=== PATIENT | female | born 1935 | race Native Hawaiian/Other Pacific Islander ===

== ENCOUNTER → 2024-12-09 | Outpatient (CLI) | payer MEDICARE, MEDICAID, SELFPAY ==
--- NOTE | 2024-12-09 11:47 | EKG_ITS ---
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
[2024-12-09 12:05] LABS: Basophils # (Auto) 0.1 Thou/mm3 (0.0-0.2); Basophils % (Auto) 1 % (0-2.5); Eosinophils # (Auto) 0.1 Thou/mm3 (0.0-0.5); Eosinophils % (Auto) 2 % (0-10); Hemoglobin 11.2 g/dL (12.0-16.0); Immature Granulocytes % (Auto) 0 % (0-0); Immature Granulocytes Auto 0.01 Thou/mm3 (0.00-0.00); Lymphocytes # (Auto) 1.2 Thou/mm3 (1.0-4.8); Lymphocytes % (Auto) 21 % (10-50); Mean Corpuscular HGB Conc 31.1 g/dl (31.0-37.0); Mean Corpuscular Hemoglobin 22.6 pg (25.0-35.0); Mean Corpuscular Volume 73 fL (80-100); Monocytes # (Auto) 0.5 Thou/mm3 (0.0-0.8); Monocytes % (Auto) 10 % (0-12); Neutrophils # (Auto) 3.7 Thou/mm3 (1.8-7.7); Neutrophils % (Auto) 66 % (37-80); Nucleated Red Blood Cell % 0 /100 WBC (0); Platelet Count 255 Thou/mm3 (140-440); RDW Standard Deviation 39.8 fL (36.4-46.3); Red Blood Count 4.96 Miln/mm3 (4.00-5.20); White Blood Count 5.5 Thou/mm3 (3.6-11.0)
[2024-12-09 12:12] LABS: Prothrombin Time 10.9 Seconds (9.0-12.2)
[2024-12-09 12:18] LABS: Alanine Aminotransferase 22 U/L (10-49); Albumin, Serum 4.2 gm/dL (3.4-4.8); Albumin/Globulin Ratio 1.2 (1.2-2.2); Alkaline Phosphatase 40 U/L (46-116); Anion Gap 8 (7-16); Aspartate Amino Transferase 49 U/L (0-34); BUN/Creatinine Ratio 22 Ratio (12-20); Bilirubin,Total 0.6 mg/dL (0.3-1.2); Blood Urea Nitrogen 24 mg/dL (9-23); Carbon Dioxide 27.7 mMol/L (20.0-31.0); Chloride 106 mMol/L (98-107); Creatinine (Component) 1.1 mg/dL (0.6-1.3); Globulin 3.5 gm/dL (2.3-3.5); Glucose 116 mg/dL (74-106); Osmolality,Calculated 288 (275-295); Potassium 5.9 mMol/L (3.4-5.1); Sodium 142 mMol/L (136-145); Total Protein 7.7 gm/dL (5.7-8.2); eGFR 48 See Note
== END | disposition home or self-care (01) ==
LOC: COPL 10:46
PROVIDERS: PCP Internal Medicine; Referring Provider Surgery Vascular Surgery; Visit Provider Surgery Vascular Surgery
DX: Z01.818 Encounter for other preprocedural examination (principal); I73.9 Peripheral vascular disease, unspecified; Z79.01 Long term (current) use of anticoagulants
CPT/HCPCS: 36415; 80053; 85025; 85610; 85730; 93005

== ENCOUNTER → 2024-12-20 | Outpatient (CLI) | payer MEDICARE, MEDICAID, SELFPAY ==
[2024-12-20 11:45] LABS: Collection Type, Urine Clean Catch
[2024-12-20 12:04] LABS: Basophils # (Auto) 0.1 Thou/mm3 (0.0-0.2); Basophils % (Auto) 2 % (0-2.5); Eosinophils # (Auto) 0.2 Thou/mm3 (0.0-0.5); Eosinophils % (Auto) 3 % (0-10); Hematocrit 34.1 % (36.0-46.0); Immature Granulocytes % (Auto) 0 % (0-0); Immature Granulocytes Auto 0.01 Thou/mm3 (0.00-0.00); Lymphocytes # (Auto) 1.3 Thou/mm3 (1.0-4.8); Lymphocytes % (Auto) 27 % (10-50); Mean Corpuscular HGB Conc 32.3 g/dl (31.0-37.0); Mean Corpuscular Hemoglobin 23.1 pg (25.0-35.0); Mean Corpuscular Volume 72 fL (80-100); Monocytes # (Auto) 0.5 Thou/mm3 (0.0-0.8); Monocytes % (Auto) 10 % (0-12); Neutrophils # (Auto) 2.9 Thou/mm3 (1.8-7.7); Neutrophils % (Auto) 58 % (37-80); Nucleated Red Blood Cell % 0 /100 WBC (0); Platelet Count 216 Thou/mm3 (140-440); RDW Standard Deviation 38.7 fL (36.4-46.3); Red Blood Count 4.76 Miln/mm3 (4.00-5.20); White Blood Count 4.9 Thou/mm3 (3.6-11.0)
[2024-12-20 12:15] LABS: Bacteria,Urine 1+; Bilirubin,Urine Negative (Negative); Blood,Urine Negative (Negative); Clarity,Urine Clear (Clear/Hazy); Color,Urine Lt-Yellow (Lt Yel-Yel); Glucose, Urine Negative (Negative); Ketones,Urine Negative (Negative); Leukocyte Esterase,Urine Positive (Negative); Nitrite,Urine Positive (Negative); PH,Urine 6.5 (5.0-7.0); Protein,Urine Trace (Neg - Trace); RBC,Urine 3 /hpf (0-3); Specific Gravity,Urine 1.014 (1.001-1.035); Squamous Epithelial Cell,Urine 1 /hpf (0-5); Urobilinogen,Urine Negative mg/dL (0.0-1.0); WBC,Urine 11 /hpf (0-5)
[2024-12-20 12:25] LABS: Alanine Aminotransferase 20 U/L (10-49); Albumin, Serum 4.1 gm/dL (3.4-4.8); Albumin/Globulin Ratio 1.4 (1.2-2.2); Alkaline Phosphatase 39 U/L (46-116); Anion Gap 6 (7-16); Aspartate Amino Transferase 34 U/L (0-34); BUN/Creatinine Ratio 21 Ratio (12-20); Bilirubin,Total 0.7 mg/dL (0.3-1.2); Blood Urea Nitrogen 23 mg/dL (9-23); Calcium 9.2 mg/dL (8.3-10.6); Calcium (Corrected) 9.2 mg/dL (8.5-10.1); Carbon Dioxide 28.9 mMol/L (20.0-31.0); Cardiac Risk Estimate 4.1 RATIO (3.7-5.6); Chloride 105 mMol/L (98-107); Cholesterol 251 mg/dL (132-200); Creatinine (Component) 1.1 mg/dL (0.6-1.3); Free T4 (Free Thyroxine) 1.27 ng/dL (0.89-1.76); Glucose 105 mg/dL (74-106); HDL Cholesterol 61 mg/dL (40-60); LDL Cholesterol,Calculated 158 mg/dL (0-130); Osmolality,Calculated 283 (275-295); Potassium 4.8 mMol/L (3.4-5.1); Sodium 140 mMol/L (136-145); Thyroid Stimulating Hormone 14.13 uIU/mL (0.55-4.78); Total Protein 7.1 gm/dL (5.7-8.2); Triglycerides 159 mg/dL (30-150); eGFR 48 See Note
== END | disposition home or self-care (01) ==
PROVIDERS: PCP Internal Medicine; Referring Provider Internal Medicine; Visit Provider Internal Medicine
DX: I10 Essential (primary) hypertension (principal); D50.0 Iron deficiency anemia secondary to blood loss (chronic)
CPT/HCPCS: 36415; 80053; 80061; 81001; 84439; 84443; 85025

== ENCOUNTER → 2024-12-31 | Outpatient (CLI) | payer MEDICARE, MEDICAID, SELFPAY ==
[2024-12-31 14:17] LABS: Alanine Aminotransferase 15 U/L (10-49); Albumin, Serum 4.1 gm/dL (3.4-4.8); Albumin/Globulin Ratio 1.2 (1.2-2.2); Anion Gap 10 (7-16); Aspartate Amino Transferase 29 U/L (0-34); BUN/Creatinine Ratio 22 Ratio (12-20); Bilirubin,Total 0.5 mg/dL (0.3-1.2); Blood Urea Nitrogen 29 mg/dL (9-23); Calcium 9.3 mg/dL (8.3-10.6); Calcium (Corrected) 9.3 mg/dL (8.5-10.1); Carbon Dioxide 26.2 mMol/L (20.0-31.0); Chloride 102 mMol/L (98-107); Creatinine (Component) 1.3 mg/dL (0.6-1.3); Globulin 3.4 gm/dL (2.3-3.5); Glucose 86 mg/dL (74-106); Osmolality,Calculated 280 (275-295); Potassium 4.9 mMol/L (3.4-5.1); Sodium 138 mMol/L (136-145); Total Protein 7.5 gm/dL (5.7-8.2); eGFR 40 See Note
[2024-12-31 14:42] LABS: Alkaline Phosphatase 43 U/L (46-116)
== END | disposition home or self-care (01) ==
PROVIDERS: PCP Internal Medicine; Referring Provider Internal Medicine; Visit Provider Internal Medicine
DX: E78.6 Lipoprotein deficiency (principal)
CPT/HCPCS: 36415; 80053

== ENCOUNTER 2025-01-14 17:09 | Inpatient (IN) | payer MEDICARE, MEDICAID, SELFPAY ==
[2025-01-14] VITALS (10 sets, daily range): BP systolic 92–150; BP diastolic 53–88; PULSE 28–78; RESP 16–24; TEMP 36.9–37; O2SAT 95–99
--- NOTE | 2025-01-14 17:14 | EKG_ITS ---
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
--- NOTE | 2025-01-14 17:14 | XR_ITS ---
EXAMINATION: XR chest 1V portable ORDERING PROVIDER: José Gordon MD HISTORY: CHEST PAIN TECHNIQUE: Single portable AP radiograph of the chest. COMPARISON: 04/28/2022, chest radiographs. FINDINGS: Lines and Tubes: Monitoring leads. Metallic neck less. Lungs: Diffuse decreased density. Mild linear opacities right greater than left mid and lower lung pinon. Increased interstitial reticular-nodular markings. Pleura: No pneumothorax or pleural effusion. Cardiomediastinal Silhouette: Mild cardiomegaly. Uncoiled aorta. Calcifications aortic arch. Soft Tissues/Bones: Diffuse osteopenia. Old healed right posterior lateral ninth rib fracture. Small calcification again seen right axilla. Rounded 1.2 cm soft tissue opacity overlying the right upper quadrant, likely prominent nipple shadow. IMPRESSION: Diffuse increased reticular nodular opacities with bilateral right greater than left mid to lower lung linear opacities. This may represent viral and/or other atypical infection. Background significant emphysema.
--- NOTE | 2025-01-14 17:17 | PD.EDADULT ---
ED General RME/HPI General Chief complaint: Syncope / Near Syncope Stated complaint: SYNCOPE Time Seen by Provider: 01/14/25 17:13 Arrival date/time: 01/14/25 17:09 RME / HPI RME / HPI narrative: Patient's brought in by EMS they were called to the home for diabetic problem but when they got there they found her heart rate to be 28, they evidently gave her atropine and her heart rate went up to 78 and a rhythm strip showed sinus rhythm at that point. Unfortunately were unable to capture the bradycardia. Patient was transported here without any chest pain or other problem and no recurrence of the bradycardia There is no fever vomiting diarrhea there is no other complaint or problem she is evidently diabetic. Patient speaks a little Sudanese seems understand things and no family is present at the initial evaluation Related Data Home Medications ?Medication ?Instructions ?Recorded ?Confirmed aspirin 81 mg tablet,delayed 81 mg PO QDAY 05/19/21 03/30/22 release cilostazol 50 mg tablet 50 mg PO BID 05/19/21 03/30/22 ferrous sulfate 325 mg (65 mg 325 mg PO BID 05/19/21 03/30/22 iron) tablet gabapentin 100 mg tablet 100 mg PO QDAY 05/19/21 03/30/22 levothyroxine 100 mcg tablet 100 mcg PO QDAY 05/19/21 03/30/22 multivitamin-ferrous 1 tab PO QAM 05/19/21 03/30/22 fumarate-folic acid 18 mg-400 mcg tablet spironolactone 25 mg tablet 12.5 mg PO QDAY 05/19/21 03/30/22 carvedilol 3.125 mg tablet 1 tab PO BID 03/30/22 03/30/22 diclofenac sodium 75 mg 75 mg PO QDAY 03/30/22 03/30/22 tablet,delayed release Previous Rx's ?Medication ?Instructions ?Recorded amoxicillin 500 mg-potassium 1 tab PO BID #20 tabs 03/29/22 clavulanate 125 mg tablet (Augmentin) Allergies Allergy/AdvReac Type Severity Reaction Status Date / Time No Known Allergies Allergy Verified 05/20/21 14:26 Review of Systems Review of Systems ROS Unobtainable: other (Language barrier hoping family will come and fill this in soon) ED Exam Narrative Physical exam: Physical Exam: General: The vital signs were reviewed. Patient small stature understand some Sudanese follows commands has a sinus rhythm on the monitor at but the gurney at bedside in the ambulance bay the patient is non-toxic, in no apparent distress and appears healthy with a patent airway, no respiratory distress and has no apparent circulatory problems. Head & Scalp: Normocephalic, atraumatic. Face: Appears normal and is without lesions, deformity. Ears: Left external pinna appears normal. Right external pinna appears normal. Eyes: The sclera is anicteric. No obvious photophobia. The Left and Right Orbit/Lid/Conjunctiva appears normal without swelling, discoloration or injection. Nose: The nose is without deformity, discharge or tenderness; Throat: Appears normal. The mucous membranes are pink and moist without exudates, redness or mass seen. The tongue appears normal. Neck: The neck is supple and no apparent mass or adenopathy. Chest: The chest wall is normal in size and symmetry and has no chest wall tenderness or crepitus. The patient displays normal ventilator effort without retractions, accessory muscle use and has adequate air movement bilaterally with no wheezes and no rales. Cardiovascular: Regular rate and rhythm; No murmurs, rubs, or gallops; Gastrointestinal: The abdomen appears normal. No obvious hernias or mass. The abdomen is soft and benign, non-distended, with no pain, no guarding and no rebound tenderness. Bowel sounds are present and normal sounding. No CVA tenderness. Genitourinary: Back/Spine: Normal inspection Extremities/Musculoskeletal/lymphatic: Should be noted the patient is pointing to her feet and cannot quite understand what she is saying but she is got some callus formation but there is no breakdown there is no erythema there is some hyperpigmentation possible resolving ecchymosis to the left foot just distal to the metatarsals at the phalanx metatarsal area. There is no pain with movement or palpation. There is no break in the skin The bilateral upper and lower extremities are warm. There is no evidence of arterial insufficiency. There is no evidence of venous insufficiency/edema. The patient spontaneously moves bilateral upper and lower extremities with no pain and no limitation of movement. There is no apparent, injury or trauma. Skin: The skin is warm, dry and intact. No rashes. No petechia. No purpura. No abnormal bruising. The color is appropriate with no cyanosis. Mental status/Psychiatric: Mental status is appropriate for age. The patient has no apparent delusions, visual hallucinations, no apparent audible hallucinations. The patient has no apparent suicidal thoughts/ideation and no apparent homicidal thoughts/ideation. Neurological: The patient is awake, alert, interactive, cordial, cooperative and is oriented to name and situation. The patient follows commands and answers historical question with no impairment. There is no visual disturbance apparent. The pupils are equal and reactive bilaterally with normal eye movements and no diplopia The bilateral upper and lower extremities have normal strength, normal range of motion and normal functioning. The gait, station and balance were not tested due to acuity Course Quality Measures none Orders Category Date Time Status EKG (ED ONLY) *Do not use* NOW Care 01/14/25 17:14 Active EKG (ED Only) Stat Exams 01/14/25 17:14 Draft XR chest 1V portable Stat Exams 01/14/25 17:14 Ordered B-Type Natriuretic Peptide Stat Lab 01/14/25 17:14 Ordered CBC Stat Lab 01/14/25 17:14 Ordered Comprehensive Metabolic Panel Stat Lab 01/14/25 17:14 Ordered Lactate (Lactic Acid) Stat Lab 01/14/25 17:14 Ordered Lipase Stat Lab 01/14/25 17:14 Ordered Magnesium Stat Lab 01/14/25 17:14 Ordered Partial Thromboplastin Time Stat Lab 01/14/25 17:14 Ordered Prothrombin Time with INR Stat Lab 01/14/25 17:14 Ordered Troponin I Stat Lab 01/14/25 17:14 Ordered Urinalysis Stat Lab 01/14/25 17:14 Ordered Urinalysis, C/S if Indicated Stat Lab 01/14/25 17:14 Ordered Venous Blood Gas Stat Lab 01/14/25 17:14 Ordered Vital Signs Vital signs: Vital Signs Temperature 98.6 F 01/14/25 17:22 Pulse Rate 67 01/14/25 17:22 Respiratory Rate 20 01/14/25 17:22 Blood Pressure 150/88 H 01/14/25 17:22 Pulse Oximetry (%) 96 01/14/25 17:22 Oxygen Delivery Method Room Air 01/14/25 17:22 [facility] Patient data External records reviewed:: Other (specify) Clinical information provided by:: patient and EMS Social determinants that could affect healthcare access:: none Patient has the following chronic illnesses:: Diabetes How is presenting disease/condition affected by chronic disease/condition?: uneffected by Evaluation data The following diagnostics were reviewed and interpreted by me:: EKG tracing(s) (Rhythm strip from EMS reveals a sinus rhythm rate [address] elevation [place] on their twelve-lead there is a right bundle branch block which is also present on our twelve-lead EKG reveals a sinus rhythm rate [address] elevation [place]. There are some motion artifact in the precordial leads.) Lab and/or radiology exams considered but not ordered:: None on initial eval Interpretation Summary: Bradycardia etiology unclear Medications Medications considered but not ordered:: None at this time Medication administrations:: None at this time. Consultations Consultation(s) initiated? (list below): No Diagnosis Differential Diagnosis ED Complaint MDM: Bradycardia heart block DE Most likely diagnosis given after review of the tests above:: See MDM above Admission Indicated Admission indicated?: not indicated (Waiting for workup.) Explain why admission is indicated or not indicated:: Workup is pending. Admission Request Was there a request for admission?: No Disposition Plan Disposition Plan: other (specify) (Medical workup is pending at 1730 hrs. and care will go to the oncoming doctor at 1800 hrs.) Medical Decision Making MDM Narrative MDM Narrative: Patient is brought in by EMS found to have a rhythm of 28 which they believe was a sinus bradycardia unfortunately have no rhythm strips to document this. Treated with atropine and her heart rate came up and she has no symptoms at the present time. Family is not here at 1721 hrs. but a cardiac workup is ordered and pending. EMS reports there was no syncopal event otherwise just general weakness complaint at the time of their arrival. Care of this patient will go to the oncoming doctor at 1800 hrs. Differential Diagnosis Differential Diagnosis: Bradycardia heart block DE Discharge Plan Prescriptions/Referrals Prescriptions/Med Rec: No Action cilostazol 50 mg Tablet 50 mg PO BID aspirin 81 mg Tablet,Delayed Release (Dr/Ec) 81 mg PO QDAY spironolactone 25 mg Tablet 12.5 mg PO QDAY levothyroxine 100 mcg Tablet 100 mcg PO QDAY ferrous sulfate 325 mg (65 mg iron) Tablet 325 mg PO BID gabapentin 100 mg Tablet 100 mg PO QDAY nzimtlmchlkw-mqoe-yxfyy acid 18-400 mg-mcg Tablet 1 tab PO QAM amoxicillin-pot clavulanate [Augmentin] 500-125 mg tablet 1 tab PO BID Qty: 20 0RF carvedilol 3.125 mg tablet 1 tab PO BID Patient Comments: TAKE 1 TABLET BY MOUTH TWICE A DAY diclofenac sodium 75 mg tablet,delayed release (DR/EC) 75 mg PO QDAY Patient Comments: TAKE 1 TABLET BY MOUTH EVERY DAY NEEDED WITH FOOD Problem List Clinical Impression: Bradycardia Patient/Caregiver Discharge Instructions Print Language: dutch moss)
[2025-01-14 17:44] LABS: Base Excess, Venous 1 (-3-3); O2 Saturation, Venous 95 % (96-97); PCO2, Venous 34 mmHg (36-56); PO2, Venous 68 mmHg (15-58); pH, Venous 7.47 (7.33-7.66)
[2025-01-14 17:45] LABS: Lactate (Lactic Acid) 1.2 mMol/L (0.4-2.0)
[2025-01-14 17:46] LABS: Basophils # (Auto) 0.1 Thou/mm3 (0.0-0.2); Basophils % (Auto) 1 % (0-2.5); Eosinophils # (Auto) 0.1 Thou/mm3 (0.0-0.5); Eosinophils % (Auto) 1 % (0-10); Hematocrit 33.8 % (36.0-46.0); Hemoglobin 10.8 g/dL (12.0-16.0); Immature Granulocytes % (Auto) 0 % (0-0); Immature Granulocytes Auto 0.01 Thou/mm3 (0.00-0.00); Lymphocytes % (Auto) 13 % (10-50); Mean Corpuscular Volume 72 fL (80-100); Monocytes # (Auto) 0.5 Thou/mm3 (0.0-0.8); Monocytes % (Auto) 7 % (0-12); Neutrophils # (Auto) 5.6 Thou/mm3 (1.8-7.7); Neutrophils % (Auto) 78 % (37-80); Nucleated Red Blood Cell % 0 /100 WBC (0); Platelet Count 180 Thou/mm3 (140-440); RDW Standard Deviation 37.4 fL (36.4-46.3); White Blood Count 7.2 Thou/mm3 (3.6-11.0)
[2025-01-14 18:01] LABS: Partial Thromboplastin Time 25.8 Seconds (22.0-36.0); Prothrombin Time 10.9 Seconds (9.0-12.2)
[2025-01-14 18:04] LABS: B-Type Natriuretic Peptide 250 pg/mL (0-100)
[2025-01-14 18:22] LABS: Alanine Aminotransferase 208 U/L (10-49); Albumin/Globulin Ratio 1.2 (1.2-2.2); Alkaline Phosphatase 108 U/L (46-116); Anion Gap 6 (7-16); Aspartate Amino Transferase 242 U/L (0-34); BUN/Creatinine Ratio 18 Ratio (12-20); Bilirubin,Total 0.5 mg/dL (0.3-1.2); Blood Urea Nitrogen 29 mg/dL (9-23); Calcium 8.4 mg/dL (8.3-10.6); Calcium (Corrected) 8.4 mg/dL (8.5-10.1); Carbon Dioxide 26.3 mMol/L (20.0-31.0); Chloride 106 mMol/L (98-107); Creatinine (Component) 1.6 mg/dL (0.6-1.3); Globulin 3.3 gm/dL (2.3-3.5); Glucose 137 mg/dL (74-106); Lipase 58 U/L (12-53); Magnesium 2.2 mg/dL (1.6-2.6); Osmolality,Calculated 283 (275-295); Potassium 5.9 mMol/L (3.4-5.1); Sodium 138 mMol/L (136-145); Total Protein 7.3 gm/dL (5.7-8.2); Troponin I < 0.020 ng/mL (0.0-0.045); eGFR 31 See Note
--- NOTE | 2025-01-14 19:33 | EDNOTE_ITS ---
Emergency Room Addendum <Ana Casillas MD - Last Filed: 01/15/25 05:52> Addendum Narrative: [address] Fitch the previous shift emergency physician. Past medical, surgical, social and family history reviewed. Vitals and home medications reviewed. Results and treatment plan discussed. I will assume the care of the patient at this time and will follow the patient, pending reevaluation. I talked with daughter and it appears that the patient just does not want to get out of bed and has been eating less the last few days. She did see her primary care a few days ago in which they did an ultrasound however in the last 48 hours she just does not want a urinate as much. Likely patient is slightly dehydrated. 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 Differential diagnosis includes dehydration, electrolyte abnormality, failure to thrive. <Radha Storm - Last Filed: 01/15/25 02:09> Addendum Narrative: 1800: Care assumed from Dr. Gordon, the previous shift emergency physician. Past medical, surgical, social and family history reviewed. Vitals and home medications reviewed. Results and treatment plan discussed. I will assume the care of the patient at this time and will follow the patient, pending re- evaluation. Please refer to the emergency department record for history and examination from initial visit. I talked with daughter and it appears that the patient just does not want to get out of bed and has been eating less the last few days. She did see her primary care a few days ago in which they did an ultrasound however in the last 48 hours she just does not want a urinate as much. Likely patient is slightly dehydrated. 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 Differential diagnosis includes dehydration, electrolyte abnormality, failure to thrive. 2359: Patient is resting comfortably. Patient's HR went down to 39-40 and when woken up, it went up to 60. Repeat BMP and EKG ordered. EKG done at 0100, sinus bradycardia with arrhythmia, rate of 55, no second or third degree blocks, RBBB, similar to previous EKG done at 1723, according to my interpretation. Repeat BMP shows an improved Potassium of 5.2 (was 5.9). Patient continues to have periods where her HR drops to the 30s while she is sleeping. Will consult an admission to the hospitalist. 0205: Discussed case with Dr. Bermudez, attending physician Dr. Elizondo from Hospitalist service regarding admission. Discussed patients ED course, exam findings, labs, and radiology results. The Hospitalist [agrees] to accept the patient for admission. RADIOLOGY RESULTS: [facility] Report Signed Patient: JEAN-PAUL CHAVEZ. Record#: [id number] Birthdate: 1935 Age/Sex: 89 / F Location: [facility] Attending Dr: Ordering Physician: José Gordon MD Date of Service: 01/14/25 Procedure(s): XR chest 1V portable Accession Number(s): [id number] cc: Usman Martinez MD; José Gordon MD; NO PRIMARY/FAMILY,PHYSICIAN~ EXAMINATION: XR chest 1V portable ORDERING PROVIDER: José Gordon MD HISTORY: CHEST PAIN TECHNIQUE: Single portable AP radiograph of the chest. COMPARISON: 04/28/2022, chest radiographs. FINDINGS: Lines and Tubes: Monitoring leads. Metallic neck less. Lungs: Diffuse decreased density. Mild linear opacities right greater than left mid and lower lung pinon. Increased interstitial reticular-nodular markings. Pleura: No pneumothorax or pleural effusion. Cardiomediastinal Silhouette: Mild cardiomegaly. Uncoiled aorta. Calcifications aortic arch. Soft Tissues/Bones: Diffuse osteopenia. Old healed right posterior lateral ninth rib fracture. Small calcification again seen right axilla. Rounded 1.2 cm soft tissue opacity overlying the right upper quadrant, likely prominent nipple shadow. IMPRESSION: Diffuse increased reticular nodular opacities with bilateral right greater than left mid to lower lung linear opacities. This may represent viral and/or other atypical infection. Background significant emphysema. Dictated By: Usman Martinez MD Signed By: <Electronically signed by Usman Martinez MD in OV> 01/14/25 [id number] Critical Care Time: 45 minutes The high probability of sudden, clinically significant deterioration in the patient?s condition required the highest level of my preparedness to intervene urgently. The services I provided to this patient were to treat and/or prevent clinically significant deterioration. Services included the following: chart data review, reviewing nursing notes and/or old charts, documentation time, networks software consultant collaboration regarding findings and treatment options, medication orders and management, direct patient care, vital sign assessments and ordering, interpreting and reviewing diagnostic studies and lab tests. Aggregate critical care time includes only time during which I was engaged in work directly related to the patient?s care, as described above, whether at bedside or elsewhere in the Emergency Department. It did not include time spent performing other reported procedures or the services of residents, students, nurses or physician assistants.
[2025-01-14] MEDS: SOD POLYSTYRENE SULFON SUSP 15 GM/60 ML BTL 30 GM PO (20:07)
[2025-01-14] MEDS: CALCIUM GLUCONATE 10% INJ 1 GM/10 ML VIAL IV (20:09)
[2025-01-14] MEDS: INSULIN HUM REGULAR 1 UNIT/0.01 ML (PER UNIT) 5 UNIT IV (20:09)
[2025-01-14] MEDS: DEXTROSE 50%-WATER INJ 50 ML SYRINGE 25 ML IV ×2 (20:26→22:29)
[2025-01-14 20:52] LABS: Collection Type, Urine Clean Catch
[2025-01-14 21:01] LABS: Bacteria,Urine Rare; Bilirubin,Urine Negative (Negative); Blood,Urine Negative (Negative); Clarity,Urine Turbid (Clear/Hazy); Color,Urine Lt-Yellow (Lt Yel-Yel); Glucose, Urine Negative (Negative); Ketones,Urine Negative (Negative); Leukocyte Esterase,Urine Positive (Negative); Nitrite,Urine Positive (Negative); PH,Urine 7.5 (5.0-7.0); Protein,Urine 1+ (Neg - Trace); RBC,Urine 2 /hpf (0-3); Specific Gravity,Urine 1.014 (1.001-1.035); Squamous Epithelial Cell,Urine 1 /hpf (0-5); Urobilinogen,Urine Negative mg/dL (0.0-1.0); WBC,Urine 8 /hpf (0-5)
[2025-01-14 21:05] LABS: Culture Indicated,Urine Yes
[2025-01-15] VITALS (9 sets, daily range): BP systolic 136–173; BP diastolic 59–94; PULSE 42–79; RESP 14–23; TEMP 36.1–36.6; O2SAT 96–98; BMI 13.0
--- NOTE | 2025-01-15 00:10 | EKG_ITS ---
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
--- NOTE | 2025-01-15 00:24 | PC.NURSE ---
family requested to change pt themselves. supplies given.
[2025-01-15 01:02] LABS: Anion Gap 9 (7-16); BUN/Creatinine Ratio 20 Ratio (12-20); Blood Urea Nitrogen 28 mg/dL (9-23); Calcium 9.7 mg/dL (8.3-10.6); Carbon Dioxide 27.5 mMol/L (20.0-31.0); Chloride 106 mMol/L (98-107); Creatinine (Component) 1.4 mg/dL (0.6-1.3); Glucose 127 mg/dL (74-106); Osmolality,Calculated 290 (275-295); Potassium 5.2 mMol/L (3.4-5.1); Sodium 142 mMol/L (136-145); eGFR 36 See Note
--- NOTE | 2025-01-15 01:30 | PC.NURSE ---
Pt Granddaughter removed from room. after yelling at the nurse and the pt. pt was requesting family and documenting nurse to change pt together. granddaughter started arguing with the granddaughter saying im tired, just let her change you or im leaving you alone to go home and sleep . Documenting nurse stepped in the conversation advocating for the patient stating your grandmother wants you to help change her, you dont need to give her attitude . pt granddaughter started yelling at the documenting nurse saying you dont know me, You dont know my life. going on about how shes not giving an attitude. granddaughter then turns to the patient im going to leave you here alone Documenting nurse told the grand daughter to leave or security was going to be called. grand daughter then replied to documenting nurse. what now i cant talk to my grandmother . documenting nurse called security. Granddaughter proceeds to ignore nurse and talk to the pt saying the nurse is going to change you and that the hospital can call her for updates.
--- NOTE | 2025-01-15 01:54 | PC.NURSE ---
Pt changed and educated on how to use the light if she needs help or to be changed again
--- NOTE | 2025-01-15 02:58 | ESHP_ITS ---
<Statement entered by Reena Elizondo MD - 01/17/25 04:34> I reviewed above note and agree with findings and plans. I have also personally examined the patient with medicine team and went over assessment and plan with medical team including international specialist and resident physician. Documentation for date of: 01/15/25 HPI History of Present Illness History of present illness: HPI is limited as patient is poor historian and most of history obtained through chart review and speaking with daughter Branden is a 89 y/o female with PMHx of hypertension, xyh-glertii-lztzlfdfv type 2 diabetes, hypothyroidism who comes in for an evaluation of generalized weakness and fatigue. Per daughter, patient has been feeling weak over the past couple of days. They went to go to the primary care doctor on Monday and was found to have a UTI. She was prescribed antibiotics, however they were not ready and they were not picked up until today. While she was at home today, patient apparently had passed out and was being unresponsive in which family was prompted to call 911. Family denies anything like this ever happening before. She sees her statistical programmer analyst Dr. Batres and has not seen her in over a year. Per daughter, she is unsure how long the patient has had bradycardia for, and does not think her statistical programmer analyst is aware that the patient has bradycardia. She denies any recent travel. Denies any chest pain, shortness of breath, vomiting however patient daughter endorses patient has been having diarrhea and increased urinary frequency. She also says that patient's poor oral intake has been going on for some time now and they have been supplementing her with Ensure protein drinks. She denies a history of seizures. No other complaints at this time ED course: Patient arrived to the ED afebrile, blood pressure 150/68, saturating 96% on room air, heart rate 67, respiratory of 20. Of note, patient was given IV atropine 5 mg as her heart rate was as low as 29. She was worked up was found to have a sodium of 138, potassium 5.9, bicarb 26, BUN/creatinine of 29 and 1.6, glucose of 137, white count 7.2, hemoglobin 10.8, platelets 180, VBG pH 7.47, CO2 34, O2 68. Troponin negative x 1, BNP 250, lipase 58, AST and ALT 292 and 208 respectively, calcium 8.4, urinalysis showed plus nitrate, leukocyte Estrace, 8 white cells, rare bacteria. First EKG was done which showed sinus rhythm and right bundle branch block, rate in the 70s. Second EKG was done and showed sinus bradycardia, heart rate 55 with right bundle branch block. Patient was given Kayexalate 30 g, insulin 5 units IV, and calcium gluconate 1 g. Medicine was consulted and patient admitted to floors. Past medical history: As above Surgical history: Thyroidectomy for possible evaluation of goiter/cancer? Allergies: No known allergies Medicines: Synthroid 100 mcg, gabapentin 100 mg,? Pending med rec Family hx: Limited Social history: Born in [place], lives in [place]. No history of alcohol, smoking history or drug use Review of Systems Review of Systems Narrative Review of Systems: Constitutional: No fever, chills, weight loss, + fatigue and weakness HEENT: No eye pain, vision loss, ear pain, hearing loss, dysphagia, Cardiovascular: No chest pain, palpitations, edema, pain with walking Respiratory: No cough, shortness of breath, wheezing GI: No NV, abdominal pain, constipation, blood in stool, heartburn, +diarrhea and loss of appetite Extremities: No presence of pitting edema MSK: No back pain, joint pain, joint swelling Neuro: No dizziness, numbness, weakness, headaches, seizures, tremors Psych: No anxiety, depression Exam Vital Signs Temp Pulse Resp BP Pulse Ox O2 Del Method 98.4 F 53 L 23 H 154/72 H 97 Room Air 01/14/25 19:52 01/15/25 00:00 01/15/25 00:00 01/15/25 00:00 01/15/25 00:00 01/14/25 21:52 Narrative Exam General: AAOx3, NAD, frail, elderly woman, speaks some northern irish HEENT: dry mucous membranes, conjunctiva clear, EOMI, PERRLA, Cardiovascular: S1, S2, radial pulses +2 bilat, bradycardia Pulmonary: CTAB bilat no cough, no wheezing GI: No tenderness to light or deep palpitation, no guarding, rigidity, rebound tenderness or distension Extremities: No presence of trace or pitting edema in lower extremities bilaterally, dorsalis pedis pulses +2 bilaterally, prominent LE veins and venous stasis bilat Neuro: AAOx3, no focal motor or sensory deficits in the UE or LE bilat Psych: Cooperative Results: Labs 01/15/25 05:45 01/15/25 05:45 Labs: Short CBC 01/14/25 Range/Units 17:30 WBC 7.2 (3.6-11.0) Thou/mm3 Hgb 10.8 L (12.0-16.0) g/dL Hct 33.8 L (36.0-46.0) % Plt Count 180 D (140-440) Thou/mm3 BMP 01/14/25 01/15/25 17:30 00:38 Sodium 138 142 Potassium 5.9 H 5.2 H D Chloride 106 106 Carbon Dioxide 26.3 27.5 BUN 29 H 28 H Creatinine 1.6 H 1.4 H Glucose 137 H 127 H Calcium 8.4 9.7 Cardiac Enzymes 01/14/25 Range/Units 17:30 Troponin I < 0.020 (0.0-0.045) ng/mL Liver Function 01/14/25 Range/Units 17:30 Total Bilirubin 0.5 (0.3-1.2) mg/dL AST 242 H (0-34) U/L ALT 208 H (10-49) U/L Alkaline Phosphatase 108 (46-116) U/L Albumin 4.0 (3.4-4.8) gm/dL Urine 01/14/25 Range/Units 20:45 Urine Color Lt-Yellow (Lt Yel-Yel) Urine Clarity Turbid A (Clear/Hazy) Urine pH 7.5 H (5.0-7.0) Ur Specific [place] 1.014 (1.001-1.035) Urine Protein 1+ A (Neg - Trace) Urine Glucose (UA) Negative (Negative) ABG Interpretation ABG results: 01/14/25 17:30 VBG pH 7.47 VBG pCO2 34 L VBG pO2 68 H VBG Base Excess 1 Quality Measures Quality Measures none Advance care planning discussed with:: patient and child Medications Home Medications and Allergies Home Medications ?Medication ?Instructions ?Recorded ?Confirmed ?Type aspirin 81 mg tablet,delayed 81 mg PO QDAY 05/19/21 History release cilostazol 50 mg tablet 50 mg PO BID 05/19/21 History ferrous sulfate 325 mg (65 mg 325 mg PO BID 05/19/21 0 03/30/22 History iron) tablet gabapentin 100 mg tablet 100 mg PO QDAY 05/19/21 05/2 03/27 History levothyroxine 100 mcg tablet 100 mcg PO QDAY 05/19/21 03/30/22 History multivitamin-ferrous 1 tab PO QAM 05/19/21 History fumarate-folic acid 18 mg-400 mcg tablet spironolactone 25 mg tablet 12.5 mg PO QDAY 05/19/21 0 03/30/22 History carvedilol 3.125 mg tablet 1 tab PO BID 03/30/2203/30 History diclofenac sodium 75 mg 75 mg PO QDAY 03/30/2203/30 History tablet,delayed release Allergies Allergy/AdvReac Type Severity Reaction Status Date / Time No Known Allergies Allergy Verified 05/20/21 14:26 Visit Medications Dextrose (Dextrose 50%-Water Inj 50 Ml Syringe) 25 ml IV Q15MIN PRN PRN Reason: BG 50-70 responsive npo pt Stop: 02/13/25 19:50 Last Admin: 01/14/25 22:29 Dose: 25 ml Dextrose (D10w 1000 Ml) 1,000 mls @ 100 mls/hr IV .Q10H BERE Stop: 01/15/25 05:59 Last Admin: 01/14/25 20:28 Dose: Not Given Discontinued Medications Calcium Gluconate (Calcium Gluconate 10% Inj 1 Gm/10 Ml Vial) 1 gm IV X1 ONE Stop: 01/14/25 19:42 Last Admin: 01/14/25 20:09 Dose: 1 gm Insulin Human Regular (Insulin Hum Regular 1 Unit/0.01 Ml (Per Unit)) 5 unit IV X1 ONE Stop: 01/14/25 19:52 Last Admin: 01/14/25 20:09 Dose: 5 unit Sodium Polystyrene Sulfonate (Sod Polystyrene Sulfon Susp 15 Gm/60 Ml Btl) 30 gm PO X1 ONE Stop: 01/14/25 19:52 Last Admin: 01/14/25 20:07 Dose: 30 gm Assessment & Plan Plan Assessment Branden is a 89 y/o female with PMHx of hypertension, ooe-lkfxpot-vyvtcmzji type 2 diabetes, hypothyroidism who was admitted for symptomatic bradycardia, COLE and UTI. #Symptomatic bradycardia Chart review shows bradycardia appearing [place] [address] Thayapran Pt could be symptomatic from oral intake and failure to thrive in addition to symptomatic bradycardia Bradycardia could be due to age-related amyloidosis, SA node problem, infection, worsening hypothyroidism, electrolyte abnormalities Will treat infection, recheck TSH, to see if these are preliminary causes for investigating other reasons Patient denies any chest pain Was given atropine 5 mg EKG does not show any evidence of heart block at this point nor TX prolongation Plan: ? Telemetry ? Keep magnesium and potassium above 2 and 4 respectively to avoid any cardiac arrhythmias? ? Atropine 0.5 mg IV every 10 minutes as needed for heart rate below 30 ? Consider cardiology consult ? Consider echo #Acute kidney injury #Hyperkalemia DDx: Prerenal, ATN, obstructive No History of stones Creatinine 1.6, EGFR 31, BUN 29 Likely related to poor oral intake Patient may be experiencing hyperkalemia from possible spironolactone use however med rec is pending Given calcium gluconate, 5 units of regular insulin, and Kayexalate Plan: ? Maintenance ? Urine lytes and Cr ? Avoid nephrotoxic agents ? Renally dose medicines ? Trend with CMP #UTI Nitrates, leukocyte esterase, white cells and rare bacteria seen on urinalysis History of pansensitive E. coli Given 1 dose of Rocephin in the ED Plan: ? Continue with Rocephin 1 g IV #Hx of hypothyroidism Could be contributing to bradycardia Plan: ? Follow up TSH ? Resumed home synthroid 100 mcg #Tis-jazynyi-qfzzrlcmd type II diabetes mellitus Chronic Plan: ? Sliding scale insulin ? Hypoglycemic protocol in place ? Blood sugar checks with meals ? Follow-up A1c #Health Maintenance Disposition: Telemetry DVT prophylaxis: Heparin every 12 hours GI prophylaxis: Protonix Diet: Pending swallow eval CODE STATUS: Full Patient seen and care discussed with my attending physician, Dr. Caro Cooper, PGY-1
[2025-01-15] MEDS: cefTRIAXone 1,000 MG in SODIUM CHLORIDE 0.9% (Popper) 50 ML 100 MG IV (05:18)
[2025-01-15 06:04] LABS: Basophils # (Auto) 0.1 Thou/mm3 (0.0-0.2); Basophils % (Auto) 1 % (0-2.5); Eosinophils # (Auto) 0.1 Thou/mm3 (0.0-0.5); Eosinophils % (Auto) 2 % (0-10); Hemoglobin 10.4 g/dL (12.0-16.0); Immature Granulocytes % (Auto) 0 % (0-0); Immature Granulocytes Auto 0.01 Thou/mm3 (0.00-0.00); Lymphocytes # (Auto) 1.4 Thou/mm3 (1.0-4.8); Lymphocytes % (Auto) 25 % (10-50); Mean Corpuscular HGB Conc 31.5 g/dl (31.0-37.0); Mean Corpuscular Hemoglobin 22.7 pg (25.0-35.0); Mean Corpuscular Volume 72 fL (80-100); Monocytes # (Auto) 0.6 Thou/mm3 (0.0-0.8); Monocytes % (Auto) 10 % (0-12); Neutrophils # (Auto) 3.6 Thou/mm3 (1.8-7.7); Neutrophils % (Auto) 63 % (37-80); Nucleated Red Blood Cell % 0 /100 WBC (0); Platelet Count 189 Thou/mm3 (140-440); RDW Standard Deviation 37.4 fL (36.4-46.3); Red Blood Count 4.59 Miln/mm3 (4.00-5.20); White Blood Count 5.8 Thou/mm3 (3.6-11.0)
[2025-01-15 06:20] LABS: Partial Thromboplastin Time 26.1 Seconds (22.0-36.0); Prothrombin Time 11.1 Seconds (9.0-12.2)
[2025-01-15 06:27] LABS: Alanine Aminotransferase 167 U/L (10-49); Albumin, Serum 3.8 gm/dL (3.4-4.8); Albumin/Globulin Ratio 1.2 (1.2-2.2); Alkaline Phosphatase 92 U/L (46-116); Anion Gap 9 (7-16); Aspartate Amino Transferase 137 U/L (0-34); BUN/Creatinine Ratio 20 Ratio (12-20); Bilirubin,Total 0.8 mg/dL (0.3-1.2); Blood Urea Nitrogen 26 mg/dL (9-23); Calcium 8.9 mg/dL (8.3-10.6); Calcium (Corrected) 9.1 mg/dL (8.5-10.1); Carbon Dioxide 26.4 mMol/L (20.0-31.0); Chloride 105 mMol/L (98-107); Globulin 3.1 gm/dL (2.3-3.5); Glucose 99 mg/dL (74-106); Magnesium 2.1 mg/dL (1.6-2.6); Osmolality,Calculated 284 (275-295); Phosphorous 4.9 mg/dL (2.4-5.1); Potassium 4.8 mMol/L (3.4-5.1); Sodium 140 mMol/L (136-145); Thyroid Stimulating Hormone 10.09 uIU/mL (0.55-4.78); Total Protein 6.9 gm/dL (5.7-8.2); eGFR 40 See Note
[2025-01-15 06:30] LABS: Glucose Estimated Average 137 mg/dL (80-131); Hemoglobin A1C 6.4 % Hgb (4.8-6.0)
[2025-01-15 06:38] LABS: Creatinine (Component) 1.3 mg/dL (0.6-1.3)
[2025-01-15 07:40] LABS: Free T4 (Free Thyroxine) 1.41 ng/dL (0.89-1.76)
--- NOTE | 2025-01-15 08:56 | ECHO_ITS ---
Transthoracic Echo Report Ht (in): 53 Wt (lb): 71 Exam Location: Echo Lab Status: Inpatient Clarifier: [facility] Indications: Procedure Performed: BP: 173 / 94 HR: Technical Quality: Fair MEASUREMENTS (Male / Female) Normal Values 2D ECHO LV Diastolic Diameter PLAX 3.3 cm 4.2 - 5.9 / 3.9 - 5.3 cm LV Systolic Diameter PLAX 1.9 cm IVS Diastolic Thickness 1.2 cm 0.6 - 1.0 / 0.6 - 0.9 cm LVPW Diastolic Thickness 1.3 cm 0.6 - 1.0 / 0.6 - 0.9 cm LV Relative Wall Thickness 0.8 LVOT Diameter 1.7 cm Aortic Root Diameter 2.5 cm LA Systolic Diameter LX 2.7 cm 3.0 - 4.0 / 2.7 - 3.8 cm LA Volume Index 45.4 cm?/m? 16 - 28 cm?/m? DOPPLER AV Peak Velocity 192.0 cm/s AV Peak Gradient 14.7 mmHg AV Mean Gradient 9.0 mmHg AV Velocity Time Integral 53.6 cm AI Peak Velocity 163.0 cm/s AI Peak Gradient 10.6 mmHg AI Pressure Half Time 936.0 ms LVOT Peak Velocity 94.6 cm/s LVOT Peak Gradient 3.6 mmHg LVOT Velocity Time Integral 26.6 cm AV Area Cont Eq vti 1.1 cm? AV Area Cont Eq pk 1.1 cm? MV Area PHT 3.3 cm? MR Peak Velocity 398.0 cm/s MR Peak Gradient 63.4 mmHg Mitral E Point Velocity 44.1 cm/s Mitral A Point Velocity 63.5 cm/s Mitral E to A Ratio 0.7 LV E' Lateral Velocity 4.2 cm/s Mitral E to LV E' Lateral Ratio 10.4 LV E' Septal Velocity 5.8 cm/s Mitral E to LV E' Septal Ratio 7.6 TR Peak Velocity 218.0 cm/s TR Peak Gradient 19.0 mmHg PV Peak Velocity 62.4 cm/s PV Peak Gradient 1.6 mmHg FINDINGS Left Ventricle Normal left ventricular size and systolic function with no obvious regional wall motion abnormalities. Mild LVH. Normal left ventricular diastolic filling pattern for age. The ejection fraction is visually estimated at 55- 60%. Right Ventricle The right ventricle is normal in size and systolic function. Left Atrium The left atrial cavity size is mildly increased. Right Atrium The right atrium is normal by two-dimensional imaging, color flow and Doppler imaging with no structural abnormalities, no thrombus formation present. Atrial Septum The interatrial septum appears normal with no evidence of a shunt. Aorta The aorta is normal by two-dimensional, color flow and Doppler interrogation. Mitral Valve The mitral valve is normal by two-dimensional, color flow and Doppler interrogation. Guvj-qr-jzrwawln mitral regurgitation. Aortic Valve Mild thickening of the aortic valve leaflets. Mild aortic valve regurgitation. Tricuspid Valve The tricuspid valve is normal by two-dimensional, color flow and Doppler interrogation. There is mild tricuspid valve regurgitation. Pulmonic Valve The pulmonic valve is not well visualized. There is no significant pulmonic valve regurgitation. Vessels The pulmonary artery appears normal. The inferior vena cava pulmonary and hepatic veins appear normal. Pericardium The pericardium is normal by two-dimensional imaging. There is no significant pericardial effusion. CONCLUSIONS Indication: Symptomatic bradycardia Normal LVsize and systolic function. Mild LVH. Estimated EF 55-60%. RV is normal in size and systolic function. LA size is mildly increased. [id number] MR. Mild thickening of the AV. Mild AI and TR. Anisha Batres (Electronically Signed) Final Date: 16 January 2025 08:56
--- NOTE | 2025-01-15 10:01 | PC.SS ---
Follow up note: Pt is on IV antibiotic, possible UTI.
[2025-01-15] MEDS: PANTOPRAZOLE INJ 40 MG VIAL IVP (10:15)
[2025-01-15] MEDS: LEVOTHYROXINE SODIUM 100 MCG TABLET PO (10:16)
[2025-01-15] MEDS: SODIUM CHLORIDE 0.9% 1000 ML 1,000 ML 75 ML IV (10:16)
[2025-01-15] MEDS: HEPARIN SOD INJ 5000 UNIT/ML VIAL SC ×2 (10:16→20:16)
--- NOTE | 2025-01-15 11:59 | ESPR_ITS ---
<Statement entered by Jay Lee MD - 01/15/25 15:18> Patient is admitted overnight for symptomatic bradycardia. Patient was seen and examined at the bedside this morning. She denied any chest pain, dizziness, shortness of breath or fever. She denied having a bowel movement. Overnight, patient was bradycardic in 20s when she was brought to the hospital and was dizzy. Additionally, she was found to have UTI. EKG rhythm leads showed RBBB pattern however on telemetry box appears to have possible Mobitz type II block. Patient received atropine en route to EMS while coming to the hospital which improved the heart rate. Currently we are waiting on cardiology recs and echocardiogram. Blood pressure was stable this morning. Hemoglobin was stable. A1c came out 6.4. However blood sugar remains controlled therefore insulin sliding scale was not started. TSH 10.09 and free T4 was normal. Currently giving levothyroxine 100 mcg. Will continue with fluids for COLE. Will continue with Rocephin for UTI. Await cardiology recommendations, echo and urine cultures. Atropine as needed for bradycardia. All labs and orders were reviewed. I saw and examined the patient, and I agree with current management stated by Dr Edwina MD,PGY1. Plan of care was discussed with the attending physician and resident physician. Disclaimer: Despite multiple revisions, due to the dictation software being used, the document bellow may not be free of grammatical errors including phonetic/typographic errors. However, this does not deter from our commitment to providing health care in the patient's best interest in mind. Dr. Jesus MD, PGY 2 Documentation for date of: 01/15/25 Subjective Subjective Interval history: Jose Vega is an 89-y/o female with a PMHx of HTN, T2DM, and hypothyroidism who presented on 01/14 for generalized weakness and fatigue. Per daughter, patient has been feeling weak over past couple days, prompting visit to PCP on Monday, where she was found to have a UTI and prescribed antibiotics. 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 In field, heart rate was noted to be in the 20s and patient was given atropine and heart rate increased to 60s. Upon arrival to ED, heart rate was still in 60s and EKGs showed NSR with heart rate in 70s and an old RBBB noted from previous admissions. Of note, she follows Dr. Batres outpatient but has not been seen in over a year. 01/15: Seen and examined at bedside in telemetry. Noted to have HR in 40s and did not endorse any lightheadedness, shortness of breath, or chest discomfort. Consulted Dr. Batres and echo pending and will follow-up recommendations. Exam Vital Signs Temp Pulse Resp BP Pulse Ox O2 Del Method 97.0 F 58 L 18 167/81 H 97 Room Air 01/15/25 08:00 01/15/25 08:00 01/15/25 08:00 01/15/25 08:00 01/15/25 08:00 01/15/25 08:00 Narrative Exam General: AOx3, no acute distress, able to speak full sentences HEENT: NC/AT, mucous membranes moist, bilateral sclera anicteric Cardiovascular: bradycardic, regular rhythm, systolic murmur heard at apex Pulmonary: clear to auscultation bilaterally, no rales/rhonchi/wheezes Abdominal: soft, non-tender, non-distended, no rebound/guarding, normal bowel sounds present Musculoskeletal: normal ROM, no peripheral edema Skin: warm and dry, intact, no rashes Neuro: CN II-XII intact, no focal deficits Objective Labs 01/15/25 05:45 01/15/25 05:45 Labs: Laboratory Results - last 24 hr 01/14/25 01/14/25 01/15/25 17:30 20:45 00:38 WBC 7.2 RBC 4.70 Hgb 10.8 L Hct 33.8 L MCV 72 L MCH 23.0 L MCHC 32.0 RDW Std Deviation 37.4 Plt Count 180 D Neut % (Auto) 78 Lymph % (Auto) 13 [place] % (Auto) 7 Eos % (Auto) 1 Baso % (Auto) 1 Neut # (Auto) 5.6 Lymph # (Auto) 1.0 [place] # (Auto) 0.5 Eos # (Auto) 0.1 Baso # (Auto) 0.1 Immature Gran # (Auto) 0.01 H Absolute Nucleated RBC 0.00 Immature Gran % 0 Nucleated RBC % 0 PT 10.9 INR 1.0 APTT 25.8 VBG pH 7.47 VBG pCO2 34 L VBG pO2 68 H VBG O2 Sat (Anne) 95 L VBG Base Excess 1 Sodium 138 142 Potassium 5.9 H 5.2 H D Chloride 106 106 Carbon Dioxide 26.3 27.5 Anion Gap 6 L 9 BUN 29 H 28 H Creatinine 1.6 H 1.4 H Estim Creat Clear Calc Not Performed. Not Performed. eGFR 31 L 36 L BUN/Creatinine Ratio 18 20 Glucose [address] Glu mg/dL Hemoglobin A1c Calculated Osmolality 283 290 Lactic Acid 1.2 Calcium 8.4 9.7 Corrected Calcium 8.4 L Phosphorus Magnesium 2.2 Total Bilirubin 0.5 AST 242 H ALT 208 H Alkaline Phosphatase 108 Troponin I < 0.020 B-Natriuretic Peptide 250 H Total Protein 7.3 Albumin 4.0 Globulin 3.3 Albumin/Globulin Ratio 1.2 Lipase 58 H TSH Free T4 Ur Collection Type Clean Catch Urine Color Lt-Yellow Urine Clarity Turbid A Urine pH 7.5 H Ur Specific [place] 1.014 Urine Protein 1+ A Urine Glucose (UA) Negative Urine Ketones Negative Urine Blood Negative Urine Nitrite Positive Urine Bilirubin Negative Urine Urobilinogen (Auto) Negative Ur Leukocyte Esterase Positive Urine RBC 2 Urine WBC 8 H Ur Squamous Epith Cells 1 Urine Bacteria Rare Ur Culture Indicated? Yes 01/15/25 05:45 WBC 5.8 RBC 4.59 Hgb 10.4 L Hct 33.0 L MCV 72 L MCH 22.7 L MCHC 31.5 RDW Std Deviation 37.4 Plt Count 189 Neut % (Auto) 63 Lymph % (Auto) 25 [place] % (Auto) 10 Eos % (Auto) 2 Baso % (Auto) 1 Neut # (Auto) 3.6 Lymph # (Auto) 1.4 [place] # (Auto) 0.6 Eos # (Auto) 0.1 Baso # (Auto) 0.1 Immature Gran # (Auto) 0.01 H Absolute Nucleated RBC 0.00 Immature Gran % 0 Nucleated RBC % 0 PT 11.1 INR 1.0 APTT 26.1 VBG pH VBG pCO2 VBG pO2 VBG O2 Sat (Anne) VBG Base Excess Sodium 140 Potassium 4.8 Chloride 105 Carbon Dioxide 26.4 Anion Gap 9 BUN 26 H Creatinine 1.3 Estim Creat Clear Calc Not Performed. eGFR 40 L BUN/Creatinine Ratio [address] Glu mg/dL 137 H Hemoglobin A1c 6.4 H Calculated Osmolality 284 Lactic Acid Calcium 8.9 Corrected Calcium 9.1 Phosphorus 4.9 Magnesium 2.1 Total Bilirubin 0.8 AST 137 H ALT 167 H Alkaline Phosphatase 92 Troponin I B-Natriuretic Peptide Total Protein 6.9 Albumin 3.8 Globulin 3.1 Albumin/Globulin Ratio 1.2 Lipase TSH 10.09 H D Free T4 1.41 Ur Collection Type Urine Color Urine Clarity Urine pH Ur Specific [place] Urine Protein Urine Glucose (UA) Urine Ketones Urine Blood Urine Nitrite Urine Bilirubin Urine Urobilinogen (Auto) Ur Leukocyte Esterase Urine RBC Urine WBC Ur Squamous Epith Cells Urine Bacteria Ur Culture Indicated? ABG Interpretation ABG results: 01/14/25 17:30 VBG pH 7.47 VBG pCO2 34 L VBG pO2 68 H VBG Base Excess 1 Quality Measures Quality Measures none Advance care planning discussed with:: other Assessment & Plan Assessment Current Active Medications: Generic Name Dose Route Start Last Admin Trade Name Freq PRN Reason Stop Dose Admin Acetaminophen 650 mg 01/15/25 04:28 Acetaminophen 325 Mg Tablet PO 02/14/25 04:27 Q6H PRN Fever >100 or pain 1-3 Atropine Sulfate 0.5 mg 01/15/25 06:43 Atropine Sulf Inj 0.1 Mg/Ml Syr 10 Ml IVP Q10MIN PRN BRADYCARDIA Dextrose 25 ml 01/14/25 19:51 01/14/25 22:29 Dextrose 50%-Water Inj 50 Ml Syringe IV 02/13/25 19:50 25 ml Q15MIN PRN Administration BG 50-70 responsive npo pt Heparin Sodium (Porcine) 5,000 unit 01/15/25 09:00 01/15/25 10:16 Heparin Sod Inj 5000 Unit/Ml Vial SC 01/29/25 08:59 5,000 unit Q12HR BERE Administration Sodium Chloride 1,000 mls @ 75 mls/hr 01/15/25 04:30 01/15/25 10:16 Ns IV 02/14/25 04:29 75 mls/hr .[id number] BERE Administration Ceftriaxone Sodium 1,000 mg/ 50 mls @ 100 mls/hr 01/16/25 09:00 Sodium Chloride IV 01/22/25 08:59 QDAY BERE Levothyroxine Sodium 100 mcg 01/15/25 06:00 01/15/25 10:16 Levothyroxine Sodium 100 Mcg Tablet PO 02/14/25 05:59 100 mcg ACBR BERE Administration Ondansetron HCl 4 mg 01/15/25 04:28 Ondansetron Inj 2 Mg/Ml Inj 2 Ml IV 02/14/25 04:27 Q6H PRN NAUSEA OR VOMITING Protocol Pantoprazole Sodium 40 mg 01/15/25 09:00 01/15/25 10:15 Pantoprazole Inj 40 Mg Vial IVP 02/14/25 08:59 40 mg QDAY BERE Administration Sennosides 8.8 mg 01/15/25 10:34 Sennosides Syrup 8.8 Mg/5 Ml Udc PO 02/14/25 10:33 QDAY PRN CONSTIPATION Protocol Plan Jose Vega is an 89-y/o female with a PMHx of HTN, T2DM, and hypothyroidism who is admitted on 01/14 for symptomatic bradycardia. #Symptomatic bradycardia Chart review shows bradycardia in 2021, follows Dr. Batres. ? Cardiology consulted, hypothyroidism and coreg may be contributing to clinical picture and recommends starting synthyroid and holding coreg ? Mg and K > 2 and 4, respectively ? Atropine 0.5 mg IV every 10 minutes as needed for heart rate below 30 ? Follow-up echo #Acute kidney injury, likely prerenal, improving #Hyperkalemia Creatinine 1.6, GFR 31, BUN 29 Hyperkalemia possibly from spironolactone, however med rec pending ? Urine lytes and Cr ? Avoid nephrotoxic agents, renally dose medicines #Urinary tract infection Nitrates, leukocyte esterase, white cells and rare bacteria seen on urinalysis History of pansensitive E. coli ? Continue with Rocephin 1 g IV ? Urine culture 01/14: GNR #History of hypothyroidism TSH 10 and free T4 1.4 ? Levothyroxine 100 mcg ACBR #History of hypertension ? Holding coreg per cardiology recommendations #? Kbb-xyxklus-aclubcaib type II diabetes mellitus A1c 6.4%, no home medications Blood sugar 110 in AM and will hold SSI Hospital management: Disposition: admitted for symptomatic bradycardia, cardiology following, pending echo Fluids: NS at 75 cc/hr Diet: dysphagia 2 Lines: PIV DVT prophylaxis: heparin SC GI prophylaxis: pantoprazole IV CODE STATUS: full code ----- Plan discussed with attending physician Dr. Allen and senior resident physician Dr. Jesus Bland MD PGY-1 Internal Medicine Attending Provider Attestation/Addendum I have discussed and was present for the essential components of the history, physical examination, diagnosis, and treatment plan with the resident. I agree with the patient's care as documented by the resident and amended herein by me. Jaguar Allen DO. Although this document has been carefully reviewed, there may still be some phonetic and other typographical errors. These errors are purely grammatical due to imperfections in the software program and should not be construed in any way to compromise the substance of the patient's medical care during this visit.
--- NOTE | 2025-01-15 14:00 | PD.IMCONS ---
HPI Data of Consult Requesting Physician: Oscar Allen DO Primary Care Provider: Physician No Primary/Family Consult Narrative History of present illness: This is a 89 y/o female with PMHx of hypertension, [id number] type 2 diabetes, hypothyroidism pt was seen in the ER with fatigue / weakness - 3-5 days; and syncopy today pt was noted to have bradycardia HR- in the 40s improved to 56? min cc:: cc: Oscar Allen DO Meds Home Medications and Allergies Home Medications ?Medication ?Instructions ?Recorded ?Confirmed ?Type aspirin 81 mg tablet,delayed 81 mg PO QDAY 05/19/21 01/15/25 History release cilostazol 50 mg tablet 50 mg PO BID 05/19/21 01/15/25 History ferrous sulfate 325 mg (65 mg 325 mg PO TID 05/19/21 01/15/25 History iron) tablet gabapentin 100 mg tablet 100 mg PO HS 05/19/21 01/15/25 History levothyroxine 100 mcg tablet 100 mcg PO QDAY 05/19/21 01/15/25 History spironolactone 25 mg tablet 12.5 mg PO QDAY 05/19/21 01/15/25 History carvedilol 3.125 mg tablet 1 tab PO BID 03/30/22 01/15/25 History diclofenac sodium 75 mg 75 mg PO QDAY 03/30/22 01/15/25 History tablet,delayed release alendronate 70 mg tablet 70 mg PO .q week 01/15/25 01/15/25 History ciprofloxacin HCl 250 mg tablet 250 mg PO BID 01/15/25 01/15/25 History magnesium 200 mg tablet 100 mg PO QDAY 01/15/25 01/15/25 History omeprazole 20 mg capsule,delayed 20 mg PO QDAY 01/15/25 01/15/25 History release Allergies Allergy/AdvReac Type Severity Reaction Status Date / Time No Known Allergies Allergy Verified 05/20/21 14:26 Exam Vital Signs Temp Pulse Resp BP Pulse Ox O2 Del Method 97.0 F 58 L 18 167/81 H 97 Room Air 01/15/25 08:00 01/15/25 08:00 01/15/25 08:00 01/15/25 08:00 01/15/25 08:00 01/15/25 08:00 Routine HEENT Exam Head: Present normocephalic and atraumatic Eye: Present EOMI and PERRL ENT: Present mucous membranes moist Routine Neck Exam Neck: Present supple and trachea midline Routine Respiratory Exam Respiratory: Present chest non-tender, lungs clear, normal breath sounds and no resp distress Routine Cardiovascular Exam Cardiovascular: Present RRR Routine Abdominal Exam Abdominal: Present soft and normoactive bowel sounds Routine Extremities Exam Extremities: Present full ROM Routine Skin Exam Skin: Present intact, dry and warm Routine Neurological Exam Neurological: Present alert, oriented X3 and CN II-XII intact Routine Psychiatric Exam Psychiatric: Present normal affect and normal thought process Results Labs 01/15/25 05:45 01/15/25 05:45 Labs: Short CBC 01/14/25 01/15/25 Range/Units 17:30 05:45 WBC 7.2 5.8 (3.6-11.0) Thou/mm3 Hgb 10.8 L 10.4 L (12.0-16.0) g/dL Hct 33.8 L 33.0 L (36.0-46.0) % Plt Count 180 D 189 (140-440) Thou/mm3 BMP 01/14/25 01/15/25 01/15/25 17:30 00:38 05:45 Sodium 138 142 140 Potassium 5.9 H 5.2 H D 4.8 Chloride 106 106 105 Carbon Dioxide 26.3 27.5 26.4 BUN 29 H 28 H 26 H Creatinine 1.6 H 1.4 H 1.3 Glucose 137 H 127 H 99 Calcium 8.4 9.7 8.9 Cardiac Enzymes 01/14/25 Range/Units 17:30 Troponin I < 0.020 (0.0-0.045) ng/mL Liver Function 01/14/25 01/15/25 Range/Units 17:30 05:45 Total Bilirubin 0.5 0.8 (0.3-1.2) mg/dL AST 242 H 137 H (0-34) U/L ALT 208 H 167 H (10-49) U/L Alkaline Phosphatase 108 92 (46-116) U/L Albumin 4.0 3.8 (3.4-4.8) gm/dL Urine 01/14/25 Range/Units 20:45 Urine Color Lt-Yellow (Lt Yel-Yel) Urine Clarity Turbid A (Clear/Hazy) Urine pH 7.5 H (5.0-7.0) Ur Specific [place] 1.014 (1.001-1.035) Urine Protein 1+ A (Neg - Trace) Urine Glucose (UA) Negative (Negative) ABG Interpretation ABG results: 01/14/25 17:30 VBG pH 7.47 VBG pCO2 34 L VBG pO2 68 H VBG Base Excess 1 Assessment and Plan Assessment and plan (1) Dysuria: Status: Acute (2) Symptomatic bradycardia: Status: Acute (3) Hypertension: Status: Acute (4) UTI (urinary tract infection): Status: Acute Additional Assessment & Plan Additional Plan: pt was admitted with syncopy and bradycardia '; hypothyroidism and coreg would have cotniributed d/c coreg and start synthroid echo to be done HR improved will f/u
[2025-01-15] MEDS: ACETAMINOPHEN 325 MG TABLET 650 MG PO (20:16)
[2025-01-16] VITALS: PULSE 40
[2025-01-16] MEDS: SODIUM CHLORIDE 0.9% 1000 ML 1,000 ML 75 ML IV ×2 (02:42→17:36)
[2025-01-16 04:00] VITALS: BP 160/88; PULSE 43; PULSE 59; RESP 19; TEMP 36.3; O2SAT 97
[2025-01-16] MEDS: LEVOTHYROXINE SODIUM 100 MCG TABLET PO (05:28)
[2025-01-16 05:39] LABS: Basophils # (Auto) 0.1 Thou/mm3 (0.0-0.2); Basophils % (Auto) 1 % (0-2.5); Eosinophils # (Auto) 0.2 Thou/mm3 (0.0-0.5); Eosinophils % (Auto) 4 % (0-10); Hematocrit 32.5 % (36.0-46.0); Hemoglobin 10.2 g/dL (12.0-16.0); Immature Granulocytes % (Auto) 0 % (0-0); Immature Granulocytes Auto 0.01 Thou/mm3 (0.00-0.00); Lymphocytes # (Auto) 1.6 Thou/mm3 (1.0-4.8); Lymphocytes % (Auto) 33 % (10-50); Mean Corpuscular HGB Conc 31.4 g/dl (31.0-37.0); Mean Corpuscular Hemoglobin 23.1 pg (25.0-35.0); Mean Corpuscular Volume 74 fL (80-100); Monocytes # (Auto) 0.5 Thou/mm3 (0.0-0.8); Monocytes % (Auto) 10 % (0-12); Neutrophils # (Auto) 2.6 Thou/mm3 (1.8-7.7); Neutrophils % (Auto) 53 % (37-80); Nucleated Red Blood Cell % 0 /100 WBC (0); Platelet Count 164 Thou/mm3 (140-440); RDW Standard Deviation 37.9 fL (36.4-46.3); Red Blood Count 4.42 Miln/mm3 (4.00-5.20); White Blood Count 4.9 Thou/mm3 (3.6-11.0)
[2025-01-16 06:11] LABS: Alanine Aminotransferase 111 U/L (10-49); Albumin, Serum 3.5 gm/dL (3.4-4.8); Albumin/Globulin Ratio 1.2 (1.2-2.2); Anion Gap 9 (7-16); Aspartate Amino Transferase 70 U/L (0-34); BUN/Creatinine Ratio 18 Ratio (12-20); Bilirubin,Total 0.7 mg/dL (0.3-1.2); Blood Urea Nitrogen 21 mg/dL (9-23); Calcium 8.3 mg/dL (8.3-10.6); Calcium (Corrected) 8.7 mg/dL (8.5-10.1); Carbon Dioxide 24.9 mMol/L (20.0-31.0); Chloride 107 mMol/L (98-107); Creatinine (Component) 1.2 mg/dL (0.6-1.3); Glucose 97 mg/dL (74-106); Magnesium 1.8 mg/dL (1.6-2.6); Osmolality,Calculated 284 (275-295); Potassium 4.8 mMol/L (3.4-5.1); Sodium 141 mMol/L (136-145); Total Protein 6.5 gm/dL (5.7-8.2); eGFR 44 See Note
[2025-01-16 06:12] LABS: Alkaline Phosphatase 75 U/L (46-116)
[2025-01-16 07:01] LABS: Partial Thromboplastin Time 53.2 Seconds (22.0-36.0); Prothrombin Time 11.4 Seconds (9.0-12.2)
--- NOTE | 2025-01-16 07:59 | ESPR_ITS ---
Documentation for date of: 01/16/25 Subjective Subjective Interval history: pt confused HR around 60 Exam Vital Signs Temp Pulse Resp BP Pulse Ox O2 Del Method 97.3 F 59 L 19 160/88 H 97 Room Air 01/16/25 04:00 01/16/25 04:00 01/16/25 04:00 01/16/25 04:00 01/16/25 04:00 01/16/25 04:00 Routine HEENT Exam Head: Present normocephalic and atraumatic Eye: Present EOMI and PERRL ENT: Present mucous membranes moist Routine Neck Exam Neck: Present supple and trachea midline Routine Respiratory Exam Respiratory: Present chest non-tender, lungs clear, normal breath sounds and no resp distress Routine Cardiovascular Exam Cardiovascular: Present RRR Routine Abdominal Exam Abdominal: Present soft and normoactive bowel sounds Routine Extremities Exam Extremities: Present full ROM Routine Skin Exam Skin: Present intact, dry and warm Routine Neurological Exam Neurological: Present alert, oriented X3 and CN II-XII intact Routine Psychiatric Exam Psychiatric: Present normal affect and normal thought process Objective Labs 01/16/25 05:08 01/16/25 05:08 Labs: Laboratory Results - last 24 hr 01/16/25 05:08 WBC 4.9 RBC 4.42 Hgb 10.2 L Hct 32.5 L MCV 74 L MCH 23.1 L MCHC 31.4 RDW Std Deviation 37.9 Plt Count 164 Neut % (Auto) 53 Lymph % (Auto) 33 [place] % (Auto) 10 Eos % (Auto) 4 Baso % (Auto) 1 Neut # (Auto) 2.6 Lymph # (Auto) 1.6 [place] # (Auto) 0.5 Eos # (Auto) 0.2 Baso # (Auto) 0.1 Immature Gran # (Auto) 0.01 H Absolute Nucleated RBC 0.00 Immature Gran % 0 Nucleated RBC % 0 PT 11.4 INR 1.0 APTT 53.2 H D Sodium 141 Potassium 4.8 Chloride 107 Carbon Dioxide 24.9 Anion Gap 9 BUN 21 Creatinine 1.2 Estim Creat Clear Calc Not Performed. eGFR 44 L BUN/Creatinine Ratio 18 Glucose 97 Calculated Osmolality 284 Calcium 8.3 Corrected Calcium 8.7 Magnesium 1.8 Total Bilirubin 0.7 AST 70 H ALT 111 H Alkaline Phosphatase 75 Total Protein 6.5 Albumin 3.5 Globulin 3.0 Albumin/Globulin Ratio 1.2 ABG Interpretation ABG results: 01/14/25 17:30 VBG pH 7.47 VBG pCO2 34 L VBG pO2 68 H VBG Base Excess 1 Assessment & Plan A&P Narrative continue telemetry monitoring HR 50-60 Time Spent With Patient Time: Total time spent is greater than 50% in coordination of care (as documented) at patient's floor/unit and/or counseling patient:
[2025-01-16 08:00] VITALS: BP 151/70; PULSE 77; PULSE 82; RESP 24; TEMP 36.7; O2SAT 98
[2025-01-16] MEDS: cefTRIAXone 1,000 MG in SODIUM CHLORIDE 0.9% (Popper) 50 ML 100 MG IV (08:44)
[2025-01-16] MEDS: HEPARIN SOD INJ 5000 UNIT/ML VIAL SC ×2 (08:45→20:07)
[2025-01-16] MEDS: PANTOPRAZOLE INJ 40 MG VIAL IVP (08:45)
[2025-01-16 12:00] VITALS: BP 162/71; PULSE 59; PULSE 64; RESP 19; TEMP 36.8; O2SAT 96
--- NOTE | 2025-01-16 12:05 | ESPR_ITS ---
Documentation for date of: 01/16/25 Subjective Subjective Interval history: Patient seen and examined at bedside this morning. No acute overnight events. Vitals, labs reviewed. Patient does get bradycardic overnight while sleeping but does not drop below 40 bpm. Remainder of vital signs are stable. Labs significant for microcytic anemia, and patient does take ferrous sulfate at home. COLE is improving, creatinine 1.2 today. Echo returned with a EF 55-60%. Urine culture grew MDR Klebsiella that is sensitive to Rocephin. Case was discussed with cardiology over the phone who recommended to discontinue Coreg at this time, as that is the likely culprit causing bradycardia. Patient will need to follow-up with Dr. Batres next week. Patient's daughter/granddaughter were at bedside and updated on plan of action. Exam Vital Signs Temp Pulse Resp BP Pulse Ox O2 Del Method 98.0 F 82 24 H 151/70 H 98 Room Air 01/16/25 08:00 01/16/25 08:00 01/16/25 08:00 01/16/25 08:00 01/16/25 08:00 01/16/25 08:00 Narrative Exam General: AOx3, pleasant to speak with, able to speak full sentences HEENT: NC/AT, mucous membranes moist, bilateral sclera anicteric Cardiovascular: regular rate & rhythm, systolic murmur heard at apex Pulmonary: clear to auscultation bilaterally, no rales/rhonchi/wheezes Abdominal: soft, non-tender, non-distended, no rebound/guarding, normal bowel sounds present Musculoskeletal: normal ROM, no peripheral edema Skin: warm and dry, intact, no rashes Neuro: CN II-XII intact, no focal deficits Objective Labs 01/17/25 05:00 01/17/25 05:00 Labs: Laboratory Results - last 24 hr 01/16/25 05:08 WBC 4.9 RBC 4.42 Hgb 10.2 L Hct 32.5 L MCV 74 L MCH 23.1 L MCHC 31.4 RDW Std Deviation 37.9 Plt Count 164 Neut % (Auto) 53 Lymph % (Auto) 33 [place] % (Auto) 10 Eos % (Auto) 4 Baso % (Auto) 1 Neut # (Auto) 2.6 Lymph # (Auto) 1.6 [place] # (Auto) 0.5 Eos # (Auto) 0.2 Baso # (Auto) 0.1 Immature Gran # (Auto) 0.01 H Absolute Nucleated RBC 0.00 Immature Gran % 0 Nucleated RBC % 0 PT 11.4 INR 1.0 APTT 53.2 H D Sodium 141 Potassium 4.8 Chloride 107 Carbon Dioxide 24.9 Anion Gap 9 BUN 21 Creatinine 1.2 Estim Creat Clear Calc Not Performed. eGFR 44 L BUN/Creatinine Ratio 18 Glucose 97 Calculated Osmolality 284 Calcium 8.3 Corrected Calcium 8.7 Magnesium 1.8 Total Bilirubin 0.7 AST 70 H ALT 111 H Alkaline Phosphatase 75 Total Protein 6.5 Albumin 3.5 Globulin 3.0 Albumin/Globulin Ratio 1.2 ABG Interpretation ABG results: 01/14/25 17:30 VBG pH 7.47 VBG pCO2 34 L VBG pO2 68 H VBG Base Excess 1 Quality Measures Quality Measures VTE prophylaxis Advance care planning discussed with:: patient and child Assessment & Plan Assessment Current Active Medications: Generic Name Dose Route Start Last Admin Trade Name Freq PRN Reason Stop Dose Admin Acetaminophen 650 mg 01/15/25 04:28 01/15/25 20:16 Acetaminophen 325 Mg Tablet PO 02/14/25 04:27 650 mg Q6H PRN Administration Fever >100 or pain 1-3 Atropine Sulfate 0.5 mg 01/15/25 06:43 Atropine Sulf Inj 0.1 Mg/Ml Syr 10 Ml IVP Q10MIN PRN BRADYCARDIA Dextrose 25 ml 01/14/25 19:51 01/14/25 22:29 Dextrose 50%-Water Inj 50 Ml Syringe IV 02/13/25 19:50 25 ml Q15MIN PRN Administration BG 50-70 responsive npo pt Heparin Sodium (Porcine) 5,000 unit 01/15/25 09:00 01/16/25 08:45 Heparin Sod Inj 5000 Unit/Ml Vial SC 01/29/25 08:59 5,000 unit Q12HR BERE Administration Hydralazine HCl 5 mg 01/15/25 17:34 Hydralazine Inj 20 Mg/Ml Vial IV 02/14/25 17:33 Q6HR PRN Hypertension Sodium Chloride 1,000 mls @ 75 mls/hr 01/15/25 04:30 01/16/25 02:42 Ns IV 02/14/25 04:29 75 mls/hr .[id number] BERE Administration Ceftriaxone Sodium 1,000 mg/ 50 mls @ 100 mls/hr 01/16/25 09:00 01/16/25 08:44 Sodium Chloride IV 01/22/25 08:59 100 mls/hr QDAY BERE Administration Levothyroxine Sodium 100 mcg 01/15/25 06:00 01/16/25 05:28 Levothyroxine Sodium 100 Mcg Tablet PO 02/14/25 05:59 100 mcg ACBR BERE Administration Ondansetron HCl 4 mg 01/15/25 04:28 Ondansetron Inj 2 Mg/Ml Inj 2 Ml IV 02/14/25 04:27 Q6H PRN NAUSEA OR VOMITING Protocol Pantoprazole Sodium 40 mg 01/15/25 09:00 01/16/25 08:45 Pantoprazole Inj 40 Mg Vial IVP 02/14/25 08:59 40 mg QDAY BERE Administration Sennosides 8.8 mg 01/15/25 10:34 Sennosides Syrup 8.8 Mg/5 Ml Udc PO 02/14/25 10:33 QDAY PRN CONSTIPATION Protocol Plan Jose Vega is an 89-y/o female with a PMHx of HTN, T2DM, and hypothyroidism who is admitted on 01/14 for symptomatic bradycardia, UTI. #Symptomatic bradycardia, improved Chart review shows bradycardia in 2021, follows Dr. Batres. ? Cardiology consulted, hypothyroidism and coreg may be contributing to clinical picture and recommends starting synthyroid and discontinuing coreg. Patient to follow up with Dr. Batres next week, and he will decide on when to resume ? Mg and K > 2 and 4, respectively ? Atropine 0.5 mg IV every 10 minutes as needed for heart rate below 30 ? Echo: Normal LV size, systolic function. Mild LVH. EF 55-60%. RV normal in size and systolic function. LA size mildly increased. Mild to moderate MR. #Acute kidney injury on CKD 3A, likely prerenal, improving #Hyperkalemia, resolved Creatinine 1.6, GFR 31, BUN 29 Hyperkalemia possibly from spironolactone? ? Avoid nephrotoxic agents, renally dose medicines ?Creatinine improving 1.2 #Urinary tract infection Nitrates, leukocyte esterase, white cells and rare bacteria seen on urinalysis History of pansensitive E. coli ? Continue with Rocephin 1 g IV ? Urine culture: MDR Klebsiella, sensitive to Rocephin #History of hypothyroidism TSH 10 and free T4 1.4 ? Levothyroxine 100 mcg ACBR ? Advised patient/daughter/granddaughter to have repeat thyroid panel drawn in 4 to 6 weeks #History of hypertension ? Discontinued coreg per cardiology recommendations => patient to follow-up with Dr. Batres on when to resume Coreg #? [id number] type II diabetes mellitus ? A1c 6.4%, no home medications ? Blood sugar 110 in AM and will hold SSI ? Hypoglycemia protocol in place #Transaminitis, improving ? Likely secondary to dehydration Hospital management: Disposition: admitted for symptomatic bradycardia, and MDR KLEBSIELLA UTI. Anticipate discharge in 24-48 hours Fluids: NS at 75 cc/hr Diet: dysphagia 2 Lines: PIV DVT prophylaxis: heparin SC GI prophylaxis: pantoprazole IV CODE STATUS: full code Patient seen and care discussed with my attending Dr. Martinez. Ida Grigsby MD PGY-3 Attending Provider Attestation/Addendum I have examined the patient, reviewed labs and imaging findings, discussed the case with the resident(s), and reviewed entered orders. I agree with the plan of care as outlined in this note, with these additional summaries/recommendations: Patient and family seen at bedside. No acute overnight events although patient was noted to have sinus bradycardia while sleeping overnight. Today at bedside patient appears comfortable. Per family she is denying lightheadedness and dizziness currently. Continue to hold home Coreg. At this time unclear etiology for bradycardia although patient did have syncopal episode on admission. Etiology possibly secondary to physiologic versus medication induced secondary to beta-niru versus sick sinus syndrome. No evidence of heart block. Cardiology following and recommendations appreciated if patient will require pacemaker. Continue IV Rocephin for urinary tract infection. Acute kidney injury almost resolved. Discontinue IV fluids. Continue to renally dose medications and avoid nephrotoxic agents. Family reports they have a trip planned to [place] next week and advised them we will follow-up on if patient can go or not. Patient and family updated on the plan and in agreement. All questions answered to satisfaction. Repeat hematology and chemistry panel in AM. Dr. Juan MD
[2025-01-16 15:01] VITALS: BMI 13.0
[2025-01-16 16:00] VITALS: BP 162/64; PULSE 50; PULSE 51; RESP 23; TEMP 36.9; O2SAT 98
--- NOTE | 2025-01-16 16:09 | PC.SS ---
TRANSMISSION SPECIALIST conducted bedside contact with the patient conduct initial assessment and to discuss discharge planning.? At bedside with patient was granddaughter, Elyse Albarran.? Patient is [place] speaking.? Granddaughter provided information for assessment and discharge planning.? Patient resides at home with daughter and family.? Patient utilizes a walker to assist with ambulation.? Patient does not utilize home oxygen.? Patient is independent with completion of ADL?s.? Patient?s surrogate medical decision maker is daughter Emy Dennisz . Patient?s PCP is Dr. Leone.? Patient?s mixer runner is Dr. Vasquez.? Dr. Cedeno is the patient?s vascular specialist.? Patient utilizes [facility] for medication services.? Patient is diabetic non-insulin dependent.? Patient does not participate with dialysis.? Discharge plan is for the patient to return home at the time of discharge.? Family will provide transportation on behalf of the patient.? Family has declined SNF placement for the patient.? If home health recommended no preferred agency identified.? No further intervention required at this time, public health social worker will be available to address any further concerns.? Next of Kin: Emy Avila D/C Plan: Home
--- NOTE | 2025-01-16 16:45 | PC.SS ---
Rounding Note: Cardiology is consulting. Echo is pending.
[2025-01-16 20:00] VITALS: BP 178/81; PULSE 56; PULSE 62; TEMP 38; O2SAT 95
[2025-01-16] MEDS: ACETAMINOPHEN 325 MG TABLET 650 MG PO (21:14)
[2025-01-17] VITALS (8 sets, daily range): BP systolic 136–187; BP diastolic 57–87; PULSE 45–100; RESP 17–25; TEMP 36.6–37.1; O2SAT 96–100; BMI 11.0
[2025-01-17] MEDS: LEVOTHYROXINE SODIUM 100 MCG TABLET PO (05:35)
[2025-01-17] MEDS: SODIUM CHLORIDE 0.9% 1000 ML 1,000 ML 75 ML IV (05:35)
[2025-01-17 06:27] LABS: Basophils % (Auto) 1 % (0-2.5); Eosinophils # (Auto) 0.2 Thou/mm3 (0.0-0.5); Eosinophils % (Auto) 4 % (0-10); Hematocrit 31.8 % (36.0-46.0); Hemoglobin 9.9 g/dL (12.0-16.0); Immature Granulocytes % (Auto) 0 % (0-0); Immature Granulocytes Auto 0.02 Thou/mm3 (0.00-0.00); Lymphocytes # (Auto) 1.7 Thou/mm3 (1.0-4.8); Lymphocytes % (Auto) 34 % (10-50); Mean Corpuscular HGB Conc 31.1 g/dl (31.0-37.0); Mean Corpuscular Hemoglobin 23.1 pg (25.0-35.0); Mean Corpuscular Volume 74 fL (80-100); Monocytes # (Auto) 0.6 Thou/mm3 (0.0-0.8); Monocytes % (Auto) 12 % (0-12); Neutrophils # (Auto) 2.3 Thou/mm3 (1.8-7.7); Neutrophils % (Auto) 48 % (37-80); Nucleated Red Blood Cell # 0.02 Thou/mm3 (0.00-0.00); Nucleated Red Blood Cell % 0 /100 WBC (0); Platelet Count 173 Thou/mm3 (140-440); RDW Standard Deviation 38.7 fL (36.4-46.3); Red Blood Count 4.29 Miln/mm3 (4.00-5.20); White Blood Count 4.9 Thou/mm3 (3.6-11.0)
[2025-01-17 06:57] LABS: Alanine Aminotransferase 78 U/L (10-49); Albumin, Serum 3.3 gm/dL (3.4-4.8); Albumin/Globulin Ratio 1.1 (1.2-2.2); Alkaline Phosphatase 64 U/L (46-116); Anion Gap 10 (7-16); Aspartate Amino Transferase 47 U/L (0-34); BUN/Creatinine Ratio 16 Ratio (12-20); Bilirubin,Total 0.5 mg/dL (0.3-1.2); Blood Urea Nitrogen 18 mg/dL (9-23); Calcium 8.1 mg/dL (8.3-10.6); Calcium (Corrected) 8.7 mg/dL (8.5-10.1); Carbon Dioxide 24.2 mMol/L (20.0-31.0); Chloride 105 mMol/L (98-107); Creatinine (Component) 1.1 mg/dL (0.6-1.3); Globulin 2.9 gm/dL (2.3-3.5); Glucose 90 mg/dL (74-106); Magnesium 1.8 mg/dL (1.6-2.6); Osmolality,Calculated 279 (275-295); Phosphorous 4.1 mg/dL (2.4-5.1); Potassium 4.5 mMol/L (3.4-5.1); Sodium 139 mMol/L (136-145); Total Protein 6.2 gm/dL (5.7-8.2); eGFR 48 See Note
[2025-01-17] MEDS: PANTOPRAZOLE INJ 40 MG VIAL IVP (09:30)
[2025-01-17] MEDS: cefTRIAXone 1,000 MG in SODIUM CHLORIDE 0.9% (Popper) 50 ML 100 MG IV (09:31)
[2025-01-17] MEDS: HEPARIN SOD INJ 5000 UNIT/ML VIAL SC ×2 (09:32→20:09)
[2025-01-17] MEDS: amLODIPine BESYLATE 5 MG TABLET PO (09:33)
--- NOTE | 2025-01-17 10:01 | PD.IMPROG ---
Documentation for date of: 01/17/25 Subjective Subjective Interval history: pt HR dropped to mid 40s pt may need a pacemaker Exam Vital Signs Temp Pulse Resp BP Pulse Ox O2 Del Method 98.5 F 54 L 17 167/58 H 96 Room Air 01/17/25 08:00 01/17/25 09:33 01/17/25 08:00 01/17/25 09:33 01/17/25 08:00 01/17/25 08:00 Routine HEENT Exam Head: Present normocephalic and atraumatic Eye: Present EOMI and PERRL ENT: Present mucous membranes moist Routine Neck Exam Neck: Present supple and trachea midline Routine Respiratory Exam Respiratory: Present chest non-tender, lungs clear, normal breath sounds and no resp distress Routine Cardiovascular Exam Cardiovascular: Present RRR Routine Abdominal Exam Abdominal: Present soft and normoactive bowel sounds Routine Extremities Exam Extremities: Present full ROM Routine Skin Exam Skin: Present intact, dry and warm Routine Neurological Exam Neurological: Present alert, oriented X3 and CN II-XII intact Routine Psychiatric Exam Psychiatric: Present normal affect and normal thought process Objective Labs 01/17/25 05:00 01/17/25 05:00 Labs: Laboratory Results - last 24 hr 01/17/25 05:00 WBC 4.9 RBC 4.29 Hgb 9.9 L Hct 31.8 L MCV 74 L MCH 23.1 L MCHC 31.1 RDW Std Deviation 38.7 Plt Count 173 Neut % (Auto) 48 Lymph % (Auto) 34 [place] % (Auto) 12 Eos % (Auto) 4 Baso % (Auto) 1 Neut # (Auto) 2.3 Lymph # (Auto) 1.7 [place] # (Auto) 0.6 Eos # (Auto) 0.2 Baso # (Auto) 0.0 Immature Gran # (Auto) 0.02 H Absolute Nucleated RBC 0.02 H Immature Gran % 0 Nucleated RBC % 0 Sodium 139 Potassium 4.5 Chloride 105 Carbon Dioxide 24.2 Anion Gap 10 BUN 18 Creatinine 1.1 Estim Creat Clear Calc Not Performed. eGFR 48 L BUN/Creatinine Ratio 16 Glucose 90 Calculated Osmolality 279 Calcium 8.1 L Corrected Calcium 8.7 Phosphorus 4.1 Magnesium 1.8 Total Bilirubin 0.5 AST 47 H ALT 78 H Alkaline Phosphatase 64 Total Protein 6.2 Albumin 3.3 L Globulin 2.9 Albumin/Globulin Ratio 1.1 L ABG Interpretation ABG results: 01/14/25 17:30 VBG pH 7.47 VBG pCO2 34 L VBG pO2 68 H VBG Base Excess 1 Assessment & Plan A&P Narrative continue telemetry monitoring HR dropped to mid 40s will plan for pacemaker Time Spent With Patient Time: Total time spent is greater than 50% in coordination of care (as documented) at patient's floor/unit and/or counseling patient:
[2025-01-17] MEDS: Magnesium Sulfate 1 gm Ivpb 1 GM/100 ML BAG IV (10:18)
--- NOTE | 2025-01-17 11:27 | CHAP ---
Patient also received communion from the Spiritual Care Volunteer. (Volunteer was in the hospital from 10:00-11:27)
--- NOTE | 2025-01-17 11:27 | CHAP ---
Patient was visited by the Spiritual Care Volunteer who prayed for them. (Volunteer was in the hospital from 10:00-11:27)
--- NOTE | 2025-01-17 14:01 | ESPR_ITS ---
Documentation for date of: 01/17/25 Subjective Subjective Interval history: Patient seen and examined at bedside this morning. No acute overnight events. Vitals, labs reviewed. Febrile overnight at 100.4. Heart rate dropped to 40s overnight however patient is asymptomatic at this time. Will follow-up with cardiology if pacemaker is needed. BP elevated, ordered amlodipine. Case was discussed with cardiology. Patient has option to stay over the weekend and receive pacemaker with cardiology on Monday, or patient can discharge and follow-up with cardiology outpatient. Risks and benefits were discussed. Family would like some time to discuss among some cells and will get back to us. At bedside, patient has no acute complaints other than mild BLE pain, which granddaughter states is chronic. She is tolerating diet and had a bowel movement on 01/16. Exam Vital Signs Temp Pulse Resp BP Pulse Ox O2 Del Method 97.9 F 60 19 136/65 H 97 Room Air 01/17/25 12:00 01/17/25 12:00 01/17/25 12:00 01/17/25 12:00 01/17/25 12:01/17/25 12:00 Narrative Exam General: AOx3, pleasant to speak with, able to speak full sentences HEENT: NC/AT, mucous membranes moist, bilateral sclera anicteric Cardiovascular: regular rate & rhythm, systolic murmur heard at apex Pulmonary: clear to auscultation bilaterally, no rales/rhonchi/wheezes Abdominal: soft, non-tender, non-distended, no rebound/guarding, normal bowel sounds present Musculoskeletal: normal ROM, no peripheral edema Skin: warm and dry, intact, no rashes Neuro: CN II-XII intact, no focal deficits Objective Labs 01/20/25 04:43 01/20/25 04:43 Labs: Laboratory Results - last 24 hr 01/17/25 05:00 WBC 4.9 RBC 4.29 Hgb 9.9 L Hct 31.8 L MCV 74 L MCH 23.1 L MCHC 31.1 RDW Std Deviation 38.7 Plt Count 173 Neut % (Auto) 48 Lymph % (Auto) 34 Zavala % (Auto) 12 Eos % (Auto) 4 Baso % (Auto) 1 Neut # (Auto) 2.3 Lymph # (Auto) 1.7 Zavala # (Auto) 0.6 Eos # (Auto) 0.2 Baso # (Auto) 0.0 Immature Gran # (Auto) 0.02 H Absolute Nucleated RBC 0.02 H Immature Gran % 0 Nucleated RBC % 0 Sodium 139 Potassium 4.5 Chloride 105 Carbon Dioxide 24.2 Anion Gap 10 BUN 18 Creatinine 1.1 Estim Creat Clear Calc Not Performed. eGFR 48 L BUN/Creatinine Ratio 16 Glucose 90 Calculated Osmolality 279 Calcium 8.1 L Corrected Calcium 8.7 Phosphorus 4.1 Magnesium 1.8 Total Bilirubin 0.5 AST 47 H ALT 78 H Alkaline Phosphatase 64 Total Protein 6.2 Albumin 3.3 L Globulin 2.9 Albumin/Globulin Ratio 1.1 L ABG Interpretation ABG results: 01/14/25 17:30 VBG pH 7.47 VBG pCO2 34 L VBG pO2 68 H VBG Base Excess 1 Quality Measures Quality Measures VTE prophylaxis Advance care planning discussed with:: patient and child Assessment & Plan Assessment Current Active Medications: Generic Name Dose Route Start Last Admin Trade Name Freq PRN Reason Stop Dose Admin Acetaminophen 650 mg 01/15/25 04:28 01/16/25 21:14 Acetaminophen 325 Mg Tablet PO 02/14/25 04:27 650 mg Q6H PRN Administration Fever >100 or pain 1-3 Amlodipine Besylate 5 mg 01/17/25 09:00 01/17/25 09:33 Amlodipine Besylate 5 Mg Tablet PO 02/16/25 08:59 5 mg QDAY BERE Administration Atropine Sulfate 0.5 mg 01/15/25 06:43 Atropine Sulf Inj 0.1 Mg/Ml Syr 10 Ml IVP Q10MIN PRN BRADYCARDIA Dextrose 25 ml 01/14/25 19:51 01/14/25 22:29 Dextrose 50%-Water Inj 50 Ml Syringe IV 02/13/25 19:50 25 ml Q15MIN PRN Administration BG 50-70 responsive npo pt Heparin Sodium (Porcine) 5,000 unit 01/15/25 09:00 01/17/25 09:32 Heparin Sod Inj 5000 Unit/Ml Vial SC 01/29/25 08:59 5,000 unit Q12HR BERE Administration Hydralazine HCl 5 mg 01/15/25 17:34 Hydralazine Inj 20 Mg/Ml Vial IV 02/14/25 17:33 Q6HR PRN Hypertension Ceftriaxone Sodium 1,000 mg/ 50 mls @ 100 mls/hr 01/16/25 09:00 01/17/25 09:31 Sodium Chloride IV 01/22/25 08:59 100 mls/hr QDAY BERE Administration Levothyroxine Sodium 100 mcg 01/15/25 06:00 01/17/25 05:35 Levothyroxine Sodium 100 Mcg Tablet PO 02/14/25 05:59 100 mcg ACBR BERE Administration Ondansetron HCl 4 mg 01/15/25 04:28 Ondansetron Inj 2 Mg/Ml Inj 2 Ml IV 02/14/25 04:27 Q6H PRN NAUSEA OR VOMITING Protocol Pantoprazole Sodium 40 mg 01/15/25 09:00 01/17/25 09:30 Pantoprazole Inj 40 Mg Vial IVP 02/14/25 08:59 40 mg QDAY BERE Administration Sennosides 8.8 mg 01/15/25 10:34 Sennosides Syrup 8.8 Mg/5 Ml Udc PO 02/14/25 10:33 QDAY PRN CONSTIPATION Protocol Plan Jose Vega is an 89-y/o female with a PMHx of HTN, T2DM, and hypothyroidism who is admitted on 01/14 for symptomatic bradycardia, UTI. #Symptomatic bradycardia, intermittent Chart review shows bradycardia in 2021, follows Dr. Batres. ? Cardiology consulted, hypothyroidism and coreg may be contributing to clinical picture and recommends starting synthyroid and discontinuing coreg. Patient and family to decide for pacemaker placement during this admission (cardiology can plan for 01/20). Or patient has option for discharge/outpatient follow-up with cardiology. Pending family discussion. ? Mg and K > 2 and 4, respectively ? Atropine 0.5 mg IV every 10 minutes as needed for heart rate below 30 ? Echo: Normal LV size, systolic function. Mild LVH. EF 55-60%. RV normal in size and systolic function. LA size mildly increased. Mild to moderate MR. #Acute kidney injury on CKD 3A, likely prerenal, improving #Hyperkalemia, resolved Creatinine 1.6, GFR 31, BUN 29 Hyperkalemia possibly from spironolactone? ? Avoid nephrotoxic agents, renally dose medicines ?Creatinine improving 1.1; patient with 550 cc urine output #Urinary tract infection Nitrates, leukocyte esterase, white cells and rare bacteria seen on urinalysis History of pansensitive E. coli ? Continue with Rocephin 1 g IV ? Urine culture: MDR Klebsiella, sensitive to Rocephin (01/15?current) #Mild to moderate mitral regurgitation Systolic murmur appreciated at apex, and findings noted on echo Cardiology consulted, appreciate recommendations #History of hypothyroidism TSH 10 and free T4 1.4 ? Levothyroxine 100 mcg ACBR ? Advised patient/daughter/granddaughter to have repeat thyroid panel drawn in 4 to 6 weeks #History of hypertension ? Discontinued coreg per cardiology recommendations => patient to follow-up with Dr. Batres on when to resume Coreg ? SBP approximately 180. Will add amlodipine for better BP control #? [id number] type II diabetes mellitus ? A1c 6.4%, no home medications ? Blood sugar 110 in AM and will hold SSI ? Hypoglycemia protocol in place #Transaminitis, improving ? Likely secondary to dehydration Hospital management: Disposition: admitted for symptomatic bradycardia, and MDR KLEBSIELLA UTI. Possible pacemaker placement Fluids: Discontinued Diet: dysphagia 2 Lines: PIV DVT prophylaxis: heparin SC GI prophylaxis: pantoprazole IV CODE STATUS: full code Patient seen and care discussed with my attending Dr. Martinez. Ida Grigsby MD PGY-3 Attending Provider Attestation/Addendum I have examined the patient, reviewed labs and imaging findings, discussed the case with the resident(s), and reviewed entered orders. I agree with the plan of care as outlined in this note, with these additional summaries/recommendations: Patient and family seen at bedside. No acute overnight events although patient continues to have bradycardia. Patient at this time denies lightheadedness/dizziness although patient has not moved from bed. Continue to hold home Coreg. At this time unclear etiology for bradycardia although patient did have syncopal episode on admission. Etiology possibly secondary to physiologic versus medication induced secondary to beta-niru versus sick sinus syndrome. No evidence of heart block. At this time suspect less likely medication induced. Cardiology following and recommendations appreciated if patient will require pacemaker. Continue IV Rocephin for urinary tract infection. Acute kidney injury resolved. Discontinue IV fluids. Continue to renally dose medications and avoid nephrotoxic agents. Family reports they have a trip planned to [place] next week and advised them not apporirate for patient to travel at this time. Patient and family updated on the plan and in agreement. All questions answered to satisfaction. Repeat hematology and chemistry panel in AM. Dr. Juan MD
--- NOTE | 2025-01-17 15:01 | PC.SS ---
Rounding note: pending decision with patient/family regarding possible pacemaker.
--- NOTE | 2025-01-17 19:54 | PC.NURSE ---
PT RESTING ON BED, DENIES PAIN, HR 60 SR, BP 175/81. DR. VILLANUEVA NOTIFIED OF BP, MD WILL PUT IN NEW ORDER.
[2025-01-17] MEDS: hydrALAZINE INJ 20 MG/ML VIAL 5 MG IV (20:08)
[2025-01-17] MEDS: ACETAMINOPHEN 325 MG TABLET 650 MG PO (20:08)
[2025-01-18] VITALS (7 sets, daily range): BP systolic 132–172; BP diastolic 52–78; PULSE 41–85; RESP 17–20; TEMP 36.3–36.9; O2SAT 96–98
--- NOTE | 2025-01-18 04:39 | PC.NURSE ---
DR. VILLANUEVA NOTIFIED OF BP 172/60 , HR 49. PT AWAKE, DENIES PAIN. NO ACUTE DISTRESS. NO NEW ORDER.
[2025-01-18] MEDS: LEVOTHYROXINE SODIUM 100 MCG TABLET PO (05:38)
[2025-01-18 06:15] LABS: Basophils # (Auto) 0.1 Thou/mm3 (0.0-0.2); Basophils % (Auto) 1 % (0-2.5); Eosinophils # (Auto) 0.2 Thou/mm3 (0.0-0.5); Eosinophils % (Auto) 5 % (0-10); Hematocrit 32.9 % (36.0-46.0); Hemoglobin 10.5 g/dL (12.0-16.0); Immature Granulocytes % (Auto) 0 % (0-0); Immature Granulocytes Auto 0.01 Thou/mm3 (0.00-0.00); Lymphocytes # (Auto) 1.5 Thou/mm3 (1.0-4.8); Lymphocytes % (Auto) 31 % (10-50); Mean Corpuscular HGB Conc 31.9 g/dl (31.0-37.0); Mean Corpuscular Hemoglobin 23.1 pg (25.0-35.0); Mean Corpuscular Volume 72 fL (80-100); Monocytes # (Auto) 0.6 Thou/mm3 (0.0-0.8); Monocytes % (Auto) 12 % (0-12); Neutrophils # (Auto) 2.6 Thou/mm3 (1.8-7.7); Neutrophils % (Auto) 52 % (37-80); Nucleated Red Blood Cell % 0 /100 WBC (0); Platelet Count 186 Thou/mm3 (140-440); RDW Standard Deviation 37.1 fL (36.4-46.3); Red Blood Count 4.55 Miln/mm3 (4.00-5.20)
[2025-01-18 06:28] LABS: Albumin, Serum 3.4 gm/dL (3.4-4.8); Anion Gap 6 (7-16); BUN/Creatinine Ratio 21 Ratio (12-20); Blood Urea Nitrogen 23 mg/dL (9-23); Calcium 8.5 mg/dL (8.3-10.6); Carbon Dioxide 28.2 mMol/L (20.0-31.0); Chloride 105 mMol/L (98-107); Creatinine (Component) 1.1 mg/dL (0.6-1.3); Glucose 95 mg/dL (74-106); Osmolality,Calculated 281 (275-295); Phosphorous 4.1 mg/dL (2.4-5.1); Potassium 4.8 mMol/L (3.4-5.1); Sodium 139 mMol/L (136-145); eGFR 48 See Note
--- NOTE | 2025-01-18 12:43 | ESPR_ITS ---
Documentation for date of: 01/18/25 Subjective Subjective Interval history: Patient was seen and examined at the bedside. Overnight, patient went bradycardic up to 41 bpm. Patient was sitting comfortably on chair. Patient's granddaughter was also present at bedside and asked if patient has any post op complications from pacemaker placement. All questions were addressed. Blood pressure was elevated this morning however remained stable later on therefore amlodipine dose was not increased. Labs were showing stable white count and hemoglobin was stable at 10.5. Chemistry panel was unremarkable. Kidney functions remained stable. Nurses Assistant recommended that keep the patient n.p.o. after midnight on Monday and he will likely place pacemaker on Monday. All labs and orders were reviewed. Exam Vital Signs Temp Pulse Resp BP Pulse Ox O2 Del Method 97.4 F 65 17 149/52 H 98 Room Air 01/18/25 12:00 01/18/25 12:00 01/18/25 12:00 01/18/25 12:00 01/18/25 12:00 01/18/25 12:00 Narrative Exam GENERAL APPEARANCE: AxOx4, elderly female in no acute distress. Saturating well on room air. HEENT: NC, AT. MMM. EOMI, clear conjunctiva, oropharynx clear. NECK: Supple without lymphadenopathy. No stiffness or restricted ROM. HEART: Regular rate and regular rhythm, normal S1/S2, holosystolic murmur heard on apex LUNGS: CTAB, moving air well. No crackles or wheezes are heard. ABDOMEN: Soft, nontender, nondistended with good bowel sounds heard. BACK: No CVAT, no obvious deformity. EXTREMITIES: Without cyanosis, clubbing or edema. NEUROLOGICAL: Grossly nonfocal. Alert and oriented, moving all 4 extremities. CN not formally tested but appear grossly intact. Ambulate with assistance. Skin: Warm and dry without any rash. Psych: Appropriate mood and affect Objective Labs 01/18/25 04:32 01/18/25 04:32 Labs: Laboratory Results - last 24 hr 01/18/25 04:32 WBC 5.0 RBC 4.55 Hgb 10.5 L Hct 32.9 L MCV 72 L MCH 23.1 L MCHC 31.9 RDW Std Deviation 37.1 Plt Count 186 Neut % (Auto) 52 Lymph % (Auto) 31 Travis % (Auto) 12 Eos % (Auto) 5 Baso % (Auto) 1 Neut # (Auto) 2.6 Lymph # (Auto) 1.5 Travis # (Auto) 0.6 Eos # (Auto) 0.2 Baso # (Auto) 0.1 Immature Gran # (Auto) 0.01 H Absolute Nucleated RBC 0.00 Immature Gran % 0 Nucleated RBC % 0 Sodium 139 Potassium 4.8 Chloride 105 Carbon Dioxide 28.2 Anion Gap 6 L BUN 23 Creatinine 1.1 Estim Creat Clear Calc Not Performed. eGFR 48 L BUN/Creatinine Ratio 21 H Glucose 95 Calculated Osmolality 281 Calcium 8.5 Corrected Calcium 9.0 Phosphorus 4.1 Albumin 3.4 ABG Interpretation ABG results: 01/14/25 17:30 VBG pH 7.47 VBG pCO2 34 L VBG pO2 68 H VBG Base Excess 1 Quality Measures Quality Measures VTE prophylaxis Advance care planning discussed with:: other Assessment & Plan Assessment Current Active Medications: Generic Name Dose Route Start Last Admin Trade Name Freq PRN Reason Stop Dose Admin Acetaminophen 650 mg 01/15/25 04:28 01/17/25 20:08 Acetaminophen 325 Mg Tablet PO 02/14/25 04:27 650 mg Q6H PRN Administration Fever >100 or pain 1-3 Amlodipine Besylate 5 mg 01/17/25 09:00 01/17/25 09:33 Amlodipine Besylate 5 Mg Tablet PO 02/16/25 08:59 5 mg QDAY BERE Administration Atropine Sulfate 0.5 mg 01/15/25 06:43 Atropine Sulf Inj 0.1 Mg/Ml Syr 10 Ml IVP Q10MIN PRN BRADYCARDIA Dextrose 25 ml 01/14/25 19:51 01/14/25 22:29 Dextrose 50%-Water Inj 50 Ml Syringe IV 02/13/25 19:50 25 ml Q15MIN PRN Administration BG 50-70 responsive npo pt Heparin Sodium (Porcine) 5,000 unit 01/15/25 09:00 01/17/25 20:09 Heparin Sod Inj 5000 Unit/Ml Vial SC 01/29/25 08:59 5,000 unit Q12HR BERE Administration Hydralazine HCl 5 mg 01/15/25 17:34 Hydralazine Inj 20 Mg/Ml Vial IV 02/14/25 17:33 Q6HR PRN Hypertension Ceftriaxone Sodium 1,000 mg/ 50 mls @ 100 mls/hr 01/16/25 09:00 03/14/25 09:31 Sodium Chloride IV 01/22/25 08:59 100 mls/hr QDAY BERE Administration Levothyroxine Sodium 100 mcg 01/15/25 06:00 01/18/25 05:38 Levothyroxine Sodium 100 Mcg Tablet PO 02/14/25 05:59 100 mcg ACBR BERE Administration Ondansetron HCl 4 mg 01/15/25 04:28 Ondansetron Inj 2 Mg/Ml Inj 2 Ml IV 02/14/25 04:27 Q6H PRN NAUSEA OR VOMITING Protocol Pantoprazole Sodium 40 mg 01/15/25 09:00 01/17/25 09:30 Pantoprazole Inj 40 Mg Vial IVP 02/14/25 08:59 40 mg QDAY BERE Administration Polyethylene Glycol 17 gm 01/18/25 07:23 Polyethylene Glycol 17 Gm Packet PO 02/17/25 07:22 Q8H PRN CONSTIPATION Sennosides 8.8 mg 01/15/25 10:34 Sennosides Syrup 8.8 Mg/5 Ml Udc PO 02/14/25 10:33 QDAY PRN CONSTIPATION Protocol Plan This Jose Vega is an 89-y/o female with a PMHx of HTN, T2DM, and hypothyroidism who is admitted on 01/14 for symptomatic bradycardia, UTI. #Symptomatic bradycardia, intermittent Chart review shows bradycardia in 2021, follows Dr. Batres. ? Cardiology consulted, hypothyroidism and coreg may be contributing to clinical picture and recommends starting synthyroid and discontinuing coreg. ? Patient's family decided to proceed with pacemaker placement. ? Nurses Assistant agreeable to place the pacemaker on 01/20/2025 ? Mg and K > 2 and 4, respectively ? Atropine 0.5 mg IV every 10 minutes as needed for heart rate below 30 ? Echo: Normal LV size, systolic function. Mild LVH. EF 55-60%. RV normal in size and systolic function. LA size mildly increased. Mild to moderate MR. #Acute kidney injury on CKD 3A, likely prerenal, improving #Hyperkalemia, resolved Creatinine 1.6, GFR 31, BUN 29 Hyperkalemia possibly from spironolactone? ? Avoid nephrotoxic agents, renally dose medicines ? Patient has been voiding normally. Creatinine remains at 1.1 ? DC'd spironolactone #Urinary tract infection Nitrates, leukocyte esterase, white cells and rare bacteria seen on urinalysis History of pansensitive E. coli ? Continue with Rocephin 1 g IV for total 7 days to complete course ? Urine culture: MDR Klebsiella, sensitive to Rocephin (01/15?current) #Mild to moderate mitral regurgitation Systolic murmur appreciated at apex, and findings noted on echo Cardiology consulted, appreciate recommendations Outpatient follow-up #History of hypothyroidism TSH 10 and free T4 1.4 ? Levothyroxine 100 mcg ACBR ? Advised patient/daughter/granddaughter to have repeat thyroid panel drawn in 4 to 6 weeks #History of hypertension ? Discontinued coreg per cardiology recommendations => patient to follow-up with Dr. Batres on when to resume Coreg ? SBP approximately 180. Will add amlodipine for better BP control #? [id number] type II diabetes mellitus ? A1c 6.4%, no home medications ? Blood sugar 110 in AM and will hold SSI ? Hypoglycemia protocol in place #Transaminitis, improving ? Likely secondary to dehydration #Normocytic anemia -Likely decreased p.o. intake ? Hemoglobin 10.5, hematocrit 32.9 ?Continue to monitor and PRBC if hemoglobin drops below 7 Hospital management: Disposition: admitted for symptomatic bradycardia, and MDR KLEBSIELLA UTI. Pacemaker placement on 01/20/2025. Fluids: Discontinued Diet: dysphagia 2 Lines: PIV DVT prophylaxis: heparin SC GI prophylaxis: pantoprazole IV CODE STATUS: full code Patient was seen and discussed with attending physician, Dr. Shady Lee MD, PGY 2 Attending Provider Attestation/Addendum Patient seen and examined at bedside with resident. Agree with assessment and plan as dictated above. Patient still bradycardic overnight down to the 40s. Otherwise heart rate in the 80s this morning and not complaining of any chest pain. Still pending pacemaker placement, continue to monitor for signs of heart failure or other decompensation. Usman Caruso MD
[2025-01-18] MEDS: PANTOPRAZOLE INJ 40 MG VIAL IVP (13:05)
[2025-01-18] MEDS: cefTRIAXone 1,000 MG in SODIUM CHLORIDE 0.9% (Popper) 50 ML 100 MG IV (13:06)
[2025-01-18] MEDS: HEPARIN SOD INJ 5000 UNIT/ML VIAL SC ×2 (13:07→20:25)
[2025-01-18] MEDS: ACETAMINOPHEN 325 MG TABLET 650 MG PO (19:42)
[2025-01-19] VITALS (9 sets, daily range): BP systolic 130–177; BP diastolic 59–83; PULSE 42–84; RESP 13–21; TEMP 36.2–37.2; O2SAT 96–99; BMI 19.8
[2025-01-19] MEDS: LEVOTHYROXINE SODIUM 100 MCG TABLET PO (05:10)
[2025-01-19 05:34] LABS: Basophils # (Auto) 0.1 Thou/mm3 (0.0-0.2); Basophils % (Auto) 1 % (0-2.5); Eosinophils # (Auto) 0.4 Thou/mm3 (0.0-0.5); Eosinophils % (Auto) 7 % (0-10); Hematocrit 33.8 % (36.0-46.0); Hemoglobin 10.6 g/dL (12.0-16.0); Immature Granulocytes % (Auto) 0 % (0-0); Immature Granulocytes Auto 0.02 Thou/mm3 (0.00-0.00); Lymphocytes # (Auto) 1.8 Thou/mm3 (1.0-4.8); Lymphocytes % (Auto) 31 % (10-50); Mean Corpuscular HGB Conc 31.4 g/dl (31.0-37.0); Mean Corpuscular Hemoglobin 22.6 pg (25.0-35.0); Mean Corpuscular Volume 72 fL (80-100); Monocytes # (Auto) 0.7 Thou/mm3 (0.0-0.8); Monocytes % (Auto) 12 % (0-12); Neutrophils # (Auto) 2.8 Thou/mm3 (1.8-7.7); Neutrophils % (Auto) 48 % (37-80); Nucleated Red Blood Cell % 0 /100 WBC (0); Platelet Count 219 Thou/mm3 (140-440); RDW Standard Deviation 37.5 fL (36.4-46.3); Red Blood Count 4.68 Miln/mm3 (4.00-5.20); White Blood Count 5.8 Thou/mm3 (3.6-11.0)
[2025-01-19 06:04] LABS: Alanine Aminotransferase 60 U/L (10-49); Albumin, Serum 3.5 gm/dL (3.4-4.8); Albumin/Globulin Ratio 1.2 (1.2-2.2); Alkaline Phosphatase 61 U/L (46-116); Anion Gap 8 (7-16); Aspartate Amino Transferase 44 U/L (0-34); BUN/Creatinine Ratio 24 Ratio (12-20); Bilirubin,Total 0.4 mg/dL (0.3-1.2); Blood Urea Nitrogen 29 mg/dL (9-23); Calcium 9.2 mg/dL (8.3-10.6); Calcium (Corrected) 9.6 mg/dL (8.5-10.1); Carbon Dioxide 27.6 mMol/L (20.0-31.0); Chloride 103 mMol/L (98-107); Creatinine (Component) 1.2 mg/dL (0.6-1.3); Glucose 96 mg/dL (74-106); Osmolality,Calculated 283 (275-295); Phosphorous 5.1 mg/dL (2.4-5.1); Potassium 5.3 mMol/L (3.4-5.1); Sodium 139 mMol/L (136-145); Total Protein 6.5 gm/dL (5.7-8.2); eGFR 44 See Note
[2025-01-19] MEDS: ALBUTEROL/IPRATROPIUM (Duoneb) RT SOL 3 ML NEBU 5 ML INH (07:59)
[2025-01-19] MEDS: HEPARIN SOD INJ 5000 UNIT/ML VIAL SC ×2 (08:57→20:39)
[2025-01-19] MEDS: PANTOPRAZOLE INJ 40 MG VIAL IVP (08:57)
[2025-01-19] MEDS: cefTRIAXone 1,000 MG in SODIUM CHLORIDE 0.9% (Popper) 50 ML 100 MG IV (08:57)
--- NOTE | 2025-01-19 10:21 | CHAP ---
Patient was visited by the Spiritual Care Volunteer from whom they received communion. (Volunteer was in the hospital from 09:02-10:21)
[2025-01-19 11:19] LABS: Potassium 4.9 mMol/L (3.4-5.1)
--- NOTE | 2025-01-19 12:31 | PD.RESPRO ---
Documentation for date of: 01/19/25 Subjective Subjective Interval history: Patient was seen and examined at the bedside. Patient continues remain bradycardic overnight around 43 bpm . Patient's blood pressure has been elevated overnight. She stated that she has some pain in her lower extremities. Tylenol was given x 1. Currently antihypertensive was not increased given blood pressure has been variable. Therefore we will continue with amlodipine 5 mg once daily and keep hydralazine 5 mg IV every 6 hourly as needed. Labs showed stable hemoglobin. Chemistry panel showed mild hyperkalemia that was treated with breathing treatment and potassium came down at 4.9. Kidney functions improved. LFTs are improving. Continuing Rocephin until 01/22 for UTI. Plan is to place pacemaker tomorrow per cardiology recommendations. Patient will be n.p.o. after midnight. All labs and orders were reviewed. Exam Vital Signs Temp Pulse Resp BP Pulse Ox O2 Del Method 97.1 F 66 19 130/67 99 Room Air 01/19/25 08:00 01/19/25 12:00 01/19/25 08:01 01/19/25 08:57 01/19/25 08:01 01/19/25 08:00 Narrative Exam GENERAL APPEARANCE: AOx3 elderly frail female in no acute distress. Saturating well on room air. HEENT: NC, AT. MMM. EOMI, clear conjunctiva, oropharynx clear. NECK: Supple without lymphadenopathy. No stiffness or restricted ROM. HEART: Sinus bradycardia with regular rhythm, normal S1/S2, holosystolic murmur heard on apex LUNGS: CTAB, moving air well. No crackles or wheezes are heard. ABDOMEN: Soft, nontender, nondistended with good bowel sounds heard. BACK: No CVAT, no obvious deformity. EXTREMITIES: Without cyanosis, clubbing or edema. NEUROLOGICAL: Grossly nonfocal. Alert and oriented, moving all 4 extremities. CN not formally tested but appear grossly intact. Ambulate with assistance. Skin: Warm and dry without any rash. Psych: Appropriate mood and affect Objective Labs 01/19/25 04:31 01/19/25 10:52 Labs: Laboratory Results - last 24 hr 01/19/25 01/19/25 04:31 10:52 WBC 5.8 RBC 4.68 Hgb 10.6 L Hct 33.8 L MCV 72 L MCH 22.6 L MCHC 31.4 RDW Std Deviation 37.5 Plt Count 219 D Neut % (Auto) 48 Lymph % (Auto) 31 [place] % (Auto) 12 Eos % (Auto) 7 Baso % (Auto) 1 Neut # (Auto) 2.8 Lymph # (Auto) 1.8 [place] # (Auto) 0.7 Eos # (Auto) 0.4 Baso # (Auto) 0.1 Immature Gran # (Auto) 0.02 H Absolute Nucleated RBC 0.00 Immature Gran % 0 Nucleated RBC % 0 Sodium 139 Potassium 5.3 H D 4.9 Chloride 103 Carbon Dioxide 27.6 Anion Gap 8 BUN 29 H Creatinine 1.2 Estim Creat Clear Calc 19.0 L eGFR 44 L BUN/Creatinine Ratio 24 H Glucose 96 Calculated Osmolality 283 Calcium 9.2 Corrected Calcium 9.6 Phosphorus 5.1 Magnesium 2.0 Total Bilirubin 0.4 AST 44 H ALT 60 H Alkaline Phosphatase 61 Total Protein 6.5 Albumin 3.5 Globulin 3.0 Albumin/Globulin Ratio 1.2 ABG Interpretation ABG results: 01/14/25 17:30 VBG pH 7.47 VBG pCO2 34 L VBG pO2 68 H VBG Base Excess 1 Quality Measures Quality Measures VTE prophylaxis Advance care planning discussed with:: other Assessment & Plan Assessment Current Active Medications: Generic Name Dose Route Start Last Admin Trade Name Freq PRN Reason Stop Dose Admin Acetaminophen 650 mg 01/15/25 04:28 01/18/25 19:42 Acetaminophen 325 Mg Tablet PO 02/14/25 04:27 650 mg Q6H PRN Administration Fever >100 or pain 1-3 Amlodipine Besylate 5 mg 01/17/25 09:00 01/19/25 08:57 Amlodipine Besylate 5 Mg Tablet PO 02/16/25 08:59 Not Given QDAY BERE Atropine Sulfate 0.5 mg 01/15/25 06:43 Atropine Sulf Inj 0.1 Mg/Ml Syr 10 Ml IVP Q10MIN PRN BRADYCARDIA Dextrose 25 ml 01/14/25 19:51 01/14/25 22:29 Dextrose 50%-Water Inj 50 Ml Syringe IV 02/13/25 19:50 25 ml Q15MIN PRN Administration BG 50-70 responsive npo pt Heparin Sodium (Porcine) 5,000 unit 01/15/25 09:00 01/19/25 08:57 Heparin Sod Inj 5000 Unit/Ml Vial SC 01/29/25 08:59 5,000 unit Q12HR BERE Administration Hydralazine HCl 5 mg 01/19/25 10:10 Hydralazine Inj 20 Mg/Ml Vial IV 02/14/25 17:33 Q6HR PRN Hypertension Ceftriaxone Sodium 1,000 mg/ 50 mls @ 100 mls/hr 01/16/25 09:00 01/19/25 08:57 Sodium Chloride IV 01/22/25 08:59 100 mls/hr QDAY BERE Administration Levothyroxine Sodium 100 mcg 01/15/25 06:00 01/19/25 05:10 Levothyroxine Sodium 100 Mcg Tablet PO 02/14/25 05:59 100 mcg ACBR BERE Administration Ondansetron HCl 4 mg 01/15/25 04:28 Ondansetron Inj 2 Mg/Ml Inj 2 Ml IV 02/14/25 04:27 Q6H PRN NAUSEA OR VOMITING Protocol Pantoprazole Sodium 40 mg 01/15/25 09:00 01/19/25 08:57 Pantoprazole Inj 40 Mg Vial IVP 02/14/25 08:59 40 mg QDAY BERE Administration Polyethylene Glycol 17 gm 01/18/25 07:23 Polyethylene Glycol 17 Gm Packet PO 02/17/25 07:22 Q8H PRN CONSTIPATION Sennosides 8.8 mg 01/15/25 10:34 Sennosides Syrup 8.8 Mg/5 Ml Udc PO 02/14/25 10:33 QDAY PRN CONSTIPATION Protocol Plan This Jose Vega is an 89-y/o female with a PMHx of HTN, T2DM, and hypothyroidism who is admitted on 01/14 for symptomatic bradycardia, UTI. Pacemaker placement on 01/20. #Symptomatic bradycardia, intermittent Chart review shows bradycardia in 2021, follows Dr. Batres. ? Cardiology consulted, hypothyroidism and coreg may be contributing to clinical picture and recommends starting synthyroid and discontinuing coreg. ? Patient's family agreeable to proceed with pacemaker placement. ? N.p.o. after midnight ? Ordered morning labs with coagulation panel ? Hold heparin subcut morning dose holding 4-6 hours before the procedure ? Plan for pacemaker tomorrow 01/20/2025 ? Mg and K > 2 and 4, respectively ? Atropine 0.5 mg IV every 10 minutes as needed for heart rate below 30 ? Echo: Normal LV size, systolic function. Mild LVH. EF 55-60%. RV normal in size and systolic function. LA size mildly increased. Mild to moderate MR. #Acute kidney injury on CKD 3A, likely prerenal, improving #Hyperkalemia, resolved Creatinine 1.2, GFR 44 BUN 29 Hyperkalemia possibly from spironolactone? ? Avoid nephrotoxic agents, renally dose medicines ? Patient has been voiding normally. Creatinine remains at 1.2 ? DC'd spironolactone #Urinary tract infection #MDR Klebsiella sensitive to Rocephin Nitrates, leukocyte esterase, white cells and rare bacteria seen on urinalysis History of pansensitive E. coli ? Continue with Rocephin 1 g IV for total 7 days to complete course until 01/22 ? Urine culture: MDR Klebsiella, sensitive to Rocephin (01/15?current) #Hyperkalemia, resolved ?Potassium was 5.3 ? Breathing treatment 5 mL was given x 1 ?Repeat potassium came down to 4.9 #Mild to moderate mitral regurgitation Systolic murmur appreciated at apex, and findings noted on echo Cardiology consulted, appreciate recommendations Outpatient follow-up #History of hypothyroidism TSH 10 and free T4 1.4 ? Levothyroxine 100 mcg ACBR ? Advised patient/daughter/granddaughter to have repeat thyroid panel drawn in 4 to 6 weeks #History of hypertension ? Discontinued coreg per cardiology recommendations => patient to follow-up with Dr. Batres on when to resume Coreg ? SBP approximately 180. Continue with amlodipine for better BP control and pain control as needed #? [id number] type II diabetes mellitus ? A1c 6.4%, no home medications ? Blood sugars stable around 110 mg/dL ? Hypoglycemia protocol in place #Transaminitis, improving ? Likely secondary to dehydration #Normocytic anemia -Likely decreased p.o. intake ? Hemoglobin 1 10.6, hematocrit 33.8 ?Continue to monitor and PRBC if hemoglobin drops below 7 Hospital management: Disposition: Patient is admitted for symptomatic bradycardia, and MDR KLEBSIELLA UTI. Pacemaker placement on 01/20/2025. Fluids: Discontinued Diet: dysphagia 2 Lines: PIV DVT prophylaxis: Hold heparin subcut at 9 AM GI prophylaxis: pantoprazole IV CODE STATUS: full code Patient was seen and discussed with attending physician, Dr. Shady Lee MD, PGY 2 Attending Provider Attestation/Addendum I have examined the patient, reviewed labs and imaging findings, discussed the case with the resident(s), and reviewed entered orders. I agree with the plan of care as outlined in this note, with these additional summaries/recommendations: Patient still having bradycardia episodes overnight down to the 40s. She is currently pending placement placement tomorrow. Otherwise doing well. Dissipate discharge in next 24 to 48 hours if pacemaker placement is uneventful. Usman Caruso MD
[2025-01-19] MEDS: ACETAMINOPHEN 325 MG TABLET 650 MG PO (13:45)
[2025-01-20] VITALS (24 sets, daily range): BP systolic 132–200; BP diastolic 52–115; PULSE 45–73; RESP 12–22; TEMP 36.1–36.8; O2SAT 94–100; BMI 20.5
[2025-01-20 05:46] LABS: Basophils # (Auto) 0.1 Thou/mm3 (0.0-0.2); Basophils % (Auto) 1 % (0-2.5); Eosinophils # (Auto) 0.4 Thou/mm3 (0.0-0.5); Eosinophils % (Auto) 8 % (0-10); Hemoglobin 10.9 g/dL (12.0-16.0); Immature Granulocytes % (Auto) 0 % (0-0); Immature Granulocytes Auto 0.01 Thou/mm3 (0.00-0.00); Lymphocytes # (Auto) 1.5 Thou/mm3 (1.0-4.8); Lymphocytes % (Auto) 28 % (10-50); Mean Corpuscular HGB Conc 32.1 g/dl (31.0-37.0); Mean Corpuscular Hemoglobin 22.9 pg (25.0-35.0); Mean Corpuscular Volume 72 fL (80-100); Monocytes # (Auto) 0.6 Thou/mm3 (0.0-0.8); Monocytes % (Auto) 11 % (0-12); Neutrophils # (Auto) 2.8 Thou/mm3 (1.8-7.7); Neutrophils % (Auto) 52 % (37-80); Nucleated Red Blood Cell % 0 /100 WBC (0); Platelet Count 190 Thou/mm3 (140-440); RDW Standard Deviation 36.7 fL (36.4-46.3); Red Blood Count 4.75 Miln/mm3 (4.00-5.20); White Blood Count 5.4 Thou/mm3 (3.6-11.0)
[2025-01-20 06:31] LABS: Partial Thromboplastin Time 35.2 Seconds (22.0-36.0); Prothrombin Time 10.9 Seconds (9.0-12.2)
[2025-01-20 06:45] LABS: Alanine Aminotransferase 71 U/L (10-49); Albumin, Serum 3.5 gm/dL (3.4-4.8); Albumin/Globulin Ratio 1.1 (1.2-2.2); Alkaline Phosphatase 62 U/L (46-116); Anion Gap 9 (7-16); Aspartate Amino Transferase 50 U/L (0-34); BUN/Creatinine Ratio 24 Ratio (12-20); Bilirubin,Total 0.4 mg/dL (0.3-1.2); Blood Urea Nitrogen 29 mg/dL (9-23); Calcium 9.2 mg/dL (8.3-10.6); Calcium (Corrected) 9.6 mg/dL (8.5-10.1); Carbon Dioxide 25.6 mMol/L (20.0-31.0); Chloride 101 mMol/L (98-107); Creatinine (Component) 1.2 mg/dL (0.6-1.3); Estimated Creatinine Clearance 19.7 mL/min (>60); Globulin 3.1 gm/dL (2.3-3.5); Glucose 96 mg/dL (74-106); Magnesium 1.8 mg/dL (1.6-2.6); Osmolality,Calculated 277 (275-295); Phosphorous 5.1 mg/dL (2.4-5.1); Potassium 5.6 mMol/L (3.4-5.1); Sodium 136 mMol/L (136-145); Total Protein 6.6 gm/dL (5.7-8.2); eGFR 44 See Note
--- NOTE | 2025-01-20 08:02 | ESPR_ITS ---
Documentation for date of: 01/20/25 Subjective Subjective Interval history: Patient seen and examined at bedside this morning. No acute overnight events. Vitals, labs reviewed. Heart rate in 40s overnight. Labs significant for microcytic anemia, consistent with labs over the course of admission. Patient denies any dark/bloody bowel movements. Potassium noted to be 5.6, will order albuterol x 1. At bedside, patient only complains of leg pain which is chronic. She is hungry but n.p.o. for pacemaker scheduled for later this afternoon. Exam Vital Signs Temp Pulse Resp BP Pulse Ox O2 Del Method 98.2 F 45 L 18 133/65 H 97 Room Air 01/20/25 03:48 01/20/25 07:53 01/20/25 03:48 01/20/25 03:48 01/20/25 03:48 01/20/25 03:48 Narrative Exam General: AOx3, pleasant to speak with, able to speak full sentences HEENT: NC/AT, mucous membranes moist, bilateral sclera anicteric Cardiovascular: regular rate & rhythm, systolic murmur heard at apex Pulmonary: clear to auscultation bilaterally, no rales/rhonchi/wheezes Abdominal: soft, non-tender, non-distended, no rebound/guarding, normal bowel sounds present Musculoskeletal: normal ROM, no peripheral edema Skin: warm and dry, intact, no rashes Neuro: CN II-XII intact, no focal deficits Objective Labs 01/20/25 04:43 01/20/25 04:43 Labs: Laboratory Results - last 24 hr 01/19/25 01/20/25 10:52 04:43 WBC 5.4 RBC 4.75 Hgb 10.9 L Hct 34.0 L MCV 72 L MCH 22.9 L MCHC 32.1 RDW Std Deviation 36.7 Plt Count 190 Neut % (Auto) 52 Lymph % (Auto) 28 [place] % (Auto) 11 Eos % (Auto) 8 Baso % (Auto) 1 Neut # (Auto) 2.8 Lymph # (Auto) 1.5 [place] # (Auto) 0.6 Eos # (Auto) 0.4 Baso # (Auto) 0.1 Immature Gran # (Auto) 0.01 H Absolute Nucleated RBC 0.00 Immature Gran % 0 Nucleated RBC % 0 PT 10.9 INR 1.0 APTT 35.2 D Sodium 136 Potassium 4.9 5.6 H D Chloride 101 Carbon Dioxide 25.6 Anion Gap 9 BUN 29 H Creatinine 1.2 Estim Creat Clear Calc 19.7 L eGFR 44 L BUN/Creatinine Ratio 24 H Glucose 96 Calculated Osmolality 277 Calcium 9.2 Corrected Calcium 9.6 Phosphorus 5.1 Magnesium 1.8 Total Bilirubin 0.4 AST 50 H ALT 71 H Alkaline Phosphatase 62 Total Protein 6.6 Albumin 3.5 Globulin 3.1 Albumin/Globulin Ratio 1.1 L ABG Interpretation ABG results: 01/14/25 17:30 VBG pH 7.47 VBG pCO2 34 L VBG pO2 68 H VBG Base Excess 1 Quality Measures Quality Measures VTE prophylaxis Advance care planning discussed with:: patient and child Assessment & Plan Assessment Current Active Medications: Generic Name Dose Route Start Last Admin Trade Name Freq PRN Reason Stop Dose Admin Acetaminophen 650 mg 01/15/25 04:28 01/18/25 19:42 Acetaminophen 325 Mg Tablet PO 02/14/25 04:27 650 mg Q6H PRN Administration Fever >100 or pain 1-3 Amlodipine Besylate 5 mg 01/17/25 09:00 01/19/25 08:57 Amlodipine Besylate 5 Mg Tablet PO 02/16/25 08:59 Not Given QDAY BERE Atropine Sulfate 0.5 mg 01/15/25 06:43 Atropine Sulf Inj 0.1 Mg/Ml Syr 10 Ml IVP Q10MIN PRN BRADYCARDIA Dextrose 25 ml 01/14/25 19:51 01/14/25 22:29 Dextrose 50%-Water Inj 50 Ml Syringe IV 02/13/25 19:50 25 ml Q15MIN PRN Administration BG 50-70 responsive npo pt Heparin Sodium (Porcine) 5,000 unit 01/15/25 09:00 01/19/25 20:39 Heparin Sod Inj 5000 Unit/Ml Vial SC 01/29/25 08:59 5,000 unit Q12HR BERE Administration Hydralazine HCl 5 mg 01/19/25 10:10 Hydralazine Inj 20 Mg/Ml Vial IV 02/14/25 17:33 Q6HR PRN Hypertension Ceftriaxone Sodium 1,000 mg/ 50 mls @ 100 mls/hr 01/16/25 09:00 01/19/25 08:57 Sodium Chloride IV 01/22/25 08:59 100 mls/hr QDAY BEER Administration Levothyroxine Sodium 100 mcg 01/15/25 06:00 01/20/25 05:15 Levothyroxine Sodium 100 Mcg Tablet PO 02/14/25 05:59 Not Given ACBR BERE Ondansetron HCl 4 mg 01/15/25 04:28 Ondansetron Inj 2 Mg/Ml Inj 2 Ml IV 02/14/25 04:27 Q6H PRN NAUSEA OR VOMITING Protocol Pantoprazole Sodium 40 mg 01/15/25 09:00 01/19/25 08:57 Pantoprazole Inj 40 Mg Vial IVP 02/14/25 08:59 40 mg QDAY BERE Administration Polyethylene Glycol 17 gm 01/18/25 07:23 Polyethylene Glycol 17 Gm Packet PO 02/17/25 07:22 Q8H PRN CONSTIPATION Sennosides 8.8 mg 01/15/25 10:34 Sennosides Syrup 8.8 Mg/5 Ml Udc PO 02/14/25 10:33 QDAY PRN CONSTIPATION Protocol Plan This Jose Vega is an 89-y/o female with a PMHx of HTN, T2DM, and hypothyroidism who is admitted on 01/14 for symptomatic bradycardia, UTI. Pacemaker placement on 01/20. #Symptomatic bradycardia, intermittent Chart review shows bradycardia in 2021, follows Dr. Batres. ? Cardiology consulted, initial concern that hypothyroidism and coreg may be contributing to clinical picture and recommends starting synthyroid and discontinuing coreg. ? Mg and K > 2 and 4, respectively ? Echo: Normal LV size, systolic function. Mild LVH. EF 55-60%. RV normal in size and systolic function. LA size mildly increased. Mild to moderate MR. ? Patient continued to be bradycardic, therefore discussion was had with patient and family, patient pacemaker placement today 01/20 => will follow-up with cardiology for further recommendations #Acute kidney injury on CKD 3A, likely prerenal, improving #Hyperkalemia Creatinine 1.2, GFR 44 BUN 29 Hyperkalemia possibly from spironolactone? => Spironolactone has been discontinued, however potassium continues to be elevated at 5.6 => albuterol 10 mg x 1 ? Avoid nephrotoxic agents, renally dose medicines ? Patient has been voiding normally. Creatinine remains at 1.2 ? DC'd spironolactone #Urinary tract infection #MDR Klebsiella sensitive to Rocephin Nitrates, leukocyte esterase, white cells and rare bacteria seen on urinalysis History of pansensitive E. coli ? Continue with Rocephin 1 g IV for total 7 days to complete course until 01/22 ? Urine culture: MDR Klebsiella, sensitive to Rocephin (01/15?current) #Mild to moderate mitral regurgitation Systolic murmur appreciated at apex, and findings noted on echo Cardiology consulted, appreciate recommendations Outpatient follow-up #History of hypothyroidism TSH 10 and free T4 1.4 ? Levothyroxine 100 mcg ACBR ? Advised patient/daughter/granddaughter to have repeat thyroid panel drawn in 4 to 6 weeks #History of hypertension ? Discontinued coreg per cardiology recommendations => patient to follow-up with Dr. Batres on if to resume Coreg or different beta-niru, s/p pacemaker placement ? Continue with amlodipine, with holding parameters #? [id number] type II diabetes mellitus ? A1c 6.4%, no home medications ? Hypoglycemia protocol in place #Transaminitis, improving ? Likely secondary to dehydration #Microcytic anemia - Likely decreased p.o. intake vs SERGEY; can resume home FeSO4 qOD ? Hemoglobin 1 10.6, hematocrit 33.8 ? Continue to monitor and PRBC if hemoglobin drops below 7 Hospital management: Disposition: Patient is admitted for symptomatic bradycardia, and MDR KLEBSIELLA UTI. S/p pacemaker placement on 01/20/2025. Fluids: Discontinued Diet: dysphagia 1 cardiac Lines: PIV DVT prophylaxis: Resume heparin GI prophylaxis: pantoprazole IV CODE STATUS: full code Patient seen and care discussed with my attending Dr. Allen. Ida Grigsby MD PGY-3 Attending Provider Attestation/Addendum I have discussed and was present for the essential components of the history, physical examination, diagnosis, and treatment plan with the resident. I agree with the patient's care as documented by the resident and amended herein by me. Jaguar Allen DO. Patient seen and evaluated this AM. Pending pacemaker placement and cardiology recommendations today, will stop ceftriaxone as the patient has completed an adequate course of antibiotics for UTI, will continue to monitor closely while she is here. Although this document has been carefully reviewed, there may still be some phonetic and other typographical errors. These errors are purely grammatical due to imperfections in the software program and should not be construed in any way to compromise the substance of the patient's medical care during this visit.
[2025-01-20] MEDS: PANTOPRAZOLE INJ 40 MG VIAL IVP (08:21)
[2025-01-20] MEDS: cefTRIAXone 1,000 MG in SODIUM CHLORIDE 0.9% (Popper) 50 ML 100 MG IV (08:21)
[2025-01-20] MEDS: ALBUTEROL RT 2.5 MG/0.5 ML NEBU 10 MG INH (08:24)
--- NOTE | 2025-01-20 14:28 | PD.CARDCATH ---
Cardiac Cath Procedure Procedure Narrative Date of the procedure 01/20/2025 TITLE OF THE PROCEDURE: PERMANENT PACEMAKER PLACEMENT Indication for the procedure This is an 89-year-old female was admitted with fatigue tiredness weakness near syncope Patient's heart rate was noted to be in the low 40s We continue to monitor the heart rate on telemetry for more than 48 hours Patient's heart rate intermittently dropping to the 40s with fatigue tiredness dizziness symptoms Sick sinus syndrome was diagnosed with symptomatic bradycardia Permanent pacemaker was recommended Procedure Procedure was done in the OR after appropriate timeout and under continuous electrocardiographic monitoring and intermittent blood pressure monitoring and after instituting conscious sedation we started the procedure. Left subclavian region was prepared in a sterile fashion and sterile gowns were applied. 1% lidocaine anesthesia was used locally. Left subclavian venous access was obtained. Modified Seldinger technique was used for this. After the blood return was confirmed guidewire was placed into the left subclavian vein. We proceeded with making a pacemaker pocket. Incision was made over the left subclavian region and hemostasis was achieved. By gentle dissection pacemaker pocket was fashioned out of the prepectoralis fascia. Subsequently venous sheath was placed over the guidewire and a second guidewire was also placed through the venous sheath. Subsequently a new venous sheet was gently passed over one of the guidewires and through the venous sheet ventricular lead was gently advanced under fluoroscopic guidance. Ventricular lead was positioned at the apex of the right ventricle under fluoroscopic guidance and the lead was gently screwed into the myocardium. Subsequently we proceeded with lead testing. After the ventricular lead was placed, through a second venous sheath atrial lead was advanced under fluoroscopic guidance. Subsequently the atrial lead was positioned into the right atrial appendix and gently screwed in. After that atrial lead was tested. After both leads were tested and they were connected to the generator. The generator was placed in the pocket and pocket was flushed with antibiotic solution. Subsequently further hemostasis was achieved and pocket was inspected carefully and removed all gauzes. The generator was sutured to the prepectoralis fascia with silk. We started to proceed with suturing of the pocket. Skin was secured with Dermabond TESTING PARAMETERS ARE: Atrial lead: [employer] serial #[id number] P-wave: 3.2 mV Threshold: 0.8 V at 1 ms Impedance: 507 ohms Ventricular lead Bi[employer]ron[employer] serial #[id number] R-wave: 8.5 mV Threshold: 0.7 V at 0.4 ms Impedance: 643 ohms After the procedure was done, the final position of the leads and pacemaker was confirmed by fluoroscopy, and patient was taken to the recovery on stable conditions.
--- NOTE | 2025-01-20 14:32 | XR_ITS ---
Examination: AP chest single view TECHNIQUE: AP semiupright portable chest single view Exam date and time: January 20, 2025 at 1456 hours Comparison January 14, 2025 INDICATIONS: Postop pacemaker insertion FINDINGS: Transvenous dual-chamber bipolar cardiac leads satisfactory position No pneumothorax Mild prominence left ventricle IMPRESSION: Cardiac leads satisfactory position
[2025-01-20] MEDS: ceFAZolin/D5W 1 GM IVPB 1 GM/50 ML BAG IV (15:29)
--- NOTE | 2025-01-20 17:30 | PC.SS ---
FLIGHT SUPERINTENDENT confirmed with patient's family discharge plan to transition the patient to SNF. Preferred SNF is [facility].
[2025-01-20] MEDS: hydrALAZINE HCL 25 MG TABLET PO (17:47)
[2025-01-20] MEDS: ACETAMINOPHEN 325 MG TABLET 650 MG PO (17:48)
--- NOTE | 2025-01-20 20:05 | PC.NURSE ---
DR. ALANIZ NOTIFIED OF PT'S BP 179/74, HR 63 SR. PT RESTING WITH EYES CLOSED. NO NEW ORDER.
[2025-01-21] VITALS (9 sets, daily range): BP systolic 132–183; BP diastolic 64–85; PULSE 62–77; RESP 11–24; TEMP 36.3–36.8; O2SAT 97–100; BMI 18.0
[2025-01-21] MEDS: hydrALAZINE INJ 20 MG/ML VIAL 10 MG IV (04:09)
[2025-01-21] MEDS: ACETAMINOPHEN 325 MG TABLET 650 MG PO ×2 (04:18→17:05)
[2025-01-21] MEDS: HYDROcodone/APAP 5/325 TABLET 1 TAB PO (05:22)
[2025-01-21] MEDS: LEVOTHYROXINE SODIUM 100 MCG TABLET PO (05:22)
[2025-01-21 06:09] LABS: Basophils % (Auto) 1 % (0-2.5); Eosinophils # (Auto) 0.1 Thou/mm3 (0.0-0.5); Eosinophils % (Auto) 2 % (0-10); Hematocrit 36.9 % (36.0-46.0); Hemoglobin 11.8 g/dL (12.0-16.0); Immature Granulocytes % (Auto) 0 % (0-0); Immature Granulocytes Auto 0.03 Thou/mm3 (0.00-0.00); Lymphocytes # (Auto) 1.2 Thou/mm3 (1.0-4.8); Lymphocytes % (Auto) 13 % (10-50); Mean Corpuscular Hemoglobin 22.9 pg (25.0-35.0); Mean Corpuscular Volume 72 fL (80-100); Monocytes # (Auto) 0.9 Thou/mm3 (0.0-0.8); Monocytes % (Auto) 10 % (0-12); Neutrophils # (Auto) 6.6 Thou/mm3 (1.8-7.7); Neutrophils % (Auto) 75 % (37-80); Nucleated Red Blood Cell % 0 /100 WBC (0); Platelet Count 181 Thou/mm3 (140-440); RDW Standard Deviation 35.9 fL (36.4-46.3); Red Blood Count 5.15 Miln/mm3 (4.00-5.20); White Blood Count 8.8 Thou/mm3 (3.6-11.0)
[2025-01-21 06:45] LABS: Alanine Aminotransferase 71 U/L (10-49); Albumin/Globulin Ratio 1.2 (1.2-2.2); Alkaline Phosphatase 70 U/L (46-116); Anion Gap 10 (7-16); Aspartate Amino Transferase 61 U/L (0-34); BUN/Creatinine Ratio 23 Ratio (12-20); Bilirubin,Total 0.6 mg/dL (0.3-1.2); Blood Urea Nitrogen 23 mg/dL (9-23); Calcium 9.4 mg/dL (8.3-10.6); Calcium (Corrected) 9.4 mg/dL (8.5-10.1); Carbon Dioxide 24.6 mMol/L (20.0-31.0); Chloride 100 mMol/L (98-107); Estimated Creatinine Clearance 20.8 mL/min (>60); Globulin 3.4 gm/dL (2.3-3.5); Glucose 110 mg/dL (74-106); Magnesium 1.7 mg/dL (1.6-2.6); Osmolality,Calculated 274 (275-295); Phosphorous 4.2 mg/dL (2.4-5.1); Sodium 135 mMol/L (136-145); Total Protein 7.4 gm/dL (5.7-8.2); eGFR 54 See Note
[2025-01-21] MEDS: ceFAZolin/D5W 1 GM IVPB 1 GM/50 ML BAG IV (08:09)
[2025-01-21] MEDS: PANTOPRAZOLE INJ 40 MG VIAL IVP (08:09)
[2025-01-21] MEDS: Magnesium Sulfate 2 GM Ivpb 2 GM/50 ML BAG IV (08:56)
--- NOTE | 2025-01-21 09:25 | PC.SS ---
SNF referral submitted on [facility]. Preferred facility is [facility]. Responses pending.
--- NOTE | 2025-01-21 11:25 | PC.NURSE ---
Biometric home monitoring cardio messenger [employer] with temporary card given to Elyse gordon.
--- NOTE | 2025-01-21 11:28 | ESDS_ITS ---
Planned Discharge Date 01/21/25 DS: Providers Provider Date of admission: 01/15/25 04:28 Primary care physician: Physician No Primary/Family Admitting Provider: Reena Elizondo MD Attending Provider on Admission: Oscar Allen DO Consults: 01/15/25 07:39 Referral Physical Therapy Routine Comment: Physician Instructions: 01/15/25 08:56 Consult to Cardiology Routine Comment: Symptomatic bradycardia Consulting Provider: Rosetta Batres Attending Provider on DC: Ida Grigsby MD Discharging Provider: Ida Grigsby MD DS: Diagnosis Problem List Completed Was Problem List Reviewed/Reconciled?: Yes Hospital Course Hospital Course Hospital course: Patient was an 89-year-old female with HTN, T2DM and hypothyroidism who initially presented with weakness and fatigue. Patient was admitted for symptomatic bradycardia as HR was noted to be as low as 29, requiring IV atropine. Sinus bradycardia initially thought to be secondary to beta-niru versus hyperkalemia, and coreg & spironolactone were held. Echo was taken, significant for mild to moderate mitral regurgitation. HR remained in 40s and cardiology proceeded with pacemaker placement on 01/20. Additionally she was found to have a UTI, with UCx growing MDR Klebsiella, sensitive to rocephin and completed course. Her home levothyroxine was resumed, with TSH noted to be 10, and fT4 wnl. On day of discharge (01/21), case was discussed with cardiology over the phone who was in agreement of discharge. Patient's family requested SNF placement and CM team was made aware. #Sick sinus syndrome, s/p pacemaker placement #COLE on CKD 3A, improved #Hyperkalemia, improved #UTI, MDR Klebsiella #Mild to moderate mitral regurgitation #Hypothyroidism #Microcytic anemia #HTN #T2DM #Transaminitis, improved Discharge Instructions Take home medication as prescribed. Your medications were adjusted: -Continue coreg 3.125mg twice daily with meals -Ferrous sulfate was was changed to every other day for better absorption -Spironolactone was discontinued due to hyperkalemia Follow-up with PCP as outpatient within 2 weeks Follow-up with diversional therapist's assistant, Dr. Batres as outpatient within 1-2 weeks. Please adhere to additional recommendations from cardiology as made below. Recommend obtaining referral to sample selector outpatient to evaluate/monitor renal function in setting of CKD 3A Repeat Thyroid studies as outpatient in next 4 weeks In case of emergency, call 911 or come back to the ED Patient seen and care discussed with my attending Dr. Allen. Ida Grigsby MD PGY-3 Status at Discharge Cognitive/behavioral status at discharge: AAOx3 Time Spent with Patient Time attestation: Total time spent providing and/or coordinating discharge services: Time spent: Greater than 30 minutes Exam Vital Signs Temp Pulse Resp BP Pulse Ox O2 Del Method 97.3 F 62 18 144/70 H 97 Room Air 01/21/25 08:00 01/21/25 08:00 01/21/25 08:00 01/21/25 08:00 01/21/25 08:00 01/21/25 08:00 Narrative Exam General: AOx3, pleasant to speak with, able to speak full sentences, arm in sling HEENT: NC/AT, mucous membranes moist, bilateral sclera anicteric Cardiovascular: regular rate & rhythm, systolic murmur heard at apex Pulmonary: clear to auscultation bilaterally, no rales/rhonchi/wheezes Abdominal: soft, non-tender, non-distended, no rebound/guarding, normal bowel sounds present Musculoskeletal: normal ROM, no peripheral edema Skin: warm and dry, intact, no rashes Neuro: CN II-XII intact, no focal deficits Discharge Plan Plan Patient Disposition: Xfer Skilled [facility] (SNF) Patient condition on transfer: Stable Care Plan Goals: Take home medication as prescribed Follow-up with PCP as outpatient within 2 weeks Follow-up with diversional therapist's assistant, Dr. Batres as outpatient within 1-2 weeks. Please adhere to additional recommendations from cardiology as made below. Obtain referral to nephrology outpatient for CKD 3A Repeat Thyroid studies as outpatient in next 4 weeks In case of emergency, call 911 or come back to the ED Prescriptions/Referrals Prescriptions/Med Rec: New ferrous sulfate 325 mg (65 mg iron) tablet 325 mg PO Q OTHER DAY Qty: 90 0RF carvedilol 3.125 mg tablet 3.125 mg PO BID Qty: 60 0RF Rx Instructions: must administer with a meal/food Continued cilostazol 50 mg Tablet 50 mg PO BID aspirin 81 mg Tablet,Delayed Release (Dr/Ec) 81 mg PO QDAY levothyroxine 100 mcg Tablet 100 mcg PO QDAY omeprazole 20 mg capsule,delayed release(DR/EC) 20 mg PO QDAY Patient Comments: TAKE 1 CAPSULE BY MOUTH EVERY DAY IN THE EVENING alendronate 70 mg tablet 70 mg PO .q week Patient Comments: TAKE 1 TABLET BY MOUTH ONE TIME PER WEEK magnesium 200 mg tablet 100 mg PO QDAY Discontinued spironolactone 25 mg Tablet 12.5 mg PO QDAY ferrous sulfate 325 mg (65 mg iron) Tablet 325 mg PO TID gabapentin 100 mg Tablet 100 mg PO HS amoxicillin-pot clavulanate [Augmentin] 500-125 mg tablet 1 tab PO BID Qty: 20 0RF carvedilol 3.125 mg tablet 1 tab PO BID Patient Comments: TAKE 1 TABLET BY MOUTH TWICE A DAY diclofenac sodium 75 mg tablet,delayed release (DR/EC) 75 mg PO QDAY Patient Comments: TAKE 1 TABLET BY MOUTH EVERY DAY NEEDED WITH FOOD ciprofloxacin HCl 250 mg tablet 250 mg PO BID Referrals: No Primary/Family,Physician [Primary Care Provider] - Patient/Caregiver Discharge Instructions Other Discharge Activity Instructions:: Please call to schedule a follow up appointment with Dr. Batres, (Tunnel Kiln Repairer), within one week upon discharge. . Address: [address] [place] [address]. [phone]. Please call to schedule a follow up appointment with your primary care doctor 1- 2 weeks after discharge so he/she can make further recommendations about your overall health condition Other Discharge Diet Instructions: It is important to follow a heart healthy diet. Avoid saturated fat foods, foods and drinks with added sugar. Eat a well-balanced diet with plenty of fresh fruits, vegetables and whole grains if not contraindicated by your primary care provider. Choose water to hydrate yourself over any other type of drinks. Talk to your primary doctor for further advice for a diet that fits your nutritional body requirements and for an adequate exercise program to keep and improve your overall health condition. ALWAYS FOLLOW/CONSIDER YOUR PRIMARY CARE DOCTOR'S MEDICAL ADVICE BEFORE MAKING ANY CHANGES TO YOUR DIET AND LEVELS OF ACTIVITY Should you have any other questions or concerns on regards today?s procedure; feel free to contact us to [employer] Education Materials: Living with a Pacemaker, Discharge Instructions for ..., Preventing Surgical Site Infections Print Language: dutch moss) Activity Restrictions/Additional Instructions: Please call to schedule a follow up appointment with Dr. Batres, (Tunnel Kiln Repairer), within one week upon discharge. . Address: [address] [place] [address]. [phone]. Please call to schedule a follow up appointment with your primary care doctor 1- 2 weeks after discharge so he/she can make further recommendations about your overall health condition Take your new/previous medication as directed by the doctor. If there is no changes, continue to take medication at your usual time. You will receive a sling after the procedure. Wear sling for the first 24 hrs post-pacemaker insertion. After this time has elapsed, you can safely remove the sling. DO NOT perform any activities that require you to raise your left arm higher than your shoulder for [address] or operate any motor vehicle, heavy equipment, or machinery in the next 24 hours. DO NOT perform any activity that requires you to be fully alert in the next 24 hour. DO NOT sign any documentation in the next 24 hours that requires a full understanding of what you are signing for. DO NOT REMOVE THE DRESSING THAT COVERS YOUR SURGICAL SITE, KEEP IT CLEAN AND DRY. If you need to take a shower, not recommended the same day of the surgery, but; until the following day, cover your dressing to keep it dry. If is easier for you; take sponge baths to avoid getting your surgical dressing wet. You need to call the diversional therapist's assistant?s office to schedule a follow up appointment. During this visit, your diversional therapist's assistant will remove the dressing place on the surgical incision, DO NOT REMOVE IT BEFORE THIS DATE, and will take a look to the surgical site to make sure there is not complications after the procedure such as but not limited to infection. Call your primary care doctor right away, if you develop signs and symptoms of infection such as elevated temperature, malaise, redness to the surgical site, pain to the surgical site, or drainage. Should you have any other questions or concerns on regards today?s procedure; feel free to contact us to [employer] Stand Alone Forms: Cassie Award Info., Patient Portal Info Letter Discharge Order Discharge Orders: Discharge (Routine); Ordered 01/21/25 Ordered By: Jay Lee Quality Discharge Quality Measures VTE prophylaxis Attestestation Attestation I have discussed and was present for the essential components of the discharge history, physical examination, diagnosis, and discharge treatment plan with the resident. I agree with the patient's discharge care as documented by the resident and amended herein by me. Jaguar Allen DO. The patient understood all discharge instructions, all questions were answered satisfactorily. The patient was instructed to return to the Emergency Department is symptoms worsened or persisted. Patient was stable, afebrile and tolerating p.o. intake at time of discharge. Although this document has been carefully reviewed, there may still be some phonetic and other typographical errors. These errors are purely grammatical due to imperfections in the software program and should not be construed in any way to compromise the substance of the patient's medical care during this visit.
--- NOTE | 2025-01-21 11:44 | PC.SS ---
PASSR completed. Patient meets Level I criteria. No PASSR follow up required.
--- NOTE | 2025-01-21 15:06 | PC.SS ---
DIGITAL ACCOUNT MANAGER contacted [facility] to initiate transport. Reference #[id number]. Preferred vendor [place]. Awaiting authorization. Documentation submitted on [employer].
--- NOTE | 2025-01-21 15:39 | PC.SS ---
Rounding Note: Plan is to d/c the patient to SNF today.
--- NOTE | 2025-01-21 16:19 | PC.SS ---
Ambulance transport scheduled for 06:00 pm this evening. SUPERVISOR LITHARGE updated bedside nurse, SNF and patient's daughter.
== END 2025-01-21 19:19 | disposition skilled nursing facility (03) | DRG 243 ==
LOC: SERX 01-15 02:57 → SERHOLD 01-15 05:18 → S2NX 01-15 06:14
PROVIDERS: Emergency Medicine; Internal Medicine; Student in an Organized Health Care Education/Training Program; Admitting Provider Internal Medicine; Emergency Provider Emergency Medicine; Visit Provider Student in an Organized Health Care Education/Training Program
PROC: 0JH606Z Insertion of Pacemaker, Dual Chamber into Chest Subcutaneous Tissue and Fascia, Open Approach (ICD-10-PCS; principal; 2025-01-20 13:00)
DX: I49.5 Sick sinus syndrome (principal); N17.9 Acute kidney failure, unspecified; N39.0 Urinary tract infection, site not specified; Z16.24 Resistance to multiple antibiotics; N18.31 Chronic kidney disease, stage 3a; E11.22 Type 2 diabetes mellitus with diabetic chronic kidney disease; E03.9 Hypothyroidism, unspecified; D63.1 Anemia in chronic kidney disease; R74.01 Elevation of levels of liver transaminase levels; R62.7 Adult failure to thrive; E87.5 Hyperkalemia; I34.0 Nonrheumatic mitral (valve) insufficiency; M79.604 Pain in right leg; E86.0 Dehydration; M79.605 Pain in left leg; R19.7 Diarrhea, unspecified; R55 Syncope and collapse; I12.9 Hypertensive chronic kidney disease with stage 1 through stage 4 chronic kidney disease, or unspecified chronic kidney disease; I45.10 Unspecified right bundle-branch block; B96.1 Klebsiella pneumoniae [K. pneumoniae] as the cause of diseases classified elsewhere; Z79.899 Other long term (current) drug therapy
CPT/HCPCS: 36415; 71045; 80048; 80053; 80069; 81001; 82803; 83036; 83605; 83690; 83735; 83880; 84100; 84132; 84439; 84443; 84484; 85025; 85610; 85730; 87077; 87086; 87186; 93005; 93306; 94640; 96365; 97162; 99291; A4565; A9270; J0171; J0360; J0461; J0612; J0689; J0690; J0696; J1643; J1815; J2250; J2310; J2371; J2470; J3010; J3475; J3490; J7030; J7050

== ENCOUNTER → 2025-01-29 | Outpatient (CLI) | payer MEDICARE, MEDICAID, SELFPAY ==
[2025-01-29 12:32] LABS: Alanine Aminotransferase 36 U/L (10-49); Albumin, Serum 3.9 gm/dL (3.4-4.8); Albumin/Globulin Ratio 1.2 (1.2-2.2); Alkaline Phosphatase 78 U/L (46-116); Anion Gap 8 (7-16); Aspartate Amino Transferase 44 U/L (0-34); BUN/Creatinine Ratio 30 Ratio (12-20); Bilirubin,Total 0.5 mg/dL (0.3-1.2); Blood Urea Nitrogen 33 mg/dL (9-23); Calcium 8.4 mg/dL (8.3-10.6); Calcium (Corrected) 8.5 mg/dL (8.5-10.1); Chloride 102 mMol/L (98-107); Creatinine (Component) 1.1 mg/dL (0.6-1.3); Globulin 3.3 gm/dL (2.3-3.5); Glucose 134 mg/dL (74-106); Osmolality,Calculated 281 (275-295); Potassium 4.8 mMol/L (3.4-5.1); Sodium 136 mMol/L (136-145); Total Protein 7.2 gm/dL (5.7-8.2); eGFR 48 See Note
== END | disposition home or self-care (01) ==
PROVIDERS: PCP Internal Medicine; Referring Provider Internal Medicine; Visit Provider Internal Medicine
DX: I10 Essential (primary) hypertension (principal)
CPT/HCPCS: 36415; 80053

== ENCOUNTER 2025-06-15 18:30 | Inpatient (IN) | payer MEDICARE, MEDICAID, SELFPAY ==
[2025-06-15] VITALS (13 sets, daily range): BP systolic 102–198; BP diastolic 53–108; PULSE 61–75; RESP 14–18; TEMP 36.6–37.4; O2SAT 94–99; BMI 19.3
--- NOTE | 2025-06-15 18:48 | XR_ITS ---
Examination: AP chest single view Technique one AP portable semiupright chest single view Date and time: June and September 30, 701 hours Comparison January 20, 2025 INDICATIONS: Shortness of breath today. FINDINGS: Diffuse significant right lung pneumonia Mild enlargement cardiac contour. Cardiac leads satisfactory position. Severe osteopenia IMPRESSION: Extensive right lung pneumonia
--- NOTE | 2025-06-15 18:48 | EKG_ITS ---
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: : [id number] Requested By: Omer García Order Number: [id number] Reading MD: Omer García Measurements Intervals [place] Rate: 68 P: 69 PA: 166 QRS: 266 QRSD: 138 T: 112 QT: 385 QTc: 411 Interpretive Statements SINUS RHYTHM RIGHT AXIS DEVIATION [QRS AXIS > 100] RIGHT BUNDLE BRANCH BLOCK [120+ ms QRS DURATION, UPRIGHT V1, 40+ ms S IN I/aVL/V4/V5/V6] MARKED ST DEPRESSION, CONSIDER SUBENDOCARDIAL INJURY [0.2+ mV ST DEPRESSION] ACUTE ND Compared to ECG 01/15/2025 01:00:49 Right-axis deviation now present ST (T wave) deviation now present Sinus bradycardia no longer present Sinus arrhythmia no longer present Indeterminate axis no longer present /store/S0/[id number].pdf
--- NOTE | 2025-06-15 18:48 | XR_ITS ---
Examination: Hand, right 2 views Technique: AP lateral right hand 2 views INDICATIONS: Ground-level fall today with a treated lesion, hand pain FINDINGS: Prominent osteopenia. Soft tissue vascular calcification. Significant osteoarthritis No acute fracture IMPRESSION: No acute fracture
--- NOTE | 2025-06-15 18:48 | XR_ITS ---
Examination: CT brain head without contrast. 2-D sagittal coronal reconstructions Date and time of exam:June 15, 20242024, 1934 hours, comparison September 05, 2020 INDICATIONS: Altered mental status today CTDI: vol (mGy):42.8 DLP: (mGycm):750 Technique: Multiple CT axial sections of the brain have been obtained, 5 mm slice thickness. Contrast has not been administered. 2-D sagittal, coronal reconstructions have been obtained Low dose protocols were performed. One or more of the following dose reduction techniques were used; automated exposure control, adjustment of the mA and/or KV according to patient size, use of iterative reconstruction technique. Findings: No significant ventricular enlargement. 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 No mass effect or midline shift Basal cisterns are not remarkable. Fourth ventricle is midline. Cranial vault intact. 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
--- NOTE | 2025-06-15 18:50 | PD.EDADULT ---
ED General RME/HPI General Chief complaint: Altered Mental Status Stated complaint: AMS Time Seen by Provider: 06/15/25 18:34 Arrival date/time: 06/15/25 18:30 RME / HPI RME / HPI narrative: 89-year-old female with past medical history of hypothyroidism s/p thyroidectomy, DM2, and hypertension came into the hospital brought in by ambulance from home due to altered mental status and ground level fall. Patient on assessment was confused and was not able to provide any history. Spoke with patient's granddaughter over the phone and stated that the patient had been complaining of feet pain over the weekend as she has some calluses which usually cause her pain. She stated that this time patient was still walking and she did not have any weakness or any facial asymmetry or any slurring of the speech. She stated that the patient was in her normal state of health onset today around 11 AM where she tripped and fell and hit her head. She stated that before this the patient did not show signs of any weakness or any confusion and that after the fall patient was confused and she was not wanting to be and was not responding to the questions or or to when the granddaughter was speaking to her. Patient's granddaughter states that patient at baseline is able to ambulate, communicate, and is very interactive and active throughout the day. States that patient does not take any blood thinners at this time. States that patient has not had any chest pain, shortness of breath, fevers, abdominal pain, diarrhea, changes in mentation prior to today. Related Data Home Medications ?Medication ?Instructions ?Recorded ?Confirmed aspirin 81 mg tablet,delayed 81 mg PO QDAY 05/19/21 01/15/25 release cilostazol 50 mg tablet 50 mg PO BID 05/19/21 01/15/25 levothyroxine 100 mcg tablet 100 mcg PO QDAY 05/19/21 01/15/25 alendronate 70 mg tablet 70 mg PO .q week 01/15/25 01/15/25 magnesium 200 mg tablet 100 mg PO QDAY 01/15/25 01/15/25 omeprazole 20 mg capsule,delayed 20 mg PO QDAY 01/15/25 01/15/25 release Previous Rx's ?Medication ?Instructions ?Recorded ferrous sulfate 325 mg (65 mg 325 mg PO Q OTHER DAY #90 tabs 01/15/25 iron) tablet carvedilol 3.125 mg tablet 3.125 mg PO BID #60 tabs 01/21/25 Allergies Allergy/AdvReac Type Severity Reaction Status Date / Time No Known Allergies Allergy Verified 05/20/21 14:26 Review of Systems Review of Systems ROS Unobtainable: unobtainable due to mental status and unobtainable due to medical condition Past Medical History Past Medical History NEUROLOGIC: Negative Neurological Disorders CARDIAC: Positive Cardiac Disorders, Hypercholesterolemia, Hypertension and Varicose Veins RESPIRATORY: Positive Pneumonia GASTROINTESTINAL: Positive Gastrointestinal Disorders and Hemorrhoids REPRODUCTIVE: Positive Previous Pregnancies MUSCULOSKELETAL: Positive Musculoskeletal Disorders and Arthritis ENT: Positive Cataracts ENDOCRINE: Positive Endocrine Disorders, Diabetes Mellitus Type 2 and Hypothyroidism HEMATOLOGIC: Positive Blood Disorders and Anemia OTHER HISTORY: Positive Hospitalization Family History FAMILY HISTORY: Positive Family Cardiac Disorders Surgical History SURGICAL: Positive Cardiac Surgery, Angiogram and Thyroidectomy Social History SMOKING STATUS: Unknown if ever smoked Travel History EBOLA RISK: No ED Exam Narrative Physical exam: Gen: A/O x0, thin/frail HEENT: NCAT, EOMI, Pupils reactive KW[place], not icteric. External ears normal. No rhinorrhea. Dry mucous membranes. Neck: Supple, full range of motion, no observable masses, No meningeal sign. Lungs: No Respiratory distress, clear bilateral. CV: RRR, no murmurs. Abdomen: Soft, nondistended, No rebound tenderness. MSK: No joint swelling, no redness, peripheral pulses presents, lumbar with no edema. Skin: No rashes, petechiae, lesions.. Neuro: Patient has right-sided neglect/weakness with left-sided preferential gaze. Possible visual deficits on the right side, difficult to assess at this time given patient's mental status. Patient is not able to follow-up commands. Slightly moving her right hand, left-sided upper and lower extremity with good mobility. Course Quality Measures none Orders Category Date Time Status Patient Condition Routine Admission 06/15/25 23:29 Ordered Blood glucose [Bedside Blood Glucose] NOW Care 06/15/25 18:51 Active Fiscal Accounting Clerk Q4H START 00 Care 06/15/25 18:48 Active Continuous Pulse Oximetry NOW Care 06/15/25 18:48 Completed Continuous Pulse Oximetry NOW Care 06/15/25 19:42 Completed EKG (ED ONLY) *Do not use* NOW Care 06/15/25 18:48 Completed In and Out Catheter NEEDED Care 06/15/25 19:42 Active In and Out Catheter X1 Care 06/15/25 19:03 Completed Insert IV NOW Care 06/15/25 19:42 Active NIH Stroke Scale now Care 06/15/25 19:42 Active NPO NOW Care 06/15/25 19:42 Active Neuro Check Q4H Care 06/15/25 19:44 Active Notify provider NEEDED Care 06/15/25 23:29 Active Notify provider NOW Care 06/15/25 20:44 Active Nurse Swallow Screen x1 Care 06/15/25 19:42 Active Consult to Cardiology Stat Cons 06/15/25 22:13 Ordered Consult to Neurology / Tele-Neurology Routine Cons 06/15/25 19:42 Active Referral - Lead Caster Stat Cons 06/15/25 20:20 Active Transfer to another facility [Transfer/Discharge] Stat Discharge 06/15/25 20:[address] angio stroke protocol Stat Exams 06/15/25 19:[address] cervical spine wo con Stat Exams 06/15/25 22:[address] head/brain wo con Stat Exams 06/15/25 18:48 Completed CXRP [XR chest 1V portable] Stat Exams 06/15/25 18:48 Completed EKG (ED Only) Stat Exams 06/15/25 18:48 Draft XR hand RT 2V Stat Exams 06/15/25 18:48 Completed Beta HCG,Quantitative Stat Lab 06/15/25 19:05 Completed CBC [CBC] Stat Lab 06/15/25 19:06 Completed CMP [Comprehensive Metabolic Panel] Stat Lab 06/15/25 19:06 Completed Drug Screen,Urine Stat Lab 06/15/25 19:05 Completed HCG Titer if Positive Stat Lab 06/15/25 19:05 Completed Lactic Acid [Lactate (Lactic Acid)] Stat Lab 06/15/25 19:06 Completed Magnesium Stat Lab 06/15/25 19:06 Completed PTT [Partial Thromboplastin Time] Stat Lab 06/16/25 03:30 Ordered Partial Thromboplastin Time AM DRAW Lab 06/17/25 05:00 Ordered Partial Thromboplastin Time Stat Lab 06/15/25 20:15 Completed Procalcitonin Stat Lab 06/15/25 19:06 Completed Prothrombin Time with INR AM DRAW Lab 06/17/25 05:00 Ordered Prothrombin Time with INR Stat Lab 06/15/25 20:15 Completed Troponin I Stat Lab 06/15/25 19:06 Completed UA [Urinalysis] Stat Lab 06/15/25 19:05 Completed Urine Culture Stat Lab 06/15/25 19:05 Received Aspirin Supp Med 06/15/25 21:22 Discontinued 300 mg NJ X1 ONE Azithromycin Inj [Zithromax Inj] 500 mg Med 06/15/25 22:18 Discontinued Sodium Chloride 0.9% 250 ml [Ns] 250 ml IV X1 Calcium Gluconate 10% Inj Med 06/15/25 20:34 Discontinued 1 gm IV X1 ONE Dextrose 50% Syr [D50w Syringe Abboject] Med 06/15/25 20:34 Discontinued 50 ml IVP X1 ONE Heparin/D5w 25K 250 ML Ivpb [Heparin in D5w Ivpb] Med 06/15/25 20:45 Active 25,000 unit in 250 ml IV 12 units/kg/hr Insulin Regular Med 06/15/25 20:34 Discontinued 5 unit IV X1 ONE Labetalol IV [Trandate IV] Med 06/15/25 19:42 Active 10 mg IVP Q15M PRN Ondansetron Inj [Zofran Inj] Med 06/15/25 19:42 Active 4 mg IVP Q4HR PRN cefTRIAXone/D5w 1gm IV premix [Rocephin/D5w 1gm IV Med 06/15/25 22:18 Discontinued premix] 1 gm in 50 ml IV X1 Code Status Routine Oth 06/15/25 23:28 Ordered Oxygen Delivery NOW RT 06/15/25 19:42 Active Vital Signs Vital signs: Vital Signs Temperature 99.4 F 06/15/25 18:43 Pulse Rate 70 06/15/25 18:43 Respiratory Rate 14 06/15/25 18:43 Blood Pressure 174/101 H 06/15/25 18:43 Pulse Oximetry (%) 99 06/15/25 18:43 Oxygen Delivery Method Nasal Cannula 06/15/25 18:43 Oxygen Flow Rate 6 06/15/25 18:43 Discharge Plan Plan Patient Disposition: Admit Acute Care w/in Hospital Problem List Clinical Impression: Acute CVA (cerebrovascular accident), Acute non-ST elevation myocardial infarction (NSTEMI) MDM Narrative MDM hospital course: Patient was seen and evaluated upon arrival by myself. Diagnostic imaging and labs were ordered. Patient's head CT showed large acute nonhemorrhagic infarct of the left temporal left occipital lobe and at this time stroke alert was called. Teleneurology stated that this time patient was not a candidate for thrombolytics given she was out of the time window. Patient's granddaughter arrived to the room and spoke with teleneurology who stated that this time they would like to pursue everything possible for the patient. Teleneurology stated that at this time patient will need a CTP to evaluate if she is a candidate for thrombectomy. At this time patient will need transfer to a tertiary care center for a CT perfusion and neurosurgery evaluation for possible thrombectomy. Patient's granddaughter states that the patient does understand Syrian as they speak to her in Syrian at home, but she also speaks Tuvaluan. Patient on initial assessment was not able to follow commands, but after patient came back from CT she was noted to have right sided weakness/neglect as well as left-sided preferential gaze. Patient's initial EKG that shows some ST depressions in lead I, II, and V3 to V6. There was also T wave inversion in V3-V6. Spoke with patient's financing analyst who stated that if troponins came back elevated to start heparin drip per ACS protocol. Troponins also came back elevated at 1.213 along with potassium elevation at 6.6. At this time patient given EKG changes will be given insulin regular 5 units IV x 1, an amp of D50 and 1 g of calcium glyconate. Spoke with teleneurology concerning patient's NSTEMI with elevated troponins and the need for anticoagulation at this time. Recommended to start heparin with slow titration upwards and no boluses at this time. Subtherapeutic range initially and to reach therapeutic range in 12 to 24 hours. Will order Heparin drip ACS protocol. After discussion with patient's granddaughter about the risk about heparin drip she decided to pursue treatment at this time. She understood the risks and benefits of this treatment option. Spoke with neurosurgeon Dr. Dodson at [facility] who stated that this time patient needs a higher level of care which includes endovascular intervention. Will continue to attempt transfer. Spoke with Dr. Brooks, neurosurgeon, at [facility]. Dr. Brooks stated at this time there was no intervention to be done and medical management for now as risk outweigh benefits at this time and patient was not a candidate for any intervention. Updated the family and were understanding. 10:11: Spoke with IM team for hospital admission. Will assess the patient. Would like cervical spine CT prior to admission. Ordered. Ordered azithromycin and Rocephin as patient's chest x-ray showed pneumonia. 00:04: Patient admitted by IM team. Case disclosed with Attending Dr. Gal García PGY2 Disclaimer: Even though this this note was dictated by speech recognition and even though it was carefully revised there may still be minor errors in leaf coverer due to voice recognition software. Medication Administration(s) Medication Administration History Acetaminophen (Acetaminophen Supp 650 Mg Supp) 650 mg NJ Q6HR PRN PRN Reason: Fever > 100.4 Stop: 07/15/25 23:29 Acetaminophen (Acetaminophen Supp 650 Mg Supp) 650 mg NJ Q6H PRN PRN Reason: PAIN SCALE 1-3 (mild Stop: 07/15/25 23:29 Heparin Sodium/Dextrose (Heparin In D5w Ivpb) 25,000 unit in 250 mls @ 4.354 mls/hr IV .Q24H BERE; Protocol Stop: 06/29/25 20:44 Last Admin: 06/15/25 21:30 Dose: 12 units/kg/hr, 4.354 mls/hr Documented By: AM Co-signed By: HELDER Lactated Ringer's (Lactated Ringers) 1,000 mls @ 30 mls/hr IV .Q24H BERE Stop: 07/15/25 23:29 Labetalol HCl (Labetalol Inj 5 Mg/Ml Vial 20 Ml) 10 mg IVP Q15M PRN PRN Reason: HYPER Last Admin: 06/15/25 21:31 Dose: 10 mg Documented By: AM Morphine Sulfate (Morphine Sulf Inj 10 Mg/Ml Vial) 1 mg IVP Q4HR PRN PRN Reason: PAIN SCALE 4-10(Mod-Sev Stop: 06/20/25 23:35 Ondansetron HCl (Ondansetron Inj 2 Mg/Ml Inj 2 Ml) 4 mg IVP Q4HR PRN PRN Reason: NAUSEA OR VOMITING Stop: 07/15/25 19:41 Discontinued Medications Aspirin (Aspirin 300 Mg Supp) 300 mg NJ X1 ONE Stop: 06/15/25 21:23 Last Admin: 06/15/25 21:31 Dose: 300 mg Documented By: AM Calcium Gluconate (Calcium Gluconate 10% Inj 1 Gm/10 Ml Vial) 1 gm IV X1 ONE Stop: 06/15/25 20:35 Last Admin: 06/15/25 20:57 Dose: 1 gm Documented By: AM Dextrose (Dextrose 50%-Water Inj 50 Ml Syringe) 50 ml IVP X1 ONE Stop: 06/15/25 20:35 Last Admin: 06/15/25 20:57 Dose: 50 ml Documented By: AM Ceftriaxone Sodium/Dextrose (Rocephin/D5w 1gm Iv Premix) 1 gm in 50 mls @ 100 mls/hr IV X1 ONE Stop: 06/15/25 22:47 Last Admin: 06/15/25 22:58 Dose: 100 mls/hr Documented By: AM Azithromycin 500 mg/ Sodium (Chloride) 250 mls @ 250 mls/hr IV X1 ONE Stop: 06/15/25 23:17 Last Admin: 06/15/25 23:44 Dose: 250 mls/hr Documented By: AM Insulin Human Regular (Insulin Hum Regular 1 Unit/0.01 Ml (Per Unit)) 5 unit IV X1 ONE Stop: 06/15/25 20:35 Last Admin: 06/15/25 21:00 Dose: 5 unit Documented By: AM Co-signed By: ZAFAR
[2025-06-15 19:17] LABS: Collection Type, Urine Voided; Squamous Epithelial Cell,Urine 0 /hpf (0-5)
[2025-06-15 19:18] LABS: Lactate (Lactic Acid) 1.5 mMol/L (0.4-2.0)
[2025-06-15 19:20] LABS: Basophils # (Auto) 0.0 Thou/mm3 (0.0-0.2); Basophils % (Auto) 0 % (0-2.5); Eosinophils # (Auto) 0.0 Thou/mm3 (0.0-0.5); Eosinophils % (Auto) 0 % (0-10); Hematocrit 37.3 % (36.0-46.0); Hemoglobin 11.9 g/dL (12.0-16.0); Immature Granulocytes Auto 0.02 Thou/mm3 (0.00-0.00); Lymphocytes # (Auto) 1.0 Thou/mm3 (1.0-4.8); Lymphocytes % (Auto) 10 % (10-50); Mean Corpuscular HGB Conc 31.9 g/dl (31.0-37.0); Mean Corpuscular Hemoglobin 22.5 pg (25.0-35.0); Mean Corpuscular Volume 71 fL (80-100); Monocytes # (Auto) 0.7 Thou/mm3 (0.0-0.8); Monocytes % (Auto) 7 % (0-12); Neutrophils # (Auto) 8.1 Thou/mm3 (1.8-7.7); Neutrophils % (Auto) 82 % (37-80); Nucleated Red Blood Cell # 0.00 Thou/mm3 (0.00-0.00); Nucleated Red Blood Cell % 0 /100 WBC (0); Platelet Count 236 Thou/mm3 (140-440); RDW Standard Deviation 37.1 fL (36.4-46.3); Red Blood Count 5.28 Miln/mm3 (4.00-5.20); White Blood Count 9.9 Thou/mm3 (3.6-11.0)
--- NOTE | 2025-06-15 19:42 | XR_ITS ---
Examination: CTA carotids with intravenous contrast CTA brain, head with intravenous contrast. 2-D sagittal, coronal reconstructions. 3-D reconstructions. Exam date and time: June 15, 2025 1953 hours INDICATIONS: Stroke alert CTDI: vol (mGy) 9.94 DLP: (mGycm) 343 Technique: Multiple CTA axial brain, head carotid images post intravenous contrast injection 75 cc, [id number]. 2-D sagittal, coronal reconstructions. 3-D reconstructions, 3-D post processing including vascular maximum intensity projection images. Low dose protocols were performed. One or more of the following dose reduction techniques were used; automated exposure control, adjustment of the mA and/or KV according to patient size, use of iterative reconstruction technique. Findings: Diffuse opacity in the right lung consistent with pneumonia 40% stenosis right carotid bifurcation origin right internal carotid artery No significant stenosis left common carotid carotid artery carotid bifurcation or internal carotid artery Mildly dominant right vertebral artery with no critical stenoses Basilar artery posterior cerebral artery branches do fill Significant stenosis distal intracranial left vertebral artery Moderate calcification juxta sellar internal carotid arteries The M1 segments middle cerebral arteries middle cerebral artery trifurcation vessels fill as well as anterior cerebral arteries IMPRESSION: No significant neck arterial stenoses No cerebral large vessel arterial occlusions
--- NOTE | 2025-06-15 19:45 | PC.NURSE ---
Case Consult 06/15/2025 19:45:15 [facility] Case # [id number] has been created.
[2025-06-15 19:50] LABS: Amorphous Crystals,Urine Present (Absent); Bacteria,Urine 3+; Bilirubin,Urine Negative (Negative); Blood,Urine Negative (Negative); Clarity,Urine Turbid (Clear/Hazy); Color,Urine Yellow (Lt Yel-Yel); Glucose, Urine Negative (Negative); Hyaline Casts,Urine < 1 /hpf (0-1); Ketones,Urine Negative (Negative); Leukocyte Esterase,Urine Positive (Negative); Nitrite,Urine Negative (Negative); PH,Urine 6.5 (5.0-7.0); Protein,Urine Trace (Neg - Trace); RBC,Urine 1 /hpf (0-3); Specific Gravity,Urine 1.015 (1.001-1.035); Urobilinogen,Urine Negative mg/dL (0.0-1.0); WBC,Urine 24 /hpf (0-5)
--- NOTE | 2025-06-15 20:00 | PC.NURSE ---
DR. SURY EDWARD WAS CALLED FOR CONSULT AT 1947.
[2025-06-15 20:22] LABS: Alanine Aminotransferase 216 U/L (10-49); Albumin, Serum 4.2 gm/dL (3.4-4.8); Albumin/Globulin Ratio 1.2 (1.2-2.2); Alkaline Phosphatase 117 U/L (46-116); Anion Gap 11 (7-16); Aspartate Amino Transferase 214 U/L (0-34); BUN/Creatinine Ratio 18 Ratio (12-20); Bilirubin,Total 0.5 mg/dL (0.3-1.2); Blood Urea Nitrogen 25 mg/dL (9-23); Calcium 9.4 mg/dL (8.3-10.6); Calcium (Corrected) 9.4 mg/dL (8.5-10.1); Carbon Dioxide 20.9 mMol/L (20.0-31.0); Chloride 105 mMol/L (98-107); Creatinine (Component) 1.4 mg/dL (0.6-1.3); Estimated Creatinine Clearance 15.9 mL/min (>60); Globulin 3.4 gm/dL (2.3-3.5); Glucose 145 mg/dL (74-106); Magnesium 2.3 mg/dL (1.6-2.6); Osmolality,Calculated 281 (275-295); Procalcitonin 0.15 ng/ml (0.0-0.49); Sodium 137 mMol/L (136-145); Total Protein 7.6 gm/dL (5.7-8.2); eGFR 36 See Note
[2025-06-15 20:25] LABS: HCG Titer if Positive Positive
[2025-06-15 20:32] LABS: Potassium 6.6 mMol/L (3.4-5.1)
[2025-06-15 20:33] LABS: Troponin I 1.213 ng/mL (0.0-0.045)
--- NOTE | 2025-06-15 20:36 | ESCONSULT_ITS ---
Tele Neuro Consultation Consultation Date 06/15/25 Most Recent Vital Signs Last Vital Signs Temp 99.4 F 06/15/25 18:43 Pulse 62 06/15/25 20:28 Resp 16 06/15/25 20:00 BP 182/97 H 06/15/25 20:00 Pulse Ox 94 L 06/15/25 20:27 O2 Del Method Room Air 06/15/25 20:00 O2 Flow Rate 4 06/15/25 20:27 Consultation Narrative [facility] Patient Name:???Branden Vega Date of :???1935 Identification Number:??? 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 CTA H&N shows a L P1 occlusion which correlates with the patient's symptoms. CTP is unavailable at this facility. GOC discussed with granddaughter at bedside, the family would like to pursue EVT if the patient is eligible. Plan for transfer to OSH for CTP. Asa 325 mg now or rectally if unable to swallow. Our recommendations are outlined below. Recommendations: ? Stroke/Telemetry Floor ? Neuro Checks ? Bedside Swallow Eval ? DVT Prophylaxis ? IV Fluids, Normal Saline ? Head of Bed 30 Degrees ? Euglycemia and Avoid Hyperthermia (PRN Acetaminophen) Advanced Imaging:CTA Head and Neck Completed. LVO:Yes Discussed with EVA :No Metrics: Last Known Well: 06/15/2025 11:00:00 Dispatch Time: 06/15/2025 19:45:15 Arrival Time: 06/15/2025 18:30:00 Initial Response Time: 06/15/2025 19:48:08Symptoms: ams, fall at 11 am, no LOC, not responding to them few falls CT head - . Initial patient interaction: 06/15/2025 20:00:43 NIHSS Assessment Completed: 06/15/2025 20:10:49Patient is not a candidate for Thrombolytic. Thrombolytic Medical Decision: 06/15/2025 20:10:50Patient was not deemed candidate for Thrombolytic because of following reasons: LKW outside 4.[address] Head: I personally reviewed all the CT images that were available to me and it showed: large acute L [employer] territory infarct (L medial temporal and occipital lobe). Primary Provider Notified of Diagnostic Impression and Management Plan on: 08/2025 20:18:20 History of Present Illness:Patient is a 89 year old Female. Patient was brought by EMS for symptoms of ams, fall at 11 am, no LOC, not responding to them few falls CT head - . 89-year-old woman presents from home with concern for AMS. The patient had 2 falls today 1st one occurring around 11 am. Patient was noted to be confused and not responding to the family after the 2nd fall but the patient was not complaining of any significant symptoms per granddaughter at bedside. The patient is unable to provide any additional history. At baseline the patient uses a cane or walker to ambulate but is otherwise independent with other ADLs. There is no concern for dementia per family. ? Past Medical History: ?Hypertension ?Diabetes Mellitus Other PMH:? SSS s/p PPM Medications: No Anticoagulant use? Antiplatelet use:?Yes?asa and cilostazol Reviewed EMR for current medications Allergies:? Reviewed Social History: Smoking: No Family History: There is no family history of premature cerebrovascular disease pertinent to this consultation ROS : 14 Points Review of Systems was performed and was negative except mentioned in HPI. Past Surgical History: There Is No Surgical History Contributory To Today?s Visit ? Examination: BP(154/94),?Pulse(61), 1A: Level of Consciousness - Arouses to minor stimulation?+ 1 1B: Ask Month and Age - Could Not Answer Either Question Correctly?+ 2 1C: Blink Eyes & Squeeze Hands - Performs 0 Tasks?+ 2 2: Test Horizontal Extraocular Movements - Normal?+ 0 3: Test Visual Sarmiento - No Visual Loss?+ 0 4: Test Facial Palsy (Use Grimace if Obtunded) - Normal symmetry?+ 0 5A: Test Left Arm Motor Drift - Drift, but doesn't hit bed?+ 1 5B: Test Right Arm Motor Drift - No Effort Against [place]?+ 3 6A: Test Left Leg Motor Drift - Drift, hits bed?+ 2 6B: Test Right Leg Motor Drift - No Effort Against [place]?+ 3 7: Test Limb Ataxia (FNF/Heel-Joshi) - No Ataxia?+ 0 8: Test Sensation - Normal; No sensory loss?+ 0 9: Test Language/Aphasia - Mute/Global Aphasia: No Usable Speech/Auditory Comprehension?+ 3 10: Test Dysarthria - Mute/Anarthric?+ 2 11: Test Extinction/Inattention - No abnormality?+ 0 NIHSS Score:?19 NIHSS Free Text :?Patient does speak Surinamese and Tagalog, she is nonverbal, does not follow commands, there is R hemiparesis, sensory and visual field testing were unreliable and deferred Pre-Morbid Modified Maryann Scale:3 Points = Moderate disability; requiring some help, but able to walk without assistance Spoke with :?Sterling This consult was conducted in real time using interactive audio and video technology. Patient was informed of the technology being used for this visit and agreed to proceed. Patient located in hospital and provider located at home/office setting. Patient is being evaluated for possible acute neurologic impairment and high probability of imminent or life-threatening deterioration. I spent total of 43 minutes providing care to this patient, including time for face to face visit via telemedicine, review of medical records, imaging studies and discussion of findings with providers, the patient and/or family. Dr David Pabon [facility] For Inpatient follow-up with [facility] physician please call [facility] at . As we are not an outpatient service for any post hospital discharge needs please contact the hospital for assistance. If you have any questions for the [facility] physicians or need to reconsult for clinical or diagnostic changes please contact us via [facility] at [phone]. Signature :?David Pabon
[2025-06-15 20:41] LABS: INR 1.1 (0.9-1.3); Partial Thromboplastin Time 26.2 Seconds (22.0-36.0); Prothrombin Time 11.5 Seconds (9.0-12.2)
[2025-06-15] MEDS: DEXTROSE 50%-WATER INJ 50 ML SYRINGE IVP (20:57)
[2025-06-15] MEDS: CALCIUM GLUCONATE 10% INJ 1 GM/10 ML VIAL IV (20:57)
[2025-06-15] MEDS: INSULIN HUM REGULAR 1 UNIT/0.01 ML (PER UNIT) 5 UNIT IV (21:00)
[2025-06-15] MEDS: Heparin/D5w 25K 250 ML Ivpb 25,000 UNIT/250 ML BAG 4.354 UNIT IV (21:30)
[2025-06-15] MEDS: LABETALOL INJ 5 MG/ML VIAL 20 ML 10 MG IVP (21:31)
[2025-06-15] MEDS: ASPIRIN 300 MG SUPP PR (21:31)
--- NOTE | 2025-06-15 21:34 | PC.NURSE ---
TRANSFER INITIATED TO [facility] FOR LVO LP1 OCLUSSION/NSTEMI. MD PALM STATED THEY STATED THEY NEED HLOC. REQUIRING VASCULAR AN ADDITIONAL SPECIALTY. PACKET NOW INITIATED TO [facility]
--- NOTE | 2025-06-15 22:14 | XR_ITS ---
Examination: CT cervical spine without contrast 2-D sagittal reconstructions 2-D coronal reconstructions 3-D reconstructions. Exam date and time:June 15, 2025 1136 hours INDICATIONS: Patient fell today with injury to the neck, neck pain CTDI:vol (mGy) 11.6 DLP: (mGycm) 107 Technique: Multiple 2 mm axial sections of the cervical spine have been obtained. The coronal and sagittal reconstructions have been obtained. 3-D reconstructions have been obtained. Low dose protocols were performed. One or more of the following dose reduction techniques were used; automated exposure control, adjustment of the mA and/or KV according to patient size, use of iterative reconstruction technique. Findings: There is a fracture which appears old involving the anterior ring of T1, axial image 20 There also appear to be old fractures of the lamina of C1 in addition Remaining vertebral bodies are intact There is erosion of the anterior portion of the odontoid No vertebral body compression fracture Heavy carotid calcification IMPRESSION: There are fractures involving the anterior ring and lamina of C1 not depicted on the September 05, 2020 exam, which appear old, but clinical correlation advised There is erosion of the anterior margin of the odontoid The appearance should be clinically correlated Consider MRI cervical spine follow up, pre and postcontrast to confirm no marrow edema involving the ring of C1
[2025-06-15 22:26] LABS: Amphetamine/Methamp Scrn,U Negative (Negative); Barbiturate Screen,Urine Negative (Negative); Benzodiazepines Screen,Urine Negative (Negative); Benzoylecgonine Screen, Ur Negative (Negative); Fentanyl Screen,Urine Negative (Negative); Opiate Screen,Urine Negative (Negative); THC Screen,Urine Negative (Negative)
[2025-06-15 22:27] LABS: Beta HCG,Quantitative 3 mIU/mL (<5.0)
[2025-06-15] MEDS: cefTRIAXone/D5w 1gm IV premix 1 GM/50 ML BAG IV (22:58)
--- NOTE | 2025-06-15 23:37 | ECHO_ITS ---
Transthoracic Echo Report Ht (in): 54 Wt (lb): 80 Exam Location: Echo Lab Status: Emergency Family Program Specialist: Cherelle Barry Indications: Procedure Performed: BP: 160 / 69 HR: 64 MEASUREMENTS (Male / Female) Normal Values 2D ECHO LV Diastolic Diameter PLAX 3.7 cm 4.2 - 5.9 / 3.9 - 5.3 cm LV Systolic Diameter PLAX 2.1 cm IVS Diastolic Thickness 1.1 cm 0.6 - 1.0 / 0.6 - 0.9 cm LVPW Diastolic Thickness 1.1 cm 0.6 - 1.0 / 0.6 - 0.9 cm LV Relative Wall Thickness 0.6 LVOT Diameter 1.8 cm LA Volume Index 43.0 cm?/m? 16 - 28 cm?/m? Ascending Aorta Diameter 2.9 cm M-MODE AV Cusp Separation MM 1.5 cm DOPPLER AV Peak Velocity 257.0 cm/s AV Peak Gradient 26.4 mmHg AV Mean Gradient 12.0 mmHg AV Velocity Time Integral 58.5 cm AI Peak Velocity 357.0 cm/s AI Peak Gradient 51.0 mmHg AI Pressure Half Time 1048.0 ms LVOT Peak Velocity 192.0 cm/s LVOT Peak Gradient 14.7 mmHg LVOT Velocity Time Integral 50.5 cm LVOT Cardiac Index 6983.9 cm?/min?m? AV Area Cont Eq vti 2.2 cm? AV Area Cont Eq pk 1.9 cm? MR ERO PISA 1.0 cm? LV E' Lateral Velocity 3.9 cm/s LV E' Septal Velocity 3.1 cm/s TR Peak Velocity 256.0 cm/s TR Peak Gradient 26.2 mmHg PV Peak Velocity 80.1 cm/s PV Peak Gradient 2.6 mmHg FINDINGS Left Ventricle Normal left ventricular size, there is mild concentric left ventricular hypertrophy. No obvious regional wall motion abnormalities. The ejection fraction is visually estimated at 55-60 %. Right Ventricle The right ventricle is normal in size and systolic function. The estimated right ventricular systolic pressure, 38 mmHg. Left Atrium The left atrial cavity size is mildly increased. Right Atrium The right atrium is normal by two-dimensional imaging, color flow and Doppler imaging with no structural abnormalities, no thrombus formation present. Atrial Septum The interatrial septum appears normal with no evidence of a shunt. Aorta The aorta is normal by two-dimensional, color flow and Doppler interrogation. Mitral Valve The mitral valve is normal by two-dimensional, color flow and Doppler interrogation. [id number] mitral regurgitation. Aortic Valve Mild thickening of the aortic valve leaflets. Mild aortic valve regurgitation. Tricuspid Valve The tricuspid valve is normal by two-dimensional, color flow and Doppler interrogation. There is mild to moderate tricuspid valve regurgitation. Pulmonic Valve Pulmonic valve sclerosis. Mild pulmonic valve regurgitation. Vessels The pulmonary artery appears normal. The inferior vena cava pulmonary and hepatic veins appear normal. Pericardium The pericardium is normal by two-dimensional imaging. There is no significant pericardial effusion. Other Findings Trace pleural effusion CONCLUSIONS Indications: Stroke Aortic root is normal in dimension. Aortic valve leaflets with calcification with evidence of moderate calcific aortic stenosis aortic velocity 2.57 m/s. Mean gradient across the aortic valve is 12 mmHg peak gradient of 26 mmHg. Mitral valve leaflets are thickened show evidence of normal excursion with evidence of mild to moderate mitral regurgitation. Normal-sized left ventricle with normal left and wall motion ejection fraction of 60%. Mildly dilated left atrium. Normal right atrium right ventricle with evidence of pacing lead seen in the right atrium right ventricle. Mild aortic valve regurgitation. No evidence of intracardiac shunts or cardiac thrombi seen however bubble study was not performed. Minna Osorio (Electronically Signed) Final Date: 16 June 2025 17:57
--- NOTE | 2025-06-15 23:41 | XR_ITS ---
Examination: Abdomen sonogram, Limited Date and time of exam: June 16, 2025 0114 hours INDICATIONS: Onset abdominal pain today Technique: Real-time shaikh scale transabdominal sonographic images of the upper abdomen obtained. Findings: Gallbladder not visualized Common bile duct 0.2 cm Pancreatic tail 1.7 cm Liver 11.9 cm fatty infiltration no focal liver lesions Normal hepatopedal portal venous flow Patent IVC Partial visualization right pleural effusion IMPRESSION: Gallbladder not visualized Normal common bile duct Fatty infiltration throughout the liver.
[2025-06-15] MEDS: AZITHROMYCIN INJ 500 MG in SODIUM CHLORIDE 0.9% 250 ML 250 ML 250 MG IV (23:44)
--- NOTE | 2025-06-15 23:51 | ESHP_ITS ---
Documentation for date of: 06/15/25 [facility] History of Present Illness Chief complaint: Altered mental status and fall History of present illness: 89-year-old female with a past medical history of hypothyroidism s/p thyroidectomy, type 2 diabetes mellitus, hypertension, and sick sinus syndrome s/p permanent pacemaker presented from home via EMS for altered mental status and right-sided weakness following two ground-level falls earlier today. Per the patient?s granddaughter and mother, the patient is normally cognitively intact, conversant in [place] and Turkish, and fully interactive. She ambulates with a walker, is independent with most activities of daily living, and lives with family. She requires assistance only for showering due to the height of the bathtub. She engages in gardening, light exercise, and regular outings with her family. Over the past weekend, she complained of bilateral foot pain related to chronic calluses, which caused her to reduce activity and rest more. She denied weakness, speech changes, or confusion at that time. On the morning of presentation, she ate breakfast and exercised outside as usual. At approximately 11:00, she experienced her first fall, which was unwitnessed but without apparent loss of consciousness. A second fall occurred shortly afterward, after which she appeared confused, was not responding appropriately, and had difficulty moving her right side. There was no witnessed seizure activity, tongue biting, urinary incontinence, chest pain, dyspnea, fevers, recent infections, or sick contacts. Family reports no prior history of strokes, dementia, or focal neurological deficits. In the ED, CT head revealed a large acute nonhemorrhagic infarct involving the left medial temporal and occipital lobes. CTA demonstrated a left P1 occlusion correlating with her symptoms. She was outside the window for thrombolytic therapy. Teleneurology recommended transfer for CT perfusion and possible thrombectomy. Multiple transfer attempts were made; [facility] neurosurgery declined and [facility] neurosurgery advised medical management due to the risks outweighing the benefits. Her ED course was notable for NSTEMI with troponin of 1.[address] depressions/T-wave inversions on EKG, hyperkalemia with K 6.6, and chest X-ray showing extensive right lung pneumonia. She was treated with heparin drip per [facility] protocol (slow titration, no bolus), insulin 5 units IV, D50, and calcium gluconate. Review of Systems Unable to obtain complete ROS due to patient?s mental status; per family: * No fevers, chills, cough, dyspnea, chest pain, palpitations, dysuria, abdominal pain, melena, hematochezia, vision loss, or prior neurologic deficits * Positive for bilateral foot pain from calluses and recent reduced activity Past Medical History * Hypothyroidism s/p thyroidectomy * Type 2 diabetes mellitus * Hypertension * Sick sinus syndrome s/p permanent pacemaker * History of recurrent falls Past Surgical History * Thyroidectomy * Permanent pacemaker implantation Medications (home, per family; full med rec pending) * Aspirin * Cilostazol * Antihypertensives (exact names pending) * Levothyroxine * Oral hypoglycemic agents (exact names pending) Allergies * No known drug allergies Family History * No premature cardiovascular or cerebrovascular disease reported. Social History * Lives with family; strong support system * Never smoked; denies alcohol or illicit drug use * Ambulates with walker; otherwise independent in ADLs except bathing assistance * Engages in daily activity and travel with family Exam Vital Signs Temp Pulse Resp BP Pulse Ox O2 Del Method O2 Flow Rate 97.9 F 65 18 102/53 L 95 Room Air 4 06/15/25 21:52 06/15/25 23:49 06/15/25 23:49 06/15/25 23:10 06/15/25 23:10 06/15/25 23:10 06/15/25 23:49 Narrative Exam General: Frail elderly woman, A/O ?0, nonverbal, not following commands HEENT: NCAT, PERRL, EOMI, dry mucous membranes Neck: Supple, no masses, no meningismus CV: RRR, no murmurs Lungs: Clear to auscultation bilaterally, no respiratory distress Abdomen: Soft, nondistended, non-tender Extremities: No cyanosis, clubbing, or edema; peripheral pulses intact Skin: No rashes, lesions, or petechiae Neuro: Left gaze preference, right hemiparesis, right-sided neglect, possible right visual field deficit (limited by mental status); left-sided strength preserved; unable to reliably assess sensation or speech; NIHSS 19 Results: Labs 06/15/25 19:06 06/15/25 23:58 Labs: Short CBC 06/15/25 Range/Units 19:06 WBC 9.9 (3.6-11.0) Thou/mm3 Hgb 11.9 L (12.0-16.0) g/dL Hct 37.3 (36.0-46.0) % Plt Count 236 (140-440) Thou/mm3 BMP 06/15/25 19:06 Sodium 137 Potassium 6.6 H* Chloride 105 Carbon Dioxide 20.9 BUN 25 H Creatinine 1.4 H Glucose 145 H Calcium 9.4 Cardiac Enzymes 06/15/25 Range/Units 19:06 Troponin I 1.213 H* (0.0-0.045) ng/mL Liver Function 06/15/25 Range/Units 19:06 Total Bilirubin 0.5 (0.3-1.2) mg/dL AST 214 H (0-34) U/L ALT 216 H (10-49) U/L Alkaline Phosphatase 117 H (46-116) U/L Albumin 4.2 (3.4-4.8) gm/dL Urine 06/15/25 Range/Units 19:05 Urine Color Yellow (Lt Yel-Yel) Urine Clarity Turbid A (Clear/Hazy) Urine pH 6.5 (5.0-7.0) Ur Specific [place] 1.015 (1.001-1.035) Urine Protein Trace (Neg - Trace) Urine Glucose (UA) Negative (Negative) Quality Measures Quality Measures VTE prophylaxis Advance care planning discussed with:: patient, child and other (grandchild) Medications Home Medications and Allergies Home Medications ?Medication ?Instructions ?Recorded ?Confirmed ?Type aspirin 81 mg tablet,delayed 81 mg PO QDAY 05/19/21 History release cilostazol 50 mg tablet 50 mg PO BID 05/19/21 History levothyroxine 100 mcg tablet 100 mcg PO QDAY 05/19/21 01/15/25 History alendronate 70 mg tablet 70 mg PO .q week 01/15/25 History magnesium 200 mg tablet 100 mg PO QDAY 01/15/2501/04 History omeprazole 20 mg capsule,delayed 20 mg PO QDAY 5 01/15/25 History release Allergies Allergy/AdvReac Type Severity Reaction Status Date / Time No Known Allergies Allergy Verified 05/20/21 14:26 Visit Medications Acetaminophen (Acetaminophen Supp 650 Mg Supp) 650 mg VA Q6HR PRN PRN Reason: Fever > 100.4 Stop: 07/15/25 23:29 Acetaminophen (Acetaminophen Supp 650 Mg Supp) 650 mg VA Q6H PRN PRN Reason: PAIN SCALE 1-3 (mild Stop: 07/15/25 23:29 Heparin Sodium/Dextrose (Heparin In D5w Ivpb) 25,000 unit in 250 mls @ 4.354 mls/hr IV .Q24H [facility]; Protocol Stop: 06/29/25 20:44 Last Admin: 06/15/25 21:30 Dose: 12 units/kg/hr, 4.354 mls/hr Lactated Ringer's (Lactated Ringers) 1,000 mls @ 30 mls/hr IV .Q24H [facility] Stop: 07/15/25 23:29 Labetalol HCl (Labetalol Inj 5 Mg/Ml Vial 20 Ml) 10 mg IVP Q15M PRN PRN Reason: HYPER Last Admin: 06/15/25 21:31 Dose: 10 mg Morphine Sulfate (Morphine Sulf Inj 10 Mg/Ml Vial) 1 mg IVP Q4HR PRN PRN Reason: PAIN SCALE 4-10(Mod-Sev Stop: 06/20/25 23:35 Ondansetron HCl (Ondansetron Inj 2 Mg/Ml Inj 2 Ml) 4 mg IVP Q4HR PRN PRN Reason: NAUSEA OR VOMITING Stop: 07/15/25 19:41 Discontinued Medications Aspirin (Aspirin 300 Mg Supp) 300 mg VA X1 ONE Stop: 06/15/25 21:23 Last Admin: 06/15/25 21:31 Dose: 300 mg Calcium Gluconate (Calcium Gluconate 10% Inj 1 Gm/10 Ml Vial) 1 gm IV X1 ONE Stop: 06/15/25 20:35 Last Admin: 06/15/25 20:57 Dose: 1 gm Dextrose (Dextrose 50%-Water Inj 50 Ml Syringe) 50 ml IVP X1 ONE Stop: 06/15/25 20:35 Last Admin: 06/15/25 20:57 Dose: 50 ml Ceftriaxone Sodium/Dextrose (Rocephin/D5w 1gm Iv Premix) 1 gm in 50 mls @ 100 mls/hr IV X1 ONE Stop: 06/15/25 22:47 Last Admin: 06/15/25 22:58 Dose: 100 mls/hr Azithromycin 500 mg/ Sodium (Chloride) 250 mls @ 250 mls/hr IV X1 ONE Stop: 06/15/25 23:17 Last Admin: 06/15/25 23:44 Dose: 250 mls/hr Insulin Human Regular (Insulin Hum Regular 1 Unit/0.01 Ml (Per Unit)) 5 unit IV X1 ONE Stop: 06/15/25 20:35 Last Admin: 06/15/25 21:00 Dose: 5 unit Assessment & Plan Plan 89F with PMH hypothyroidism s/p thyroidectomy, DM2, HTN, and SSS s/p PPM, baseline independent with walker and intact cognition, presenting after two falls with acute right-sided weakness and AMS. CT/CTA revealed large acute left [employer] infarct with P1 occlusion. She is outside tPA window and was deemed not a thrombectomy candidate after neurosurgical review due to risk outweighing benefit. Course complicated by NSTEMI (troponin 1.213, new ST depressions/T-wave inversions), hyperkalemia (K 6.6), extensive right lung pneumonia, UTI (UA with 24 WBC, 3+ bacteria), CLOE, and acute liver injury (ALT 216, AST 214). Transfer attempts to higher level of care were made but declined by both [facility] and [facility]. Family has opted for full medical management; patient is DNR. # Acute ischemic stroke Acute left [employer] infarct with P1 occlusion; outside tPA window; not a thrombectomy candidate. CT head: large acute nonhemorrhagic infarct of left medial temporal & occipital lobes NIHSS: 19 (left gaze preference, right hemiparesis, nonverbal) Plan: * Admit to stroke/telemetry floor * Neuro checks per protocol * HOB 30? * Bedside swallow eval before PO intake * DVT prophylaxis * ASA 325 mg now on hold until neurology evaluates tomorrow * Euglycemia, normothermia (acetaminophen PRN) * Monitor for neurologic deterioration # NSTEMI New ST depressions/T-wave inversions with elevated troponin Likely type 2 demand in setting of stroke, infection. EKG: ST depressions in I, II, V3?V6; T-wave inversions V3?V6 compared to January 2025 EKG Troponin: 1.213 Pediatric Occupational Therapist: Dr Batres Plan: * Continue heparin drip per [facility] protocol (no bolus, slow titration) * Cardiology consulted; monitor troponins * Telemetry monitoring * Serial EKGs * Avoid antiplatelet until neurology clears # Hyperkalemia (resolved) Severe hyperkalemia improved after ED management. K 6.6 on arrival, repeat 5.0 improved after insulin/D50/calcium gluconate EKG: RBBB without peaked T waves Plan: * Insulin 5U IV, D50, calcium gluconate in ED * Repeat BMP in am * Telemetry monitoring # Pneumonia, right lung Extensive right lung infiltrates; likely community-acquired pneumonia. CXR: diffuse right lung consolidation WBC: 10.4 Plan: * Start ceftriaxone 1 g daily (06/15- ) + azithromycin (06/15- ) for coverage of pneumonia and UTI * Monitor vitals, WBC * Incentive spirometry # Urinary tract infection Evidence of infection on UA; culture pending. UA: 24 WBC, 3+ bacteria Plan: * Covered with ceftriaxone 1 g daily (06/15) * Monitor urine culture results * Trend fever curve, WBC # Transaminitis Marked transaminase elevation; likely ischemic vs infectious. ALT 216, AST 214; bilirubin normal No hepatomegaly or jaundice Plan: * Hold atorvastatin * Trend LFTs daily * Avoid hepatotoxic meds # COLE Mild acute kidney injury, likely pre-renal from decreased PO intake/infection. Cr 1.4 (baseline 1.1) Plan: * Gentle IV fluids * Monitor BMP * Avoid nephrotoxins # Foot pain due to calluses Chronic painful calluses limiting mobility prior to admission. Podiatry appointment already scheduled Plan: * Supportive care inpatient * Outpatient follow-up #Hypothyroidism s/p thyroidectomy (on levothyroxine) #Type 2 diabetes mellitus #Hypertension Patient with multiple chronic comorbidities are currently stable. No acute decompensation noted in relation to these conditions during this admission Plan: * Continue home meds pending med rec's * Allow permissive hypertension for 24 hours Health Maintenance Disposition: Admit to telemetry Feeding: NPO pending swallow eval Thromboprophylaxis: Mechanical until cleared by neuro for pharmacologic GI prophylaxis: Not indicated Code Status: DNR ----- Plan discussed with attending physician Dr. Ezekiel Watson MD PGY-1 Internal Medicine Attending Provider Attestation/Addendum I attest that I was physically present for the evaluation, physical examination, lab and imaging review of the patient with the residents. I discussed the case with the residents and agree with the findings and plans of care as documented above. After examination of the patient and review of the clinical data I feel that this patient needs admission to the hospital for further treatment/evaluation. Patient is an 89 years old female with past medical history of hypothyroidism status post thyroidectomy, type 2 diabetes mellitus, hypertension, sick sinus syndrome status post pacemaker placement who presented to the ED after altered mental status, right-sided weakness following ground-level falls. Patient is unable to provide history at bedside, as per the granddaughter, patient had a fall approximately around 11 following which she tried to wake up and had another fall. Following second fall, patient appeared confused, was not responding and was only moving her left side. In the ED, initial vitals were significant for blood pressure of 170/101. Temperature 99.4 ?F. Patient was started on nasal cannula, saturating well on 6 L/min. Lab results show hemoglobin of 11.9, potassium 6.6, BUN/creatinine 25/1.4, AST 214, ALT 216, ALT 117, troponin 1.213. Urinalysis showed WBC of 24, positive leukocyte esterase and 3+ bacteria. On exam, patient is unresponsive to verbal,, but was able to move her left side spontaneously, did not withdraw to pain on right lower limb but moved her right upper limb slowly, exam was limited as patient was unable to follow commands/interact. stroke alert was called in the ED, CT head was obtained, showed large acute nonhemorrhagic infarct on left temporal left occipital lobe, no mass effect or midline shift. CTA head/neck was done, showed left P1 occlusion. Teleneurology recommended transfer for CT perfusion and possible thrombectomy. Transfer was attempted by ED, was declined by multiple facilities. Case was discussed by ED with neurosurgery and [facility], was made aware of large infarct as well. Neurosurgery stated that patient is not a candidate for surgical procedure and recommended medical management. Cardiology was also contacted by ED, regarding elevated troponin no EKG changes with ST depression in multiple leads, lead I, lead II, lead V 3 to V6, ST elevation in aVR. Recommended starting patient on heparin drip. teleneurology was contacted by ED again, recommended starting heparin gtt. without the bolus. Discussed in detail with the family at bedside, explained about large infarct, attempt for transfer, recommendation by neurosurgery. Also discussed in detail regarding heparin gtt., increased risk of intracranial bleeding in setting of large infarct and anticoagulation use. Family verbalized understanding, agrees with plan for admission to the hospital, wishes to continue with heparin drip. Also discussed in detail about CODE STATUS, family wishes the patient to be DNR/DNI. We will admit the patient for management of acute ischemic stroke. Patient received loading dose aspirin, we will discuss with neurology tomorrow before continuing with further antiplatelet therapy. Will continue with frequent neurochecks, telemetry monitoring, head of bed elevation and keep her n.p.o. We will continue with heparin drip, trend troponin and EKG. Patient received IV insulin, D50 and calcium gluconate in the ED. We will obtain follow-up renal panel. Noted to have extensive right lung infiltrates, we will start her on Rocephin and azithromycin. Patient also noted to have UTI, already on antibiotics for pneumonia. We will also obtain cervical spine CT, liver ultrasound to evaluate for transaminitis. We will start her on gentle IV hydration for COLE . we will restart levothyroxine once patient is able to swallow. Meme Falcon MD
[2025-06-16] VITALS (13 sets, daily range): BP systolic 112–180; BP diastolic 50–90; PULSE 60–102; RESP 16–22; TEMP 35.7–36.7; O2SAT 93–100; BMI 17.3; BMI 12.0
[2025-06-16 00:47] LABS: Anion Gap 9 (7-16); BUN/Creatinine Ratio 22 Ratio (12-20); Blood Urea Nitrogen 28 mg/dL (9-23); Calcium 9.0 mg/dL (8.3-10.6); Carbon Dioxide 21.6 mMol/L (20.0-31.0); Chloride 107 mMol/L (98-107); Creatinine (Component) 1.3 mg/dL (0.6-1.3); Estimated Creatinine Clearance 17.1 mL/min (>60); Glucose 70 mg/dL (74-106); Osmolality,Calculated 279 (275-295); Potassium 5.0 mMol/L (3.4-5.1); Sodium 138 mMol/L (136-145); eGFR 40 See Note
[2025-06-16] MEDS: RINGERS LACTATED 1000 ML 1,000 ML 30 ML IV (00:52)
[2025-06-16 01:42] LABS: Hepatitis A Antibody IgM Non Reactive (Non React); Hepatitis B Core Antibody IgM Non Reactive (Non React); Hepatitis B Surface Antigen Non Reactive (Non React); Hepatitis C Antibody Non Reactive (Non React)
[2025-06-16 03:03] LABS: Troponin I 1.345 ng/mL (0.0-0.045)
[2025-06-16 04:49] LABS: Partial Thromboplastin Time 35.9 Seconds (22.0-36.0)
[2025-06-16 07:06] LABS: Basophils # (Auto) 0.1 Thou/mm3 (0.0-0.2); Basophils % (Auto) 1 % (0-2.5); Eosinophils # (Auto) 0.1 Thou/mm3 (0.0-0.5); Eosinophils % (Auto) 1 % (0-10); Hematocrit 32.3 % (36.0-46.0); Hemoglobin 10.5 g/dL (12.0-16.0); Immature Granulocytes Auto 0.02 Thou/mm3 (0.00-0.00); Lymphocytes # (Auto) 1.5 Thou/mm3 (1.0-4.8); Lymphocytes % (Auto) 17 % (10-50); Mean Corpuscular HGB Conc 32.5 g/dl (31.0-37.0); Mean Corpuscular Hemoglobin 22.9 pg (25.0-35.0); Mean Corpuscular Volume 70 fL (80-100); Monocytes # (Auto) 0.7 Thou/mm3 (0.0-0.8); Monocytes % (Auto) 8 % (0-12); Neutrophils # (Auto) 6.4 Thou/mm3 (1.8-7.7); Neutrophils % (Auto) 73 % (37-80); Nucleated Red Blood Cell # 0.00 Thou/mm3 (0.00-0.00); Nucleated Red Blood Cell % 0 /100 WBC (0); Platelet Count 188 Thou/mm3 (140-440); RDW Standard Deviation 36.5 fL (36.4-46.3); Red Blood Count 4.59 Miln/mm3 (4.00-5.20); White Blood Count 8.8 Thou/mm3 (3.6-11.0)
[2025-06-16 07:40] LABS: Glucose Estimated Average 154 mg/dL (80-131); Hemoglobin A1C 7.0 % Hgb (4.8-6.0)
[2025-06-16 07:41] LABS: Alanine Aminotransferase 155 U/L (10-49); Albumin, Serum 3.5 gm/dL (3.4-4.8); Albumin/Globulin Ratio 1.3 (1.2-2.2); Alkaline Phosphatase 91 U/L (46-116); Anion Gap 11 (7-16); Aspartate Amino Transferase 111 U/L (0-34); BUN/Creatinine Ratio 18 Ratio (12-20); Bilirubin,Total 0.6 mg/dL (0.3-1.2); Blood Urea Nitrogen 23 mg/dL (9-23); Calcium 9.0 mg/dL (8.3-10.6); Calcium (Corrected) 9.4 mg/dL (8.5-10.1); Carbon Dioxide 22.4 mMol/L (20.0-31.0); Cardiac Risk Estimate 4.4 RATIO (3.7-5.6); Chloride 106 mMol/L (98-107); Cholesterol 202 mg/dL (132-200); Creatinine (Component) 1.3 mg/dL (0.6-1.3); Estimated Creatinine Clearance 15.4 mL/min (>60); Globulin 2.7 gm/dL (2.3-3.5); Glucose 98 mg/dL (74-106); HDL Cholesterol 46 mg/dL (40-60); LDL Cholesterol,Calculated 140 mg/dL (0-130); Magnesium 1.6 mg/dL (1.6-2.6); Osmolality,Calculated 281 (275-295); Phosphorous 5.5 mg/dL (2.4-5.1); Potassium 5.3 mMol/L (3.4-5.1); Sodium 139 mMol/L (136-145); Thyroid Stimulating Hormone 0.32 uIU/mL (0.55-4.78); Total Protein 6.2 gm/dL (5.7-8.2); Triglycerides 79 mg/dL (30-150); eGFR 40 See Note
[2025-06-16] MEDS: DEXTROSE 50%-WATER INJ 50 ML SYRINGE 100 ML IV (08:18)
[2025-06-16] MEDS: CALCIUM CHLORIDE 10% INJ 10 ML SYRG IV (08:18)
[2025-06-16] MEDS: INSULIN HUM REGULAR 1 UNIT/0.01 ML (PER UNIT) 5 UNIT IV ×2 (08:19→10:49)
--- NOTE | 2025-06-16 08:45 | PCS.ST ---
Swallow Evaluation completed. See report for details. Recommend Dysphagia 1/Regular liquids. ST will follow
[2025-06-16 09:01] LABS: Ferritin 538 ng/mL (7.3-270.7); Iron 84 mcg/dL (50-170); Percent Iron Saturation 37 % (20-55); Total Iron Binding Capacity 226 mcg/dL (250-425); Unsaturated Iron Binding 142 (225-295)
[2025-06-16 09:14] LABS: Free T4 (Free Thyroxine) 2.12 ng/dL (0.89-1.76)
[2025-06-16 09:23] LABS: Troponin I 1.079 ng/mL (0.0-0.045)
--- NOTE | 2025-06-16 09:59 | XR_ITS ---
Examination: CT brain head without contrast. 2-D sagittal coronal reconstructions Date and time of exam:June 16, 2025, 1741 hours, comparison June 15, 2025 INDICATIONS: Altered mental status today, altered mental status yesterday, large acute infarct left temporal left occipital lobe on CT brain scan June 15, 2025 CTDI: vol (mGy):83.6. DLP: (mGycm):The Technique: Multiple CT axial sections of the brain have been obtained, 5 mm slice thickness. Contrast has not been administered. 2-D sagittal, coronal reconstructions have been obtained Low dose protocols were performed. One or more of the following dose reduction techniques were used; automated exposure control, adjustment of the mA and/or KV according to patient size, use of iterative reconstruction technique. Findings: No significant ventricular enlargement. Again noted acute infarct left posterior temporal left occipital lobe, on this study also suspicious for nonhemorrhagic early infarct in the right occipital lobe axial image 24 Intra-axial or extra-axial hemorrhage density is not seen. No mass effect or midline shift Basal cisterns are not remarkable. Fourth ventricle is midline. Cranial vault intact. Impression: No interval acute hemorrhage. Again noted acute infarct left posterior temporal left occipital lobe On this study also suspicious for early acute infarct right occipital lobe
[2025-06-16 11:22] LABS: Partial Thromboplastin Time 45.5 Seconds (22.0-36.0)
--- NOTE | 2025-06-16 11:28 | PC.SS ---
HEALTH DIRECTOR confirmed with patient's grand daughter, Elyse Albarran ; availability for 1:30 pm GOC meeting today. HEALTH DIRECTOR attempted to update residential team by phone no response.
--- NOTE | 2025-06-16 11:29 | PCS.ST ---
Seen later in AM again. Pt with improved participation. Answered basic egocentric questions. Able to drink from straw. Diet ordered. Medical team aware.
--- NOTE | 2025-06-16 15:23 | ESPR_ITS ---
<Statement entered by Reena Elizondo MD - 06/19/25 09:12> I reviewed above note and agree with findings and plans. I have also personally examined the patient with medicine team and went over assessment and plan with medical team including investigator internal revenue and resident physician. <Statement entered by Romeo Frost MD - 06/16/25 21:34> pt is seen at bedside, currently mild more arousable than what overnight team described. 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 language barrier. It is difficult to perform a neuro exam at this time because pt is unable to follow commands fully. Pt recently had a pacemaker placed therefore MRI was unable to be done due to compatibility confirmation. Will repeat CT of head to monitor changes. Tropononins have downtrended therefore will discontinue the heparin drip because of risk of hemorrhagic conversion. In house neurologist is consulted, awaiting recommendations. Goals of care discussion was initiated with the patient's family including grand-daughter and daughter. We reviewed the patient's hospital course thus far, current management and informed that Pt's prognoses is guarded. Family is informed that due to pt's age and comorbidities, and fragility of health transfer to tertiary center was rejected for further intervention with neurosurgery due to risk vs. benefit outcome. Family is informed, that we will continue to closely monitor and will continue to be transparent on prognosis and if pt's continues to deteriorate then All treatment options including full treatment, palliative, hospice, comfort will be discussed at length. The family was given time to ask questions; all of their questions were answered to satisfaction with understanding of the patient's guarded prognosis. Patient was seen and examined by me personally. I have directly supervised and reviewed documentation by the team resident and agree with its findings. ------- Plan of care was discussed with the attending, Dr. Caro Frost, PGY-2 Documentation for date of: 06/16/25 Subjective Subjective Interval history: She was admitted overnight. Patient seen and examined at bedside. In the AM, history taking limited as patient would only answer minimal questions with one- word answers endorsed pain at unspecified location and feeling tired. Patient was ANO x 1 to name only. In the afternoon, goals of care discussion held with family, and family was informed that patient's prognosis is guarded. Obtain repeat CT head. Hold heparin due to troponins downtrending and large area of infarct with high risk of hemorrhagic transformation. AM potassium 5.3, administered albuterol and insulin 5 units. Continue ceftriaxone and azithromycin. Neurology consulted. Continue to monitor vitals and assess status and orientation post stroke. Exam Vital Signs Temp Pulse Resp BP Pulse Ox O2 Del Method O2 Flow Rate 97.3 F 63 18 115/65 95 Room Air 3 06/16/25 12:00 06/16/25 12:00 06/16/25 12:00 06/16/25 12:06/16/25 12:00 06/16/25 12:00 06/16/25 06:47 Narrative Exam GENERAL: AOx1, frail elderly female, thin appearing, able to mumble answers, able to follow some commands HEENT: NC/AT, mucous membranes dry, bilateral sclera anicteric CARDIOVASCULAR: regular rate and rhythm, S1/S2 present, no murmurs appreciated PULMONARY: clear to auscultation bilaterally, no rales/rhonchi/wheezes ABDOMINAL: soft, non-tender, non-distended, no rebound/guarding, bowel sounds present EXTREMITIES: no peripheral edema SKIN: warm and dry, intact, no rashes NEURO: CN II-XII grossly intact, no focal deficits, alert, following commands +repetitive movements of upper extremities likely to patient being altered Objective Labs 06/17/25 04:54 06/17/25 04:54 Labs: Laboratory Results - last 24 hr 06/15/25 06/15/25 06/15/25 19:05 19:06 20:15 WBC 9.9 RBC 5.28 H Hgb 11.9 L Hct 37.3 MCV 71 L MCH 22.5 L MCHC 31.9 RDW Std Deviation 37.1 Plt Count 236 Neut % (Auto) 82 H Lymph % (Auto) 10 [place] % (Auto) 7 Eos % (Auto) 0 Baso % (Auto) 0 Neut # (Auto) 8.1 H Lymph # (Auto) 1.0 [place] # (Auto) 0.7 Eos # (Auto) 0.0 Baso # (Auto) 0.0 Immature Gran # (Auto) 0.02 H Absolute Nucleated RBC 0.00 Immature Gran % 0 Nucleated RBC % 0 PT 11.5 INR 1.1 APTT 26.2 Sodium 137 Potassium 6.6 H* Chloride 105 Carbon Dioxide 20.9 Anion Gap 11 BUN 25 H Creatinine 1.4 H Estim Creat Clear Calc 15.9 L eGFR 36 L BUN/Creatinine Ratio [address] Glu mg/dL Hemoglobin A1c Calculated Osmolality 281 Lactic Acid 1.5 Calcium 9.4 Corrected Calcium 9.4 Phosphorus Magnesium 2.3 Iron TIBC Iron Saturation Unsat Iron Binding Ferritin Total Bilirubin 0.5 AST 214 H ALT 216 H Alkaline Phosphatase 117 H Troponin I 1.213 H* Total Protein 7.6 Albumin 4.2 Globulin 3.4 Albumin/Globulin Ratio 1.2 Triglycerides Cholesterol LDL Cholesterol, Calc HDL Cholesterol Cholesterol/HDL Ratio Procalcitonin 0.15 TSH Free T4 Beta HCG, Quant 3 Ur Collection Type Voided Urine Color Yellow Urine Clarity Turbid A Urine pH 6.5 Ur Specific [place] 1.015 Urine Protein Trace Urine Glucose (UA) Negative Urine Ketones Negative Urine Blood Negative Urine Nitrite Negative Urine Bilirubin Negative Urine Urobilinogen (Auto) Negative Ur Leukocyte Esterase Positive Urine RBC 1 Urine WBC 24 H Ur Squamous Epith Cells 0 Amorphous Crystals Present A Urine Bacteria 3+ A Hyaline Casts < 1 Urine Opiates Screen Negative Urine Fentanyl Screen Negative Ur Barbiturates Screen Negative U Amphetamin/Meth Scrn Negative U Benzodiazepines Scrn Negative U Cocaine Metab Screen Negative U Marijuana (THC) Screen Negative Hepatitis A IgM Ab Hep Bs Antigen Hep B Core IgM Ab Hepatitis C Antibody HCG (Qual) Positive 06/15/25 06/16/25 06/16/25 23:58 01:35 04:14 WBC RBC Hgb Hct MCV MCH MCHC RDW Std Deviation Plt Count Neut % (Auto) Lymph % (Auto) [place] % (Auto) Eos % (Auto) Baso % (Auto) Neut # (Auto) Lymph # (Auto) [place] # (Auto) Eos # (Auto) Baso # (Auto) Immature Gran # (Auto) Absolute Nucleated RBC Immature Gran % Nucleated RBC % PT INR APTT 35.9 Sodium 138 Potassium 5.0 D Chloride 107 Carbon Dioxide 21.6 Anion Gap 9 BUN 28 H Creatinine 1.3 Estim Creat Clear Calc 17.1 L eGFR 40 L BUN/Creatinine Ratio 22 H Glucose [address] Glu mg/dL Hemoglobin A1c Calculated Osmolality 279 Lactic Acid Calcium 9.0 Corrected Calcium Phosphorus Magnesium Iron TIBC Iron Saturation Unsat Iron Binding Ferritin Total Bilirubin AST ALT Alkaline Phosphatase Troponin I 1.345 H* Total Protein Albumin Globulin Albumin/Globulin Ratio Triglycerides Cholesterol LDL Cholesterol, Calc HDL Cholesterol Cholesterol/HDL Ratio Procalcitonin TSH Free T4 Beta HCG, Quant Ur Collection Type Urine Color Urine Clarity Urine pH Ur Specific [place] Urine Protein Urine Glucose (UA) Urine Ketones Urine Blood Urine Nitrite Urine Bilirubin Urine Urobilinogen (Auto) Ur Leukocyte Esterase Urine RBC Urine WBC Ur Squamous Epith Cells Amorphous Crystals Urine Bacteria Hyaline Casts Urine Opiates Screen Urine Fentanyl Screen Ur Barbiturates Screen U Amphetamin/Meth Scrn U Benzodiazepines Scrn U Cocaine Metab Screen U Marijuana (THC) Screen Hepatitis A IgM Ab Non Reactive Hep Bs Antigen Non Reactive Hep B Core IgM Ab Non Reactive Hepatitis C Antibody Non Reactive HCG (Qual) 06/16/25 06/16/25 06:36 10:48 WBC 8.8 RBC 4.59 Hgb 10.5 L Hct 32.3 L MCV 70 L MCH 22.9 L MCHC 32.5 RDW Std Deviation 36.5 Plt Count 188 D Neut % (Auto) 73 Lymph % (Auto) 17 [place] % (Auto) 8 Eos % (Auto) 1 Baso % (Auto) 1 Neut # (Auto) 6.4 Lymph # (Auto) 1.5 [place] # (Auto) 0.7 Eos # (Auto) 0.1 Baso # (Auto) 0.1 Immature Gran # (Auto) 0.02 H Absolute Nucleated RBC 0.00 Immature Gran % 0 Nucleated RBC % 0 PT INR APTT 45.5 H Sodium 139 Potassium 5.3 H Chloride 106 Carbon Dioxide 22.4 Anion Gap 11 BUN 23 Creatinine 1.3 Estim Creat Clear Calc 15.4 L eGFR 40 L BUN/Creatinine Ratio [address] Glu mg/dL 154 H Hemoglobin A1c 7.0 H Calculated Osmolality 281 Lactic Acid Calcium 9.0 Corrected Calcium 9.4 Phosphorus 5.5 H Magnesium 1.6 Iron 84 TIBC 226 L Iron Saturation 37 Unsat Iron Binding 142 L Ferritin 538 H Total Bilirubin 0.6 AST 111 H ALT 155 H Alkaline Phosphatase 91 D Troponin I 1.079 H* D Total Protein 6.2 Albumin 3.5 D Globulin 2.7 Albumin/Globulin Ratio 1.3 Triglycerides 79 Cholesterol 202 H LDL Cholesterol, Calc 140 H HDL Cholesterol 46 Cholesterol/HDL Ratio 4.4 Procalcitonin TSH 0.32 L Free T4 2.12 H Beta HCG, Quant Ur Collection Type Urine Color Urine Clarity Urine pH Ur Specific [place] Urine Protein Urine Glucose (UA) Urine Ketones Urine Blood Urine Nitrite Urine Bilirubin Urine Urobilinogen (Auto) Ur Leukocyte Esterase Urine RBC Urine WBC Ur Squamous Epith Cells Amorphous Crystals Urine Bacteria Hyaline Casts Urine Opiates Screen Urine Fentanyl Screen Ur Barbiturates Screen U Amphetamin/Meth Scrn U Benzodiazepines Scrn U Cocaine Metab Screen U Marijuana (THC) Screen Hepatitis A IgM Ab Hep Bs Antigen Hep B Core IgM Ab Hepatitis C Antibody HCG (Qual) Quality Measures Quality Measures none Advance care planning discussed with:: other Assessment & Plan Assessment Current Active Medications: Generic Name Dose Route Start Last Admin Trade Name Freq PRN Reason Stop Dose Admin Acetaminophen 650 mg 06/15/25 23:30 Acetaminophen Supp 650 Mg Supp LA 07/15/25 23:29 Q6HR PRN Fever > 100.4 Acetaminophen 650 mg 06/15/25 23:30 Acetaminophen Supp 650 Mg Supp LA 07/15/25 23:29 Q6H PRN PAIN SCALE 1-3 (mild Dextrose 25 ml 06/16/25 07:24 Dextrose 50%-Water Inj 50 Ml Syringe IV 07/16/25 07:23 Q15MIN PRN BG 50-70 responsive npo pt Dextrose 50 ml 06/16/25 07:24 Dextrose 50%-Water Inj 50 Ml Syringe IV 07/16/25 07:23 Q15MIN PRN BG <50 OR BG <70 & pt unresponsive Glucagon 1 mg 06/16/25 07:24 Glucagon Inj 1 Mg Vial IM Q15MIN PRN BG <70, and no IV access Lactated Ringer's 1,000 mls @ 30 mls/hr 06/15/25 23:30 06/16/25 00:52 Lactated Ringers IV 07/15/25 23:29 30 mls/hr .Q24H BERE Administration Insulin Human Lispro 0 unit 06/16/25 07:30 06/16/25 12:38 Insulin Lispro (Admelog) 1 Unit/0.01 Ml Unit SC 07/16/25 07:29 Not Given Q6HR BERE Protocol Labetalol HCl 10 mg 06/15/25 19:42 06/15/25 21:31 Labetalol Inj 5 Mg/Ml Vial 20 Ml IVP 10 mg Q15M PRN Administration HYPER Morphine Sulfate 1 mg 06/15/25 23:36 Morphine Sulf Inj 10 Mg/Ml Vial IVP 06/20/25 23:35 Q4HR PRN PAIN SCALE 4-10(Mod-Sev Ondansetron HCl 4 mg 06/15/25 19:42 Ondansetron Inj 2 Mg/Ml Inj 2 Ml IVP 07/15/25 19:41 Q4HR PRN NAUSEA OR VOMITING Plan Branden Vega is a 89F with pmhx significant for hypothyroidism s/p thyroidectomy, NIDM2, HTN, and sick sinus syndrome s/p pacemaker, baseline independent with walker and intact cognition presented to [facility] on 06/15 after two falls due to acute right-sided weakness and AMS, found to have large 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 #Acute L BAR HOST/HOSTESS P1 segment ischemic CVA Patient presented with acute right-sided weakness and sustained 2 ground-level falls. Likely suffered a thrombotic stroke due to large and extensive area of infarct. Transfer attempts to higher level of care were made but declined by both [facility] and [facility] and she was outside tPA window and was deemed not a thrombectomy candidate after neurosurgical review due to risk outweighing benefit. Heparin initially started iso NSTEMI however due to large of infarct, risk of hemorrhagic conversion of ischemic stroke is very high. CT/CTA revealed large acute left BAR HOST/HOSTESS infarct with P1 occlusion with acute nonhemorrhagic infarct of the left temporal and left occipital lobe. NIHSS 19 per teleneurology however difficult to assess due to patient's mental status s/p ASA 300 mg in ED Patient passed swallow evaluation however will be kept n.p.o. due to severity of stroke. Plan: - Neurology consulted, recs apprecaited - Hold heparin - CTM vitals and patient mental status - F/u repeat CT head - Telemetry floor - Neurochecks q4h #NSTEMI likely type 2 On admission patient's troponins were 1.213, 1.345, 1.079 and EKG showed 1 sinus rhythm rate of [address] depressions in leads I, II, V3-V6. Patient is unable to endorse if she has chest pain. Likely type II due to demand ischemia from massive stroke. Plan: - Hold heparin iso extensive ischemic stroke - s/p ASA 300 mg in ED - CTM patient symptoms #Acute hypoxic respiratory failure, resolved 2/ #CAP On admission patient required 6 L of nasal cannula O2 likely secondary to extensive right lung pneumonia as seen on chest x-ray. Currently patient is saturating on RA. 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 Hyperkalemia likely multifactorial secondary to COLE and/or massive stroke causing tissue ischemia. Admission UA turbid +LE, 24 WBC and 3+ bacteria Cr downtrending s/p 1L LR in ED s/p calcium gluconate and insulin 5 units in ED Plan: - Ordered another 10 units of insulin due to AM K 5.3 - CTM CMP and K - Telemetry to monitor for arrhythmias - Antibiotics as above #Transaminitis, improving Admission patient has elevated liver enzymes of acute liver injury (ALT 216, AST 214). Hep panel negative. No history of liver disease. AST ALT downtrending. Likely secondary to massive stroke and ischemia. Liver ultrasound shows normal common bile duct and fatty infiltration throughout the liver. Plan: - CTM liver enzymes - Hold home statin #Hypothyroidism s/p thyroidectomy #NIDDM2 #HTN Free T4 high at 2.12. HbA1c 7.0. Plan: - CTM labs and glucose - Hold home levothyroxine - Consider SSI if glucose further elevates Hospital management: Lines: peripheral IV Diet: NPO although passed swallow eval Bowel: none GI prophylaxis: not indicated DVT prophylaxis: heparin held due to workup for stroke Disposition: tele for stroke workup and monitoring CODE STATUS: DNR Plan of care discussed with attending Dr. Elizondo, and PGY-2 Dr. Frost. Roseann Connelly, DO PGY-1 Internal Medicine
--- NOTE | 2025-06-16 15:58 | PC.SS ---
[employer] conducted bedside contact with the patient conduct initial assessment and to discuss discharge planning.? Patient was admitted due to altered mental status and right-sided weakness following two ground-level falls.? At bedside with patient was granddaughter, Elyse Albarran.?? Granddaughter provided information for assessment and discharge planning.? Patient resides at home with daughter, Emy Avila .? Patient utilizes a walker to assist with ambulation.? Patient does not utilize home oxygen.? Patient requires some assistance with the completion of ADL?s.? Patient?s surrogate medical decision maker is daughter Emy Avila. Patient?s PCP is Dr. Leone.? Patient?s rn advice is Dr. Vasquez.? Patient utilizes [facility] for medication services.? Patient does not participate with dialysis.? Discharge plan is for the patient to return home at the time of discharge.? If home health recommended no preferred agency identified. Family will provide transportation on behalf of the patient.? If home health recommended no preferred agency identified.? No further intervention required at this time, psychiatric social worker will be available to address any further concerns.? Next of Kin: Emy Avila D/C Plan: Home
--- NOTE | 2025-06-16 16:42 | PC.SS ---
Rounding Note: Neurology recommendations are pending.
--- NOTE | 2025-06-16 18:00 | PD.RESPRO ---
Documentation for date of: 06/16/25 Subjective Subjective Interval history: Patient is an 89-year-old female with a past medical history of sick hypertension, diabetes melitis type 2 lok-mfsfwlk-dyizbzbrl sinus syndrome status post permanent pacemaker (01/20/2025), history of hypothyroidism acquired s/p thyroidectomy, history of osteoporosis, and CKD (?) who was admitted on 06/15/2025 for large acute nonhemorrhagic infarct left temporal and left occipital lobe. Patient examined at bedside. Patinet alert and orietnated x1 to self per heidi at bedside, this is not patient's baseline as previoulsy able to communicate in full sentences. Pateint unable to ambulate without assistance, at home ambulates with walker. Patient previously able to do ADL. Start Plavix 75 mg PO once daily for next 21 days. Repeat Echo w/ bubble study or FREDY, will contact Dr. 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 Exam Vital Signs Temp Pulse Resp BP Pulse Ox O2 Del Method O2 Flow Rate 96.2 F L 76 16 112/50 L 93 L Room Air 3 06/16/25 20:00 06/16/25 20:00 06/16/25 20:00 06/16/25 20:00 06/16/25 20:00 06/16/25 20:00 06/16/25 06:47 Narrative Exam General Appearance: Alert & Oriented X1, well-nourished female who is lying in bed in no acute distress HEENT: Skull symmetrical and atraumatic. Conjunctivae pale pink and moist. Pupils equal, round, reactive to light and accommodation (PERRL). External ear without lesion or discharge. Straight, nares patient, mucosa pink, no discharge. No thyroid nodule appreciated. No cervical lymphadenopathy. Cardio: Normal Rate and Rhythm with S1 and S2 heart sounds. No murmurs or extra heart sounds auscultated. No bruits on carotid auscultation. No peripheral edema or cyanosis. Lungs: Symmetric with good expansion. Chest and back non-tender. Breath sounds vesicular without crackles, wheezing or rhonchi Abdomen: Non-tender, Non-distended, Normal Reactive Bowel Sounds Neuro: Yes Alert, Yes cooperative, Yes oriented to person, NO place, and NO time. Improved speech. CN grossly intact. Upper motor strength 5/5 and Lower motor strength 3/5. Sensation intact. Objective Labs 06/17/25 04:54 06/17/25 04:54 Labs: Laboratory Results - last 24 hr 06/15/25 06/15/25 06/16/25 19:05 23:58 01:35 WBC RBC Hgb Hct MCV MCH MCHC RDW Std Deviation Plt Count Neut % (Auto) Lymph % (Auto) [place] % (Auto) Eos % (Auto) Baso % (Auto) Neut # (Auto) Lymph # (Auto) [place] # (Auto) Eos # (Auto) Baso # (Auto) Immature Gran # (Auto) Absolute Nucleated RBC Immature Gran % Nucleated RBC % APTT Sodium 138 Potassium 5.0 D Chloride 107 Carbon Dioxide 21.6 Anion Gap 9 BUN 28 H Creatinine 1.3 Estim Creat Clear Calc 17.1 L eGFR 40 L BUN/Creatinine Ratio 22 H Glucose [address] Glu mg/dL Hemoglobin A1c Calculated Osmolality 279 Calcium 9.0 Corrected Calcium Phosphorus Magnesium Iron TIBC Iron Saturation Unsat Iron Binding Ferritin Total Bilirubin AST ALT Alkaline Phosphatase Troponin I 1.345 H* Total Protein Albumin Globulin Albumin/Globulin Ratio Triglycerides Cholesterol LDL Cholesterol, Calc HDL Cholesterol Cholesterol/HDL Ratio TSH Free T4 Beta HCG, Quant 3 Urine Opiates Screen Negative Urine Fentanyl Screen Negative Ur Barbiturates Screen Negative U Amphetamin/Meth Scrn Negative U Benzodiazepines Scrn Negative U Cocaine Metab Screen Negative U Marijuana (THC) Screen Negative Hepatitis A IgM Ab Non Reactive Hep Bs Antigen Non Reactive Hep B Core IgM Ab Non Reactive Hepatitis C Antibody Non Reactive 06/16/25 06/16/25 06/16/25 04:14 06:36 10:48 WBC 8.8 RBC 4.59 Hgb 10.5 L Hct 32.3 L MCV 70 L MCH 22.9 L MCHC 32.5 RDW Std Deviation 36.5 Plt Count 188 D Neut % (Auto) 73 Lymph % (Auto) 17 [place] % (Auto) 8 Eos % (Auto) 1 Baso % (Auto) 1 Neut # (Auto) 6.4 Lymph # (Auto) 1.5 [place] # (Auto) 0.7 Eos # (Auto) 0.1 Baso # (Auto) 0.1 Immature Gran # (Auto) 0.02 H Absolute Nucleated RBC 0.00 Immature Gran % 0 Nucleated RBC % 0 APTT 35.9 45.5 H Sodium 139 Potassium 5.3 H Chloride 106 Carbon Dioxide 22.4 Anion Gap 11 BUN 23 Creatinine 1.3 Estim Creat Clear Calc 15.4 L eGFR 40 L BUN/Creatinine Ratio [address] Glu mg/dL 154 H Hemoglobin A1c 7.0 H Calculated Osmolality 281 Calcium 9.0 Corrected Calcium 9.4 Phosphorus 5.5 H Magnesium 1.6 Iron 84 TIBC 226 L Iron Saturation 37 Unsat Iron Binding 142 L Ferritin 538 H Total Bilirubin 0.6 AST 111 H ALT 155 H Alkaline Phosphatase 91 D Troponin I 1.079 H* D Total Protein 6.2 Albumin 3.5 D Globulin 2.7 Albumin/Globulin Ratio 1.3 Triglycerides 79 Cholesterol 202 H LDL Cholesterol, Calc 140 H HDL Cholesterol 46 Cholesterol/HDL Ratio 4.4 TSH 0.32 L Free T4 2.12 H Beta HCG, Quant Urine Opiates Screen Urine Fentanyl Screen Ur Barbiturates Screen U Amphetamin/Meth Scrn U Benzodiazepines Scrn U Cocaine Metab Screen U Marijuana (THC) Screen Hepatitis A IgM Ab Hep Bs Antigen Hep B Core IgM Ab Hepatitis C Antibody 06/16/25 19:20 WBC RBC Hgb Hct MCV MCH MCHC RDW Std Deviation Plt Count Neut % (Auto) Lymph % (Auto) [place] % (Auto) Eos % (Auto) Baso % (Auto) Neut # (Auto) Lymph # (Auto) [place] # (Auto) Eos # (Auto) Baso # (Auto) Immature Gran # (Auto) Absolute Nucleated RBC Immature Gran % Nucleated RBC % APTT Sodium 138 Potassium 5.1 Chloride 105 Carbon Dioxide 22.6 Anion Gap 10 BUN 19 Creatinine 1.3 Estim Creat Clear Calc 15.4 L eGFR 40 L BUN/Creatinine Ratio 15 [address]ucose [address] Glu mg/dL Hemoglobin A1c Calculated Osmolality 279 Calcium 10.0 Corrected Calcium 10.2 H Phosphorus 5.2 H Magnesium Iron TIBC Iron Saturation Unsat Iron Binding Ferritin Total Bilirubin AST ALT Alkaline Phosphatase Troponin I Total Protein Albumin 3.7 Globulin Albumin/Globulin Ratio Triglycerides Cholesterol LDL Cholesterol, Calc HDL Cholesterol Cholesterol/HDL Ratio TSH Free T4 Beta HCG, Quant Urine Opiates Screen Urine Fentanyl Screen Ur Barbiturates Screen U Amphetamin/Meth Scrn U Benzodiazepines Scrn U Cocaine Metab Screen U Marijuana (THC) Screen Hepatitis A IgM Ab Hep Bs Antigen Hep B Core IgM Ab Hepatitis C Antibody Quality Measures Quality Measures none Advance care planning discussed with:: patient Assessment & Plan Assessment Current Active Medications: Generic Name Dose Route Start Last Admin Trade Name Freq PRN Reason Stop Dose Admin Acetaminophen 650 mg 06/15/25 23:30 Acetaminophen Supp 650 Mg Supp [place] 07/15/25 23:29 Q6HR PRN Fever > 100.4 Acetaminophen 650 mg 06/15/25 23:30 Acetaminophen Supp 650 Mg Supp [place] 07/15/25 23:29 Q6H PRN PAIN SCALE 1-3 (mild Aspirin 81 mg 06/17/25 09:00 Aspirin Ec 81 Mg Tabec PO 07/17/25 08:59 QDAY BERE Atorvastatin Calcium 80 mg 06/16/25 21:00 06/16/25 21:24 Atorvastatin Calcium 20 Mg Tablet PO 07/16/25 20:59 80 mg HS BERE Administration Clopidogrel Bisulfate 75 mg 06/17/25 09:00 Clopidogrel Bisulfate 75 Mg Tablet PO 07/17/25 08:59 QDAY BERE Dextrose 25 ml 06/16/25 07:24 Dextrose 50%-Water Inj 50 Ml Syringe IV 07/16/25 07:23 Q15MIN PRN BG 50-70 responsive npo pt Dextrose 50 ml 06/16/25 07:24 Dextrose 50%-Water Inj 50 Ml Syringe IV 07/16/25 07:23 Q15MIN PRN BG <50 OR BG <70 & pt unresponsive Glucagon 1 mg 06/16/25 07:24 Glucagon Inj 1 Mg Vial IM Q15MIN PRN BG <70, and no IV access Lactated Ringer's 1,000 mls @ 30 mls/hr 06/15/25 23:30 06/16/25 00:52 Lactated Ringers IV 07/15/25 23:29 30 mls/hr .Q24H BERE Administration Ceftriaxone Sodium/Dextrose 1 gm in 50 mls @ 100 mls/hr 06/16/25 17:57 06/16/25 18:09 Rocephin/D5w 1gm Iv Premix IV 06/23/25 17:56 100 mls/hr QDAY@1400 BERE Administration Azithromycin 500 mg/ Sodium 250 mls @ 250 mls/hr 06/16/25 17:57 06/16/25 18:10 Chloride IV 06/23/25 17:56 250 mls/hr QDAY@1400 BERE Administration Insulin Human Lispro 0 unit 06/16/25 07:30 06/16/25 18:05 Insulin Lispro (Admelog) 1 Unit/0.01 Ml Unit SC 07/16/25 07:29 Not Given Q6HR BERE Protocol Labetalol HCl 10 mg 06/15/25 19:42 06/15/25 21:31 Labetalol Inj 5 Mg/Ml Vial 20 Ml IVP 10 mg Q15M PRN Administration HYPER Morphine Sulfate 1 mg 06/15/25 23:36 Morphine Sulf Inj 10 Mg/Ml Vial IVP 06/20/25 23:35 Q4HR PRN PAIN SCALE 4-10(Mod-Sev Ondansetron HCl 4 mg 06/15/25 19:42 Ondansetron Inj 2 Mg/Ml Inj 2 Ml IVP 07/15/25 19:41 Q4HR PRN NAUSEA OR VOMITING Plan Patient is an 89-year-old female with a past medical history of hypertension, diabetes mellitus type 2 ghr-foytqjt-fpqhmcufm sinus syndrome status post permanent pacemaker (01/20/2025), history of hypothyroidism acquired s/p thyroidectomy, history of osteoporosis, and CKD (?) who was admitted on 06/15/2025 for large acute non-hemorrhagic infarct left temporal and left occipital lobe. #Acute Ischemic Stroke, Left temporal Left Occipital Lobe #Ground Level Fall #Acute Encephalopathy, likely secondary to stroke, improved Patient noted to have a large acute nonhemorrhagic infarct of left temporal and left occipital lobe. Repeat Head CT after 24 hours noted (06/16/2025): acute infarct left posterior temporal and left occipital lobe. Suspicious for early acute infarct right occipital lobe. [employer] Serial #[id number], typically MRI compatible, consult cardiology to sign off on MRI. [employer] reader located in MRI room. Diagnostics: A1c 7.0 Lipid Cholesterol 202 LDL 140 HDL 46 Echo (06/15/2025): Normal sized left ventrilce w/ normal left wall motion ejection fraction of 60%. Aortic valve leaflext w/ calcificatio nw/ evidence of moderate calcific aortic stensois. NO evidence of intracardiac shunts or cardiac thrombi seen HOWEVER bubble study not performed. Plan -Start Plavix 75 mg PO Qday -Continue Atorvastatin 80 mg PO HS & Aspirin 81 mg PO -DAPT monitor given anemia for any acute changes. -Continue to monitor glucose and blood pressure -Consult, cardiology, Dr. Jean Baptiste for possible FREDY or Repeat Echo w/ Bubble study -Speech & PT referral ordered -Consider Nephrology Consult, low GFR from previous admission & electrolyte abnormalities #NSTEMI, likely type II deman ischemia #Sick Sinus Syndrome s/p Pacemaker (01/20/2025) #COLE on CKD III #Hyperkalemia, Resolved. #Hyperphosphatemia #UTI #Acute hypoxic respiratory failure, resolved #CAP, right lung penumonia #Diabetes Mellitus Type II, non insulin dependent #Transiminitis #Hypothyrodism acquired s/p throidectomy #History of hypertension #Microcytic Anemia - The patient's plan was discussed with attending Dr. Sharmaine Lewis MD PGY2 Internal Medicine Attending Provider Attestation/Addendum I have seen and examined the patient at the bedside and I agreed with resident's findings, assessment and plan of care. Patient does have left posterior temporal and occipital acute nonhgic infarction. Will contact Dr. Batres for signing off the MRI compatibility of the pacemaker, bubble study Echo/FREDY to rule out the cardiac cause. Will keep her on DAPT and statin for now with close monitoring of bleeding. FU with PT evaluation and recommendation before deciding on discharge.
[2025-06-16] MEDS: cefTRIAXone/D5w 1gm IV premix 1 GM/50 ML BAG IV (18:09)
[2025-06-16] MEDS: AZITHROMYCIN INJ 500 MG in SODIUM CHLORIDE 0.9% 250 ML 250 ML 250 MG IV (18:10)
[2025-06-16 20:01] LABS: Albumin, Serum 3.7 gm/dL (3.4-4.8); Anion Gap 10 (7-16); BUN/Creatinine Ratio 15 Ratio (12-20); Blood Urea Nitrogen 19 mg/dL (9-23); Calcium 10.0 mg/dL (8.3-10.6); Calcium (Corrected) 10.2 mg/dL (8.5-10.1); Carbon Dioxide 22.6 mMol/L (20.0-31.0); Chloride 105 mMol/L (98-107); Creatinine (Component) 1.3 mg/dL (0.6-1.3); Estimated Creatinine Clearance 15.4 mL/min (>60); Glucose 131 mg/dL (74-106); Osmolality,Calculated 279 (275-295); Phosphorous 5.2 mg/dL (2.4-5.1); Potassium 5.1 mMol/L (3.4-5.1); Sodium 138 mMol/L (136-145); eGFR 40 See Note
[2025-06-16] MEDS: ATORVASTATIN CALCIUM 20 MG TABLET 80 MG PO (21:24)
[2025-06-16] MEDS: INSULIN LISPRO (AdmeLOG) 1 UNIT/0.01 ML UNIT SC (23:42)
[2025-06-17] VITALS (7 sets, daily range): BP systolic 125–166; BP diastolic 64–79; PULSE 61–97; RESP 13–30; TEMP 35.9–37.2; O2SAT 95–99; BMI 17.3; BMI 17.4; BMI 12.0
[2025-06-17] MEDS: RINGERS LACTATED 1000 ML 1,000 ML 30 ML IV (05:53)
[2025-06-17 06:09] LABS: Basophils # (Auto) 0.1 Thou/mm3 (0.0-0.2); Basophils % (Auto) 1 % (0-2.5); Eosinophils # (Auto) 0.2 Thou/mm3 (0.0-0.5); Eosinophils % (Auto) 2 % (0-10); Hematocrit 31.9 % (36.0-46.0); Hemoglobin 10.2 g/dL (12.0-16.0); Immature Granulocytes Auto 0.04 Thou/mm3 (0.00-0.00); Lymphocytes # (Auto) 1.1 Thou/mm3 (1.0-4.8); Lymphocytes % (Auto) 10 % (10-50); Mean Corpuscular HGB Conc 32.0 g/dl (31.0-37.0); Mean Corpuscular Hemoglobin 22.5 pg (25.0-35.0); Mean Corpuscular Volume 70 fL (80-100); Monocytes # (Auto) 0.9 Thou/mm3 (0.0-0.8); Monocytes % (Auto) 9 % (0-12); Neutrophils # (Auto) 8.0 Thou/mm3 (1.8-7.7); Neutrophils % (Auto) 78 % (37-80); Nucleated Red Blood Cell # 0.00 Thou/mm3 (0.00-0.00); Nucleated Red Blood Cell % 0 /100 WBC (0); Platelet Count 197 Thou/mm3 (140-440); RDW Standard Deviation 36.5 fL (36.4-46.3); Red Blood Count 4.53 Miln/mm3 (4.00-5.20); White Blood Count 10.2 Thou/mm3 (3.6-11.0)
[2025-06-17 06:31] LABS: INR 1.1 (0.9-1.3); Partial Thromboplastin Time 27.6 Seconds (22.0-36.0); Prothrombin Time 11.5 Seconds (9.0-12.2)
[2025-06-17 06:50] LABS: Alanine Aminotransferase 145 U/L (10-49); Albumin, Serum 3.5 gm/dL (3.4-4.8); Albumin/Globulin Ratio 1.3 (1.2-2.2); Alkaline Phosphatase 102 U/L (46-116); Anion Gap 14 (7-16); Aspartate Amino Transferase 108 U/L (0-34); BUN/Creatinine Ratio 18 Ratio (12-20); Bilirubin,Total 0.8 mg/dL (0.3-1.2); Blood Urea Nitrogen 21 mg/dL (9-23); Calcium 9.6 mg/dL (8.3-10.6); Calcium (Corrected) 10.0 mg/dL (8.5-10.1); Carbon Dioxide 21.2 mMol/L (20.0-31.0); Chloride 105 mMol/L (98-107); Creatinine (Component) 1.2 mg/dL (0.6-1.3); Estimated Creatinine Clearance 16.7 mL/min (>60); Globulin 2.8 gm/dL (2.3-3.5); Glucose 116 mg/dL (74-106); Magnesium 1.1 mg/dL (1.6-2.6); Osmolality,Calculated 283 (275-295); Phosphorous 5.1 mg/dL (2.4-5.1); Potassium 4.6 mMol/L (3.4-5.1); Sodium 140 mMol/L (136-145); Total Protein 6.3 gm/dL (5.7-8.2); eGFR 44 See Note
[2025-06-17] MEDS: Magnesium Sulfate 4 GM Ivpb 4 GM/50 ML BAG IV (08:04)
[2025-06-17] MEDS: ASPIRIN EC 81 MG TABEC PO (08:04)
[2025-06-17] MEDS: CLOPIDOGREL BISULFATE 75 MG TABLET PO (08:04)
--- NOTE | 2025-06-17 08:56 | PC.SS ---
Update: Patient is pending the following procedures: MRI & Echo. Cardiology workup is pending.
--- NOTE | 2025-06-17 09:42 | PD.IMCONS ---
HPI Data of Consult Requesting Physician: Reena Elizondo MD Primary Care Provider: Physician No Primary/Family Consult Narrative History of present illness: This is a 89-year-old female with a past medical history of hypothyroidism s/p thyroidectomy, type 2 diabetes mellitus, hypertension, and sick sinus syndrome s/p permanent pacemaker presented from home via EMS for altered mental status and right-sided weakness following two ground-level falls earlier today. pt became confused no chest pain or sob noted no cardiac symptoms cc:: cc: Reena Elizondo MD Meds Home Medications and Allergies Home Medications ?Medication ?Instructions ?Recorded ?Confirmed ?Type aspirin 81 mg tablet,delayed 81 mg PO QDAY 05/19/21 06/17/25 History release Held on 06/17/25. Instructions: Doctor's Order cilostazol 50 mg tablet 50 mg PO QDAY 05/19/21 06/17/25 History levothyroxine 100 mcg tablet 100 mcg PO QDAY 05/19/21 06/17/25 History alendronate 70 mg tablet 70 mg PO .q week 01/15/25 06/17/25 History magnesium 200 mg tablet 100 mg PO QDAY 01/15/25 06/17/25 History Held on 06/17/25. Instructions: Doctor's Order omeprazole 20 mg capsule,delayed 20 mg PO QDAY 01/15/25 06/17/25 History release carvedilol 3.125 mg tablet 3.125 mg PO QDAY 06/17/25 06/17/25 History gabapentin 100 mg capsule 100 mg PO HS 06/17/25 06/17/25 History spironolactone 25 mg tablet 12.5 mg PO QDAY 06/17/25 06/17/25 History Allergies Allergy/AdvReac Type Severity Reaction Status Date / Time No Known Allergies Allergy Verified 05/20/21 14:26 Exam Vital Signs Temp Pulse Resp BP Pulse Ox O2 Del Method O2 Flow Rate 97.3 F 97 30 H 155/79 H 95 Room Air 0.5 06/17/25 08:00 06/17/25 08:00 06/17/25 08:00 06/17/25 08:00 06/17/25 08:00 06/17/25 08:00 06/16/25 23:33 Routine HEENT Exam Head: Present normocephalic and atraumatic Eye: Present EOMI and PERRL ENT: Present mucous membranes moist Routine Neck Exam Neck: Present supple and trachea midline Routine Respiratory Exam Respiratory: Present chest non-tender, lungs clear, normal breath sounds and no resp distress Routine Cardiovascular Exam Cardiovascular: Present RRR Routine Abdominal Exam Abdominal: Present soft and normoactive bowel sounds Routine Extremities Exam Extremities: Present full ROM Routine Skin Exam Skin: Present intact, dry and warm Routine Neurological Exam Neurological: Present alert, oriented X3 and CN II-XII intact Routine Psychiatric Exam Psychiatric: Present normal affect and normal thought process Results Labs 06/17/25 04:54 06/17/25 04:54 Labs: Short CBC 06/17/25 Range/Units 04:54 WBC 10.2 (3.6-11.0) Thou/mm3 Hgb 10.2 L (12.0-16.0) g/dL Hct 31.9 L (36.0-46.0) % Plt Count 197 (140-440) Thou/mm3 BMP 06/16/25 06/17/25 19:20 04:54 Sodium 138 140 Potassium 5.1 4.6 D Chloride 105 105 Carbon Dioxide 22.6 21.2 BUN 19 21 Creatinine 1.3 1.2 Glucose 131 H 116 H Calcium 10.0 9.6 Liver Function 06/16/25 06/17/25 Range/Units 19:20 04:54 Total Bilirubin 0.8 (0.3-1.2) mg/dL AST 108 H (0-34) U/L ALT 145 H (10-49) U/L Alkaline Phosphatase 102 (46-116) U/L Albumin 3.7 3.5 (3.4-4.8) gm/dL Assessment and Plan Assessment and plan (1) Acute CVA (cerebrovascular accident): Status: Acute (2) Symptomatic bradycardia: Status: Acute (3) Pacemaker ECG pattern: Status: Acute Additional Assessment & Plan Additional Plan: continue w/u for CVA no cardiac symptoms
--- NOTE | 2025-06-17 10:28 | ESPR_ITS ---
<Statement entered by Reena Elizondo MD - 06/30/25 07:42> I reviewed above note and agree with findings and plans. I have also personally examined the patient with medicine team and went over assessment and plan with medical team including inclusion intern and resident physician. <Statement entered by Romeo Frost MD - 06/17/25 21:49> Pt is seen at bedside this morning, appears to be restless and anxious. complete neuro exam assessment is difficult to perform due to pt's lack of respond and ability to understand what is being asked. Per family at bedside, speech continues to be slurred. Repeat CT of heat showed early new infarct in the right occipital lobe. electrolytes are repelted. Echo was done however no bubble study therefore will repeat echo with bubble study. Pt is still pending MRI, awaiting Dr. Batres's clearance of the pacemaker. Neurology is following Patient was seen and examined by me personally. I have directly supervised and reviewed documentation by the team resident and agree with its findings. ------- Plan of care was discussed with the attending, Dr. Caro Frost, PGY-2 Documentation for date of: 06/17/25 Subjective Subjective Interval history: No acute overnight events. Patient seen and examined at bedside. This morning patient seem to be more conversant however forest science professor was called but could not make out what she was saying. States that she is in pain, but when prompted does not say where her point where. Plan for MRI today, nursing technician Dr. Batres to sign off on pacemaker. Patient seems to prefer left-sided vision, questionable bilateral hemianopsia versus hemineglect however likely former due to location of stroke. Repeat CT showed infarct of the left posterior temporal and left occipital as well as suspicious early acute infarct in the right occipital. Magnesium 1.1, repleted 6 g. AST ALT downtrending. Creatinine stable 1.2. Exam Vital Signs Temp Pulse Resp BP Pulse Ox O2 Del Method O2 Flow Rate 97.3 F 97 30 H 155/79 H 95 Room Air 0.5 06/17/25 08:00 06/17/25 08:00 06/17/25 08:00 06/17/25 08:00 06/17/25 08:00 06/17/25 08:00 06/16/25 23:33 Narrative Exam GENERAL: AOx1, frail elderly female, thin appearing, able to mumble answers, able to follow some commands HEENT: NC/AT, mucous membranes dry, bilateral sclera anicteric CARDIOVASCULAR: regular rate and rhythm, S1/S2 present, +3/6 harsh systolic murmur PULMONARY: clear to auscultation bilaterally, no rales/rhonchi/wheezes ABDOMINAL: soft, non-tender, non-distended, no rebound/guarding, bowel sounds present EXTREMITIES: no peripheral edema SKIN: warm and dry, intact, no rashes NEURO: CN II-XII grossly intact, no focal deficits, alert, following commands Objective Labs 06/17/25 04:54 06/17/25 04:54 Labs: Laboratory Results - last 24 hr 06/16/25 06/16/25 06/17/25 10:48 19:20 04:54 WBC 10.2 RBC 4.53 Hgb 10.2 L Hct 31.9 L MCV 70 L MCH 22.5 L MCHC 32.0 RDW Std Deviation 36.5 Plt Count 197 Neut % (Auto) 78 Lymph % (Auto) 10 [place] % (Auto) 9 Eos % (Auto) 2 Baso % (Auto) 1 Neut # (Auto) 8.0 H Lymph # (Auto) 1.1 [place] # (Auto) 0.9 H Eos # (Auto) 0.2 Baso # (Auto) 0.1 Immature Gran # (Auto) 0.04 H Absolute Nucleated RBC 0.00 Immature Gran % 0 Nucleated RBC % 0 PT 11.5 INR 1.1 APTT 45.5 H 27.6 D Sodium 138 140 Potassium 5.1 4.6 D Chloride 105 105 Carbon Dioxide 22.6 21.2 Anion Gap 10 14 BUN 19 21 Creatinine 1.3 1.2 Estim Creat Clear Calc 15.4 L 16.7 L eGFR 40 L 44 L BUN/Creatinine Ratio 15 18 Glucose 131 H 116 H Calculated Osmolality 279 283 Calcium 10.0 9.6 Corrected Calcium 10.2 H 10.0 Phosphorus 5.2 H 5.1 Magnesium 1.1 L Total Bilirubin 0.8 AST 108 H ALT 145 H Alkaline Phosphatase 102 Total Protein 6.3 Albumin 3.7 3.5 Globulin 2.8 Albumin/Globulin Ratio 1.3 Quality Measures Quality Measures none Advance care planning discussed with:: other Assessment & Plan Assessment Current Active Medications: Generic Name Dose Route Start Last Admin Trade Name Gavinoq PRN Reason Stop Dose Admin Acetaminophen 650 mg 06/15/25 23:30 Acetaminophen Supp 650 Mg Supp [place] 07/15/25 23:29 Q6HR PRN Fever > 100.4 Acetaminophen 650 mg 06/15/25 23:30 Acetaminophen Supp 650 Mg Supp AK 07/15/25 23:29 Q6H PRN PAIN SCALE 1-3 (mild Aspirin 81 mg 06/17/25 09:00 06/17/25 08:04 Aspirin Ec 81 Mg Tabec PO 07/17/25 08:59 81 mg QDAY BERE Administration Atorvastatin Calcium 80 mg 06/16/25 21:00 06/16/25 21:24 Atorvastatin Calcium 20 Mg Tablet PO 07/16/25 20:59 80 mg HS BERE Administration Clopidogrel Bisulfate 75 mg 06/17/25 09:00 06/17/25 08:04 Clopidogrel Bisulfate 75 Mg Tablet PO 07/17/25 08:59 75 mg QDAY BERE Administration Dextrose 25 ml 06/16/25 07:24 Dextrose 50%-Water Inj 50 Ml Syringe IV 07/16/25 07:23 Q15MIN PRN BG 50-70 responsive npo pt Dextrose 50 ml 06/16/25 07:24 Dextrose 50%-Water Inj 50 Ml Syringe IV 07/16/25 07:23 Q15MIN PRN BG <50 OR BG <70 & pt unresponsive Glucagon 1 mg 06/16/25 07:24 Glucagon Inj 1 Mg Vial IM Q15MIN PRN BG <70, and no IV access Lactated Ringer's 1,000 mls @ 30 mls/hr 06/15/25 23:30 06/17/25 05:53 Lactated Ringers IV 07/15/25 23:29 30 mls/hr .Q24H BERE Administration Ceftriaxone Sodium/Dextrose 1 gm in 50 mls @ 100 mls/hr 06/16/25 17:57 06/16/25 18:09 Rocephin/D5w 1gm Iv Premix IV 06/23/25 17:56 100 mls/hr QDAY@1400 BERE Administration Azithromycin 500 mg/ Sodium 250 mls @ 250 mls/hr 06/16/25 17:57 06/16/25 18:10 Chloride IV 06/23/25 17:56 250 mls/hr QDAY@1400 BERE Administration Magnesium Sulfate 4 gm in 50 mls @ 12.5 mls/hr 06/17/25 07:45 06/17/25 08:04 Magnesium Sulfate Ivpb IV 06/17/25 11:44 12.5 mls/hr X1 ONE Administration Magnesium Sulfate 2 gm in 50 mls @ 25 mls/hr 06/17/25 12:00 Magnesium Sulfate Ivpb IV 06/17/25 13:59 X1 ONE Insulin Human Lispro 0 unit 06/16/25 07:30 06/17/25 05:56 Insulin Lispro (Admelog) 1 Unit/0.01 Ml Unit SC 07/16/25 07:29 Not Given Q6HR [facility] Protocol Labetalol HCl 10 mg 06/15/25 19:42 06/15/25 21:31 Labetalol Inj 5 Mg/Ml Vial 20 Ml IVP 10 mg Q15M PRN Administration HYPER Morphine Sulfate 1 mg 06/15/25 23:36 Morphine Sulf Inj 10 Mg/Ml Vial IVP 06/20/25 23:35 Q4HR PRN PAIN SCALE 4-10(Mod-Sev Ondansetron HCl 4 mg 06/15/25 19:42 Ondansetron Inj 2 Mg/Ml Inj 2 Ml IVP 07/15/25 19:41 Q4HR PRN NAUSEA OR VOMITING Plan Branden Vega is a 89F with pmhx significant for hypothyroidism s/p thyroidectomy, NIDM2, HTN, and sick sinus syndrome s/p pacemaker, baseline independent with walker and intact cognition presented to [facility] on 06/15 after two falls due to acute right-sided weakness and AMS, found to have large acute L [employer] ischemic CVA with P1 occlusion, NSTEMI, hyperkalemia, extensive R pneumonia, UTI, COLE, and acute liver injury. #Acute L [employer] P1 segment ischemic CVA #Suspicion of R occipital acute ischemic CVA Patient presented with acute right-sided weakness and sustained 2 ground-level falls. Likely suffered a thrombotic stroke due to large and extensive area of infarct. Transfer attempts to higher level of care were made but declined by both [facility] and [facility] and she was outside tPA window and was deemed not a thrombectomy candidate after neurosurgical review due to risk outweighing benefit. Heparin initially started iso NSTEMI however due to large of infarct, risk of hemorrhagic conversion of ischemic stroke is very high. CT/CTA revealed large acute left [employer] infarct with P1 occlusion with acute nonhemorrhagic infarct of the left temporal and left occipital lobe . Repeat CT shows suspicion for early acute infarct R occipital lobe. C spine CT shows old fractures involving anterior ring and lamaina of C1 not on 2019 imaging 06/15 Echo without bubble study done: moderate aortic stenosis with mild AR, EF 60% normal LV fx, mildly dilated LA Admission NIHSS 19 per teleneurology however difficult to assess due to patient's mental status s/p ASA 300 mg in ED Plan: - Neurology consulted, recs appreciated: restart DAPT (Plavix and ASA) and atorvastatin 80mg qhs - Cardiology consulted, recs appreciated - F/u echo w bubble study - Plan for MRI head today, cardiology contacted for MRI pacemaker clearance - Hold heparin - CTM vitals and patient mental status - Telemetry floor - Neurochecks q4h #NSTEMI likely type 2 On admission patient's troponins were 1.213, 1.345, 1.079 and EKG showed 1 sinus rhythm rate of [address] depressions in leads I, II, V3-V6. Patient is unable to endorse if she has chest pain. Likely type II due to demand ischemia from massive stroke. s/p ASA 300 mg in ED Plan: - Hold heparin iso extensive ischemic stroke - CTM patient symptoms #Acute hypoxic respiratory failure, resolved 2/2 #CAP On admission patient required 6 L of nasal cannula O2 likely secondary to extensive right lung pneumonia as seen on chest x-ray. Currently patient is saturating on RA. Plan: - Ceftriaxone 1g and azithromycin 500 mg (06/15- - CTM O2 saturation - Supplemental O2 as needed if saturation <90% #COLE on CKDIIIa, resolved #Hyperkalemia, improving #UTI On admission creatinine 1.4 with GFR 36 with baseline of 1.0 and 48 respectively in 01/2025, and potassium 6.6. Hyperkalemia likely multifactorial secondary to COLE and/or massive stroke causing tissue ischemia. Admission UA turbid +LE, 24 WBC and 3+ bacteria Cr downtrending s/p 1L LR in ED s/p calcium gluconate and insulin 5 units in ED Plan: - CTM CMP and K - Telemetry to monitor for arrhythmias - Antibiotics as above #Transaminitis, improving Admission patient has elevated liver enzymes of acute liver injury (ALT 216, AST 214). Hep panel negative. No history of liver disease. AST ALT downtrending. Likely secondary to massive stroke and ischemia. Liver ultrasound shows normal common bile duct and fatty infiltration throughout the liver. Plan: - CTM liver enzymes #Positive HCG Patient was found to have slightly positive HCG on admission. Plan: - Recommend to follow up outpatient Chronic problems: #Hypothyroidism s/p thyroidectomy #NIDDM2 #HTN Free T4 high at 2.12. HbA1c 7.0. Plan: - CTM labs and glucose - Hold home levothyroxine - Consider SSI if glucose further elevates Hospital management: Lines: peripheral IV Diet: Dysphagia 1 Bowel: none GI prophylaxis: not indicated DVT prophylaxis: heparin held due to workup for stroke Disposition: tele for stroke workup and monitoring CODE STATUS: DNR Plan of care discussed with attending Dr. Elizondo, and PGY-2 Dr. Frost. Roseann Connelly, DO PGY-1 Internal Medicine
[2025-06-17] MEDS: Magnesium Sulfate 2 GM Ivpb 2 GM/50 ML BAG IV (11:38)
[2025-06-17] MEDS: cefTRIAXone/D5w 1gm IV premix 1 GM/50 ML BAG IV (14:12)
[2025-06-17] MEDS: AZITHROMYCIN 250 MG TABLET 500 MG PO (14:13)
--- NOTE | 2025-06-17 14:32 | PC.SS ---
Rounding Note: MRI is pending. Bubble study Echo is also pending.
--- NOTE | 2025-06-17 15:00 | ESPR_ITS ---
Documentation for date of: 06/17/25 Subjective Subjective Interval history: Patient is an 89-year-old female with a past medical history of sick hypertension, diabetes melitis type 2 jan-cgcrrac-joiqmuwad sinus syndrome status post permanent pacemaker (01/20/2025), history of hypothyroidism acquired s/p thyroidectomy, history of osteoporosis, and CKD (?) who was admitted on 06/15/2025 for large acute nonhemorrhagic infarct left temporal and left occipital lobe. Patient examined at bedside this afternoon. Patient continues to be alert and orientated to self only. Patient continues to be guarded when ambulating and continues to require assistance. Grand-daughter at bedside denied any overnight events. Upper motor strength intact and lower extremity strength decreased bilaterally. Patient denied loss of sensation. Follow up with MRI, pending Takipironik investigation. Exam Vital Signs Temp Pulse Resp BP Pulse Ox O2 Del Method O2 Flow Rate 98.3 F 76 16 166/64 H 96 Room Air 0.5 06/17/25 12:06/17/25 12:00 06/17/25 12:06/17/25 12:06/17/25 12:06/17/25 12:06/16/25 23:33 Narrative Exam General Appearance: Alert & Oriented X1, well-nourished female who is lying in bed in no acute distress HEENT: Skull symmetrical and atraumatic. Conjunctivae pale pink and moist. Pupils equal, round, reactive to light and accommodation (PERRL). External ear without lesion or discharge. Straight, nares patient, mucosa pink, no discharge. No thyroid nodule appreciated. No cervical lymphadenopathy. Cardio: Normal Rate and Rhythm with S1 and S2 heart sounds. No murmurs or extra heart sounds auscultated. No bruits on carotid auscultation. No peripheral edema or cyanosis. Lungs: Symmetric with good expansion. Chest and back non-tender. Breath sounds vesicular without crackles, wheezing or rhonchi Abdomen: Non-tender, Non-distended, Normal Reactive Bowel Sounds Neuro: Yes Alert, Yes cooperative, Yes oriented to person, NO place, and NO time. Improved speech. CN grossly intact. Upper motor strength 5/5 and Lower motor strength 3/5. Sensation intact. Objective Labs 06/17/25 04:54 06/17/25 04:54 Labs: Laboratory Results - last 24 hr 06/16/25 06/17/25 19:20 04:54 WBC 10.2 RBC 4.53 Hgb 10.2 L Hct 31.9 L MCV 70 L MCH 22.5 L MCHC 32.0 RDW Std Deviation 36.5 Plt Count 197 Neut % (Auto) 78 Lymph % (Auto) 10 [place] % (Auto) 9 Eos % (Auto) 2 Baso % (Auto) 1 Neut # (Auto) 8.0 H Lymph # (Auto) 1.1 [place] # (Auto) 0.9 H Eos # (Auto) 0.2 Baso # (Auto) 0.1 Immature Gran # (Auto) 0.04 H Absolute Nucleated RBC 0.00 Immature Gran % 0 Nucleated RBC % 0 PT 11.5 INR 1.1 APTT 27.6 D Sodium 138 140 Potassium 5.1 4.6 D Chloride 105 105 Carbon Dioxide 22.6 21.2 Anion Gap 10 14 BUN 19 21 Creatinine 1.3 1.2 Estim Creat Clear Calc 15.4 L 16.7 L eGFR 40 L 44 L BUN/Creatinine Ratio 15 18 Glucose 131 H 116 H Calculated Osmolality 279 283 Calcium 10.0 9.6 Corrected Calcium 10.2 H 10.0 Phosphorus 5.2 H 5.1 Magnesium 1.1 L Total Bilirubin 0.8 AST 108 H ALT 145 H Alkaline Phosphatase 102 Total Protein 6.3 Albumin 3.7 3.5 Globulin 2.8 Albumin/Globulin Ratio 1.3 Quality Measures Quality Measures none Advance care planning discussed with:: child (child and granddaughter at bedside. ) Assessment & Plan Assessment Current Active Medications: Generic Name Dose Route Start Last Admin Trade Name Freq PRN Reason Stop Dose Admin Acetaminophen 650 mg 06/15/25 23:30 Acetaminophen Supp 650 Mg Supp [place] 07/15/25 23:29 Q6HR PRN Fever > 100.4 Acetaminophen 650 mg 06/15/25 23:30 Acetaminophen Supp 650 Mg Supp [place] 07/15/25 23:29 Q6H PRN PAIN SCALE 1-3 (mild Aspirin 81 mg 06/17/25 09:00 06/17/25 08:04 Aspirin Ec 81 Mg Tabec PO 07/17/25 08:59 81 mg QDAY BERE Administration Atorvastatin Calcium 80 mg 06/16/25 21:00 06/16/25 21:24 Atorvastatin Calcium 20 Mg Tablet PO 07/16/25 20:59 80 mg HS BERE Administration Azithromycin 500 mg 06/17/25 14:00 06/17/25 14:13 Azithromycin 250 Mg Tablet PO 06/21/25 14:01 500 mg QDAY@1400 BERE Administration Protocol Clopidogrel Bisulfate 75 mg 06/17/25 09:00 06/17/25 08:04 Clopidogrel Bisulfate 75 Mg Tablet PO 07/17/25 08:59 75 mg QDAY BERE Administration Dextrose 25 ml 06/16/25 07:24 Dextrose 50%-Water Inj 50 Ml Syringe IV 07/16/25 07:23 Q15MIN PRN BG 50-70 responsive npo pt Dextrose 50 ml 06/16/25 07:24 Dextrose 50%-Water Inj 50 Ml Syringe IV 07/16/25 07:23 Q15MIN PRN BG <50 OR BG <70 & pt unresponsive Glucagon 1 mg 06/16/25 07:24 Glucagon Inj 1 Mg Vial IM Q15MIN PRN BG <70, and no IV access Lactated Ringer's 1,000 mls @ 30 mls/hr 06/15/25 23:30 06/17/25 05:53 Lactated Ringers IV 07/15/25 23:29 30 mls/hr .Q24H BERE Administration Ceftriaxone Sodium/Dextrose 1 gm in 50 mls @ 100 mls/hr 06/16/25 17:57 06/17/25 14:12 Rocephin/D5w 1gm Iv Premix IV 06/23/25 17:56 100 mls/hr QDAY@1400 BERE Administration Insulin Human Lispro 0 unit 06/16/25 07:30 06/17/25 11:37 Insulin Lispro (Admelog) 1 Unit/0.01 Ml Unit SC 07/16/25 07:29 Not Given Q6HR [facility] Protocol Labetalol HCl 10 mg 06/15/25 19:42 06/15/25 21:31 Labetalol Inj 5 Mg/Ml Vial 20 Ml IVP 10 mg Q15M PRN Administration HYPER Lorazepam 0.5 mg 06/17/25 12:16 Lorazepam 0.5 Mg Tablet PO 06/22/25 12:15 X1 PRN AGITATION Morphine Sulfate 1 mg 06/15/25 23:36 Morphine Sulf Inj 10 Mg/Ml Vial IVP 06/20/25 23:35 Q4HR PRN PAIN SCALE 4-10(Mod-Sev Ondansetron HCl 4 mg 06/15/25 19:42 Ondansetron Inj 2 Mg/Ml Inj 2 Ml IVP 07/15/25 19:41 Q4HR PRN NAUSEA OR VOMITING Plan Patient is an 89-year-old female with a past medical history of hypertension, diabetes mellitus type 2 lgf-thmkteq-axfyamfke sinus syndrome status post permanent pacemaker (01/20/2025), history of hypothyroidism acquired s/p thyroidectomy, history of osteoporosis, and CKD (?) who was admitted on 06/15/2025 for large acute non-hemorrhagic infarct left temporal and left occipital lobe. #Acute Ischemic Stroke, Left temporal Left Occipital Lobe #Ground Level Fall #Acute Encephalopathy, likely secondary to stroke, improved Patient noted to have a large acute nonhemorrhagic infarct of left temporal and left occipital lobe. Repeat Head CT after 24 hours noted (06/16/2025): acute infarct left posterior temporal and left occipital lobe. Suspicious for early acute infarct right occipital lobe. [employer] Serial #[id number], typically MRI compatible, consult cardiology to sign off on MRI. [employer] reader located in MRI room. Diagnostics: A1c 7.0 Lipid Cholesterol 202 LDL 140 HDL 46 Echo (06/15/2025): Normal sized left ventrilce w/ normal left wall motion ejection fraction of 60%. Aortic valve leaflet w/ calcification w/ evidence of moderate calcified aortic stensois. NO evidence of intracardiac shunts or cardiac thrombi seen HOWEVER bubble study not performed. Plan -Follow up with MRI pending investigation of pacemaker, Biotronik pacemaker -Continue Plavix 75 mg PO Qday, Atorvastatin 80 mg PO HS & Aspirin 81 mg PO -Replace electrolytes as needed -DAPT monitor given anemia for any acute changes. -Continue to monitor glucose and blood pressure -Consult, cardiology, Dr. Jean Baptiste for possible FREDY or Repeat Echo w/ Bubble study -Consider Nephrology Consult, low GFR from previous admission & electrolyte abnormalities -Speech & PT referral ordered #NSTEMI, likely type II deman ischemia #Sick Sinus Syndrome s/p Pacemaker (01/20/2025) #COLE on CKD III #Hyperkalemia, Resolved. #Hyperphosphatemia #UTI #Acute hypoxic respiratory failure, resolved #CAP, right lung penumonia #Diabetes Mellitus Type II, non insulin dependent #Transiminitis #Hypothyrodism acquired s/p throidectomy #History of hypertension #Microcytic Anemia - The patient's plan was discussed with attending Dr. Sharmaine Lewis MD PGY2 Internal Medicine Attending Provider Attestation/Addendum I independently reviewed the patient's chart and I agreed with resident's findings, assessment and plan of care. Imp: Acute CVA CT x2 showing acute infarction in the left temporal and occipital area. Needs PT with encouragement from family. FU on the MRI brain once the compatibility is cleared Continue ASA, plavix with close monitoring for any bleeding and statin
[2025-06-17] MEDS: MIDAZOLAM INJ 1 MG/ML VIAL 2 ML 0.5 MG IVP ×2 (17:28→18:05)
[2025-06-17] MEDS: ATORVASTATIN CALCIUM 20 MG TABLET 80 MG PO (20:50)
[2025-06-18] VITALS (8 sets, daily range): BP systolic 117–166; BP diastolic 56–81; PULSE 60–82; RESP 17–24; TEMP 36.3–37.9; O2SAT 94–99; BMI 17.2; BMI 12.0
[2025-06-18 06:20] LABS: Basophils # (Auto) 0.1 Thou/mm3 (0.0-0.2); Basophils % (Auto) 1 % (0-2.5); Eosinophils # (Auto) 0.4 Thou/mm3 (0.0-0.5); Eosinophils % (Auto) 4 % (0-10); Hematocrit 32.1 % (36.0-46.0); Hemoglobin 10.2 g/dL (12.0-16.0); Immature Granulocytes Auto 0.01 Thou/mm3 (0.00-0.00); Lymphocytes # (Auto) 1.3 Thou/mm3 (1.0-4.8); Lymphocytes % (Auto) 14 % (10-50); Mean Corpuscular HGB Conc 31.8 g/dl (31.0-37.0); Mean Corpuscular Hemoglobin 22.4 pg (25.0-35.0); Mean Corpuscular Volume 70 fL (80-100); Monocytes # (Auto) 0.8 Thou/mm3 (0.0-0.8); Monocytes % (Auto) 8 % (0-12); Neutrophils # (Auto) 6.7 Thou/mm3 (1.8-7.7); Neutrophils % (Auto) 73 % (37-80); Nucleated Red Blood Cell # 0.00 Thou/mm3 (0.00-0.00); Nucleated Red Blood Cell % 0 /100 WBC (0); Platelet Count 165 Thou/mm3 (140-440); RDW Standard Deviation 36.3 fL (36.4-46.3); Red Blood Count 4.56 Miln/mm3 (4.00-5.20); White Blood Count 9.2 Thou/mm3 (3.6-11.0)
[2025-06-18 07:00] LABS: Alanine Aminotransferase 99 U/L (10-49); Albumin, Serum 3.4 gm/dL (3.4-4.8); Albumin/Globulin Ratio 1.3 (1.2-2.2); Alkaline Phosphatase 85 U/L (46-116); Anion Gap 13 (7-16); Aspartate Amino Transferase 81 U/L (0-34); BUN/Creatinine Ratio 15 Ratio (12-20); Bilirubin,Total 0.7 mg/dL (0.3-1.2); Blood Urea Nitrogen 16 mg/dL (9-23); Carbon Dioxide 22.3 mMol/L (20.0-31.0); Chloride 104 mMol/L (98-107); Creatinine (Component) 1.1 mg/dL (0.6-1.3); Estimated Creatinine Clearance 18.0 mL/min (>60); Globulin 2.7 gm/dL (2.3-3.5); Glucose 103 mg/dL (74-106); Magnesium 1.6 mg/dL (1.6-2.6); Osmolality,Calculated 278 (275-295); Phosphorous 4.4 mg/dL (2.4-5.1); Potassium 4.3 mMol/L (3.4-5.1); Sodium 139 mMol/L (136-145); Total Protein 6.1 gm/dL (5.7-8.2); eGFR 48 See Note
[2025-06-18 07:08] LABS: Calcium 9.3 mg/dL (8.3-10.6); Calcium (Corrected) 9.8 mg/dL (8.5-10.1)
[2025-06-18] MEDS: CLOPIDOGREL BISULFATE 75 MG TABLET PO (08:14)
[2025-06-18] MEDS: ASPIRIN EC 81 MG TABEC PO (08:14)
--- NOTE | 2025-06-18 09:00 | PD.RESPRO ---
Documentation for date of: 06/18/25 Subjective Subjective Interval history: Patient is an 89-year-old female with a past medical history of sick hypertension, diabetes melitis type 2 lrm-sipgshy-abqdcjytz sinus syndrome status post permanent pacemaker (01/20/2025), history of hypothyroidism acquired s/p thyroidectomy, history of osteoporosis, and CKD (?) who was admitted on 06/15/2025 for large acute nonhemorrhagic infarct left temporal and left occipital lobe. Patient examined at bedside. No overnight events. Patient is alert and NOT orientated to self, appears to be waxing and waning. Patient able to follow commands. Patient denied chest pain, SOB, or abdominal pain. Patient has a previous Lasix surgery. Patient not cooperative when assess peripheral vision exam. Patient unable to stay still for MRI yesterday, repeat MRI today. Pending Echo w/ bubble study or FREDY based on cardiology recommendations. Exam Vital Signs Temp Pulse Resp BP Pulse Ox O2 Del Method O2 Flow Rate 98.1 F 64 19 135/59 H 95 Room Air 0.5 06/18/25 08:00 06/18/25 08:00 06/18/25 08:00 06/18/25 08:00 06/18/25 08:00 06/18/25 08:00 06/16/25 23:33 Narrative Exam General Appearance: Alert & Oriented X1, well-nourished female who is lying in bed in no acute distress HEENT: Skull symmetrical and atraumatic. Conjunctivae pale pink and moist. Pupils equal, round, reactive to light and accommodation (PERRL) but right eye is slower to respond. External ear without lesion or discharge. Straight, nares patient, mucosa pink, no discharge. No thyroid nodule appreciated. No cervical lymphadenopathy. Cardio: Normal Rate and Rhythm with S1 and S2 heart sounds. No murmurs or extra heart sounds auscultated. No bruits on carotid auscultation. No peripheral edema or cyanosis. Lungs: Symmetric with good expansion. Chest and back non-tender. Breath sounds vesicular without crackles, wheezing or rhonchi Abdomen: Non-tender, Non-distended, Normal Reactive Bowel Sounds Neuro: Yes Alert, Yes cooperative, Yes oriented to person, NO place, and NO time. Improved speech. CN grossly intact. Upper motor strength 5/5 and Lower motor strength 3/5. Sensation intact. Objective Labs 06/18/25 06:00 06/18/25 06:00 Labs: Laboratory Results - last 24 hr 06/18/25 06:00 WBC 9.2 RBC 4.56 Hgb 10.2 L Hct 32.1 L MCV 70 L MCH 22.4 L MCHC 31.8 RDW Std Deviation 36.3 L Plt Count 165 D Neut % (Auto) 73 Lymph % (Auto) 14 [place] % (Auto) 8 Eos % (Auto) 4 Baso % (Auto) 1 Neut # (Auto) 6.7 Lymph # (Auto) 1.3 [place] # (Auto) 0.8 Eos # (Auto) 0.4 Baso # (Auto) 0.1 Immature Gran # (Auto) 0.01 H Absolute Nucleated RBC 0.00 Immature Gran % 0 Nucleated RBC % 0 Sodium 139 Potassium 4.3 Chloride 104 Carbon Dioxide 22.3 Anion Gap 13 BUN 16 Creatinine 1.1 Estim Creat Clear Calc 18.0 L eGFR 48 L BUN/Creatinine Ratio 15 Glucose 103 Calculated Osmolality 278 Calcium 9.3 Corrected Calcium 9.8 Phosphorus 4.4 Magnesium 1.6 Total Bilirubin 0.7 AST 81 H ALT 99 H Alkaline Phosphatase 85 Total Protein 6.1 Albumin 3.4 Globulin 2.7 Albumin/Globulin Ratio 1.3 Quality Measures Quality Measures none Advance care planning discussed with:: patient Assessment & Plan Assessment Current Active Medications: Generic Name Dose Route Start Last Admin Trade Name Freq PRN Reason Stop Dose Admin Acetaminophen 650 mg 06/15/25 23:30 Acetaminophen Supp 650 Mg Supp [place] 07/15/25 23:29 Q6HR PRN Fever > 100.4 Acetaminophen 650 mg 06/15/25 23:30 Acetaminophen Supp 650 Mg Supp [place] 07/15/25 23:29 Q6H PRN PAIN SCALE 1-3 (mild Aspirin 81 mg 06/17/25 09:00 06/18/25 08:14 Aspirin Ec 81 Mg Tabec PO 07/17/25 08:59 81 mg QDAY BERE Administration Atorvastatin Calcium 40 mg 06/18/25 21:00 Atorvastatin Calcium 20 Mg Tablet PO 07/18/25 20:59 HS BERE Azithromycin 500 mg 06/17/25 14:00 06/17/25 14:13 Azithromycin 250 Mg Tablet PO 06/21/25 14:01 500 mg QDAY@1400 BERE Administration Protocol Clopidogrel Bisulfate 75 mg 06/17/25 09:00 06/18/25 08:14 Clopidogrel Bisulfate 75 Mg Tablet PO 07/17/25 08:59 75 mg QDAY BERE Administration Dextrose 25 ml 06/16/25 07:24 Dextrose 50%-Water Inj 50 Ml Syringe IV 07/16/25 07:23 Q15MIN PRN BG 50-70 responsive npo pt Dextrose 50 ml 06/16/25 07:24 Dextrose 50%-Water Inj 50 Ml Syringe IV 07/16/25 07:23 Q15MIN PRN BG <50 OR BG <70 & pt unresponsive Glucagon 1 mg 06/16/25 07:24 Glucagon Inj 1 Mg Vial IM Q15MIN PRN BG <70, and no IV access Ceftriaxone Sodium/Dextrose 1 gm in 50 mls @ 100 mls/hr 06/16/25 17:57 06/17/25 14:12 Rocephin/D5w 1gm Iv Premix IV 06/23/25 17:56 100 mls/hr QDAY@1400 BERE Administration Insulin Human Lispro 0 unit 06/17/25 17:30 06/18/25 08:14 Insulin Lispro (Admelog) 1 Unit/0.01 Ml Unit SC 07/16/25 07:29 Not Given ACHS [facility] Protocol Labetalol HCl 10 mg 06/15/25 19:42 06/15/25 21:31 Labetalol Inj 5 Mg/Ml Vial 20 Ml IVP 10 mg Q15M PRN Administration HYPER Lorazepam 2 mg 06/18/25 10:00 Lorazepam 0.5 Mg Tablet PO X1 PRN 30 minutes prior to MRI Midazolam HCl 1 mg 06/18/25 10:04 Midazolam Inj 1 Mg/Ml Vial 2 Ml IVP X1 PRN Agitation prior to MRI Morphine Sulfate 1 mg 06/15/25 23:36 Morphine Sulf Inj 10 Mg/Ml Vial IVP 06/20/25 23:35 Q4HR PRN PAIN SCALE 4-10(Mod-Sev Ondansetron HCl 4 mg 06/15/25 19:42 Ondansetron Inj 2 Mg/Ml Inj 2 Ml IVP 07/15/25 19:41 Q4HR PRN NAUSEA OR VOMITING Plan Patient is an 89-year-old female with a past medical history of hypertension, diabetes mellitus type 2 hcs-qadxkvb-cqxnuuwtz sinus syndrome status post permanent pacemaker (01/20/2025), history of hypothyroidism acquired s/p thyroidectomy, history of osteoporosis, and CKD (?) who was admitted on 06/15/2025 for large acute non-hemorrhagic infarct left temporal and left occipital lobe. #Acute Ischemic Stroke, Left temporal Left Occipital Lobe #Ground Level Fall #Acute Encephalopathy, likely secondary to stroke, improved Patient noted to have a large acute nonhemorrhagic infarct of left temporal and left occipital lobe. Repeat Head CT after 24 hours noted (06/16/2025): acute infarct left posterior temporal and left occipital lobe. Suspicious for early acute infarct right occipital lobe. [employer] #[id number], typically MRI compatible, consult cardiology to sign off on MRI. [employer] reader located in MRI room. Diagnostics: A1c 7.0 Lipid Cholesterol 202 LDL 140 HDL 46 Echo (06/15/2025): Normal sized left ventrilce w/ normal left wall motion ejection fraction of 60%. Aortic valve leaflet w/ calcification w/ evidence of moderate calcified aortic stensois. NO evidence of intracardiac shunts or cardiac thrombi seen HOWEVER bubble study not performed. Plan -MRI scheduled for 06/18/2025 -Continue Plavix 75 mg PO Qday, Atorvastatin 80 mg PO HS & Aspirin 81 mg PO -Replace electrolytes as needed -DAPT monitor given anemia for any acute changes. -Continue to monitor glucose and blood pressure -Consult, cardiology, Dr. Jean Baptiste for possible FREDY or Repeat Echo w/ Bubble study -Consider Nephrology Consult, low GFR from previous admission & electrolyte abnormalities -Speech & PT referral ordered #NSTEMI, likely type II deman ischemia #Sick Sinus Syndrome s/p Pacemaker (01/20/2025) #COLE on CKD III #Hyperkalemia, Resolved. #Hyperphosphatemia #UTI #Acute hypoxic respiratory failure, resolved #CAP, right lung penumonia #Diabetes Mellitus Type II, non insulin dependent #Transiminitis #Hypothyrodism acquired s/p throidectomy #History of hypertension #Microcytic Anemia - The patient's plan was discussed with attending Dr. Sharmaine Lewis MD PGY2 Internal Medicine Attending Provider Attestation/Addendum I personally have seen and examined the patient at the bedside and I agreed with the resident's findings, assessment and plan of care. Impression: bilateral occipital infarction continue with aspirin, Plavix and statin. It is okay to hold off on the MRI and bubble study echo as the management is not going to change. She will need inpatient rehab placement for physical therapy even though not sure about her potential.
--- NOTE | 2025-06-18 09:55 | PC.SS ---
Update: MRI is pending. Echo is pending.
--- NOTE | 2025-06-18 13:46 | ESPR_ITS ---
<Statement entered by Reena Elizondo MD - 06/30/25 07:43> I reviewed above note and agree with findings and plans. I have also personally examined the patient with medicine team and went over assessment and plan with medical team including journalism intern and resident physician. <Statement entered by Romeo Frost MD - 06/18/25 17:01> Pt is seen at bedside. Pt has right side hemiparesis, it is difficult perform a full neuro exam due to pt's restlessness. Pt does appear to have left hemianopsia. Pt does follow some commands and can verbalize some answers with some degree of broa's aphagia. Pt was unable to stay still for the MRI despite versed low dose. Will reattempt MRI today with oral ativan and versed before the MRI. Neurology is following, will continue current management as per recommendations and have a follow up goals of care discussion based on what MRI reveals. Pt will likely need rehab for PT. Patient was seen and examined by me personally. I have directly supervised and reviewed documentation by the team resident and agree with its findings. ------- Plan of care was discussed with the attending, Dr. Elizondo Documentation for date of: 06/18/25 Subjective Subjective Interval history: Acute overnight events. Patient seen and examined at bedside with family. Patient is able to say good morning however still slightly mumbling. But per family she is able to slowly speak in complete sentences. Patient denies any current pain. Able to lift upper and lower extremities, R weaker than L. Patient unable to tolerate MRI yesterday due to repetitive movements. Plan to do MRI today will order lorazepam 2 mg to be given 30 minutes before MRI and Versed 1 mg IV as needed if still agitated prior to MRI. Echo bubble study cannot be done, as not recommended in people >70 as likelihood of anatomical cardiac abnormalities as embolic origin is low in that age group and would not be candidates for surgical intervention if something is found. Vitals and labs stable. Hemoglobin stable at 10.2, AST ALT downtrending to 81/99. Patient's family agreeable to pursuing rehab on discharge. Exam Vital Signs Temp Pulse Resp BP Pulse Ox O2 Del Method O2 Flow Rate 97.6 F 80 18 136/66 H 94 L Room Air 0.5 06/18/25 12:00 06/18/25 12:00 06/18/25 12:00 06/18/25 12:00 06/18/25 12:00 06/18/25 12:00 06/16/25 23:33 Narrative Exam GENERAL: AOx1, frail elderly female, thin appearing, able to mumble answers, able to follow some commands HEENT: NC/AT, mucous membranes dry, bilateral sclera anicteric CARDIOVASCULAR: regular rate and rhythm, S1/S2 present, +3/6 harsh systolic murmur PULMONARY: clear to auscultation bilaterally, no rales/rhonchi/wheezes ABDOMINAL: soft, non-tender, non-distended, no rebound/guarding, bowel sounds present EXTREMITIES: no peripheral edema SKIN: warm and dry, intact, no rashes NEURO: CN II-XII grossly intact, no focal deficits, alert, following commands. L LE 5/5 strength, RLE 4/5 strength, LUE 5/5 strength, RUE 3/5 strength Objective Labs 06/20/25 04:53 06/20/25 04:53 Labs: Laboratory Results - last 24 hr 06/18/25 06:00 WBC 9.2 RBC 4.56 Hgb 10.2 L Hct 32.1 L MCV 70 L MCH 22.4 L MCHC 31.8 RDW Std Deviation 36.3 L Plt Count 165 D Neut % (Auto) 73 Lymph % (Auto) 14 [place] % (Auto) 8 Eos % (Auto) 4 Baso % (Auto) 1 Neut # (Auto) 6.7 Lymph # (Auto) 1.3 [place] # (Auto) 0.8 Eos # (Auto) 0.4 Baso # (Auto) 0.1 Immature Gran # (Auto) 0.01 H Absolute Nucleated RBC 0.00 Immature Gran % 0 Nucleated RBC % 0 Sodium 139 Potassium 4.3 Chloride 104 Carbon Dioxide 22.3 Anion Gap 13 BUN 16 Creatinine 1.1 Estim Creat Clear Calc 18.0 L eGFR 48 L BUN/Creatinine Ratio 15 Glucose 103 Calculated Osmolality 278 Calcium 9.3 Corrected Calcium 9.8 Phosphorus 4.4 Magnesium 1.6 Total Bilirubin 0.7 AST 81 H ALT 99 H Alkaline Phosphatase 85 Total Protein 6.1 Albumin 3.4 Globulin 2.7 Albumin/Globulin Ratio 1.3 Quality Measures Quality Measures none Advance care planning discussed with:: other Assessment & Plan Assessment Current Active Medications: Generic Name Dose Route Start Last Admin Trade Name Ameena PRN Reason Stop Dose Admin Acetaminophen 650 mg 06/15/25 23:30 Acetaminophen Supp 650 Mg Supp [place] 07/15/25 23:29 Q6HR PRN Fever > 100.4 Acetaminophen 650 mg 06/15/25 23:30 Acetaminophen Supp 650 Mg Supp [place] 07/15/25 23:29 Q6H PRN PAIN SCALE 1-3 (mild Aspirin 81 mg 06/17/25 09:00 06/18/25 08:14 Aspirin Ec 81 Mg Tabec PO 07/17/25 08:59 81 mg QDAY BERE Administration Atorvastatin Calcium 40 mg 06/18/25 21:00 Atorvastatin Calcium 20 Mg Tablet PO 07/18/25 20:59 HS BERE Azithromycin 500 mg 06/17/25 14:00 06/17/25 14:13 Azithromycin 250 Mg Tablet PO 06/21/25 14:01 500 mg QDAY@1400 BERE Administration Protocol Clopidogrel Bisulfate 75 mg 06/17/25 09:00 06/18/25 08:14 Clopidogrel Bisulfate 75 Mg Tablet PO 07/17/25 08:59 75 mg QDAY BERE Administration Dextrose 25 ml 06/16/25 07:24 Dextrose 50%-Water Inj 50 Ml Syringe IV 07/16/25 07:23 Q15MIN PRN BG 50-70 responsive npo pt Dextrose 50 ml 06/16/25 07:24 Dextrose 50%-Water Inj 50 Ml Syringe IV 07/16/25 07:23 Q15MIN PRN BG <50 OR BG <70 & pt unresponsive Glucagon 1 mg 06/16/25 07:24 Glucagon Inj 1 Mg Vial IM Q15MIN PRN BG <70, and no IV access Ceftriaxone Sodium/Dextrose 1 gm in 50 mls @ 100 mls/hr 06/16/25 17:57 06/17/25 14:12 Rocephin/D5w 1gm Iv Premix IV 06/23/25 17:56 100 mls/hr QDAY@1400 BERE Administration Insulin Human Lispro 0 unit 06/17/25 17:30 06/18/25 11:47 Insulin Lispro (Admelog) 1 Unit/0.01 Ml Unit SC 07/16/25 07:29 Not Given ACHS BERE Protocol Labetalol HCl 10 mg 06/15/25 19:42 06/15/25 21:31 Labetalol Inj 5 Mg/Ml Vial 20 Ml IVP 10 mg Q15M PRN Administration HYPER Lorazepam 2 mg 06/18/25 10:00 Lorazepam 0.5 Mg Tablet PO X1 PRN 30 minutes prior to MRI Midazolam HCl 1 mg 06/18/25 10:04 Midazolam Inj 1 Mg/Ml Vial 2 Ml IVP X1 PRN Agitation prior to MRI Morphine Sulfate 1 mg 06/15/25 23:36 Morphine Sulf Inj 10 Mg/Ml Vial IVP 06/20/25 23:35 Q4HR PRN PAIN SCALE 4-10(Mod-Sev Ondansetron HCl 4 mg 06/15/25 19:42 Ondansetron Inj 2 Mg/Ml Inj 2 Ml IVP 07/15/25 19:41 Q4HR PRN NAUSEA OR VOMITING Plan Branden Vega is a 89F with pmhx significant for hypothyroidism s/p thyroidectomy, NIDM2, HTN, and sick sinus syndrome s/p pacemaker, baseline independent with walker and intact cognition presented to [facility] on 06/15 after two falls due to acute right-sided weakness and AMS, found to have large acute L [employer] ischemic CVA with P1 occlusion, NSTEMI, hyperkalemia, extensive R pneumonia, UTI, COLE, and acute liver injury. #Acute L [employer] P1 segment ischemic CVA #Suspicion of R occipital acute ischemic CVA Patient presented with acute right-sided weakness and sustained 2 ground-level falls. Likely suffered a thrombotic stroke due to large and extensive area of infarct. Transfer attempts to higher level of care were made but declined by both [facility] and [facility] and she was outside tPA window and was deemed not a thrombectomy candidate after neurosurgical review due to risk outweighing benefit. Heparin initially started iso NSTEMI however due to large of infarct, risk of hemorrhagic conversion of ischemic stroke is very high. CT/CTA revealed large acute left [employer] infarct with P1 occlusion with acute nonhemorrhagic infarct of the left temporal and left occipital lobe . Repeat CT shows suspicion for early acute infarct R occipital lobe. 06/15 Echo: moderate aortic stenosis with mild AR, EF 60% normal LV fx, mildly dilated LA Admission NIHSS 19 per teleneurology however difficult to assess due to patient's mental status s/p ASA 300 mg in ED Plan: - Neurology consulted, recs appreciated: restart DAPT (Plavix and ASA) and atorvastatin - Reduce atorvastatin 80 mg qhs to 40 mg qhs - Cardiology consulted, recs appreciated - MRI head today, cardiology cleared pacemaker - Hold heparin - CTM vitals and patient mental status - Telemetry floor - Neurochecks q4h - Encourage to work with PT #NSTEMI likely type 2 On admission patient's troponins were 1.213, 1.345, 1.079 and EKG showed 1 sinus rhythm rate of [address] depressions in leads I, II, V3-V6. Patient is unable to endorse if she has chest pain. Likely type II due to demand ischemia from massive stroke. s/p ASA 300 mg in ED Plan: - Hold heparin iso extensive ischemic stroke - CTM patient symptoms #Acute hypoxic respiratory failure, resolved 12/08 #CAP On admission patient required 6 L of nasal cannula O2 likely secondary to extensive right lung pneumonia as seen on chest x-ray. Currently patient is saturating on RA. 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 Hyperkalemia likely multifactorial secondary to COLE and/or massive stroke causing tissue ischemia. Admission UA turbid +LE, 24 WBC and 3+ bacteria Cr downtrending s/p 1L LR in ED s/p calcium gluconate and insulin 5 units in ED Plan: - CTM CMP and K - Telemetry to monitor for arrhythmias - Antibiotics as above #Transaminitis, improving Admission patient has elevated liver enzymes of acute liver injury (ALT 216, AST 214). Hep panel negative. No history of liver disease. AST ALT downtrending. Likely secondary to massive stroke and ischemia. Liver ultrasound shows normal common bile duct and fatty infiltration throughout the liver. Plan: - CTM liver enzymes #Positive HCG Patient was found to have slightly positive HCG on admission. Plan: - Recommend to follow up outpatient Chronic problems: #Hypothyroidism s/p thyroidectomy #NIDDM2 #HTN Free T4 high at 2.12. HbA1c 7.0. Plan: - CTM labs and glucose - Hold home levothyroxine - Consider SSI if glucose further elevates Hospital management: Lines: peripheral IV Diet: Dysphagia 1 Bowel: none GI prophylaxis: not indicated DVT prophylaxis: heparin held due to workup for stroke Disposition: tele for stroke workup and monitoring CODE STATUS: DNR Plan of care discussed with attending Dr. Elizondo, and PGY-2 Dr. Frost. Roseann Connelly, DO PGY-1 Internal Medicine
[2025-06-18] MEDS: cefTRIAXone/D5w 1gm IV premix 1 GM/50 ML BAG IV (15:17)
[2025-06-18] MEDS: MORPHINE SULF INJ 10 MG/ML VIAL IVP (21:47)
[2025-06-18] MEDS: ATORVASTATIN CALCIUM 20 MG TABLET 40 MG PO (21:50)
[2025-06-19] VITALS (7 sets, daily range): BP systolic 110–155; BP diastolic 57–74; PULSE 64–78; RESP 13–20; TEMP 36.2–36.8; O2SAT 95–99; BMI 17.1; BMI 12.0
[2025-06-19 05:37] LABS: Basophils # (Auto) 0.1 Thou/mm3 (0.0-0.2); Basophils % (Auto) 1 % (0-2.5); Eosinophils # (Auto) 0.5 Thou/mm3 (0.0-0.5); Eosinophils % (Auto) 6 % (0-10); Hematocrit 33.9 % (36.0-46.0); Hemoglobin 10.7 g/dL (12.0-16.0); Immature Granulocytes Auto 0.02 Thou/mm3 (0.00-0.00); Lymphocytes # (Auto) 1.7 Thou/mm3 (1.0-4.8); Lymphocytes % (Auto) 21 % (10-50); Mean Corpuscular HGB Conc 31.6 g/dl (31.0-37.0); Mean Corpuscular Hemoglobin 22.5 pg (25.0-35.0); Mean Corpuscular Volume 71 fL (80-100); Monocytes # (Auto) 0.8 Thou/mm3 (0.0-0.8); Monocytes % (Auto) 10 % (0-12); Neutrophils # (Auto) 4.8 Thou/mm3 (1.8-7.7); Neutrophils % (Auto) 61 % (37-80); Nucleated Red Blood Cell # 0.00 Thou/mm3 (0.00-0.00); Nucleated Red Blood Cell % 0 /100 WBC (0); Platelet Count 200 Thou/mm3 (140-440); RDW Standard Deviation 37.9 fL (36.4-46.3); Red Blood Count 4.75 Miln/mm3 (4.00-5.20); White Blood Count 7.8 Thou/mm3 (3.6-11.0)
[2025-06-19 06:24] LABS: Alanine Aminotransferase 82 U/L (10-49); Albumin, Serum 3.7 gm/dL (3.4-4.8); Albumin/Globulin Ratio 1.3 (1.2-2.2); Alkaline Phosphatase 77 U/L (46-116); Anion Gap 11 (7-16); Aspartate Amino Transferase 81 U/L (0-34); BUN/Creatinine Ratio 14 Ratio (12-20); Bilirubin,Total 0.5 mg/dL (0.3-1.2); Blood Urea Nitrogen 14 mg/dL (9-23); Calcium 9.0 mg/dL (8.3-10.6); Calcium (Corrected) 9.2 mg/dL (8.5-10.1); Carbon Dioxide 21.9 mMol/L (20.0-31.0); Chloride 105 mMol/L (98-107); Creatinine (Component) 1.0 mg/dL (0.6-1.3); Estimated Creatinine Clearance 19.7 mL/min (>60); Globulin 2.9 gm/dL (2.3-3.5); Glucose 88 mg/dL (74-106); Magnesium 1.8 mg/dL (1.6-2.6); Osmolality,Calculated 275 (275-295); Phosphorous 3.7 mg/dL (2.4-5.1); Potassium 4.3 mMol/L (3.4-5.1); Sodium 138 mMol/L (136-145); Total Protein 6.6 gm/dL (5.7-8.2); eGFR 54 See Note
[2025-06-19] MEDS: ASPIRIN EC 81 MG TABEC PO (08:00)
[2025-06-19] MEDS: CLOPIDOGREL BISULFATE 75 MG TABLET PO (08:00)
[2025-06-19] MEDS: GLYCERIN, ADULT 1 EA SUPP 1 EACH PR (09:48)
[2025-06-19] MEDS: MORPHINE SULF INJ 10 MG/ML VIAL IVP (10:00)
--- NOTE | 2025-06-19 13:11 | PD.RESPRO ---
Documentation for date of: 06/19/25 Exam Vital Signs Temp Pulse Resp BP Pulse Ox O2 Del Method O2 Flow Rate 97.1 F 70 16 141/74 H 97 Room Air 0.5 06/19/25 08:00 06/19/25 12:00 06/19/25 08:00 06/19/25 08:00 06/19/25 08:00 06/19/25 08:00 06/16/25 23:33 Narrative Exam GENERAL: AOx1, frail elderly female, thin appearing, able to mumble answers, able to follow commands HEENT: NC/AT, mucous membranes moist, bilateral sclera anicteric CARDIOVASCULAR: regular rate and rhythm, S1/S2 present, +3/6 harsh systolic murmur PULMONARY: clear to auscultation bilaterally, no rales/rhonchi/wheezes ABDOMINAL: soft, non-tender, non-distended, no rebound/guarding, bowel sounds present EXTREMITIES: no peripheral edema SKIN: warm and dry, intact, no rashes NEURO: CN II-XII grossly intact, no focal deficits, alert, following commands. LLE 5/5 strength, RLE 4/5 strength, LUE 5/5 strength, RUE 2/5 strength Objective Labs 06/19/25 04:43 06/19/25 04:43 Labs: Laboratory Results - last 24 hr 06/19/25 04:43 WBC 7.8 RBC 4.75 Hgb 10.7 L Hct 33.9 L MCV 71 L MCH 22.5 L MCHC 31.6 RDW Std Deviation 37.9 Plt Count 200 D Neut % (Auto) 61 Lymph % (Auto) 21 Pickett % (Auto) 10 Eos % (Auto) 6 Baso % (Auto) 1 Neut # (Auto) 4.8 Lymph # (Auto) 1.7 Pickett # (Auto) 0.8 Eos # (Auto) 0.5 Baso # (Auto) 0.1 Immature Gran # (Auto) 0.02 H Absolute Nucleated RBC 0.00 Immature Gran % 0 Nucleated RBC % 0 Sodium 138 Potassium 4.3 Chloride 105 Carbon Dioxide 21.9 Anion Gap 11 BUN 14 Creatinine 1.0 Estim Creat Clear Calc 19.7 L eGFR 54 L BUN/Creatinine Ratio 14 Glucose 88 Calculated Osmolality 275 Calcium 9.0 Corrected Calcium 9.2 Phosphorus 3.7 Magnesium 1.8 Total Bilirubin 0.5 AST 81 H ALT 82 H Alkaline Phosphatase 77 Total Protein 6.6 Albumin 3.7 Globulin 2.9 Albumin/Globulin Ratio 1.3 Quality Measures Quality Measures none Assessment & Plan Assessment Current Active Medications: Generic Name Dose Route Start Last Admin Trade Name Freq PRN Reason Stop Dose Admin Acetaminophen 650 mg 06/15/25 23:30 Acetaminophen Supp 650 Mg Supp WI 07/15/25 23:29 Q6HR PRN Fever > 100.4 Acetaminophen 650 mg 06/15/25 23:30 Acetaminophen Supp 650 Mg Supp WI 07/15/25 23:29 Q6H PRN PAIN SCALE 1-3 (mild Aspirin 81 mg 06/17/25 09:00 06/19/25 08:00 Aspirin Ec 81 Mg Tabec PO 07/17/25 08:59 81 mg QDAY BERE Administration Atorvastatin Calcium 40 mg 06/18/25 21:00 06/18/25 21:50 Atorvastatin Calcium 20 Mg Tablet PO 07/18/25 20:59 40 mg HS BERE Administration Clopidogrel Bisulfate 75 mg 06/17/25 09:00 06/19/25 08:00 Clopidogrel Bisulfate 75 Mg Tablet PO 07/17/25 08:59 75 mg QDAY BERE Administration Dextrose 25 ml 06/16/25 07:24 Dextrose 50%-Water Inj 50 Ml Syringe IV 07/16/25 07:23 Q15MIN PRN BG 50-70 responsive npo pt Dextrose 50 ml 06/16/25 07:24 Dextrose 50%-Water Inj 50 Ml Syringe IV 07/16/25 07:23 Q15MIN PRN BG <50 OR BG <70 & pt unresponsive Glucagon 1 mg 06/16/25 07:24 Glucagon Inj 1 Mg Vial IM Q15MIN PRN BG <70, and no IV access Ceftriaxone Sodium/Dextrose 1 gm in 50 mls @ 100 mls/hr 06/16/25 17:57 06/18/25 15:17 Rocephin/D5w 1gm Iv Premix IV 06/23/25 17:56 100 mls/hr QDAY@1400 BERE Administration Insulin Human Lispro 0 unit 06/17/25 17:30 06/19/25 11:40 Insulin Lispro (Admelog) 1 Unit/0.01 Ml Unit SC 07/16/25 07:29 Not Given ACHS BERE Protocol Labetalol HCl 10 mg 06/15/25 19:42 06/15/25 21:31 Labetalol Inj 5 Mg/Ml Vial 20 Ml IVP 10 mg Q15M PRN Administration HYPER Lorazepam 2 mg 06/18/25 10:00 Lorazepam 0.5 Mg Tablet PO X1 PRN 30 minutes prior to MRI Midazolam HCl 1 mg 06/18/25 10:04 Midazolam Inj 1 Mg/Ml Vial 2 Ml IVP X1 PRN Agitation prior to MRI Morphine Sulfate 1 mg 06/15/25 23:36 06/19/25 10:00 Morphine Sulf Inj 10 Mg/Ml Vial IVP 06/20/25 23:35 1 mg Q4HR PRN Administration PAIN SCALE 4-10(Mod-Sev Ondansetron HCl 4 mg 06/15/25 19:42 Ondansetron Inj 2 Mg/Ml Inj 2 Ml IVP 07/15/25 19:41 Q4HR PRN NAUSEA OR VOMITING Plan Branden Vega is a 89F with pmhx significant for hypothyroidism s/p thyroidectomy, NIDM2, HTN, and sick sinus syndrome s/p pacemaker, baseline independent with walker and intact cognition presented to [facility] on 06/15 after two falls due to acute right-sided weakness and AMS, found to have large 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 #Acute L LOWER IN SUPERVISOR P1 segment ischemic CVA #Suspicion of R occipital acute ischemic CVA Patient presented with acute right-sided weakness and sustained 2 ground-level falls. Likely suffered a thrombotic stroke due to large and extensive area of infarct. Transfer attempts to higher level of care were made but declined by both [facility] and [facility] and she was outside tPA window and was deemed not a thrombectomy candidate after neurosurgical review due to risk outweighing benefit. Heparin initially started iso NSTEMI however due to large of infarct, risk of hemorrhagic conversion of ischemic stroke is very high. CT/CTA revealed large acute left LOWER IN SUPERVISOR infarct with P1 occlusion with acute nonhemorrhagic infarct of the left temporal and left occipital lobe . Repeat CT shows suspicion for early acute infarct R occipital lobe. 06/15 Echo: moderate aortic stenosis with mild AR, EF 60% normal LV fx, mildly dilated LA Admission NIHSS 19 per teleneurology however difficult to assess due to patient's mental status s/p ASA 300 mg in ED Plan: - Neurology consulted, recs appreciated: restart DAPT (Plavix and ASA) and atorvastatin - Atorvastatin 40 mg qhs - Cardiology consulted, recs appreciated - Echo and MRI cancelled - Hold heparin - CTM vitals and patient mental status - Telemetry floor - Neurochecks q4h - Encourage to work with PT #NSTEMI likely type 2 On admission patient's troponins were 1.213, 1.345, 1.079 and EKG showed 1 sinus rhythm rate of [address] depressions in leads I, II, V3-V6. Patient is unable to endorse if she has chest pain. Likely type II due to demand ischemia from massive stroke. s/p ASA 300 mg in ED Plan: - Hold heparin iso extensive ischemic stroke - CTM patient symptoms #Acute hypoxic respiratory failure, resolved 2/ #CAP On admission patient required 6 L of nasal cannula O2 likely secondary to extensive right lung pneumonia as seen on chest x-ray. Currently patient is saturating on RA. 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 Hyperkalemia likely multifactorial secondary to COLE and/or massive stroke causing tissue ischemia. Admission UA turbid +LE, 24 WBC and 3+ bacteria Cr downtrending s/p 1L LR in ED s/p calcium gluconate and insulin 5 units in ED Plan: - CTM CMP and K - Telemetry to monitor for arrhythmias - Antibiotics as above #Transaminitis, improving Admission patient has elevated liver enzymes of acute liver injury (ALT 216, AST 214). Hep panel negative. No history of liver disease. AST ALT downtrending. Likely secondary to massive stroke and ischemia. Liver ultrasound shows normal common bile duct and fatty infiltration throughout the liver. Plan: - CTM liver enzymes #Positive HCG Patient was found to have slightly positive HCG on admission. Plan: - Recommend to follow up outpatient Chronic problems: #Hypothyroidism s/p thyroidectomy #NIDDM2 #HTN Free T4 high at 2.12. HbA1c 7.0. Plan: - CTM labs and glucose - Hold home levothyroxine - [facility] Hospital management: Lines: peripheral IV Diet: Dysphagia 1 Bowel: none GI prophylaxis: not indicated DVT prophylaxis: heparin held due to workup for stroke Disposition: tele for stroke workup and monitoring CODE STATUS: DNR Plan of care discussed with attending Dr. Elizondo, and PGY-2 Dr. Frost. Roseann Connelly, DO PGY-1 Internal Medicine
[2025-06-19] MEDS: cefTRIAXone/D5w 1gm IV premix 1 GM/50 ML BAG IV (13:17)
--- NOTE | 2025-06-19 13:26 | PC.CC ---
Addendum entered by Luana Perez 06/19/25 16:22: 1610-ASW contacted pts daughter who was at bedside with the pt. Per pts daughter Emy, the pt was crying stating she can't breathe. ASW heard the pt crying as well. ASW immediately called the assigned RN and informed her that the pt was crying and reporting she could not breathe. ASW contacted Dr. Frost to inform her and she will f/u with the pt at bedside. ASW informed Dr. Frost that the reason I contacted the pts daughter was to inform them that the pt is d/c and filing writer will arrange transportation to [facility]. However, due to the pt stating she cannot breathe, ASW will wait to to hear from Dr. Frost on whether or not to move forward today with a d/c. SS to f/u with the attending tomorrow morning regarding the d/c. Pt has been accepted to [facility] and packet is in the pts chart ready to go. ASW contacted Radha [phone] to inform her that the pt may d/c tomorrow due to the circumstances mentioned; however, she did not answer. ASW left a voice message on her phone informing her [facility] and to expect the pt by tomorrow morning. Addendum entered by Luana Perez 06/19/25 15:59: 1557-ASW spoke with Dr. Welch and pt is medically cleared. ASW will inform family that pt is ready for d/c and will transport to [facility] this evening. Addendum entered by Luana Perez 06/19/25 15:52: 1549-ASW contacted [facility] and she stated the pt is good to go and pt has met the 3 midnight stay so she can go to [facility] when ready. ASW received a call from the assigned RN who reported the pt has small bowel movement. ASW attempted to contact Dr. Frost to inform her but no one answered the phone. ASW will attempt to contact Dr. Frost again. At this time, pt is accepted to [facility]. All clincials and PASSR has been received by [facility] Direction needed by attending providers when pt will be medically cleared. SS to arrange transportation to [facility] for the pt when medically cleared and d/c order is in. Addendum entered by Luana Perez 06/19/25 14:19: 1417-Pt is not medically cleared, as pt has not yet a bowel movement. Pt and family have agreed to SNF-[facility]. ASW submitted all docs and PASSR to [facility] for review. ASW contacted Radha who stated she will review the packet. The wait at this time is for pt to have a BM and for AUTH to SNF. Original Note: 1926-ASW received a call from Dr. Frost asking for an update from the pts family on d/c planning. ASW contacted pts family and they were at bedside with pt. Emy and Elyse [phone]. Family reported they decided on a SNF placement and specifically wanted [facility] only. ASW stated I would contact [facility] and start the placement process. ASW advised that AUTH may take a day, but SS will contact them as soon as AUTH is obtained. Dr. Frost is aware.
--- NOTE | 2025-06-19 14:27 | ESDS_ITS ---
<Statement entered by Reena Elizondo MD - 07/04/25 15:05> I reviewed above note and agree with findings and plans. I have also personally examined the patient with medicine team and went over assessment and plan with medical team including safety intern and resident physician. <Statement entered by Ludmila Welch MD - 06/20/25 16:19> Patient was seen and examined at bedside. I agree on the assessment and plan on this note as documented by resident Roseann Connelly PGY1. 89-year-old female past medical history as below, admitted for acute L TRANSMISSION LINE ENGINEER P1 segment ischemic CVA with concern of large vessel occlusion, patient denied for neurosurgical intervention at higher level of care as patient is a poor thrombectomy candidate after neurosurgical review in the emergency department, patient admitted to the hospital for further management, neurology consulted, patient started on aspirin and Plavix per neurology recommendations. Physical therapy worked closely with the patient, patient has regained some function [facility] to [facility], patient to follow-up with neurology cardiology and primary care physician outpatient. Patient was stable for discharge however patient had significant severe anxiety prior to discharge and hence discharge was held. Patient will be given benzodiazepines for acute panic attack. Case discussed with attending Dr. Caro Welch MD PGY-2 Planned Discharge Date 06/19/25 DS: Providers Provider Date of admission: 06/15/25 23:30 Primary care physician: Physician No Primary/Family Admitting Provider: Meme Falcon MD Attending Provider on Admission: Reena Elizondo MD Consults: 06/15/25 19:42 Consult to Neurology / Tele-Neurology Routine Comment: Consulting Provider: [facility] 06/15/25 20:20 Referral - Director Of Employee Development Stat Service Needed for Transfer: Neurosurgery 06/15/25 22:13 Consult to Cardiology Stat Comment: Consulting Provider: Rosetta Batres 06/15/25 23:37 PT [Referral Physical Therapy] Routine Comment: Physician Instructions: Referral Speech Therapy Routine Comment: 06/16/25 09:57 Consult to Neurology / Tele-Neurology Stat Comment: CVA Consulting Provider: Geo Schmid Attending Provider on DC: Reena Elizondo MD Discharging Provider: Reena Elizondo MD Anticipated date of discharge: 06/19/25 DS: Diagnosis Problem List Completed Was Problem List Reviewed/Reconciled?: Yes Hospital Course Hospital Course Hospital course: Hospital course: Branden Vega is a 89-year-old female with past medical history of hypothyroidism s/p thyroidectomy, [id number] diabetes mellitus type 2 hypertension, HTN, and sick sinus syndrome s/p pacemaker, baseline independent with walker and intact cognition who presented to [facility] on June 15, 2025 after two falls due to acute right-sided weakness and altered mental status. CT/CTA revealed large acute left TRANSMISSION LINE ENGINEER infarct with P1 occlusion with acute nonhemorrhagic infarct of the left temporal and left occipital lobe, teleneurology recommended transfer, transfer attempts were initiated to higher level of care from the emergency department but patient was declined by multiple centers as patient was outside tPA window and was not deemed a thrombectomy candidate after neurosurgical review. Neurology followed the case, per neurology MRI and echocardiogram with bubble study not indicated as it would not change of address clerk. Patient was also found to have elevated troponin, cardiology was consulted and patient was started on heparin drip which was discontinued due to underlying risk of hemorrhagic conversion of CVA. Patient's troponin likely NSTEMI type II in setting of acute CVA. Patient was also found to have acute hypoxic respiratory failure secondary to community-acquired pneumonia for which patient completed antibiotic treatment during the hospitalization, COLE on CKD improved with the progression of hospital course, chronic problems were managed inpatient as well. Physical therapy and speech therapy were consulted during the hospitalization, patient was started on dysphagia diet, physical therapy recommended further acute rehab placement to improve functional status. Further plan is to [facility] to jail facility, patient to follow-up with neurology cardiology and primary care physician outpatient. Patient is stable for discharge. Discharge Recommendations: -Continue Aspirin and Plavix for stroke prevention, continue Atorvastatin. -Your Hgb A1c is 7 follow up with PCP to optimize therapy, continue sliding scale insulin. -Hold Blood pressure medication follow up with PCP before resuming -Hold Cilostazol follow up with PCP before resuming -Follow up with PCP in 1 week, follow up with neurology outpatient. -Follow up with Resident Services Director outpatient -Return to ED if symptoms worsen. 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 Elizondo and senior resident Dr Welch PGY-2 Roseann Connelly DO Internal Medicine PGY-1 Disclaimer: This note was dictated by speech recognition. Minor errors in sponge clipper may be present due to voice recognition software. Status at Discharge Functional status at discharge: bed bound Overall status at discharge: patient is progressing back to baseline Time Spent with Patient Time attestation: Total time spent providing and/or coordinating discharge services: Time spent: Greater than 30 minutes Quality: Stroke Pt Provided Written Stroke Discharge Instructions: Yes Exam Vital Signs Temp Pulse Resp BP Pulse Ox O2 Del Method O2 Flow Rate 97.7 F 68 18 125/67 97 Room Air 0.5 06/19/25 12:06/19/25 12:06/19/25 12:06/19/25 12:06/19/25 12:06/19/25 12:06/16/25 23:33 Narrative Exam GENERAL: AOx1, frail elderly female, thin appearing, able to mumble answers, able to follow some commands HEENT: NC/AT, mucous membranes dry, bilateral sclera anicteric CARDIOVASCULAR: regular rate and rhythm, S1/S2 present, +3/6 harsh systolic murmur PULMONARY: clear to auscultation bilaterally, no rales/rhonchi/wheezes ABDOMINAL: soft, non-tender, non-distended, no rebound/guarding, bowel sounds present EXTREMITIES: no peripheral edema SKIN: warm and dry, intact, no rashes NEURO: CN II-XII grossly intact, no focal deficits, alert, following commands. LLE 5/5 strength, RLE 4/5 strength, LUE 5/5 strength, RUE 3/5 strength Discharge Plan Plan Patient Disposition: Xfer Skilled Nsg Fac (SNF) Patient condition on transfer: Stable Care Plan Goals: -Continue Aspirin and Plavix for stroke prevention, continue Atorvastatin. -You have been started on Amlodipine for blood pressure medication follow up with PCP -Hold Cilostazol follow up with PCP before resuming -Follow up with PCP in 1 week, follow up with neurology outpatient within 2 weeks. -Follow up with Resident Services Director outpatient -Return to ED if symptoms worsen. Prescriptions/Referrals Prescriptions/Med Rec: New atorvastatin 40 mg tablet 40 mg PO HS 30 Days Qty: 0 0RF clopidogrel 75 mg Tablet 75 mg PO QDAY 30 Days Qty: 0 0RF lorazepam 1 mg tablet 1 mg PO BID PRN (Reason: anxiety) Qty: 10 0RF amlodipine 5 mg tablet 5 mg PO QDAY Qty: 30 0RF Continued aspirin 81 mg Tablet,Delayed Release (Dr/Ec) 81 mg PO QDAY levothyroxine 100 mcg Tablet 100 mcg PO QDAY omeprazole 20 mg capsule,delayed release(DR/EC) 20 mg PO QDAY Patient Comments: TAKE 1 CAPSULE BY MOUTH EVERY DAY IN THE EVENING alendronate 70 mg tablet 70 mg PO .q week Patient Comments: TAKE 1 TABLET BY MOUTH ONE TIME PER WEEK gabapentin 100 mg capsule 100 mg PO HS Patient Comments: TAKE 1 CAPSULE BY MOUTH EVERYDAY AT BEDTIME diclofenac sodium 75 mg tablet,delayed release (DR/EC) 75 mg PO HS Held cilostazol 50 mg Tablet 50 mg PO QDAY Hold Instructions: Resume on 06/26/25. Follow up with PCP before resuming spironolactone 25 mg tablet 12.5 mg PO QDAY Hold Instructions: Resume on 06/26/25. Follow up with PCP before resuming Patient Comments: TAKE 1/2 TABLET BY MOUTH EVERY DAY carvedilol 3.125 mg tablet 3.125 mg PO QDAY Hold Instructions: Resume on 06/26/25. Follow up with PCP before resuming Rx Instructions: must administer with a meal/food Discontinued magnesium 200 mg tablet 100 mg PO QDAY ferrous sulfate 325 mg (65 mg iron) tablet 325 mg PO Q OTHER DAY Qty: 90 0RF Referrals: No Primary/Family,Physician [Primary Care Provider] - Geo Schmid MD [Physician] - Patient/Caregiver Discharge Instructions Discharge Activity: as per physical therapy Education Materials: Stroke: Taking Medicines, Stroke: Resources and Support, Stroke: Self-Care, Stroke Regaining Movement Print Language: dutch (michelle) Stand Alone Forms: Acssie Award Info., Patient Portal Info Letter Discharge Order Discharge Orders: Discharge (Routine); Ordered 06/20/25 Ordered By: Romeo Frost Quality Discharge Quality Measures VTE prophylaxis
--- NOTE | 2025-06-19 14:36 | PD.RESPRO ---
Documentation for date of: 06/19/25 Subjective Subjective Interval history: Patient is an 89-year-old female with a past medical history of sick hypertension, diabetes melitis type 2 lmr-ftlglzn-fznybomwo sinus syndrome status post permanent pacemaker (01/20/2025), history of hypothyroidism acquired s/p thyroidectomy, history of osteoporosis, and CKD who was admitted on 06/15/2025 for large acute nonhemorrhagic infarct left temporal and left occipital lobe. No overnight events. NO MRI or Echo as would not change current managment. Pateint unable to tolerate staying still for MRI despite benzos given during process. SNF[facility] Exam Vital Signs Temp Pulse Resp BP Pulse Ox O2 Del Method O2 Flow Rate 97.7 F 68 18 125/67 97 Room Air 0.5 06/19/25 12:00 06/19/25 12:00 06/19/25 12:00 06/19/25 12:00 06/19/25 12:00 06/19/25 12:00 06/16/25 23:33 Narrative Exam General Appearance: Alert & Oriented X1-waxes and wanes, well-nourished female who is lying in bed in no acute distress HEENT: Skull symmetrical and atraumatic. Conjunctivae pale pink and moist. Pupils equal, round, reactive to light and accommodation (PERRL) but right eye is slower to respond. External ear without lesion or discharge. Straight, nares patient, mucosa pink, no discharge. No thyroid nodule appreciated. No cervical lymphadenopathy. Cardio: Normal Rate and Rhythm with S1 and S2 heart sounds. No murmurs or extra heart sounds auscultated. No bruits on carotid auscultation. No peripheral edema or cyanosis. Lungs: Symmetric with good expansion. Chest and back non-tender. Breath sounds vesicular without crackles, wheezing or rhonchi Abdomen: Non-tender, Non-distended, Normal Reactive Bowel Sounds Neuro: Yes Alert, Yes cooperative, Yes oriented to person, NO place, and NO time. Improved speech. CN grossly intact. Upper motor strength 5/5 and Lower motor strength 3/5. Sensation intact. Objective Labs 06/19/25 04:43 06/19/25 04:43 Labs: Laboratory Results - last 24 hr 06/19/25 04:43 WBC 7.8 RBC 4.75 Hgb 10.7 L Hct 33.9 L MCV 71 L MCH 22.5 L MCHC 31.6 RDW Std Deviation 37.9 Plt Count 200 D Neut % (Auto) 61 Lymph % (Auto) 21 [place] % (Auto) 10 Eos % (Auto) 6 Baso % (Auto) 1 Neut # (Auto) 4.8 Lymph # (Auto) 1.7 [place] # (Auto) 0.8 Eos # (Auto) 0.5 Baso # (Auto) 0.1 Immature Gran # (Auto) 0.02 H Absolute Nucleated RBC 0.00 Immature Gran % 0 Nucleated RBC % 0 Sodium 138 Potassium 4.3 Chloride 105 Carbon Dioxide 21.9 Anion Gap 11 BUN 14 Creatinine 1.0 Estim Creat Clear Calc 19.7 L eGFR 54 L BUN/Creatinine Ratio 14 Glucose 88 Calculated Osmolality 275 Calcium 9.0 Corrected Calcium 9.2 Phosphorus 3.7 Magnesium 1.8 Total Bilirubin 0.5 AST 81 H ALT 82 H Alkaline Phosphatase 77 Total Protein 6.6 Albumin 3.7 Globulin 2.9 Albumin/Globulin Ratio 1.3 Quality Measures Quality Measures none Advance care planning discussed with:: patient and child (Child & granddaughter ) Assessment & Plan Assessment Current Active Medications: Generic Name Dose Route Start Last Admin Trade Name Freq PRN Reason Stop Dose Admin Acetaminophen 650 mg 06/15/25 23:30 Acetaminophen Supp 650 Mg Supp AL 07/15/25 23:29 Q6HR PRN Fever > 100.4 Acetaminophen 650 mg 06/15/25 23:30 Acetaminophen Supp 650 Mg Supp AL 07/15/25 23:29 Q6H PRN PAIN SCALE 1-3 (mild Aspirin 81 mg 06/17/25 09:00 06/19/25 08:00 Aspirin Ec 81 Mg Tabec PO 07/17/25 08:59 81 mg QDAY BERE Administration Atorvastatin Calcium 40 mg 06/18/25 21:00 06/18/25 21:50 Atorvastatin Calcium 20 Mg Tablet PO 07/18/25 20:59 40 mg HS BERE Administration Clopidogrel Bisulfate 75 mg 06/17/25 09:00 06/19/25 08:00 Clopidogrel Bisulfate 75 Mg Tablet PO 07/17/25 08:59 75 mg QDAY BERE Administration Dextrose 25 ml 06/16/25 07:24 Dextrose 50%-Water Inj 50 Ml Syringe IV 07/16/25 07:23 Q15MIN PRN BG 50-70 responsive npo pt Dextrose 50 ml 06/16/25 07:24 Dextrose 50%-Water Inj 50 Ml Syringe IV 07/16/25 07:23 Q15MIN PRN BG <50 OR BG <70 & pt unresponsive Glucagon 1 mg 06/16/25 07:24 Glucagon Inj 1 Mg Vial IM Q15MIN PRN BG <70, and no IV access Ceftriaxone Sodium/Dextrose 1 gm in 50 mls @ 100 mls/hr 06/16/25 17:57 06/19/25 13:17 Rocephin/D5w 1gm Iv Premix IV 06/23/25 17:56 100 mls/hr QDAY@1400 BERE Administration Insulin Human Lispro 0 unit 06/17/25 17:30 06/19/25 11:40 Insulin Lispro (Admelog) 1 Unit/0.01 Ml Unit SC 07/16/25 07:29 Not Given ACHS [facility] Protocol Labetalol HCl 10 mg 06/15/25 19:42 06/15/25 21:31 Labetalol Inj 5 Mg/Ml Vial 20 Ml IVP 10 mg Q15M PRN Administration HYPER Lorazepam 2 mg 06/18/25 10:00 Lorazepam 0.5 Mg Tablet PO X1 PRN 30 minutes prior to MRI Midazolam HCl 1 mg 06/18/25 10:04 Midazolam Inj 1 Mg/Ml Vial 2 Ml IVP X1 PRN Agitation prior to MRI Morphine Sulfate 1 mg 06/15/25 23:36 06/19/25 10:00 Morphine Sulf Inj 10 Mg/Ml Vial IVP 06/20/25 23:35 1 mg Q4HR PRN Administration PAIN SCALE 4-10(Mod-Sev Ondansetron HCl 4 mg 06/15/25 19:42 Ondansetron Inj 2 Mg/Ml Inj 2 Ml IVP 07/15/25 19:41 Q4HR PRN NAUSEA OR VOMITING Plan Patient is an 89-year-old female with a past medical history of hypertension, diabetes mellitus type 2 slb-dhpavcu-mmjsmkahr sinus syndrome status post permanent pacemaker (01/20/2025), history of hypothyroidism acquired s/p thyroidectomy, history of osteoporosis, and CKD (?) who was admitted on 06/15/2025 for large acute non-hemorrhagic infarct left temporal and left occipital lobe. #Acute Ischemic Stroke, Left temporal Left Occipital Lobe #Ground Level Fall #Acute Encephalopathy, likely secondary to stroke, improved Patient noted to have a large acute nonhemorrhagic infarct of left temporal and left occipital lobe. Repeat Head CT after 24 hours noted (06/16/2025): acute infarct left posterior temporal and left occipital lobe. Suspicious for early acute infarct right occipital lobe. [employer] Serial #[id number], typically MRI compatible, consult cardiology to sign off on MRI. [employer] reader located in MRI room. Diagnostics: A1c 7.0 Lipid Cholesterol 202 LDL 140 HDL 46 Echo (06/15/2025): Normal sized left ventrilce w/ normal left wall motion ejection fraction of 60%. Aortic valve leaflet w/ calcification w/ evidence of moderate calcified aortic stensois. NO evidence of intracardiac shunts or cardiac thrombi seen HOWEVER bubble study not performed. Plan -Follow up with Dr. Schmid within 2 weeks from discharge. -MRI and echo w/ bubble study deferred given no change in current management. Patient did not tolerate MRI -Continue Plavix 75 mg PO Qday, Atorvastatin 80 mg PO HS & Aspirin 81 mg PO -Replace electrolytes as needed -DAPT monitor given anemia for any acute changes. -Continue to monitor glucose and blood pressure -Consult, cardiology, Dr. Jean Baptiste for possible FREDY or Repeat Echo w/ Bubble study -Consider Nephrology Consult, low GFR from previous admission & electrolyte abnormalities -Speech & PT referral ordered #NSTEMI, likely type II deman ischemia #Sick Sinus Syndrome s/p Pacemaker (01/20/2025) #COLE on CKD III #Hyperkalemia, Resolved. #Hyperphosphatemia #UTI #Acute hypoxic respiratory failure, resolved #CAP, right lung penumonia #Diabetes Mellitus Type II, non insulin dependent #Transiminitis #Hypothyrodism acquired s/p throidectomy #History of hypertension #Microcytic Anemia - The patient's plan was discussed with attending Dr. Sharmaine Lewis MD PGY2 Internal Medicine Attending Provider Attestation/Addendum I personally have seen and examined the patient at bedside and I agreed with resident's findings, assessment plan of care. Impression: Acute bilateral occipital CVA with right hemiparesis affecting lower extremity more than upper extremity with stiffness. She is neurologically able for discharge to [facility] on aspirin, Plavix and statin with close monitoring for bleeding.
[2025-06-19] MEDS: ATORVASTATIN CALCIUM 20 MG TABLET 40 MG PO (21:11)
[2025-06-20] VITALS (9 sets, daily range): BP systolic 122–181; BP diastolic 62–89; PULSE 60–77; RESP 11–99; TEMP 36.1–37.3; O2SAT 96–98; BMI 17.2; BMI 12.0
[2025-06-20 06:05] LABS: Alanine Aminotransferase 64 U/L (10-49); Albumin, Serum 3.6 gm/dL (3.4-4.8); Albumin/Globulin Ratio 1.2 (1.2-2.2); Alkaline Phosphatase 73 U/L (46-116); Anion Gap 10 (7-16); Aspartate Amino Transferase 69 U/L (0-34); BUN/Creatinine Ratio 19 Ratio (12-20); Bilirubin,Total 0.4 mg/dL (0.3-1.2); Blood Urea Nitrogen 21 mg/dL (9-23); Calcium 8.9 mg/dL (8.3-10.6); Calcium (Corrected) 9.2 mg/dL (8.5-10.1); Carbon Dioxide 24.6 mMol/L (20.0-31.0); Chloride 104 mMol/L (98-107); Creatinine (Component) 1.1 mg/dL (0.6-1.3); Estimated Creatinine Clearance 18.1 mL/min (>60); Globulin 3.0 gm/dL (2.3-3.5); Glucose 111 mg/dL (74-106); Magnesium 1.8 mg/dL (1.6-2.6); Osmolality,Calculated 281 (275-295); Phosphorous 3.8 mg/dL (2.4-5.1); Potassium 4.4 mMol/L (3.4-5.1); Sodium 139 mMol/L (136-145); Total Protein 6.6 gm/dL (5.7-8.2); eGFR 48 See Note
[2025-06-20 06:10] LABS: Basophils # (Auto) 0.1 Thou/mm3 (0.0-0.2); Basophils % (Auto) 1 % (0-2.5); Eosinophils # (Auto) 0.7 Thou/mm3 (0.0-0.5); Eosinophils % (Auto) 11 % (0-10); Hematocrit 34.2 % (36.0-46.0); Hemoglobin 10.7 g/dL (12.0-16.0); Immature Granulocytes Auto 0.01 Thou/mm3 (0.00-0.00); Lymphocytes # (Auto) 1.6 Thou/mm3 (1.0-4.8); Lymphocytes % (Auto) 24 % (10-50); Mean Corpuscular HGB Conc 31.3 g/dl (31.0-37.0); Mean Corpuscular Hemoglobin 22.6 pg (25.0-35.0); Mean Corpuscular Volume 72 fL (80-100); Monocytes # (Auto) 0.6 Thou/mm3 (0.0-0.8); Monocytes % (Auto) 10 % (0-12); Neutrophils # (Auto) 3.6 Thou/mm3 (1.8-7.7); Neutrophils % (Auto) 55 % (37-80); Nucleated Red Blood Cell # 0.00 Thou/mm3 (0.00-0.00); Nucleated Red Blood Cell % 0 /100 WBC (0); Platelet Count 202 Thou/mm3 (140-440); RDW Standard Deviation 37.5 fL (36.4-46.3); Red Blood Count 4.74 Miln/mm3 (4.00-5.20); White Blood Count 6.5 Thou/mm3 (3.6-11.0)
[2025-06-20] MEDS: CLOPIDOGREL BISULFATE 75 MG TABLET PO (08:29)
[2025-06-20] MEDS: ASPIRIN 81 MG CHEW PO (08:29)
--- NOTE | 2025-06-20 09:00 | PC.SS ---
DISPENSING OPERATOR placed phone call to [facility] to schedule transportation, ETA 13:00PM. DISPENSING OPERATOR informed bedside nurse and family.
[2025-06-20] MEDS: MORPHINE SULF INJ 10 MG/ML VIAL IVP (09:58)
--- NOTE | 2025-06-20 10:27 | ESDS_ITS ---
<Statement entered by Reena Elizondo MD - 07/04/25 15:05> I reviewed above note and agree with findings and plans. I have also personally examined the patient with medicine team and went over assessment and plan with medical team including project intern and resident physician. <Statement entered by Ludmila Welch MD - 06/20/25 16:37> Patient was seen and examined by me personally. I have reviewed the below documentation by the team resident and agree with its findings. Discharge plan was discussed with the attending, Dr. Elizondo 89-year-old female past medical history as below, admitted for acute L TEST OPERATOR P1 segment ischemic CVA with concern of large vessel occlusion, patient denied for neurosurgical intervention at higher level of care as patient is a poor thrombectomy candidate after neurosurgical review in the emergency department, patient admitted to the hospital for further management, neurology consulted, patient started on aspirin and Plavix per neurology recommendations. Physical therapy worked closely with the patient, patient has regained some function recommended discharge to snf facility, [facility] primary care physician [facility]. Patient was stable for discharge yesterday however patient had significant severe anxiety prior to discharge and hence discharge was held yesterday. Patient is stable for discharge today, will be discharged to snf facility. Ludmila Welch MD Internal Medicine, PGY-2 Planned Discharge Date 06/20/25 DS: Providers Provider Date of admission: 06/15/25 23:30 Primary care physician: Physician No Primary/Family Admitting Provider: Meme Falcon MD Attending Provider on Admission: Reena Elizondo MD Consults: 06/15/25 19:42 Consult to Neurology / Tele-Neurology Routine Comment: Consulting Provider: [facility] 06/15/25 20:20 Referral - Tag Stringer Stat Service Needed for Transfer: Neurosurgery 06/15/25 22:13 Consult to Cardiology Stat Comment: Consulting Provider: Rosetta Batres 06/15/25 23:37 PT [Referral Physical Therapy] Routine Comment: Physician Instructions: Referral Speech Therapy Routine Comment: 06/16/25 09:57 Consult to Neurology / Tele-Neurology Stat Comment: CVA Consulting Provider: Geo Schmid Attending Provider on DC: Dr. Reena Elizondo MD Discharging Provider: Dr. Reena Elizondo MD Anticipated date of discharge: 06/20/25 DS: Diagnosis Problem List Completed Was Problem List Reviewed/Reconciled?: Yes Hospital Course Hospital Course Hospital course: Summary Branden Vega is a 89-year-old female with past medical history of hypothyroidism s/p thyroidectomy, qnu-bjdxcts-ycifkkcno diabetes mellitus type 2 hypertension, HTN, and sick sinus syndrome s/p pacemaker, baseline independent with walker and intact cognition who presented to [facility] on June 15, 2025 after two falls due to acute right-sided weakness and altered mental status. CT/CTA revealed large acute left TEST OPERATOR infarct with P1 occlusion with acute nonhemorrhagic infarct of the left temporal and left occipital lobe, teleneurology recommended transfer, transfer attempts were initiated to higher level of care from the emergency department but patient was declined by multiple centers as patient was outside tPA window and was not deemed a thrombectomy candidate after neurosurgical review. Neurology followed the case, per neurology MRI and echocardiogram with bubble study not indicated as it would not supervisor policy change clerks. Patient was also found to have elevated troponin, cardiology was consulted and patient was started on heparin drip which was discontinued due to underlying risk of hemorrhagic conversion of CVA. Patient's troponin likely NSTEMI type II in setting of acute CVA. Patient was also found to have acute hypoxic respiratory failure secondary to community-acquired pneumonia for which patient completed antibiotic treatment during the hospitalization, COLE on CKD improved with the progression of hospital course, chronic problems were managed inpatient as well. Physical therapy and speech therapy were consulted during the hospitalization, patient was started on dysphagia diet, physical therapy recommended further acute rehab placement to improve functional status. Further plan is to discharge patient to snf facility, patient to follow-up with neurology cardiology and primary care physician outpatient. Patient is stable for discharge. Discharge Recommendations: -Continue Aspirin and Plavix for stroke prevention, continue Atorvastatin. -You have been started on Amlodipine for blood pressure medication follow up with your primary care doctor. -Hold Cilostazol follow up with primary care doctor before resuming -Follow up with primary care doctor in 1 week, follow up with neurology outpatient within 2 weeks. Follow up with Dr. Schmid within 2 weeks of discharge -Follow up with [employer] Dr. Batres outpatient, call [phone] for an appointment. -Return to ED if symptoms worsen. Discharge Diagnosis: #Acute L TEST OPERATOR P1 segment ischemic CVA #Suspicion of R occipital acute ischemic CVA #NSTEMI likely type 2 #Acute hypoxic respiratory failure, resolved 2/2 #CAP #COLE on CKDIIIa, resolved #Hyperkalemia, improving #UTI #Transaminitis, improving #MASLD #Hypothyroidism s/p thyroidectomy #NIDDM2 #HTN Patient seen and assessed under supervision of attending physician Dr. Elizondo and discuss with senior resident Dr. Welch PGY-2 Anne Marquez MD PGY-1, Internal Medicine Time Spent with Patient Time attestation: Total time spent providing and/or coordinating discharge services: Time spent: Greater than 30 minutes Quality: Stroke Pt Provided Written Stroke Discharge Instructions: Yes Exam Vital Signs Temp Pulse Resp BP Pulse Ox O2 Del Method O2 Flow Rate 97.0 F 66 16 140/63 H 98 Room Air 0.5 06/20/25 08:00 06/20/25 09:59 06/20/25 08:00 06/20/25 09:59 06/20/25 08:00 06/20/25 08:00 06/16/25 23:33 Narrative Exam GENERAL: AOx3, frail elderly female, thin appearing, able to mumble answers, able to follow some commands HEENT: NC/AT, mucous membranes dry, bilateral sclera anicteric CARDIOVASCULAR: regular rate and rhythm, S1/S2 present, +3/6 harsh systolic murmur PULMONARY: clear to auscultation bilaterally, no rales/rhonchi/wheezes ABDOMINAL: soft, non-tender, non-distended, no rebound/guarding, bowel sounds present EXTREMITIES: no peripheral edema SKIN: warm and dry, intact, no rashes NEURO: CN II-XII grossly intact, no focal deficits, alert, following commands. LLE 5/5 strength, RLE 4/5 strength, LUE 5/5 strength, RUE 3/5 strength Discharge Plan Plan Patient Disposition: Xfer Skilled Nsg Fac (SNF) Patient condition on transfer: Stable Care Plan Goals: -Continue Aspirin and Plavix for stroke prevention, continue Atorvastatin. -You have been started on Amlodipine for blood pressure medication follow up with your primary care doctor. -Hold Cilostazol follow up with primary care doctor before resuming -Follow up with primary care doctor in 1 week, follow up with neurology outpatient within 2 weeks. Follow up with Dr. Schmid within 2 weeks of discharge -Follow up with [employer] Dr. Batres outpatient, call [phone] for an appointment. -Return to ED if symptoms worsen. Prescriptions/Referrals Prescriptions/Med Rec: New atorvastatin 40 mg tablet 40 mg PO HS 30 Days Qty: 0 0RF clopidogrel 75 mg Tablet 75 mg PO QDAY 30 Days Qty: 0 0RF lorazepam 1 mg tablet 1 mg PO BID PRN (Reason: anxiety) Qty: 10 0RF amlodipine 5 mg tablet 5 mg PO QDAY Qty: 30 0RF Continued aspirin 81 mg Tablet,Delayed Release (Dr/Ec) 81 mg PO QDAY levothyroxine 100 mcg Tablet 100 mcg PO QDAY omeprazole 20 mg capsule,delayed release(DR/EC) 20 mg PO QDAY Patient Comments: TAKE 1 CAPSULE BY MOUTH EVERY DAY IN THE EVENING alendronate 70 mg tablet 70 mg PO .q week Patient Comments: TAKE 1 TABLET BY MOUTH ONE TIME PER WEEK gabapentin 100 mg capsule 100 mg PO HS Patient Comments: TAKE 1 CAPSULE BY MOUTH EVERYDAY AT BEDTIME diclofenac sodium 75 mg tablet,delayed release (DR/EC) 75 mg PO HS Held cilostazol 50 mg Tablet 50 mg PO QDAY Hold Instructions: Resume on 06/26/25. Follow up with PCP before resuming spironolactone 25 mg tablet 12.5 mg PO QDAY Hold Instructions: Resume on 06/26/25. Follow up with PCP before resuming Patient Comments: TAKE 1/2 TABLET BY MOUTH EVERY DAY carvedilol 3.125 mg tablet 3.125 mg PO QDAY Hold Instructions: Resume on 06/26/25. Follow up with PCP before resuming Rx Instructions: must administer with a meal/food Discontinued magnesium 200 mg tablet 100 mg PO QDAY ferrous sulfate 325 mg (65 mg iron) tablet 325 mg PO Q OTHER DAY Qty: 90 0RF Referrals: No Primary/Family,Physician [Primary Care Provider] - Geo Schmid MD [Physician] - Patient/Caregiver Discharge Instructions Discharge Activity: as per physical therapy Education Materials: Stroke: Taking Medicines, Stroke: Resources and Support, Stroke: Self-Care, Stroke Regaining Movement Print Language: dutch (llonena) Stand Alone Forms: Cassie Award Info., Patient Portal Info Letter Discharge Order Discharge Orders: Discharge (Routine); Ordered 06/20/25 Ordered By: Romeo Frost Quality Discharge Quality Measures VTE prophylaxis
--- NOTE | 2025-06-20 11:00 | PC.SS ---
MOTOR RUNNER spoke to [place] and confirmed ETA for 14:30.
--- NOTE | 2025-06-20 15:42 | PC.SS ---
INTERNAL CONTROL ANALYST spoke to [facility]. Family asked if they are able to remove patient from SNF if they feel she no loner needs services, INTERNAL CONTROL ANALYST confirmed that placement is short term and family can coordinate d/c plan with [facility] if they are wanting to take patient home, patient family confirmed.
== END 2025-06-20 13:57 | disposition skilled nursing facility (03) | DRG 64 ==
LOC: SERX 20:42 → SERHOLD 06-16 → S2NX 06-16 02:26
PROVIDERS: Admitting Provider Student in an Organized Health Care Education/Training Program; Visit Provider Internal Medicine
DX: I63.332 Cerebral infarction due to thrombosis of left posterior cerebral artery (principal); I21.A1 Myocardial infarction type 2; J18.9 Pneumonia, unspecified organism; J96.01 Acute respiratory failure with hypoxia; G81.91 Hemiplegia, unspecified affecting right dominant side; N17.9 Acute kidney failure, unspecified; N39.0 Urinary tract infection, site not specified; G93.40 Encephalopathy, unspecified; I49.5 Sick sinus syndrome; L84 Corns and callosities; E87.5 Hyperkalemia; R29.719 NIHSS score 19; D50.9 Iron deficiency anemia, unspecified; E11.22 Type 2 diabetes mellitus with diabetic chronic kidney disease; E83.39 Other disorders of phosphorus metabolism; E89.0 Postprocedural hypothyroidism; F41.0 Panic disorder [episodic paroxysmal anxiety]; I12.9 Hypertensive chronic kidney disease with stage 1 through stage 4 chronic kidney disease, or unspecified chronic kidney disease; Z95.0 Presence of cardiac pacemaker; I35.0 Nonrheumatic aortic (valve) stenosis; N18.31 Chronic kidney disease, stage 3a; M81.0 Age-related osteoporosis without current pathological fracture; Z66 Do not resuscitate; W01.0XXA Fall on same level from slipping, tripping and stumbling without subsequent striking against object, initial encounter; Z79.02 Long term (current) use of antithrombotics/antiplatelets; K76.0 Fatty (change of) liver, not elsewhere classified; Z79.4 Long term (current) use of insulin; Z79.83 Long term (current) use of bisphosphonates; Z79.84 Long term (current) use of oral hypoglycemic drugs; R13.0 Aphagia; Z79.899 Other long term (current) drug therapy; Z86.73 Personal history of transient ischemic attack (TIA), and cerebral infarction without residual deficits; Z79.82 Long term (current) use of aspirin; Z79.890 Hormone replacement therapy
CPT/HCPCS: 36415; 70450; 70496; 70498; 71045; 72125; 73120; 76705; 80048; 80053; 80061; 80069; 80074; 80307; 81001; 82728; 83036; 83540; 83550; 83605; 83735; 84100; 84145; 84439; 84443; 84484; 84702; 84703; 85025; 85610; 85730; 87040; 87077; 87086; 87186; 87811; 92523; 92526; 92610; 93005; 93306; 96361; 96365; 96366; 96375; 97162; A4649; J0456; J0612; J0696; J1644; J1815; J2250; J2270; J3475; J3490; J7050; J7120; Q9967; A9270; J1920

== ENCOUNTER 2025-10-07 17:58 | Inpatient (IN) | payer MEDICARE, MEDICAID, SELFPAY ==
[2025-10-07] VITALS (18 sets, daily range): BP systolic 99–151; BP diastolic 72–98; PULSE 80–106; RESP 12–86; TEMP 35.4–36.9; O2SAT 79–100; BMI 18.6
--- NOTE | 2025-10-07 18:10 | XR_ITS ---
EXAMINATION: AP chest single view TECHNIQUE: AP portable upright chest single view Date and time: October 07 2025, 1848 hours, comparison June 15, 2025 INDICATIONS: Acute respiratory failure shortness of breath this week FINDINGS: Significant heart failure Mild to moderate enlargement cardiac contour, prominent vascular congestion and perihilar edema Likely superimposed significant bilateral pneumonia Large right moderate left pleural effusions Transvenous dual-chamber bipolar cardiac leads satisfactory position Prominent osteopenia IMPRESSION: Significant heart failure Likely superimposed significant bilateral pneumonia Large right moderate left pleural effusions
--- NOTE | 2025-10-07 18:10 | EKG_ITS ---
[facility] Test Date: 2025-10-07 Pat Name: JEAN-PAUL CHAVEZ Department: Room: - Gender: Female Aemt: : 1935 Requested By: Kimani Winslow Order Number: [id number] Reading MD: Kimani Winslow Measurements Intervals [place] Rate: 99 P: -33 MD: 200 QRS: -64 QRSD: 149 T: 121 QT: 401 QTc: 515 Interpretive Statements ELECTRONIC VENTRICULAR PACEMAKER ABNORMAL RHYTHM ECG Compared to ECG 06/15/2025 18:52:14 Sinus rhythm no longer present Right-axis deviation no longer present Right bundle-branch block no longer present ST (T wave) deviation no longer present /store/S0/[id number]
--- NOTE | 2025-10-07 18:14 | PD.EDADULT ---
ED General RME/HPI General Chief complaint: Shortness of Breath/Dyspnea Stated complaint: SOB Time Seen by Provider: 10/07/25 18:10 Arrival date/time: 10/07/25 17:58 RME / HPI MD complaint: Shortness of breath Onset (ago): day(s) Related Data Home Medications ?Medication ?Instructions ?Recorded ?Confirmed aspirin 81 mg tablet,delayed 81 mg PO QDAY 05/19/21 06/17/25 release cilostazol 50 mg tablet 50 mg PO QDAY 05/19/21 06/17/25 Held on 06/19/25. Instructions: Resume on 06/26/25. Follow up with PCP before resuming levothyroxine 100 mcg tablet 100 mcg PO QDAY 05/19/21 06/17/25 alendronate 70 mg tablet 70 mg PO .q week 01/15/25 06/17/25 omeprazole 20 mg capsule,delayed 20 mg PO QDAY 01/15/25 06/17/25 release carvedilol 3.125 mg tablet 3.125 mg PO QDAY 06/17/25 06/17/25 Held on 06/19/25. Instructions: Resume on 06/26/25. Follow up with PCP before resuming gabapentin 100 mg capsule 100 mg PO HS 06/17/25 06/17/25 spironolactone 25 mg tablet 12.5 mg PO QDAY 06/17/25 06/17/25 Held on 06/19/25. Instructions: Resume on 06/26/25. Follow up with PCP before resuming diclofenac sodium 75 mg 75 mg PO HS 06/19/25 06/19/25 tablet,delayed release Previous Rx's ?Medication ?Instructions ?Recorded amlodipine 5 mg tablet 5 mg PO QDAY #30 tabs 06/20/25 lorazepam 1 mg tablet 1 mg PO BID PRN anxiety #10 tabs 06/20/25 Allergies Allergy/AdvReac Type Severity Reaction Status Date / Time No Known Allergies Allergy Verified 05/20/21 14:26 ED Exam Narrative Physical exam: Physical Exam: GENERAL: Somnolent but arousable (opens eyes on command), frail-appearing HEENT: NC/AT. Dry mucosa. PERRLA/EOMI. CARDIO: Heart RRR, no obvious murmurs, no JVD. PULM: Bronchial breath sounds heard bilaterally with sporadic crackles on upper lung pinon, patient on NIV (BiPAP) saturating from low 90s to high 95 GI: Abdomen soft, NT/ND, +BS. SKIN/MSK/EXT: Mild mottling noted on upper thighs. No wounds/rashes/edema/amputations noted, no noted pain on palpation. +Pedal pulses present B/L. NEURO: Oriented x0, 10?points Cony Coma Score E(3) V(2) M(5), unable to assess rest of neurologic exam at this time Course Quality Measures Possible source: pulmonary and implantable device Blood cultures ordered: yes Antibiotic ordered: Yes Pertinent labs: 10/07/25 19:18 Lactic Acid 6.3 H* mMol/L (0.4-2.0) Procalcitonin 0.26 ng/ml (0.0-0.49) sepsis Orders Category Date Time Status COVID-19 Screening Questionnaire NOW Care 10/07/25 21:25 Completed Speeder Worker STAT Care 10/07/25 18:10 Active Continuous Pulse Oximetry STAT Care 10/07/25 18:10 Completed Decision to Admit X1 Care 10/07/25 21:25 Completed EKG (ED ONLY) *Do not use* NOW Care 10/07/25 18:10 Completed In and Out Catheter X1PRN Care 10/07/25 18:10 Completed Insert IV NOW Care 10/07/25 18:10 Active NPO STAT Care 10/07/25 18:10 Active Strict Intake and Output Routine Care 10/07/25 18:10 Ordered EKG (ED Only) Stat Exams 10/07/25 18:10 Draft XR chest 1V portable Stat Exams 10/07/25 18:10 Completed ABG [Arterial Blood Gas] Stat Lab 10/07/25 20:19 Completed ABG [Arterial Blood Gas] Stat Lab 10/07/25 21:41 Ordered B-Type Natriuretic Peptide Stat Lab 10/07/25 19:18 Completed Beta Hydroxybutyrate Stat Lab 10/07/25 21:40 Ordered Blood Culture (Lab) Stat Lab 10/07/25 19:15 Received CBC Stat Lab 10/07/25 19:18 Completed CMP [Comprehensive Metabolic Panel] Stat Lab 10/07/25 21:40 Ordered COVID-19 Antigen (In-House) Stat Lab 10/07/25 19:35 Completed Comprehensive Metabolic Panel Stat Lab 10/07/25 19:18 Completed LDH (Lactate Dehydrogenase) Stat Lab 10/07/25 19:18 Completed Lactate (Lactic Acid) Stat Lab 10/07/25 19:18 Results Lactate (Lactic Acid) Stat Lab 10/07/25 21:40 Ordered Lipase Stat Lab 10/07/25 19:18 Completed Magnesium Stat Lab 10/07/25 19:18 Completed Partial Thromboplastin Time Stat Lab 10/07/25 19:18 Completed Phosphorous Stat Lab 10/07/25 19:18 Completed Procalcitonin Stat Lab 10/07/25 19:18 Completed Prothrombin Time with INR Stat Lab 10/07/25 19:18 Completed Troponin I Stat Lab 10/07/25 19:18 Completed Urinalysis, C/S if Indicated Stat Lab 10/07/25 18:22 Completed ALBUTEROL RT 0.5ml [Proventil Rt 0.5ml] Med 10/07/25 18:12 Discontinued 10 mg .ROUTE .STK-MED ONE ALBUTEROL RT 0.5ml [Proventil Rt 0.5ml] Med 10/07/25 18:07 Discontinued 10 mg INH X1 ONE Azithromycin Inj [Zithromax Inj] 500 mg Med 10/07/25 19:03 Discontinued Sodium Chloride 0.9% 250 ml [Ns] 250 ml IV X1 Bumetanide Inj [Bumex Inj] Med 10/07/25 21:36 Once 1 mg IVP X1 ONE Furosemide Inj [Lasix Inj] Med 10/07/25 19:39 Discontinued 20 mg IVP X1 ONE Furosemide Inj [Lasix Inj] Med 10/07/25 20:30 Discontinued 20 mg IVP X1 ONE Furosemide Inj [Lasix Inj] Med 10/07/25 19:02 Discontinued 40 mg IVP X1 ONE Furosemide Inj [Lasix Inj] Med 10/07/25 19:24 Discontinued 60 mg IVP X1 ONE Sodium Chloride Rt Kaylah 0.9% [NS Rt Kaylah 0.9%] Med 10/07/25 18:06 Active 3 ml INH PRN PRN cefTRIAXone/D5w 1gm IV premix [Rocephin/D5w 1gm IV Med 10/07/25 19:03 Active premix] 1 gm in 50 ml IV QDAY BiPAP / CPAP NOW RT 10/07/25 18:07 Active Oxygen Delivery NOW RT 10/07/25 18:10 Active Vital Signs Vital signs: Vital Signs Pulse Rate 97 10/07/25 18:02 Respiratory Rate 31 H 10/07/25 18:02 Blood Pressure 125/89 H 10/07/25 18:02 Pulse Oximetry (%) 97 10/07/25 18:02 Discharge Plan Plan Patient Disposition: Admit Acute Care w/in Hospital Prescriptions/Referrals Prescriptions/Med Rec: No Action cilostazol 50 mg Tablet 50 mg PO QDAY aspirin 81 mg Tablet,Delayed Release (Dr/Ec) 81 mg PO QDAY levothyroxine 100 mcg Tablet 100 mcg PO QDAY omeprazole 20 mg capsule,delayed release(DR/EC) 20 mg PO QDAY Patient Comments: TAKE 1 CAPSULE BY MOUTH EVERY DAY IN THE EVENING alendronate 70 mg tablet 70 mg PO .q week Patient Comments: TAKE 1 TABLET BY MOUTH ONE TIME PER WEEK gabapentin 100 mg capsule 100 mg PO HS Patient Comments: TAKE 1 CAPSULE BY MOUTH EVERYDAY AT BEDTIME spironolactone 25 mg tablet 12.5 mg PO QDAY Patient Comments: TAKE 1/2 TABLET BY MOUTH EVERY DAY carvedilol 3.125 mg tablet 3.125 mg PO QDAY Rx Instructions: must administer with a meal/food diclofenac sodium 75 mg tablet,delayed release (DR/EC) 75 mg PO HS lorazepam 1 mg tablet 1 mg PO BID PRN (Reason: anxiety) Qty: 10 0RF amlodipine 5 mg tablet 5 mg PO QDAY Qty: 30 0RF Referrals: Sheila Leone MD [Primary Care Provider, Internal Medicine] - In 1 week Problem List Clinical Impression: Congestive heart failure Patient/Caregiver Discharge Instructions Print Language: dutch (michelle) Stand Alone Forms: Cassie Award Info., Patient Portal Info Letter MD Attestation Attestation I, Dr. Cornell, have reviewed the history, exam, and assessment of the patient. I have evaluated the patient independently and agree with the plan of care documented by the resident Dr. Winslow. All diagnostic studies were reviewed and discussed. I confirm the diagnosis as documented by the resident. I was present during the Medical Decision Making for this patient. The patient?s plan of care was created between myself and the resident and consistent with our discussion of the patient?s case. MDM Narrative MDM hospital course (for use when minimal MDM required): HPI: 89-year-old female with past medical history of symptomatic bradycardia status post pacemaker placement, CVA with right-sided residual deficits, hypothyroidism, general anxiety disorder, hypertension presented to the ED on 10/07 from home due to increased shortness of breath and altered mental status. History largely taken from patient's granddaughter who is her primary supervisor [employer] and lives with her. Per granddaughter, patient has been progressively feeling worse over the past week or so with increased shortness of breath and cough. Patient apparently at home is able to ambulate with full assistance needed but otherwise is largely bedbound. For the past week or so she has been having some coughing episodes and breathing from her mouth. Patient's granddaughter states that she took her to PCP who started the patient on Z-[place], patient only received 1 dose so far. Granddaughter decided to bring her in when she was having increased level of shortness of breath with altered mental status and unresponsiveness. On examination, patient is GCS 10 with dry mucosa noted, unable to assess any rubs, gallops or murmurs at this time on cardiac auscultation; there is no JVD noted. On lung examination there is marked bronchial breath sounds on bilateral lung pinon along with sporadic crackles. Patient is placed on noninvasive ventilation with BiPAP and received a breathing treatment which improved oxygenation saturation from the low 70s to mid 90s at this time. Palpation of the abdomen does not elicit any guarding or present tenderness and there is no organomegaly, lower extremities show no signs of edema but there is some cyanosis and mottling noted in the thighs which is mild. Patient's upper extremities are well-perfused however lower extremities somewhat cold on palpation. Differentials at this time include: Acute hypoxic respiratory failure secondary to heart failure with preserved ejection fraction, pacemaker induced heart failure, COPD exacerbation, pneumonia, sepsis Laboratory findings include leukocytosis with left shift, chronic anemia, ABG shows metabolic acidosis pH 7.26, bicarb of 13 with anion gap of 19 and compensatory respiratory alkalosis with pCO2 of 28, CMP shows hyperchloremic metabolic acidosis, BUN 47, creatinine 2.1 with a GFR of 22, lactic acid 6.3, phosphorus 7.8, liver function enzymes elevated with AST 405, ALT 258, alk phos 262 but T. bili 0.8, troponin is 1.589, BNP of 2019, urinalysis does not show any signs of infection. Chest x-ray does shows significant heart failure with superimposed significant bilateral pneumonia and large right and moderate left pleural effusions. Bedside echo shows HFrEF with apical hypokinesis noted along with mitral valve disease, IVC is measuring 1.5 cm. Hospitalist team notified regarding patient's acute hypoxic respiratory failure secondary to HFrEF, cardiogenic shock, sepsis secondary to pneumonia. Will follow-up on repeat labs including lactic acid, ABG and troponin and based off findings we will admit to either telemetry or ICU. Hospitalist team has agreed to admit the patient. Patient seen and assessed with attending Dr. Sonja Winslow, DO PGY-2 Internal Medicine - [facility] Lab(s) Interpretation(s): Laboratory findings include leukocytosis with left shift, chronic anemia, ABG shows metabolic acidosis pH 7.26, bicarb of 13 with anion gap of 19 and compensatory respiratory alkalosis with pCO2 of 28, CMP shows hyperchloremic metabolic acidosis, BUN 47, creatinine 2.1 with a GFR of 22, lactic acid 6.3, phosphorus 7.8, liver function enzymes elevated with AST 405, ALT 258, alk phos 262 but T. bili 0.8, troponin is 1.589, BNP of 2019, urinalysis does not show any signs of infection. Imaging Imaging Interpretation(s): X-ray of chest shows significant heart failure pattern with pulmonary edema noted on bilateral lung pinon, possible and likely superimposed pneumonia as well. There is also a large right and moderate left pleural effusions as also confirmed by bedside ultrasound. Medication Administration(s) Medication Administration History Bumetanide (Bumetanide Inj 0.25 Mg/Ml Vial 4 Ml) 1 mg IVP X1 ONE Stop: 10/07/25 21:37 Ceftriaxone Sodium/Dextrose (Rocephin/D5w 1gm Iv Premix) 1 gm in 50 mls @ 100 mls/hr IV QDAY BERE Stop: 10/14/25 19:02 Last Infusion: 10/07/25 20:22 Dose: Infused Documented By: Admin: 10/07/25 19:26 Dose: 100 mls/hr Documented By: GABY Sodium Chloride (Sodium Chloride Rt Kaylah 0.9% 3 Ml Nebu) 3 ml INH PRN PRN PRN Reason: SOLN Stop: 11/06/25 18:05 Discontinued Medications Albuterol (Albuterol Rt 2.5 Mg/0.5 Ml Nebu) 10 mg INH X1 ONE Stop: 10/07/25 18:08 Last Admin: 10/07/25 18:16 Dose: 10 mg Documented By: RUDI Albuterol (Albuterol Rt 2.5 Mg/0.5 Ml Nebu) Confirm Administered Dose 10 mg .ROUTE .STK-MED ONE Stop: 10/07/25 18:13 Last Admin: 10/07/25 20:30 Dose: Not Given Documented By: EE Non-Admin Reason: Override Medication Furosemide (Furosemide Inj 10 Mg/Ml 4ml Vial) 40 mg IVP X1 ONE Stop: 10/07/25 19:03 Last Admin: 10/07/25 19:20 Dose: 40 mg Documented By: GABY Furosemide (Furosemide Inj 10 Mg/Ml 4ml Vial) 20 mg IVP X1 ONE Stop: 10/07/25 20:31 Furosemide (Furosemide Inj 10 Mg/Ml 4ml Vial) 60 mg IVP X1 ONE Stop: 10/07/25 19:25 Last Admin: 10/07/25 20:30 Dose: Not Given Documented By: EE Non-Admin Reason: Cancelled by Provider Furosemide (Furosemide Inj 10 Mg/Ml 4ml Vial) 20 mg IVP X1 ONE Stop: 10/07/25 19:40 Last Admin: 10/07/25 20:21 Dose: 20 mg Documented By: GABY Azithromycin 500 mg/ Sodium (Chloride) 250 mls @ 250 mls/hr IV X1 ONE Stop: 10/07/25 20:02 Last Infusion: 10/07/25 20:30 Dose: Infused Documented By: Admin: 10/07/25 19:24 Dose: 250 mls/hr Documented By: GABY
[2025-10-07] MEDS: ALBUTEROL RT 2.5 MG/0.5 ML NEBU 10 MG INH (18:16)
--- NOTE | 2025-10-07 18:25 | PC.NURSE ---
PT BROUGHT IN BY AMBULANCE DUE TO INCREASED SOB FOR THE PAST 3DAYS AND LOW BP IN ROUTE IN THE 80 SYSTOLIC AND 600ML BOLUS GIVEN. PT ALSO BEEN INCREASED WEAK AND WAS SEEN A PMD TODAY. PT 12 LEAD WAS NEG AND PT HAS HX OF CHF AND NC AND HAS PACEMAKER. BS WAS 212. BREATHING X2 WAS GIVEN BY EMS. BP NOW IS 125/89 AND HR 96 AND SATING 92%ON OXY MASK. RT AND MD AT BEDSIDE FOR EVAL AND PT WILL BE PLACED ON BIPAP AND A CONT BREATHING TX ORDERED. PT BREATHING LABORED AND EVEN AND INCREASED WOB.
[2025-10-07 18:27] LABS: Collection Type, Urine Clean Catch; Squamous Epithelial Cell,Urine 0 /hpf (0-5)
[2025-10-07 18:42] LABS: Amorphous Crystals,Urine Present (Absent); Bilirubin,Urine Negative (Negative); Blood,Urine Negative (Negative); Clarity,Urine Turbid (Clear/Hazy); Color,Urine Yellow (Lt Yel-Yel); Culture Indicated,Urine Not Indicated; Glucose, Urine Negative (Negative); Granular Casts,Urine 2 /hpf (0-1); Hyaline Casts,Urine < 1 /hpf (0-1); Ketones,Urine Negative (Negative); Leukocyte Esterase,Urine Negative (Negative); Nitrite,Urine Negative (Negative); PH,Urine 6.0 (5.0-7.0); Protein,Urine 2+ (Neg - Trace); RBC,Urine 8 /hpf (0-3); Specific Gravity,Urine 1.027 (1.001-1.035); Urobilinogen,Urine Negative mg/dL (0.0-1.0); WBC,Urine 7 /hpf (0-5)
[2025-10-07] MEDS: FUROSEMIDE INJ 10 MG/ML 4ML VIAL 40 MG IVP (19:20)
[2025-10-07] MEDS: AZITHROMYCIN INJ 500 MG in SODIUM CHLORIDE 0.9% 250 ML 250 ML 250 MG IV (19:24)
[2025-10-07] MEDS: cefTRIAXone/D5w 1gm IV premix 1 GM/50 ML BAG IV (19:26)
[2025-10-07 19:28] LABS: Basophils # (Auto) 0.1 Thou/mm3 (0.0-0.2); Basophils % (Auto) 0 % (0-2.5); Eosinophils # (Auto) 0.0 Thou/mm3 (0.0-0.5); Eosinophils % (Auto) 0 % (0-10); Hematocrit 37.2 % (36.0-46.0); Hemoglobin 11.3 g/dL (12.0-16.0); Immature Granulocytes Auto 0.10 Thou/mm3 (0.00-0.00); Lymphocytes # (Auto) 0.9 Thou/mm3 (1.0-4.8); Lymphocytes % (Auto) 6 % (10-50); Mean Corpuscular HGB Conc 30.4 g/dl (31.0-37.0); Mean Corpuscular Hemoglobin 22.1 pg (25.0-35.0); Mean Corpuscular Volume 73 fL (80-100); Monocytes # (Auto) 1.1 Thou/mm3 (0.0-0.8); Monocytes % (Auto) 7 % (0-12); Neutrophils # (Auto) 12.8 Thou/mm3 (1.8-7.7); Neutrophils % (Auto) 85 % (37-80); Nucleated Red Blood Cell # 0.16 Thou/mm3 (0.00-0.00); Nucleated Red Blood Cell % 1 /100 WBC (0); Platelet Count 193 Thou/mm3 (140-440); RDW Standard Deviation 39.6 fL (36.4-46.3); Red Blood Count 5.11 Miln/mm3 (4.00-5.20); White Blood Count 15.0 Thou/mm3 (3.6-11.0)
[2025-10-07 19:31] LABS: Lactate (Lactic Acid) 6.3 mMol/L (0.4-2.0)
[2025-10-07 19:43] LABS: INR 1.1 (0.9-1.3); Partial Thromboplastin Time 27.7 Seconds (22.0-36.0); Prothrombin Time 12.0 Seconds (9.0-12.2)
[2025-10-07 19:55] LABS: Alanine Aminotransferase 258 U/L (10-49); Albumin, Serum 4.2 gm/dL (3.4-4.8); Albumin/Globulin Ratio 1.2 (1.2-2.2); Alkaline Phosphatase 262 U/L (46-116); Anion Gap 19 (7-16); Aspartate Amino Transferase 405 U/L (0-34); B-Type Natriuretic Peptide 2019 pg/mL (0-100); BUN/Creatinine Ratio 22 Ratio (12-20); Bilirubin,Total 0.8 mg/dL (0.3-1.2); Blood Urea Nitrogen 47 mg/dL (9-23); Calcium 8.0 mg/dL (8.3-10.6); Calcium (Corrected) 8.0 mg/dL (8.5-10.1); Chloride 110 mMol/L (98-107); Creatinine (Component) 2.1 mg/dL (0.6-1.3); Estimated Creatinine Clearance 11.6 mL/min (>60); Globulin 3.6 gm/dL (2.3-3.5); Glucose 267 mg/dL (74-106); LDH (Lactate Dehydrogenase) 643 U/L (120-246); Lipase 59 U/L (12-53); Magnesium 2.5 mg/dL (1.6-2.6); Osmolality,Calculated 304 (275-295); Phosphorous 7.8 mg/dL (2.4-5.1); Potassium 4.6 mMol/L (3.4-5.1); Procalcitonin 0.26 ng/ml (0.0-0.49); Sodium 142 mMol/L (136-145); Total Protein 7.8 gm/dL (5.7-8.2); eGFR 22 See Note
[2025-10-07 20:07] LABS: COVID-19 Antigen (In-House) Negative (Negative)
[2025-10-07 20:21] LABS: Carbon Dioxide 13.0 mMol/L (20.0-31.0); Troponin I 1.589 ng/mL (0.0-0.045)
[2025-10-07] MEDS: FUROSEMIDE INJ 10 MG/ML 4ML VIAL 20 MG IVP (20:21)
[2025-10-07 20:27] LABS: Base Excess -13 (-3-3); HCO3 13 mEq/L (20-26); Inspired Oxygen, FIO2 100 %; O2 Saturation 96 % (91-98); PCO2 28 mmHg (32.0-48.0); PO2 91 mmHg (83-108); pH, Arterial 7.26 (7.35-7.45)
[2025-10-07 20:32] LABS: Allen Test Performed/OK; Puncture Site Left Radial
[2025-10-07] MEDS: BUMETANIDE INJ 0.25 MG/ML VIAL 4 ML 1 MG IVP (22:19)
[2025-10-07 22:22] LABS: Reflex Lactate? Y
[2025-10-07 22:36] LABS: Lactic Acid, 3 HR 11.9 mMol/L (0.4-2.0)
[2025-10-07 22:38] LABS: Beta Hydroxybutyrate 0.3 mmol/L (<0.6)
[2025-10-07 22:58] LABS: Alanine Aminotransferase 305 U/L (10-49); Albumin, Serum 4.3 gm/dL (3.4-4.8); Albumin/Globulin Ratio 1.2 (1.2-2.2); Alkaline Phosphatase 277 U/L (46-116); Anion Gap 25 (7-16); Aspartate Amino Transferase 475 U/L (0-34); BUN/Creatinine Ratio 22 Ratio (12-20); Bilirubin,Total 0.6 mg/dL (0.3-1.2); Blood Urea Nitrogen 53 mg/dL (9-23); Calcium 7.8 mg/dL (8.3-10.6); Calcium (Corrected) 7.8 mg/dL (8.5-10.1); Chloride 110 mMol/L (98-107); Creatinine (Component) 2.4 mg/dL (0.6-1.3); Estimated Creatinine Clearance 10.1 mL/min (>60); Globulin 3.6 gm/dL (2.3-3.5); Glucose 229 mg/dL (74-106); Osmolality,Calculated 311 (275-295); Potassium 4.9 mMol/L (3.4-5.1); Sodium 146 mMol/L (136-145); Total Protein 7.9 gm/dL (5.7-8.2); eGFR 19 See Note
[2025-10-07 22:59] LABS: Carbon Dioxide 11.1 mMol/L (20.0-31.0); Troponin I 5.029 ng/mL (0.0-0.045)
--- NOTE | 2025-10-07 23:43 | ESHP_ITS ---
<Statement entered by Lester Garcia MD - 10/08/25 07:00> I have discussed and was present for the essential components of the history, physical examination, diagnosis, and treatment plan with the resident. I agree with the patient's care as documented by the resident and amended herein by me. I personally saw and examined the patient with the resident on 10/07/2025. I agree with the residents note, assessment and plan. I personally spent 42 minutes of critical care time in evaluation and management of this critically ill patient. Documentation for date of: 10/07/25 HPI History of Present Illness Chief complaint: Shortness of breath History of present illness: Ms. Vega is a 89-year-old female with past medical history significant for CVA with right-sided residual deficits, hypothyroidism status post thyroidectomy, type 2 diabetes mellitus, hypertension, osteoporosis, sick sinus syndrome status post permanent pacemaker presented to the ED with shortness of breath over the weekend. Per patient's granddaughter patient was breathing very heavily and decided to go see her PCP today. Patient was placed on azithromycin and ciprofloxacin and recently decreased to 4 levothyroxine dose and started her on buspirone for her increased agitation. Per patient's granddaughter, patient's vital signs were stable, and was saturating 94% on room air. Patient took her first dose of azithromycin, however after patient appeared to be less interactive than her baseline and increased shortness of breath, decided to bring patient to the ER. Most of patient's history was taken from patient's granddaughter as patient is only able to understand Wol[place] but unable to reply and has been on BiPAP, unable to participate in questions. Patient's baseline previous to the stroke was able to do most of her ADLs, after her stroke in June, patient has had residual right-sided weakness and is currently at rehab, however is mostly bedbound, but able to ambulate if needed with significant assistance. Of note, patient had initially was DNR/DNI on previous hospitalization, however after in-depth goals of care discussion, patient's family at this time agrees to change CODE STATUS to full code. ED course: Vital signs on admission?125/89, immediately on oxy mask saturating 97%, temp 98.5, respiration rate 31 Labs significant for leukocytosis with left shift, microcytic anemia, metabolic acidosis with compensation, elevated creatinine of 2.1 with a baseline of 1.2, BUN 47, glucose 267, lactic acid 6.3, elevated LFTs, lactate dehydrogenase, elevated troponin of 1.589 and elevated BNP of 2000. Beta-hydroxybutyrate negative. UA was turbid with 7 WBC, low suspicion for UTI. Imaging significant for significant heart failure, superimposed significant bilateral pneumonia and large right and left moderate pleural effusions Patient will be admitted to ICU for further management of admitted to ICU for further management of acute hypoxic respiratory failure secondary to acute decompensated heart failure and bilateral pneumonia. Review of Systems Review of Systems ROS Unobtainable: other Exam Vital Signs Temp Pulse Resp BP Pulse Ox O2 Del Method FiO2 95.8 F L 87 20 134/98 H 100 BiPAP 100 10/07/25 22:12 10/07/25 22:19 10/07/25 22:12 10/07/25 22:19 10/07/25 22:12 10/07/25 22:12 10/07/25 21:39 Narrative Exam General Appearance: Pt is a frail, cachectic female, able to mumble when off BiPAP however unable to follow commands. Patient is in moderate distress and seen on BiPAP. HEENT: NC/AT, no scleral icterus, conjunctival pallor, mucous membranes dry Lungs: Wheezing noted bilaterally as well as bronchial breath sounds throughout, decreased breath sounds mostly on the right side CVS: RRR, S1/S2 heard, no murmurs or rubs appreciated ABD: Soft, non-tender, non-distended, BS + in all 4 quadrants EXT: no deformity/edema/lesions/cyanosis/clubbing, radial pulses 2+ BL, DP pulses 1+ bilaterally SKIN: Mottling seen on upper thighs otherwise no rashes noted. Neuro: Patient is awake and alert on BiPAP. Alert and oriented x 1. Able to move extremities, however right upper and lower extremities 3 out of 5 compared to left. Psych: Appropriate mood and affect Results: Labs 10/07/25 19:18 10/07/25 22:20 Labs: Short CBC 10/07/25 Range/Units 19:18 WBC 15.0 H (3.6-11.0) Thou/mm3 Hgb 11.3 L (12.0-16.0) g/dL Hct 37.2 (36.0-46.0) % Plt Count 193 (140-440) Thou/mm3 BMP 10/07/25 10/07/25 19:18 22:20 Sodium 142 146 H Potassium 4.6 4.9 Chloride 110 H 110 H Carbon Dioxide 13.0 L* 11.1 L* BUN 47 H 53 H Creatinine 2.1 H 2.4 H Glucose 267 H 229 H Calcium 8.0 L 7.8 L Cardiac Enzymes 10/07/25 10/07/25 Range/Units 19:18 22:20 Troponin I 1.589 H* 5.029 H* D (0.0-0.045) ng/mL Liver Function 10/07/25 10/07/25 Range/Units 19:18 22:20 Total Bilirubin 0.8 0.6 (0.3-1.2) mg/dL AST 405 H 475 H (0-34) U/L ALT 258 H 305 H (10-49) U/L Alkaline Phosphatase 262 H 277 H (46-116) U/L Albumin 4.2 4.3 (3.4-4.8) gm/dL Urine 10/07/25 Range/Units 18:22 Urine Color Yellow (Lt Yel-Yel) Urine Clarity Turbid A (Clear/Hazy) Urine pH 6.0 (5.0-7.0) Ur Specific [place] 1.027 (1.001-1.035) Urine Protein 2+ A (Neg - Trace) Urine Glucose (UA) Negative (Negative) ABG Interpretation ABG results: 10/07/25 20:19 ABG pH 7.26 L ABG pCO2 28 L ABG pO2 91 ABG HCO3 13 L ABG O2 Saturation 96 ABG Base Excess -13 L Quality Measures Quality Measures sepsis Current suspected stage: sepsis Possible source: pulmonary and implantable device Blood cultures ordered: yes Antibiotic ordered: Yes Advance care planning discussed with:: patient Medications Home Medications and Allergies Home Medications ?Medication ?Instructions ?Recorded ?Confirmed ?Type aspirin 81 mg tablet,delayed 81 mg PO QDAY 05/19/21 History release cilostazol 50 mg tablet 50 mg PO QDAY 05/19/2106/17 History Held on 06/19/25. Instructions: Resume on 06/26/25. Follow up with PCP before resuming levothyroxine 100 mcg tablet 100 mcg PO QDAY 05/19/21 06/17/25 History alendronate 70 mg tablet 70 mg PO .q week 01/15/25 History omeprazole 20 mg capsule,delayed 20 mg PO QDAY 5 06/17/25 History release carvedilol 3.125 mg tablet 3.125 mg PO QDAY 06/17/25 0 06/17/25 History Held on 06/19/25. Instructions: Resume on 06/26/25. Follow up with PCP before resuming gabapentin 100 mg capsule 100 mg PO HS 06/17/25 History spironolactone 25 mg tablet 12.5 mg PO QDAY 06/17/25 0 06/17/25 History Held on 06/19/25. Instructions: Resume on 06/26/25. Follow up with PCP before resuming diclofenac sodium 75 mg 75 mg PO HS 06/19/25 5 History tablet,delayed release Allergies Allergy/AdvReac Type Severity Reaction Status Date / Time No Known Allergies Allergy Verified 05/20/21 14:26 Visit Medications Ceftriaxone Sodium/Dextrose (Rocephin/D5w 1gm Iv Premix) 1 gm in 50 mls @ 100 mls/hr IV QDAY BERE Stop: 10/14/25 19:02 Last Infusion: 10/07/25 20:22 Dose: Infused Sodium Chloride (Sodium Chloride Rt [place] 0.9% 3 Ml Nebu) 3 ml INH PRN PRN PRN Reason: SOLN Stop: 11/06/25 18:05 Discontinued Medications Albuterol (Albuterol Rt 2.5 Mg/0.5 Ml Nebu) 10 mg INH X1 ONE Stop: 10/07/25 18:08 Last Admin: 10/07/25 18:16 Dose: 10 mg Bumetanide (Bumetanide Inj 0.25 Mg/Ml Vial 4 Ml) 1 mg IVP X1 ONE Stop: 10/07/25 21:37 Last Admin: 10/07/25 22:19 Dose: 1 mg Furosemide (Furosemide Inj 10 Mg/Ml 4ml Vial) 40 mg IVP X1 ONE Stop: 10/07/25 19:03 Last Admin: 10/07/25 19:20 Dose: 40 mg Furosemide (Furosemide Inj 10 Mg/Ml 4ml Vial) 20 mg IVP X1 ONE Stop: 12/02/25 20:31 Furosemide (Furosemide Inj 10 Mg/Ml 4ml Vial) 60 mg IVP X1 ONE Stop: 10/07/25 19:25 Last Admin: 10/07/25 20:30 Dose: Not Given Furosemide (Furosemide Inj 10 Mg/Ml 4ml Vial) 20 mg IVP X1 ONE Stop: 10/07/25 19:40 Last Admin: 10/07/25 20:21 Dose: 20 mg Azithromycin 500 mg/ Sodium (Chloride) 250 mls @ 250 mls/hr IV X1 ONE Stop: 10/07/25 20:02 Last Infusion: 10/07/25 20:30 Dose: Infused Assessment & Plan Plan Ms. Vega is a 89-year-old female with past medical history significant for CVA with right-sided residual deficits, hypothyroidism status post thyroidectomy, type 2 diabetes mellitus, hypertension, osteoporosis, sick sinus syndrome status post permanent pacemaker presented to the ED with shortness of breath over the weekend and admitted to ICU for further management of acute hypoxic respiratory failure secondary to acute decompensated heart failure and bilateral pneumonia. NEURO #Hx of CVA with right-sided deficits Patient had a CVA in June 2025, and has been in rehab to improve her right sided weakness -Continue to monitor patient?s mentation, however per patient?s family members, she is at her baseline, and not altered or confused CARDIO #Acute decompensated Heart failure Patient presented with SOB and severe hypoxia requiring oxymask and BIPAP, requiring 100% FIO2, and this AM she was saturating 94% on RA Bedside echo showed an IVC of 1.5cm, not collapsible and EF about 30-35% (estimated) and significant decline since June BNP 1999+ CXR showed significant HF -Received a total of 60mg Lasix and Bumex 1mg, and UO has been about 10cc -Ordered another Bumex x 1 -Monitor troponin levels & EKG to monitor myocardial injury -Ordered Echocardiogram -Follows Dr. 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 -Restart when patient can tolerate PO -Currently NPO d/t risk of aspiration and on BIPAP PULM #AHRF 2/2 #Acute Decompensated Heart Failure #b/l pleural effusions #CAP PNA Patient presented with SOB and hypoxia in the ED. Patient doesn?t use home O2. CXR showed significant right large pleural effusion and moderate left pleural effusion as well as superimposed b/l PNA; BNP 2000+ -F/u ABG to assess hypoxia and academia -Empiric Abx (Ceftriaxone and Azithromycin) -Continue with BIPAP, titrate to SpO2 of > 90% -If patient can tolerate thoracentesis, consider, however, d/t patient?s wishes on not wanting any invasive procedures will defer for now -Monitor UO with extra Bumex dose GI/FEN #GERD Patient takes home Omeprazole. -Will order IV Pantoprazole RENAL #Acute Tubular Necrosis DDx: likely prerenal due to hypoperfusion 2/2 to HF vs post renal due to b/l pleural effusions Diagnostic test: Serum Cr, BUN, UA with FeNA, Renal US -Monitor UO -Given total of 60mg Lasix, Bumex 2mg -Avoid nephrotoxin agents -Nephrology consulted, will see if patient needs dialysis or is even a candidate #Metabolic Acidosis #Pure HAGMA #Lactic Acidosis Patient presents with acute hypoxic respiratory failure, likely due to acute decompensated heart failure (ADHF), pneumonia, and potential bilateral pleural effusions. Possible underlying sepsis. Lactic acid currently 11.9 Delta Delta calculated at 1 Diagnostic Tests: Arterial Blood Gas, bicarbonate (HCO3), Lactic acid levels, Serum Anion Gap -Address underlying cause of acidosis presumed to be hypoperfusion from ADHF and PNA with diuretics and Abx respectively -Administer sodium bicarbonate if pH <7.2 and worsening acidosis -Monitor ABG and lactate levels regularly to assess response to treatment. -Consider hemodialysis or CRRT (Continuous Renal Replacement Therapy) if renal failure is worsening -F/u with nephrology -Can consider Jha CT if patient is able to tolerate and stay still to determine if another source -Trend Lactate -Optimize tissue perfusion if needed with vasopressors, however, currently patient?s BP is stable, MAP > 65 HEME/ONC #Microcytic Anemia Patient's Hgb is 11.3 with an MCV of 73. -Continue to monitor with CBC -Transfuse if Hgb <7 ENDO #Type 2 DM Patient doesn't take any home medications at this time. BG on first labs were 267 Fingerstick is 121 -At this time will monitor with daily BG checks since patient is NPO -Goal glucose is 140-180 ID #PNA #?Sepsis Patient presented with SOB and hypoxia in the ED. Patient doesn?t use home O2. CXR showed superimposed b/l PNA; -Empiric Abx (Ceftriaxone and Azithromycin) -Continue to trend Lactic acid MSK #Osteoporosis Patient takes weekly Aledronate on med list -stable Health Maintenance: DVT prophylaxis: Heparin gtt GI prophylaxis: None Diet: NPO Vila: Yes Lines: PIV CODE STATUS: Changed from FULL CODE to DNR/DNI Had a lengthy ongoing GOC throughout the night, however, d/t progressive and rapid nature of patient's multiorgan failure and given patient's age and frailty, patient's family elected to change code status to DNR/DNI with focus on selective treatment, and are amenable to change to comfort focus if patient doesn't significantly improve with current measures. Disposition: Admitted to ICU for AHHRF 2/2 acute decompensated HF vs b/l pleural effusion vs CAP; Will later downgrade to tele. Patient's care and plan discussed with my attending, Dr. Radha Schmid, PGY-3
[2025-10-08] VITALS (46 sets, daily range): BP systolic 87–127; BP diastolic 49–86; PULSE 74–99; RESP 16–85; TEMP 36–36.8; O2SAT 72–100; BMI 18.7; BMI 21.5
[2025-10-08 00:19] LABS: Base Excess -18 (-3-3); HCO3 10 mEq/L (20-26); Inspired Oxygen, FIO2 100 %; O2 Saturation 99 % (91-98); PCO2 27 mmHg (32.0-48.0); PO2 146 mmHg (83-108)
[2025-10-08 00:22] LABS: Allen Test Performed/OK; Puncture Site Left Radial; pH, Arterial 7.20 (7.35-7.45)
[2025-10-08] MEDS: AZITHROMYCIN INJ 250 MG, Sterile Water 2.5 ML in SODIUM CHLORIDE 0.9% 250 ML 250 ML 252.5 MG IV (01:00)
--- NOTE | 2025-10-08 01:43 | PD.RESEVENT ---
Documentation for date of: 10/08/25 Event Note Event Note: I spoke with the patient and her family at the bedside regarding the patient?s goals of care, given her progressive multi-organ failure. The patient?s granddaughter, LL, who is the decision-maker, ultimately decided to proceed with DNR/DNI status. Both LL and the patient?s mother understood that without resuscitation, the patient will . LL expressed that she did not wish to prolong her grandmother?s suffering in the event of a cardiopulmonary arrest and stated that she would not want the patient to be intubated. At this time, the decision was made to proceed with selective treatment and to avoid any invasive interventions. The patient and her family were allowed time to ask questions, and the POLST form was completed and documented in the physical chart. Patient's care and plan discussed with my attending, Dr. Radha Schmid, PGY-3
[2025-10-08] MEDS: Heparin/D5w 25K 250 ML Ivpb 25,000 UNIT/250 ML BAG 4.284 UNIT IV (02:40)
[2025-10-08] MEDS: HEPARIN SOD INJ 5000 UNIT/ML VIAL 2100 UNIT IV (02:40)
[2025-10-08 04:17] LABS: Base Excess, Venous -18 (-3-3); O2 Saturation, Venous 96 % (96-97); PCO2, Venous 25 mmHg (36-56); PO2, Venous 96 mmHg (15-58); pH, Venous 7.16 (7.33-7.66)
[2025-10-08 04:24] LABS: Basophils # (Auto) 0.0 Thou/mm3 (0.0-0.2); Basophils % (Auto) 0 % (0-2.5); Eosinophils # (Auto) 0.0 Thou/mm3 (0.0-0.5); Eosinophils % (Auto) 0 % (0-10); Hematocrit 38.0 % (36.0-46.0); Hemoglobin 11.5 g/dL (12.0-16.0); Immature Granulocytes Auto 0.06 Thou/mm3 (0.00-0.00); Lymphocytes # (Auto) 0.4 Thou/mm3 (1.0-4.8); Lymphocytes % (Auto) 3 % (10-50); Mean Corpuscular HGB Conc 30.3 g/dl (31.0-37.0); Mean Corpuscular Hemoglobin 22.8 pg (25.0-35.0); Mean Corpuscular Volume 75 fL (80-100); Monocytes # (Auto) 0.8 Thou/mm3 (0.0-0.8); Monocytes % (Auto) 6 % (0-12); Neutrophils # (Auto) 11.6 Thou/mm3 (1.8-7.7); Neutrophils % (Auto) 90 % (37-80); Nucleated Red Blood Cell # 0.17 Thou/mm3 (0.00-0.00); Nucleated Red Blood Cell % 1 /100 WBC (0); Platelet Count 190 Thou/mm3 (140-440); RDW Standard Deviation 42.9 fL (36.4-46.3); Red Blood Count 5.05 Miln/mm3 (4.00-5.20); White Blood Count 12.9 Thou/mm3 (3.6-11.0)
--- NOTE | 2025-10-08 04:28 | ESPR_ITS ---
<Statement entered by Lester Garcia MD - 10/08/25 07:44> I have discussed and was present for the essential components of the history, physical examination, diagnosis, and treatment plan with the resident. I agree with the patient's care as documented by the resident and amended herein by me. Lester Garcia MD FACP <Statement entered by Jason Cadena MD - 10/08/25 07:35> 89-year-old female with significant past medical history of CVA with residual right-sided deficits, hypothyroidism, type 2 diabetes mellitus, hypertension, osteoporosis, sick sinus syndrome status post permanent pacemaker placement was brought to the hospital in view of shortness of breath since 2 days. Denies fever, nausea, vomitings, abdominal pain, pedal edema. Noted to have oxygen saturation of 97% with oxy mask. The patient oxygen requirements slowly increased, patient is started on BiPAP. Labs at the time of admission are significant for WBC 15, bicarb 13, anion gap 19, BUN 47, creatinine 2.1, glucose 267, lactate 6.3, AST 405, ALT 258, troponin 1.589. Urinalysis significant for 7 WBC. ABG showed pH 7.26, pCO2 28, bicarb 13. Chest x-ray at the time of admission showed bilateral moderate to severe vascular congestion with right- sided pleural effusion. Repeat labs done after 2 hours showed worsening in the lactate and creatinine. Patient is admitted to ICU initially for further management of suspected cardiogenic shock. Bedside echocardiogram was done and it showed IVC 1.5 cm with a EF of 30 to 35%. Later the family decided to be DNR/DNI. Patient is downgraded to floors for further management later goals of care discussion were done with the family around 5:30 AM and wished for comfort measures. Signed out to day team about all the events. Will need to start on comfort measures based on the family wishes. I have personally seen and examined the patient, agree with residents assessment and plan Patient plan of care was discussed with the attending physician, Dr. Radha Cadena, PGY2 Documentation for date of: 10/08/25 Subjective Subjective Interval history: This patient is an is a 89-year-old female with a history of CVA with residual right-sided deficits, hypothyroidism status post thyroidectomy, T2DM, hypertension, osteoporosis, sick sinus syndrome status post permanent pacemaker placement who presented to [facility] ED on 10/07 for worsening shortness of breath. The patient was initially admitted to ICU for management of acute hypoxic respiratory failure possibly requiring intubation, however family later opted for DNR/DNI, thus patient was downgraded to medical floors for further management. On patient was in the ICU, patient was started on heparin drip given the patient's NSTEMI, echocardiogram was ordered, and the patient's supervisor drapery hanging, Dr. Batres, was consulted. Bedside echo showed IVC of 1.5 cm but is not collapsible with an estimated EF of 30 to 35%. Patient received a total of 60 mg of Lasix and 1 mg of Bumex, but urine output remained low at about 10 mL/h. Discussed with patient's granddaughter regarding her desires for patient care. Possible goals of care discussion in the morning regarding comfort care. Exam Vital Signs Temp Pulse Resp BP Pulse Ox O2 Del Method FiO2 97.9 F 78 36 H 124/82 92 L BiPAP 75 10/08/25 01:00 10/08/25 02:30 10/08/25 02:30 10/08/25 01:00 10/08/25 02:30 10/08/25 01:00 10/08/25 02:55 Narrative Exam General Appearance: Pt is a frail, cachectic female, able to mumble when off BiPAP however unable to follow commands. Patient is in moderate distress and seen on BiPAP. HEENT: NC/AT, no scleral icterus, conjunctival pallor, mucous membranes dry Lungs: Wheezing noted bilaterally as well as bronchial breath sounds throughout, decreased breath sounds mostly on the right side CVS: RRR, S1/S2 heard, no murmurs or rubs appreciated ABD: Soft, non-tender, non-distended, BS + in all 4 quadrants EXT: no deformity/edema/lesions/cyanosis/clubbing, radial pulses 2+ BL, DP pulses 1+ bilaterally SKIN: Mottling seen on upper thighs otherwise no rashes noted. Neuro: Patient is awake and alert on BiPAP. Alert and oriented x 1. Able to move extremities, however right upper and lower extremities 3 out of 5 compared to left. Psych: Appropriate mood and affect Objective Labs 10/07/25 19:18 10/07/25 22:20 Labs: Laboratory Results - last 24 hr 10/07/25 10/07/25 10/07/25 18:22 19:18 19:35 WBC 15.0 H RBC 5.11 Hgb 11.3 L Hct 37.2 MCV 73 L MCH 22.1 L MCHC 30.4 L RDW Std Deviation 39.6 Plt Count 193 Neut % (Auto) 85 H Lymph % (Auto) 6 L [place] % (Auto) 7 Eos % (Auto) 0 Baso % (Auto) 0 Neut # (Auto) 12.8 H Lymph # (Auto) 0.9 L [place] # (Auto) 1.1 H Eos # (Auto) 0.0 Baso # (Auto) 0.1 Immature Gran # (Auto) 0.10 H Absolute Nucleated RBC 0.16 H Immature Gran % 1 H Nucleated RBC % 1 H PT 12.0 INR 1.1 APTT 27.7 Puncture Site ABG pH ABG pCO2 ABG pO2 ABG HCO3 ABG O2 Saturation ABG Base Excess VBG pH VBG pCO2 VBG pO2 VBG O2 Sat (Anne) VBG Base Excess FiO2 Sodium 142 Potassium 4.6 Chloride 110 H Carbon Dioxide 13.0 L* Anion Gap 19 H BUN 47 H Creatinine 2.1 H Estim Creat Clear Calc 11.6 L eGFR 22 L BUN/Creatinine Ratio 22 H Glucose 267 H Calculated Osmolality 304 H Lactic Acid 6.3 H* Calcium 8.0 L Corrected Calcium 8.0 L Phosphorus 7.8 H Magnesium 2.5 Total Bilirubin 0.8 AST 405 H ALT 258 H Alkaline Phosphatase 262 H Lactate Dehydrogenase 643 H Troponin I 1.589 H* B-Natriuretic Peptide 2019 H* Total Protein 7.8 Albumin 4.2 Globulin 3.6 H Albumin/Globulin Ratio 1.2 Lipase 59 H Beta-Hydroxybutyrate/Acetoacetate Procalcitonin 0.26 Ur Collection Type Clean Catch Urine Color Yellow Urine Clarity Turbid A Urine pH 6.0 Ur Specific [place] 1.027 Urine Protein 2+ A Urine Glucose (UA) Negative Urine Ketones Negative Urine Blood Negative Urine Nitrite Negative Urine Bilirubin Negative Urine Urobilinogen (Auto) Negative Ur Leukocyte Esterase Negative Urine RBC 8 H Urine WBC 7 H Ur Squamous Epith Cells 0 Amorphous Crystals Present A Urine Bacteria None Hyaline Casts < 1 Granular Casts 2 H Ur Culture Indicated? Not Indicated SARS-CoV-2 Ag (Rapid) Negative 10/07/25 10/07/2525 20:19 22:20 00:13 WBC RBC Hgb Hct MCV MCH MCHC RDW Std Deviation Plt Count Neut % (Auto) Lymph % (Auto) [place] % (Auto) Eos % (Auto) Baso % (Auto) Neut # (Auto) Lymph # (Auto) [place] # (Auto) Eos # (Auto) Baso # (Auto) Immature Gran # (Auto) Absolute Nucleated RBC Immature Gran % Nucleated RBC % PT INR APTT Puncture Site Left Radial Left Radial ABG pH 7.26 L 7.20 L ABG pCO2 28 L 27 L ABG pO2 91 146 H D ABG HCO3 13 L 10 L ABG O2 Saturation 96 99 H ABG Base Excess -13 L -18 L VBG pH VBG pCO2 VBG pO2 VBG O2 Sat (Anne) VBG Base Excess FiO2 100 100 Sodium 146 H Potassium 4.9 Chloride 110 H Carbon Dioxide 11.1 L* Anion Gap 25 H BUN 53 H Creatinine 2.4 H Estim Creat Clear Calc 10.1 L eGFR 19 L BUN/Creatinine Ratio 22 H Glucose 229 H Calculated Osmolality 311 H Lactic Acid 11.9 H* Calcium 7.8 L Corrected Calcium 7.8 L Phosphorus Magnesium Total Bilirubin 0.6 AST 475 H ALT 305 H Alkaline Phosphatase 277 H Lactate Dehydrogenase Troponin I 5.029 H* D B-Natriuretic Peptide Total Protein 7.9 Albumin 4.3 Globulin 3.6 H Albumin/Globulin Ratio 1.2 Lipase Beta-Hydroxybutyrate/Acetoacetate 0.3 Procalcitonin Ur Collection Type Urine Color Urine Clarity Urine pH Ur Specific [place] Urine Protein Urine Glucose (UA) Urine Ketones Urine Blood Urine Nitrite Urine Bilirubin Urine Urobilinogen (Auto) Ur Leukocyte Esterase Urine RBC Urine WBC Ur Squamous Epith Cells Amorphous Crystals Urine Bacteria Hyaline Casts Granular Casts Ur Culture Indicated? SARS-CoV-2 Ag (Rapid) 10/08/25 03:26 WBC RBC Hgb Hct MCV MCH MCHC RDW Std Deviation Plt Count Neut % (Auto) Lymph % (Auto) [place] % (Auto) Eos % (Auto) Baso % (Auto) Neut # (Auto) Lymph # (Auto) [place] # (Auto) Eos # (Auto) Baso # (Auto) Immature Gran # (Auto) Absolute Nucleated RBC Immature Gran % Nucleated RBC % PT INR APTT Puncture Site ABG pH ABG pCO2 ABG pO2 ABG HCO3 ABG O2 Saturation ABG Base Excess VBG pH 7.16 L VBG pCO2 25 L VBG pO2 96 H VBG O2 Sat (Anne) 96 VBG Base Excess -18 L FiO2 Sodium Potassium Chloride Carbon Dioxide Anion Gap BUN Creatinine Estim Creat Clear Calc eGFR BUN/Creatinine Ratio Glucose Calculated Osmolality Lactic Acid Calcium Corrected Calcium Phosphorus Magnesium Total Bilirubin AST ALT Alkaline Phosphatase Lactate Dehydrogenase Troponin I B-Natriuretic Peptide Total Protein Albumin Globulin Albumin/Globulin Ratio Lipase Beta-Hydroxybutyrate/Acetoacetate Procalcitonin Ur Collection Type Urine Color Urine Clarity Urine pH Ur Specific [place] Urine Protein Urine Glucose (UA) Urine Ketones Urine Blood Urine Nitrite Urine Bilirubin Urine Urobilinogen (Auto) Ur Leukocyte Esterase Urine RBC Urine WBC Ur Squamous Epith Cells Amorphous Crystals Urine Bacteria Hyaline Casts Granular Casts Ur Culture Indicated? SARS-CoV-2 Ag (Rapid) ABG Interpretation ABG results: 10/07/25 10/08/25 10/08/25 20:19 00:13 03:26 ABG pH 7.26 L 7.20 L ABG pCO2 28 L 27 L ABG pO2 91 146 H D ABG HCO3 13 L 10 L ABG O2 Saturation 96 99 H ABG Base Excess -13 L -18 L VBG pH 7.16 L VBG pCO2 25 L VBG pO2 96 H VBG Base Excess -18 L Quality Measures Quality Measures sepsis Current suspected stage: sepsis Possible source: pulmonary and implantable device Blood cultures ordered: yes Antibiotic ordered: Yes Advance care planning discussed with:: patient Assessment & Plan Assessment Current Active Medications: Generic Name Dose Route Start Last Admin Trade Name Freq PRN Reason Stop Dose Admin Ceftriaxone Sodium/Dextrose 1 gm in 50 mls @ 100 mls/hr 10/07/25 19:03 10/07/25 20:22 Rocephin/D5w 1gm Iv Premix IV 10/14/25 19:02 Infused QDAY BERE Infusion Azithromycin 250 mg/ Sterile 252.5 mls @ 252.5 mls/hr 10/08/25 00:06 10/08/25 01:00 Water 2.5 ml/ Sodium Chloride IV 10/15/25 00:05 252.5 mls/hr QDAY BERE Administration Heparin Sodium/Dextrose 25,000 unit in 250 mls @ 4.284 mls/hr 10/08/25 01:15 10/08/25 02:40 Heparin In D5w Ivpb IV 10/22/25 01:14 12 units/kg/hr .Q24H BERE 4.284 mls/hr Protocol Administration 12 UNITS/KG/HR Sodium Chloride 3 ml 10/07/25 18:06 Sodium Chloride Rt [place] 0.9% 3 Ml Nebu INH 11/06/25 18:05 PRN PRN SOLN Plan This patient is an is a 89-year-old female with a history of CVA with residual right-sided deficits, hypothyroidism status post thyroidectomy, T2DM, hypertension, osteoporosis, sick sinus syndrome status post permanent pacemaker placement who presented to [facility] ED on 10/07 for worsening shortness of breath. The patient was initially admitted to ICU for management of acute hypoxic respiratory failure possibly requiring intubation, however family later opted for DNR/DNI, thus patient was downgraded to medical floors for further management. #Acute hypoxic respiratory failure #Acute decompensated heart failure #Bilateral pleural effusions Patient noted to have desaturations in ED requiring BiPAP to maintain O2 sats above 92%. Patient has no reported use of oxygen at home. Of note, the patient has prominent vascular congestion and perihilar edema on chest x-ray taken in the ED and bedside echocardiogram suggest LV reduced ejection fraction estimated to be about 30 to 35% even though the patient's most recent echocardiogram on 06/15/2025 showed an LV ejection fraction of 60%. DDx: Community acquired pneumonia, cardiogenic shock Diagnostics: Chest x-ray done in ED shows significant heart failure with bilateral pleural effusions and possible superimposed bilateral pneumonia Patient remained afebrile in ED WBC initially elevated at 15.0 Patient's respiratory rate on presentation 31, continued to be elevated on BiPAP ABG on admission pH of 7.26, pCO2 28, PaO2 91, and bicarb 13 Treatment: Ceftriaxone and azithromycin Continue with BiPAP therapy 60 mg of Lasix and 2 mg of Bumex given, urine output continues to be minimal Echocardiogram ordered, pending Can consider cardiology consult with patient's supervisor drapery hanging, Dr. Batres Will avoid intubation as patient is DNR/DNI #High anion gap metabolic acidosis #Lactic acidosis Diagnostic: Patient noted to have a decreased bicarb with a elevated anion gap and although daughter ratio of 1.0, suggesting a pure anion gap. Likely secondary to lactic acidosis given that the patient has had uptrending lactic acid, suggesting hypoperfusion. Diagnostic: Bicarb on downgrade 11.1 Lactic acid on downgrade 11.9 Treatment: Manage underlying acute hypoxic respiratory failure Consider eventual dialysis if patient continues to have poor urine output and worsening electrolytes #NSTEMI, type I vs type II Patient noted to have elevated troponins on admission without any complaints of chest pain. EKG done initially did not show any acute ST abnormalities. Diagnostic: Troponins initially uptrending from 1.589 to 10.454 Treatment: Heparin drip Possibly type II related to patient's acute toxic respiratory failure #Acute kidney injury Right others Guerrero stuff that patient noted to have minimal urine output with elevated creatinine of 2.4 on downgrade to medical floors. Treatment: Likely secondary to hypoperfusion from acute hypoxic respiratory failure, manage underlying acute hypoxic respiratory failure If patient continues to worsen and does not respond to further treatment, consider nephrology consult #Transaminitis Patient noted to have elevated AST of 475 and ALT of 305 on downgrade from ICU. Total bilirubin within normal limits. Likely secondary from hypoperfusion from the acute hypoxic respiratory failure. Treatment: Manage underlying acute hypoxic respiratory failure Avoid hepatotoxic medication #Anemia, microcytic Patient noted to have hemoglobin of 11.3 in ED with MCV of 73, noted to be chronic, so likely secondary to iron deficiency anemia. Treatment: Consider iron panel Patient to follow-up with outpatient #Non-insulin dependent type 2 diabetes mellitus Patient noted to have a history of T2DM. Treatment: SSI Bedside glucose checks #History of CVA with residual right sided deficits Patient noted to have a history of CVA with residual right-sided deficits. Patient was previously admitted back in June of this year for management of this condition. Patient was discharged with aspirin and Plavix and has completed physical rehabilitation for this condition. Treatment: Patient to follow-up with outpatient neurology #Sick sinus syndrome s/p pacemaker placement Patient noted to have a history of sick sinus syndrome and is status post pacemaker placement by her supervisor drapery hanging, Dr. Batres. Treatment: Continue to monitor #History of hypertension #History of hyperlipidemia #History of osteoporosis #History of GERD Patient noted to have a history of these medical conditions. Will resume appropriate home medications. DVT Prophylaxis: Heparin gtt GI Prophylaxis: Protonix daily Bowel: N/A Diet: NPO Vila: Yes Lines: PIV Antibiotics: Ceftriaxone and Azithromycin Code Status: DNR/DNI Reason for Hospitalization: AHRF Other Barriers to Discharge: Oxygen requirements Patient plan of care was discussed with the senior resident Dr. Cadena (PGY-2) and attending physician Dr. Radha Contreras, PGY1
[2025-10-08] MEDS: Sodium Bicarb Inj 8.4% SYR 50 ML SYRINGE IV (04:34)
[2025-10-08] MEDS: BUMETANIDE INJ 0.25 MG/ML VIAL 4 ML 1 MG IVP (05:26)
[2025-10-08 05:36] LABS: Lactate (Lactic Acid) 12.2 mMol/L (0.4-2.0)
[2025-10-08 05:40] LABS: Allen Test Performed/OK; Base Excess -11 (-3-3); HCO3 14 mEq/L (20-26); Inspired O2, VO2 Liters 100 L/min; Inspired Oxygen, FIO2 75 %; O2 Saturation 98 % (91-98); PCO2 30 mmHg (32.0-48.0); PO2 94 mmHg (83-108); Puncture Site Left Radial; pH, Arterial 7.28 (7.35-7.45)
[2025-10-08 05:50] LABS: Magnesium 2.5 mg/dL (1.6-2.6)
[2025-10-08 05:55] LABS: Troponin I 10.454 ng/mL (0.0-0.045)
[2025-10-08 06:21] LABS: Alanine Aminotransferase 322 U/L (10-49); Albumin, Serum 4.0 gm/dL (3.4-4.8); Alkaline Phosphatase 254 U/L (46-116); Aspartate Amino Transferase 483 U/L (0-34); BUN/Creatinine Ratio 20 Ratio (12-20); Bilirubin,Total 0.5 mg/dL (0.3-1.2); Blood Urea Nitrogen 55 mg/dL (9-23); Calcium 7.7 mg/dL (8.3-10.6); Calcium (Corrected) 7.7 mg/dL (8.5-10.1); Chloride 111 mMol/L (98-107); Creatinine (Component) 2.7 mg/dL (0.6-1.3); Estimated Creatinine Clearance 8.0 mL/min (>60); Glucose 172 mg/dL (74-106); Potassium 5.6 mMol/L (3.4-5.1); Sodium 146 mMol/L (136-145); eGFR 16 See Note
[2025-10-08 06:22] LABS: Osmolality,Calculated 309 (275-295)
[2025-10-08 06:23] LABS: Anion Gap 25 (7-16)
[2025-10-08 06:25] LABS: Carbon Dioxide < 10.0 mMol/L (20.0-31.0)
[2025-10-08 06:52] LABS: Reflex Lactate? Y
[2025-10-08] MEDS: MORPHINE SULF INJ 4 MG/ML VIAL 0.5 MG IVP ×2 (06:53→08:42)
[2025-10-08 08:48] LABS: Albumin/Globulin Ratio 1.0 (1.2-2.2); Globulin 4.2 gm/dL (2.3-3.5); Total Protein 8.2 gm/dL (5.7-8.2)
--- NOTE | 2025-10-08 09:09 | PC.SS ---
Update: Plan is to transition the patient to comfort care measures.
--- NOTE | 2025-10-08 11:50 | PC.SS ---
WEB APPLICATION DEVELOPER confirmed with patient's granddaughter Elyse Albarran) and daughter (Emy Avila) plan to transition the patient to hospice services. Family requesting that patient be transitioned home. Preferred hospice agency is [facility]. WEB APPLICATION DEVELOPER updated attending and bedside nurse.
--- NOTE | 2025-10-08 11:52 | PC.SS ---
GROOVER AND STRIPER OPERATOR submitted hospice referral via [facility]. Preferred agency is [facility]. Pending response.
[2025-10-08 12:46] LABS: Thyroid Stimulating Hormone 2.83 uIU/mL (0.55-4.78)
--- NOTE | 2025-10-08 13:55 | PC.SS ---
Transport schedulded for 4:30 pm today. Patient to d/c home with [facility]. MMA FIGHTER updated family, hospice agency and bedside nurse.
--- NOTE | 2025-10-08 14:05 | ESDS_ITS ---
<Statement entered by Reena Elizondo MD - 10/20/25 09:17> I reviewed above note and agree with findings and plans. I have also personally examined the patient with medicine team and went over assessment and plan with medical team including internet ecommerce specialist and resident physician. Planned Discharge Date 10/08/25 DS: Providers Provider Date of admission: 10/07/25 22:46 Primary care physician: Sheila Leone MD Admitting Provider: Lester Garcia MD Attending Provider on Admission: Lester Garcia MD Consults: 10/08/25 00:23 Consult to Nephrology Routine Comment: Consulting Provider: Valarie Healy 10/08/25 06:11 Referral [facility] Routine Comment: 10/08/25 10:33 Referral Hospice Stat Comment: Attending Provider on DC: Reena Elizondo MD Discharging Provider: Beth Watson MD DS: Diagnosis Problem List Completed Was Problem List Reviewed/Reconciled?: Yes Hospital Course Hospital Course Hospital course: 89-year-old female with a complex medical history, presented with worsening shortness of breath, low oxygen saturation, and suspected acute hypoxic respiratory failure. The patient?s clinical status rapidly deteriorated, req uiring BiPAP for respiratory support and aggressive diuresis for suspected heart failure. Upon admission, the patient was placed on BiPAP and diuretics to manage acute heart failure. Bedside echocardiogram showed a left ventricular ejection fraction of 30-35%, which was a significant decline from her prior echocardiogram showing an ejection fraction of 60%. The patient?s condition continued to worsen with minimal improvement in urine output despite 60 mg of Lasix and 2 mg of Bumex. Her labs were significant for elevated lactate (6.3) and creatinine (2.1), suggesting worsening organ perfusion. A cardiology consultation confirmed the suspicion of acute heart failure, and a heparin drip was initiated for an NSTEMI. After extensive discussions with the family, the decision was made to transition the patient to Hospice at home. The family opted for a DNR/DNI status, and the patient was downgraded to the medical floor for continued comfort-focused management. The patient?s condition was closely monitored, and comfort measures were provided. No further aggressive interventions, including dialysis or invasive procedures, were pursued. Discharge Diagnosis: #Acute hypoxic respiratory failure #Acute decompensated heart failure #Bilateral pleural effusions #Acute kidney injury (likely secondary to hypoperfusion) #NSTEMI (Type II, likely secondary to acute respiratory failure) #Lactic acidosis #Transaminitis #Chronic microcytic anemia (likely iron deficiency) #Type 2 diabetes mellitus #History of CVA with residual right-sided deficits #Sick sinus syndrome, status post permanent pacemaker placement Discharge Instructions: -Pain Management: Continue pain management with appropriate analgesics as needed for comfort. -Oxygen Therapy: Continue oxygen therapy as needed for comfort. -Positioning: Assist with positioning to minimize discomfort and prevent pressure sores. -Fluid Management: Provide fluids as needed for comfort; avoid unnecessary hydration interventions. -Nutritional Support: Patient is NPO; offer alternative feeding if necessary for comfort. -Psychosocial Support: Provide emotional support to the family and involve them in care decisions. -Family Support: Notify hospice team of any changes in condition; bereavement support available. -Medications: Continue prescribed medications for symptom management; adjust as needed for comfort. -Follow-up with Hospice Team: Hospice team will monitor patient and adjust care plans as necessary. ----- Plan discussed with attending physician Dr. Caro Watson MD PGY-1 Internal Medicine Time Spent with Patient Time attestation: Total time spent providing and/or coordinating discharge services: Time spent: Greater than 30 minutes Exam Vital Signs Temp Pulse Resp BP Pulse Ox O2 Del Method O2 Flow Rate 97.2 F 81 35 H 123/82 89 L Nasal Cannula 5 10/08/25 12:00 10/08/25 12:00 10/08/25 12:00 10/08/25 12:00 10/08/25 12:00 10/08/25 11:06 10/08/25 11:06 FiO2 75 10/08/25 06:29 Narrative Exam General Appearance: Pt is a frail, cachectic female, able to mumble when off BiPAP however unable to follow commands. Patient is in moderate distress and seen on BiPAP. HEENT: NC/AT, no scleral icterus, conjunctival pallor, mucous membranes dry Lungs: Wheezing noted bilaterally as well as bronchial breath sounds throughout, decreased breath sounds mostly on the right side CVS: RRR, S1/S2 heard, no murmurs or rubs appreciated ABD: Soft, non-tender, non-distended, BS + in all 4 quadrants EXT: no deformity/edema/lesions/cyanosis/clubbing, radial pulses 2+ BL, DP pulses 1+ bilaterally SKIN: Mottling seen on upper thighs otherwise no rashes noted. Neuro: Patient is awake and alert on BiPAP. Alert and oriented x 1. Able to move extremities, however right upper and lower extremities 3 out of 5 compared to left. Psych: Appropriate mood and affect Discharge Plan Plan Patient Disposition: Home w/HOSPICE Care Plan Goals: Discharge Instructions: -Pain Management: Continue pain management with appropriate analgesics as needed for comfort. -Oxygen Therapy: Continue oxygen therapy as needed for comfort. -Positioning: Assist with positioning to minimize discomfort and prevent pressure sores. -Fluid Management: Provide fluids as needed for comfort; avoid unnecessary hydration interventions. -Nutritional Support: Patient is NPO; offer alternative feeding if necessary for comfort. -Psychosocial Support: Provide emotional support to the family and involve them in care decisions. -Family Support: Notify hospice team of any changes in condition; bereavement support available. -Medications: Continue prescribed medications for symptom management; adjust as needed for comfort. -Follow-up with Hospice Team: Hospice team will monitor patient and adjust care plans as necessary. Prescriptions/Referrals Prescriptions/Med Rec: Continued cilostazol 50 mg Tablet 50 mg PO QDAY aspirin 81 mg Tablet,Delayed Release (Dr/Ec) 81 mg PO QDAY levothyroxine 100 mcg Tablet 100 mcg PO QDAY omeprazole 20 mg capsule,delayed release(DR/EC) 20 mg PO QDAY Patient Comments: TAKE 1 CAPSULE BY MOUTH EVERY DAY IN THE EVENING alendronate 70 mg tablet 70 mg PO .q week Patient Comments: TAKE 1 TABLET BY MOUTH ONE TIME PER WEEK gabapentin 100 mg capsule 100 mg PO HS Patient Comments: TAKE 1 CAPSULE BY MOUTH EVERYDAY AT BEDTIME spironolactone 25 mg tablet 12.5 mg PO QDAY Patient Comments: TAKE 1/2 TABLET BY MOUTH EVERY DAY carvedilol 3.125 mg tablet 3.125 mg PO QDAY Rx Instructions: must administer with a meal/food diclofenac sodium 75 mg tablet,delayed release (DR/EC) 75 mg PO HS lorazepam 1 mg tablet 1 mg PO BID PRN (Reason: anxiety) Qty: 10 0RF amlodipine 5 mg tablet 5 mg PO QDAY Qty: 30 0RF Referrals: Sheila Leone MD [Primary Care Provider, Internal Medicine] Patient/Caregiver Discharge Instructions Print Language: llocano (lloko) Stand Alone Forms: Cassie Award Info., Patient Portal Info Letter Discharge Order Discharge Orders: Discharge (Routine); Ordered 10/08/25 Ordered By: Beth Watson Quality Discharge Quality Measures VTE prophylaxis
--- NOTE | 2025-10-08 15:21 | PC.NURSE ---
per okay to leave mandel catheter in place
== END 2025-10-08 16:26 | disposition hospice, home (50) | DRG 280 ==
LOC: SERX 22:17 → S2SX 10-08 06:18 → SERHOLD 10-08 08:56 → S2SX 10-08 08:56
PROVIDERS: Student in an Organized Health Care Education/Training Program; Admitting Provider Internal Medicine; Emergency Provider Emergency Medicine; PCP Internal Medicine; Visit Provider Internal Medicine
DX: I11.0 Hypertensive heart disease with heart failure (principal); I50.33 Acute on chronic diastolic (congestive) heart failure; I21.A1 Myocardial infarction type 2; J96.01 Acute respiratory failure with hypoxia; J18.9 Pneumonia, unspecified organism; N17.0 Acute kidney failure with tubular necrosis; R57.0 Cardiogenic shock; E89.0 Postprocedural hypothyroidism; F41.1 Generalized anxiety disorder; E11.9 Type 2 diabetes mellitus without complications; K21.9 Gastro-esophageal reflux disease without esophagitis; Z66 Do not resuscitate; D50.9 Iron deficiency anemia, unspecified; M81.0 Age-related osteoporosis without current pathological fracture; R74.01 Elevation of levels of liver transaminase levels; I69.30 Unspecified sequelae of cerebral infarction; R54 Age-related physical debility; E78.5 Hyperlipidemia, unspecified; I49.5 Sick sinus syndrome; Z51.5 Encounter for palliative care; Z74.01 Bed confinement status; Z95.0 Presence of cardiac pacemaker; Z79.83 Long term (current) use of bisphosphonates
CPT/HCPCS: 36415; 36600; 51701; 71045; 80053; 81001; 82010; 82803; 83605; 83615; 83690; 83735; 83880; 84100; 84145; 84443; 84484; 85025; 85610; 85730; 87040; 87081; 87811; 93005; 94644; 94660; 96365; 96375; 96376; 99291; 99292; A4216; J0456; J0696; J1644; J1938; J2270; J3490; J7050